=== PATIENT | male | born 1940 | race African-American/Black ===

== ENCOUNTER 2017-05-19 18:38 | Inpatient (IN) | payer MEDICARE ==
[~2017-05-19] VITALS: Ht 172.7 cm; Wt 95.3 kg
[~2017-05-19 18:38] MED LIST: AMARYL1 MG ORAL; ASPIR-LOW81 MG ORAL; DIOVAN80 MG ORAL; LIPITOR80 MG ORAL; METOPROLOL TART25 MG ORAL; PROSCAR5 MG ORAL; TAMSULOSIN HCL0.4 MG ORAL; TOUJEO SOL300 UNIT/1 SQ; VITAMIN D35000 UNIT PO; ZETIA10 MG ORAL
[2017-05-19] MEDS ORDERED: AMLODIPINE BESYL5 MG ORAL (19:11)
[2017-05-19] MEDS ORDERED: CITALOPRAM HBR20 M1 ORAL (19:12)
[2017-05-19] MEDS ORDERED: PLAVIX75 MG ORAL (19:13)
[2017-05-19] MEDS ORDERED: DOCUSATE SODIU100 MG ORAL (19:14)
[2017-05-19] MEDS ORDERED: HYDRALAZINE HCL25 M1 ORAL (19:17)
[2017-05-19] MEDS ORDERED: NOVOLOG100 UNIT/3 (19:19)
[2017-05-19] MEDS ORDERED: LANTUS SOL100 UNIT/1 SUBQ (19:21)
[2017-05-19] MEDS ORDERED: LEVEMIR100 UNIT/1 SUBQ (19:22)
[2017-05-19] MEDS ORDERED: LOSARTAN POTASS25 MG ORAL (19:23)
[2017-05-19] MEDS ORDERED: NAMENDA10 MG ORAL (19:24)
[2017-05-19] MEDS ORDERED: MULTIVITAMINS1 EAC8 ORAL (19:25)
[2017-05-19] MEDS ORDERED: METOPROLOL TART50 M1 ORAL (19:25)
[2017-05-19] MEDS ORDERED: PERIGUARD OINT100 GM TP (19:27)
[2017-05-19 19:28] LABS: ANION GAP 12 mmol/L (5-15); CALCIUM 9.9 MG/DL (8.5-10.1); CARBON DIOXIDE 21 MMOL/L (21-32); CHLORIDE 119 MMOL/L (98-107); CREATININE 5.4 MG/DL (0.55-1.30); POTASSIUM 5.3 MMOL/L (3.5-5.1); SODIUM 152 MMOL/L (136-145)
[2017-05-19] MEDS ORDERED: JANUVIA50 MG ORAL (19:28)
[2017-05-19 19:38] LABS: ALANINE AMINOTRANSFERASE 65 U/L (12-78); ALBUMIN/GLOBULIN RATIO 0.5 (1.0-2.7); ASPARTATE AMINO TRANSFERASE 35 U/L (15-37); CKMB 7.5 NG/ML (0.0-3.6); MAGNESIUM 3.2 MG/DL (1.8-2.4); TOTAL PROTEIN 6.5 G/DL (6.4-8.2)
[2017-05-19 19:48] LABS: REFLEX LACTIC ACID YES OR NO YES
[2017-05-19 20:13] LABS: MEAN CORPUSCULAR HGB CONC 28.9 G/DL (32.0-36.0); MEAN CORPUSCULAR VOLUME 90 FL (80-99); MEAN PLATELET VOLUME 7.3 FL (6.5-10.1); PLATELET COUNT 247 K/UL (150-450); RED BLOOD COUNT 2.84 M/UL (4.70-6.10); RED CELL DISTRIBUTION WIDTH 17.4 % (11.6-14.8); WHITE BLOOD COUNT 13.7 K/UL (4.8-10.8)
[2017-05-19 20:52] LABS: APPEARANCE,URINE SLIGHTLY CLOUDY; KETONES,URINE NEGATIVE (NEGATIVE); LEUKOCYTE ESTERASE ,URINE 1+ (NEGATIVE); NITRITE,URINE NEGATIVE (NEGATIVE); PH,URINE 5 (4.5-8.0); PROTEIN,URINE 3+ (NEGATIVE); UROBILINOGEN,URINE NORMAL MG/DL (0.0-1.0)
[2017-05-19 21:05] LABS: LYMPHOCYTES % (MANUAL) 17 % (20-45); NEUTROPHILS % (MANUAL) 82 % (45-75); TOTAL CELLS COUNTED 100
[2017-05-19 21:06] LABS: ANISOCYTOSIS 1+
[2017-05-19 21:07] LABS: BAND NEUTROPHILS % (MANUAL) 0 % (0-8); BASOPHILS % (MANUAL) 0 % (0-2); EOSINOPHILS % (MANUAL) 0 % (0-3); PLATELET ESTIMATE ADEQUATE; PLATELET MORPHOLOGY NORMAL; POIKILOCYTOSIS 1+; POLYCHROMASIA 1+
[2017-05-19 21:13] LABS: BACTERIA,URINE FEW /HPF
[2017-05-19 21:14] LABS: AMORPHOUS SEDIMENT,UR MODERATE /LPF
[2017-05-19 21:15] VITALS: BP 101/63
[2017-05-19] MEDS ORDERED: cefTRIAXone 1 GM in NS 55 ML IVPB ONE (21:30)
[2017-05-19] MEDS ORDERED: Miralax 17gm pkt ORAL PRN (21:45)
[2017-05-19] MEDS ORDERED: Nitroglycerin Subl 0.4mg tab SL PRN (21:45)
[2017-05-19] MEDS ORDERED: Albuterol/Ipratropium 3ml neb HHN PRN (21:45)
[2017-05-19] MEDS ORDERED: Mylanta II UD 30ml ORAL PRN (21:45)
[2017-05-19] MEDS ORDERED: Sodium Polystyrene Sulfonate Enema RECTAL ONE (22:00)
[2017-05-19 22:21] VITALS: BP 95/50
--- NOTE | 2017-05-19 22:28 | Emergency Room Report ---
History of Present Illness General Chief Complaint: General Complaint Source: Medical Record Present Illness HPI 76-year-old M presents ED for evaluation. Per EMS [facility] Starting today. Accu-Chek also critically high. Patient has history of diabetes and they are having difficulty controlling the blood sugar. Arrival patient is lethargic and not answering questions. Unable to provide any additional history. No fevers or chills. No signs of distress. No other aggravating factors. No other associated symptoms Allergies: Coded Allergies: No Known Allergies (Unverified , 12/28/15) Patient History Past Medical History: DM, HTN, CVA/TIA Pertinent Family History: none Social History: Denies: smoking, alcohol use, drug use Immunizations: UTD Reviewed Nursing Documentation: PMH: Agreed, PSxH: Agreed Nursing Documentation-PMH Past Medical History: No History, Except For Hx Hypertension: Yes Hx Diabetes: Yes Hx Cancer: Yes - Prostate CA Hx Gastrointestinal Problems: No Hx Neurological Problems: Yes Hx Cerebrovascular Accident: Yes Review of Systems All Other Systems: limited Physical Exam Vital Signs Date Time Temp Pulse Resp B/P (MAP) Pulse Ox O2 Delivery O2 Flow Rate FiO2 05/19/17 18:32 97.9 75 16 90/43 96 Room Air Sp02 EP Interpretation: reviewed, normal General Appearance: lethargic Head: normocephalic Eyes: bilateral eye normal inspection, bilateral eye PERRL ENT: normal ENT inspection Neck: normal inspection Respiratory: chest non-tender, lungs clear, normal breath sounds, speaking full sentences Cardiovascular #1: regular rate, rhythm, no edema Gastrointestinal: normal bowel sounds, non tender, soft, non-distended, no guarding, no rebound Rectal: deferred Genitourinary: no CVA tenderness Musculoskeletal: normal inspection Neurologic: other - lethargic Psychiatric: other - lethargic Skin: normal inspection Lymphatic: normal inspection Procedures Critical Care Time Critical Care Time i. I feel this is a highly complex case requiring extensive working including EKG/Rhythm strip, Xray/CT/US, Blood/urine lab work, repeat exams while in ED, and administration of strong opiates/narcotics for pain control, admission to hospital or close patient follow up. Total time: 30 min bedside evaluation and treatment excludes procedures (EKG). Reason for critical care: Hyperglycemia, troponin leak, dehydration, hyperkalemia Possible complications: hypotension, hypertension, SC, shock, arrhythmias, metabolic acidosis, end organ damage, respiratory failure. Interventions: Labs, IV fluids, EKG, chest x-ray. Antibiotics. Insulin. Kayexalate. Aspirin. Course: Patient brought in for altered mental status with Accu-Chek critically high. Glucose an 800 but no evidence of DKA. Troponin elevated. CK elevated. BUN/creatinine elevated. Potassium 5.3. Likely troponin leak. No signs of acute ischemic changes on EKG. Given IV fluids and insulin. Given antibiotics for UTI. Given aspirin and Kayexalate rectally. Consultations: nursing staff, EMS, family Performed by: Dr Lyons Tolerated well condition = critical j. because of unstable vital signs this patient had a condition that could potentially threaten life or limb. I feel this is a critical patient who required my full attention while patient was considered critical. Total Critical Care Time excluding procedures was greater than 35 minutes Medical Decision Making Diagnostic Impression: Primary Impression: Hyperglycemia Additional Impressions: Renal failure Qualified Codes: N17.9 - Acute kidney failure, unspecified Hyperkalemia, diminished renal excretion Elevated troponin Sepsis Qualified Codes: A41.9 - Sepsis, unspecified organism UTI (urinary tract infection) Qualified Codes: N39.0 - Urinary tract infection, site not specified Rhabdomyolysis Qualified Codes: M62.82 - Rhabdomyolysis ER Course Hospital Course 76-year-old male presents to ED with elevated Accu-Chek. Altered. Differential diagnoses include: Pneumonia, UTI, sepsis, dehydration, SC/ unstable angina Clinical course Patient placed on stretcher. On telemetry monitor with stable vitals are ED course. After initial history and physical, I ordered labs, IV fluids, EKG, chest x-ray, blood cultures, UA. Labs - BUN/Cr elevated, noted leukocytosis, CK elevated, troponins 1.2, K 5.3, lactate elevated, UA grossly positive for UTI EKG - NSR, no acute ischemic changes interpreted by me CXR - effusion no definite infiltrate Abx given. Given 30 mL per KG fluid bolus. Given insulin. Given Kayexalate and aspirin rectally. Patient is experiencing rhabdomyolysis likely causing the renal failure and elevated troponin. Case discussed with Dr Sandoval and they agreed to admit patient to their service for further care and support. Dr Reddy will consult I feel this is a highly complex case requiring extensive working including EKG/ Rhythm strip, Xray/CT/US, Blood/urine lab work, repeat exams while in ED, and administration of strong opiates/narcotics for pain control, admission to hospital or close patient follow up. Diagnosis - hyperglycemia, renal failure, hyperkalemia, elevated troponin, sepsis, UTI, rhabdomyolysis Patient admitted to [facility] in critical condition Labs Test 05/19/17 18:40 05/19/17 19:28 05/19/17 20:37 05/19/17 21:00 Sodium Level 152 MMOL/L (136-145) Potassium Level 5.3 MMOL/L (3.5-5.1) Chloride Level 119 MMOL/L (98-107) Carbon Dioxide Level 21 MMOL/L (21-32) Anion Gap 12 mmol/L (5-15) Blood Urea Nitrogen 150 mg/dL (7-18) Creatinine 5.4 MG/DL (0.55-1.30) Estimat Glomerular Filtration Rate mL/min (>60) Glucose Level 844 MG/DL (74-106) Lactic Acid Level 3.30 mmol/L (0.66-2.22) Calcium Level 9.9 MG/DL (8.5-10.1) Magnesium Level 3.2 MG/DL (1.8-2.4) Total Bilirubin 0.2 MG/DL (0.2-1.0) Aspartate Amino Transf (AST/SGOT) 35 U/L (15-37) Alanine Aminotransferase (ALT/SGPT) 65 U/L (12-78) Alkaline Phosphatase 99 U/L (46-116) Total Creatine Kinase 889 U/L (26-308) Creatine Kinase MB 7.5 NG/ML (0.0-3.6) Creatine Kinase MB Relative Index 0.8 Troponin I 1.204 ng/mL (0.000-0.056) Total Protein 6.5 G/DL (6.4-8.2) Albumin 2.2 G/DL (3.4-5.0) Globulin 4.3 g/dL Albumin/Globulin Ratio 0.5 (1.0-2.7) Acetone Level Negative (NEGATIVE) White Blood Count 13.7 K/UL (4.8-10.8) Red Blood Count 2.84 M/UL (4.70-6.10) Hemoglobin 7.4 G/DL (14.2-18.0) Hematocrit 25.5 % (42.0-52.0) Mean Corpuscular Volume 90 FL (80-99) Mean Corpuscular Hemoglobin 26.0 PG (27.0-31.0) Mean Corpuscular Hemoglobin Concent 28.9 G/DL (32.0-36.0) Red Cell Distribution Width 17.4 % (11.6-14.8) Platelet Count 247 K/UL (150-450) Mean Platelet Volume 7.3 FL (6.5-10.1) Neutrophils (%) (Auto) % (45.0-75.0) Lymphocytes (%) (Auto) % (20.0-45.0) Monocytes (%) (Auto) % (1.0-10.0) Eosinophils (%) (Auto) % (0.0-3.0) Basophils (%) (Auto) % (0.0-2.0) Differential Total Cells Counted 100 Neutrophils % (Manual) 82 % (45-75) Lymphocytes % (Manual) 17 % (20-45) Monocytes % (Manual) 1 % (1-10) Eosinophils % (Manual) 0 % (0-3) Basophils % (Manual) 0 % (0-2) Band Neutrophils 0 % (0-8) Platelet Estimate Adequate Platelet Morphology Normal Polychromasia 1+ Poikilocytosis 1+ Anisocytosis 1+ Urine Color Pale yellow Urine Appearance Slightly cloudy Urine pH 5 (4.5-8.0) Urine Specific [place] 1.015 (1.005-1.035) Urine Protein 3+ (NEGATIVE) Urine Glucose (UA) 4+ (NEGATIVE) Urine Ketones Negative (NEGATIVE) Urine Occult Blood 1+ (NEGATIVE) Urine Nitrite Negative (NEGATIVE) Urine Bilirubin Negative (NEGATIVE) Urine Urobilinogen Normal MG/DL (0.0-1.0) Urine Leukocyte Esterase 1+ (NEGATIVE) Urine RBC 2-4 /HPF (0 - 0) Urine WBC 5-10 /HPF (0 - 0) Urine Squamous Epithelial Cells None /LPF (NONE/OCC) Urine Amorphous Sediment Moderate /LPF (NONE) Urine Bacteria Few /HPF (NONE) EKG Diagnostic Results Rate: normal Rhythm: NSR ST Segments: no acute changes ASA given to the pt in ED: Yes Rhythm Strip Diag. Results EP Interpretation: yes Rhythm: NSR, no PVC's, no ectopy Chest X-Ray Diagnostic Results Chest X-Ray Diagnostic Results : Chest X-Ray Ordered: Yes # of Views/Limited/Complete: 1 View Indication: Other - ams EP Interpretation: Yes Interpretation: no consolidation, no pneumothorax, no acute cardiopulmonary disease, other - effusion Impression: Other - effusion Electronically Signed by: Electronically signed by Cali Lyons MD Last Vital Signs Date Time Temp Pulse Resp B/P (MAP) Pulse Ox O2 Delivery O2 Flow Rate FiO2 05/19/17 21:15 97.7 84 18 101/63 100 Room Air Status: improved Disposition: ADMITTED INPATIENT Condition: Critical Referrals: NON PHYSICIAN (PCP) CALI LYONS M.D. May 19, 2017 22:28
[2017-05-19 23:01] VITALS: BP 97/45
[2017-05-19 23:30] VITALS: BP 99/45
[2017-05-19 23:45] VITALS: BP 100/51
[2017-05-19 23:48] LABS: PROTHROMBIN TIME 10.4 SEC (9.30-11.50)
[2017-05-19 23:50] VITALS: BP 100/51
[2017-05-19 23:51] LABS: LACTATE DEHYDROGENASE 245 U/L (81-234); URIC ACID 14.6 MG/DL (2.6-7.2)
[2017-05-20] MEDS ORDERED: Levemir Flexpen SUBQ SCH
[2017-05-20 00:18] LABS: FOLIC ACID 5.5 NG/ML (3.1-17.5); IRON 40 ug/dL (50-175)
[2017-05-20] MEDS ORDERED: Sodium Polystyrene Sulfonate 15gm Powder ONE (01:45)
[2017-05-20] MEDS: Levemir Flexpen SUBQ SCH ×2 (01:49→21:36)
[2017-05-20 02:29] LABS: APPEARANCE,URINE CLOUDY; KETONES,URINE NEGATIVE (NEGATIVE); LEUKOCYTE ESTERASE ,URINE 3+ (NEGATIVE); NITRITE,URINE NEGATIVE (NEGATIVE); PH,URINE 5 (4.5-8.0); PROTEIN,URINE 3+ (NEGATIVE); UROBILINOGEN,URINE NORMAL MG/DL (0.0-1.0)
[2017-05-20 04:00] VITALS: BP 110/51
[2017-05-20 05:43] LABS: MEAN CORPUSCULAR HEMOGLOBIN 26.4 PG (27.0-31.0); MEAN CORPUSCULAR HGB CONC 29.3 G/DL (32.0-36.0); MEAN CORPUSCULAR VOLUME 90 FL (80-99); PLATELET COUNT 189 K/UL (150-450); RED BLOOD COUNT 2.27 M/UL (4.70-6.10); RED CELL DISTRIBUTION WIDTH 18.5 % (11.6-14.8); WHITE BLOOD COUNT 14.7 K/UL (4.8-10.8)
[2017-05-20 06:04] LABS: AMORPHOUS SEDIMENT,UR MANY /LPF; BACTERIA,URINE FEW /HPF; SQUAMOUS EPITHELIAL CELL,UR FEW /LPF (NONE/OCC); WBC,URINE TNTC /HPF (0 - 0)
[2017-05-20 06:10] LABS: ALANINE AMINOTRANSFERASE 68 U/L (12-78); ALBUMIN/GLOBULIN RATIO 0.5 (1.0-2.7); ANION GAP 13 mmol/L (5-15); ASPARTATE AMINO TRANSFERASE 166 U/L (15-37); CALCIUM 8.8 MG/DL (8.5-10.1); CARBON DIOXIDE 16 MMOL/L (21-32); CHLORIDE 130 MMOL/L (98-107); CREATININE 4.3 MG/DL (0.55-1.30); POTASSIUM 4.7 MMOL/L (3.5-5.1); SODIUM 159 MMOL/L (136-145); TOTAL PROTEIN 5.7 G/DL (6.4-8.2)
[2017-05-20 06:19] LABS: CHOLESTEROL 106 MG/DL (< 200); CHOLESTEROL/HDL RATIO 3.1 (3.3-4.4); THYROID STIMULATING HORMONE 0.684 uiU/mL (0.360-3.740)
[2017-05-20 06:26] LABS: HEMOGLOBIN A1C 10.5 % (4.3-6.0)
[2017-05-20 06:38] LABS: TOTAL IRON BINDING CAPACITY 210 ug/dL (250-450)
[2017-05-20] MEDS: NovoLOG Insulin Flexpen SUBQ SCH ×4 (07:05→21:55)
[2017-05-20 08:00] VITALS: BP 117/65
[2017-05-20] MEDS ORDERED: Sodium Polystyrene Sulfonate Enema RECTAL ONE (08:00)
[2017-05-20 08:35] LABS: BAND NEUTROPHILS % (MANUAL) 0 % (0-8); BASOPHILS % (MANUAL) 0 % (0-2); EOSINOPHILS % (MANUAL) 0 % (0-3); LYMPHOCYTES % (MANUAL) 16 % (20-45); NEUTROPHILS % (MANUAL) 82 % (45-75); PLATELET ESTIMATE ADEQUATE; PLATELET MORPHOLOGY NORMAL; TOTAL CELLS COUNTED 100
[2017-05-20 08:45] LABS: ANISOCYTOSIS 4+; POIKILOCYTOSIS 4+
[2017-05-20 08:46] LABS: BLISTER CELL 3+; BURR CELLS 3+; SCHISTOCYTES 2+
[2017-05-20 08:47] LABS: OVALOCYTES 1+
[2017-05-20 08:54] LABS: PATH BLOOD SMEAR/OMC SENT TO PATHOLOGIST
[2017-05-20 08:55] LABS: ERYTHROCYTE SEDIMENTATION RATE 50 MM/HR (0-20)
[2017-05-20] MEDS ORDERED: Heparin 5000 units/ml inj SUBQ SCH (09:00)
[2017-05-20] MEDS ORDERED: Memantine 10mg tab ORAL SCH (09:00)
--- NOTE | 2017-05-20 09:42 | History and Physical ---
History of Present Illness General Date patient seen: May 20, 2017 Reason for Hospitalization: General Complaint Present Illness HPI 76-year-old male with hx of prostate cancer, CVA, diabetes and hypertension presented to ED for evaluation of [facility] His Accu-Chek also critically high. Arrival patient is lethargic and not answering questions. Unable to provide any additional history. No fevers or chills. No signs of distress. No other aggravating factors. No other associated symptoms. Pt was diagnosed to ATN, sepsis probably urinary origin. He is admitted to [facility] for further evaluation. Allergies: Coded Allergies: No Known Allergies (Unverified , 12/28/15) Medication History Scheduled Amlodipine Besylate* (Amlodipine Besylate*), 5 MG ORAL DAILY, (Reported) Aspirin* (Aspir-Low*), 81 MG ORAL DAILY, (Reported) Atorvastatin (Lipitor), 80 MG ORAL BEDTIME, (Reported) Citalopram Hydrobromide* (Citalopram Hbr*), 20 MG ORAL DAILY, (Reported) Clopidogrel Bisulfate* (Plavix*), 75 MG ORAL DAILY, (Reported) Docusate Sodium* (Docusate Sodium*), 100 MG ORAL TWICE A DAY, (Reported) Finasteride* (Proscar*), 5 MG ORAL BEDTIME, (Reported) Hydralazine Hcl* (Hydralazine Hcl*), 25 MG ORAL TID, (Reported) Insulin Detemir (Levemir), 15 UNITS SUBQ BEDTIME, (Reported) Losartan Potassium* (Losartan Potassium*), 25 MG ORAL DAILY, (Reported) Memantine Hcl* (Namenda*), 10 MG ORAL TWICE A DAY, (Reported) Metoprolol Tartrate* (Metoprolol Tartrate*), 50 MG ORAL EVERY 12 HOURS, ( Reported) Multivitamin With Minerals (Multivitamins With Minerals*), 1 TAB ORAL DAILY, ( Reported) Tamsulosin Hcl (Tamsulosin Hcl*), 0.4 MG ORAL BEDTIME, (Reported) Miscellaneous Medications Insulin Aspart* (Novolog*), (Reported) Vit A/Vitamin D3/E/Aloe V/Znox (Periguard Ointment), 100 GM TP, (Reported) Discontinued Medications Cholecalciferol (Vitamin D3) (Vitamin D3), 5,000 UNIT PO BID, (Reported) Discontinued Reason: Medication dose changed Ezetimibe (Zetia*), 10 MG ORAL DAILY, (Reported) Discontinued Reason: MD discontinued med Glimepiride* (Amaryl*), 2 MG ORAL DAILY, (Reported) Discontinued Reason: MD discontinued med Insulin Glargine,Hum.rec.anlog (Naren Cortez), 30 UNIT SQ BEDTIME, (Reported) Discontinued Reason: MD discontinued med Metoprolol Tartrate* (Metoprolol Tartrate*), 25 MG ORAL BID, (Reported) Discontinued Reason: Medication dose changed Sitagliptin (Januvia), 50 MG ORAL DAILY, (Reported) Discontinued Reason: MD discontinued med Valsartan (Diovan), 160 MG ORAL DAILY, (Reported) Discontinued Reason: MD discontinued med Patient History Healthcare decision maker Resuscitation status Full Code Advanced Directive on File Past Medical/Surgical History Past Medical/Surgical History: (1) BPH (benign prostatic hyperplasia) (2) Prostate cancer (3) Diabetes mellitus (4) Elevated CEA Review of Systems All Other Systems: negative except mentioned in HPI Physical Exam General Appearance: cachetic Lines, tubes and drains: peripheral HEENT: normocephalic Neck: non-tender, normal alignment Respiratory/Chest: chest wall non-tender, lungs clear Breasts: no masses Cardiovascular/Chest: normal peripheral pulses, normal rate Abdomen: normal bowel sounds Genitourinary/Rectal: normal genital exam Extremities: normal range of motion Skin Exam: normal pigmentation Last 24 Hour Vital Signs Date Time Temp Pulse Resp B/P (MAP) Pulse Ox O2 Delivery O2 Flow Rate FiO2 05/20/17 08:12 86 05/20/17 08:00 97.5 82 20 117/65 100 Room Air 05/20/17 04:00 97.4 82 20 110/51 100 Room Air 05/20/17 04:00 82 05/19/17 23:55 79 05/19/17 23:50 97.2 79 20 100/51 100 Room Air 05/19/17 23:32 97.7 80 23 99/45 100 Room Air 05/19/17 23:30 97.7 80 23 99/45 100 Room Air 05/19/17 23:01 97.7 79 15 97/45 100 Room Air 05/19/17 22:21 97.7 83 20 95/50 100 Room Air 05/19/17 21:15 97.7 84 18 101/63 100 Room Air 05/19/17 18:32 97.9 75 16 90/43 96 Room Air Laboratory Tests Test 05/19/17 18:40 05/19/17 19:28 05/19/17 20:37 05/19/17 21:00 Prothrombin Time 10.4 SEC (9.30-11.50) Prothromb Time International Ratio 1.0 (0.9-1.1) Activated Partial Thromboplast Time 20 SEC (23-33) L Sodium Level 152 MMOL/L (136-145) H Potassium Level 5.3 MMOL/L (3.5-5.1) H Chloride Level 119 MMOL/L (98-107) H Carbon Dioxide Level 21 MMOL/L (21-32) Anion Gap 12 mmol/L (5-15) Blood Urea Nitrogen 150 mg/dL (7-18) H Creatinine 5.4 MG/DL (0.55-1.30) H Estimat Glomerular Filtration Rate mL/min (>60) Glucose Level 844 MG/DL (74-106) *H Lactic Acid Level 3.30 mmol/L (0.66-2.22) H 4.70 mmol/L (0.66-2.22) H Uric Acid 14.6 MG/DL (2.6-7.2) H Calcium Level 9.9 MG/DL (8.5-10.1) Magnesium Level 3.2 MG/DL (1.8-2.4) H Iron Level 40 ug/dL (50-175) L Total Iron Binding Capacity 210 ug/dL (250-450) L Percent Iron Saturation 19 % (15-50) Unsaturated Iron Binding 170 ug/dL (112-346) Total Bilirubin 0.2 MG/DL (0.2-1.0) Aspartate Amino Transf (AST/SGOT) 35 U/L (15-37) Alanine Aminotransferase (ALT/SGPT) 65 U/L (12-78) Alkaline Phosphatase 99 U/L (46-116) Lactate Dehydrogenase 245 U/L (81-234) H Total Creatine Kinase 912 U/L (26-308) H Creatine Kinase MB 7.5 NG/ML (0.0-3.6) H Creatine Kinase MB Relative Index 0.8 Troponin I 1.204 ng/mL (0.000-0.056) Total Protein 6.5 G/DL (6.4-8.2) Albumin 2.2 G/DL (3.4-5.0) L Globulin 4.3 g/dL Albumin/Globulin Ratio 0.5 (1.0-2.7) L Vitamin B12 Level 1368 PG/ML (193-986) H Folate 5.5 NG/ML (3.1-17.5) Acetone Level Negative (NEGATIVE) White Blood Count 13.7 K/UL (4.8-10.8) H Red Blood Count 2.84 M/UL (4.70-6.10) L Hemoglobin 7.4 G/DL (14.2-18.0) L Hematocrit 25.5 % (42.0-52.0) L Mean Corpuscular Volume 90 FL (80-99) Mean Corpuscular Hemoglobin 26.0 PG (27.0-31.0) L Mean Corpuscular Hemoglobin Concent 28.9 G/DL (32.0-36.0) L Red Cell Distribution Width 17.4 % (11.6-14.8) H Platelet Count 247 K/UL (150-450) Mean Platelet Volume 7.3 FL (6.5-10.1) Neutrophils (%) (Auto) % (45.0-75.0) Lymphocytes (%) (Auto) % (20.0-45.0) Monocytes (%) (Auto) % (1.0-10.0) Eosinophils (%) (Auto) % (0.0-3.0) Basophils (%) (Auto) % (0.0-2.0) Differential Total Cells Counted 100 Neutrophils % (Manual) 82 % (45-75) H Lymphocytes % (Manual) 17 % (20-45) L Monocytes % (Manual) 1 % (1-10) Eosinophils % (Manual) 0 % (0-3) Basophils % (Manual) 0 % (0-2) Band Neutrophils 0 % (0-8) Platelet Estimate Adequate Platelet Morphology Normal Polychromasia 1+ Poikilocytosis 1+ Anisocytosis 1+ Urine Color Pale yellow Urine Appearance Slightly cloudy Urine pH 5 (4.5-8.0) Urine Specific [place] 1.015 (1.005-1.035) Urine Protein 3+ (NEGATIVE) H Urine Glucose (UA) 4+ (NEGATIVE) H Urine Ketones Negative (NEGATIVE) Urine Occult Blood 1+ (NEGATIVE) H Urine Nitrite Negative (NEGATIVE) Urine Bilirubin Negative (NEGATIVE) Urine Urobilinogen Normal MG/DL (0.0-1.0) Urine Leukocyte Esterase 1+ (NEGATIVE) H Urine RBC 2-4 /HPF (0 - 0) H Urine WBC 5-10 /HPF (0 - 0) H Urine Squamous Epithelial Cells None /LPF (NONE/OCC) Urine Amorphous Sediment Moderate /LPF (NONE) H Urine Bacteria Few /HPF (NONE) Test 05/20/17 00:10 05/20/17 03:40 Urine Color Pale yellow Urine Appearance Cloudy Urine pH 5 (4.5-8.0) Urine Specific [place] 1.015 (1.005-1.035) Urine Protein 3+ (NEGATIVE) H Urine Glucose (UA) 4+ (NEGATIVE) H Urine Ketones Negative (NEGATIVE) Urine Occult Blood 5+ (NEGATIVE) H Urine Nitrite Negative (NEGATIVE) Urine Bilirubin Negative (NEGATIVE) Urine Urobilinogen Normal MG/DL (0.0-1.0) Urine Leukocyte Esterase 3+ (NEGATIVE) H Urine RBC 2-4 /HPF (0 - 0) H Urine WBC Tntc /HPF (0 - 0) H Urine Squamous Epithelial Cells Few /LPF (NONE/OCC) Urine Amorphous Sediment Many /LPF (NONE) H Urine Bacteria Few /HPF (NONE) Urine Coarse Granular Casts 5-10 /LPF (NONE) H Urine Eosinophils None seen Urine Random Sodium 24 MEQ/L (20-110) Urine Potassium Timed 38 mmol/L (12-62) White Blood Count 14.7 K/UL (4.8-10.8) H Red Blood Count 2.27 M/UL (4.70-6.10) L Hemoglobin 6.0 G/DL (14.2-18.0) *L Hematocrit 20.4 % (42.0-52.0) L Mean Corpuscular Volume 90 FL (80-99) Mean Corpuscular Hemoglobin 26.4 PG (27.0-31.0) L Mean Corpuscular Hemoglobin Concent 29.3 G/DL (32.0-36.0) L Red Cell Distribution Width 18.5 % (11.6-14.8) H Platelet Count 189 K/UL (150-450) Mean Platelet Volume 8.0 FL (6.5-10.1) Neutrophils (%) (Auto) % (45.0-75.0) Lymphocytes (%) (Auto) % (20.0-45.0) Monocytes (%) (Auto) % (1.0-10.0) Eosinophils (%) (Auto) % (0.0-3.0) Basophils (%) (Auto) % (0.0-2.0) Differential Total Cells Counted 100 Neutrophils % (Manual) 82 % (45-75) H Lymphocytes % (Manual) 16 % (20-45) L Monocytes % (Manual) 2 % (1-10) Eosinophils % (Manual) 0 % (0-3) Basophils % (Manual) 0 % (0-2) Band Neutrophils 0 % (0-8) Platelet Estimate Adequate Platelet Morphology Normal Poikilocytosis 4+ Anisocytosis 4+ Ovalocytes 1+ Blister Cells 3+ [place] Cells 3+ Schistocytes 2+ Erythrocyte Sedimentation Rate 50 MM/HR (0-20) H Reticulocyte Count Pending Sodium Level 159 MMOL/L (136-145) H Potassium Level 4.7 MMOL/L (3.5-5.1) Chloride Level 130 MMOL/L (98-107) H Carbon Dioxide Level 16 MMOL/L (21-32) L Anion Gap 13 mmol/L (5-15) Blood Urea Nitrogen 126 mg/dL (7-18) H Creatinine 4.3 MG/DL (0.55-1.30) H Estimat Glomerular Filtration Rate mL/min (>60) Glucose Level 417 MG/DL (74-106) #H Hemoglobin A1c 10.5 % (4.3-6.0) H Calcium Level 8.8 MG/DL (8.5-10.1) Total Bilirubin 0.2 MG/DL (0.2-1.0) Aspartate Amino Transf (AST/SGOT) 166 U/L (15-37) H Alanine Aminotransferase (ALT/SGPT) 68 U/L (12-78) Alkaline Phosphatase 84 U/L (46-116) Troponin I 0.736 ng/mL (0.000-0.056) Total Protein 5.7 G/DL (6.4-8.2) L Albumin 1.8 G/DL (3.4-5.0) L Globulin 3.9 g/dL Albumin/Globulin Ratio 0.5 (1.0-2.7) L Triglycerides Level 180 MG/DL (0-200) Cholesterol Level 106 MG/DL (< 200) LDL Cholesterol 48 mg/dL (<100) HDL Cholesterol 34 MG/DL (40-60) L Cholesterol/HDL Ratio 3.1 (3.3-4.4) L Free Prostate Specific Antigen Pending Percent Free Prostate Specific Ag Pending Prostate Specific Antigen Total Pending Thyroid Stimulating Hormone (TSH) 0.684 uiU/mL (0.360-3.740) Height (Feet): 5 Height (Inches): 8.00 Weight (Pounds): 192 Medications Current Medications Medications (Trade) Dose Ordered Sig/Altaf Route PRN Reason Start Time Stop Time Status Last Admin Dose Admin Acetaminophen (Tylenol) 650 mg Q4H PRN ORAL fever 05/19/17 21:45 06/18/17 21:44 Al Hydroxide/Mg Hydroxide (Mylanta II) 30 ml Q6H PRN ORAL dyspepsia 05/19/17 21:45 06/18/17 21:44 Albuterol/ Ipratropium (Albuterol/ Ipratropium) 3 ml Q4H PRN HHN Shortness of Breath 05/19/17 21:45 05/24/17 21:44 Amlodipine Besylate (Norvasc) 5 mg DAILY ORAL 05/20/17 09:00 06/19/17 08:59 Atorvastatin Calcium (Lipitor) 80 mg BEDTIME ORAL 05/20/17 21:00 06/19/17 20:59 Clonidine HCl (Catapres) 0.1 mg Q4H PRN ORAL sbp more than 160 05/19/17 21:45 06/18/17 21:44 Clopidogrel Bisulfate (Plavix) 75 mg DAILY ORAL 05/20/17 09:00 06/19/17 08:59 Dextrose (Dextrose 50%) STAT PRN IV Hypoglycemia 05/19/17 21:45 06/18/17 21:44 Finasteride (Proscar) 5 mg BEDTIME ORAL 05/20/17 21:00 06/19/17 20:59 Heparin Sodium (Porcine) (Heparin 5000 units/ml) 5,000 units EVERY 12 HOURS SUBQ 05/20/17 09:00 06/19/17 08:59 Insulin Aspart (NovoLOG) BEFORE MEALS AND HS SUBQ 05/20/17 06:30 06/19/17 06:29 05/20/17 07:05 Insulin Detemir (Levemir) 15 units BEDTIME SUBQ 05/20/17 01:00 06/19/17 00:59 05/20/17 01:49 Memantine (Namenda) 10 mg TWICE A DAY ORAL 05/20/17 09:00 06/19/17 08:59 Nitroglycerin (Ntg) 0.4 mg Q5M X 3 DOSES PRN SL Prn Chest Pain 05/19/17 21:45 06/18/17 21:44 Ondansetron HCl (Zofran) 4 mg Q6H PRN IVP Nausea & Vomiting 05/19/17 21:45 06/18/17 21:44 Polyethylene Glycol (Miralax) 17 gm HSPRN PRN ORAL Constipation 05/19/17 21:45 06/18/17 21:44 Sodium Chloride 1,000 ml @ 100 mls/hr Q10H IVLG 05/20/17 00:00 06/19/17 00:00 05/20/17 01:14 Tamsulosin HCl (Flomax) 0.4 mg BEDTIME ORAL 05/20/17 21:00 06/19/17 20:59 Temazepam (Restoril) 15 mg HSPRN PRN ORAL Insomnia 05/19/17 21:45 05/26/17 21:44 Assessment/Plan Problem List: (1) Encephalopathy acute ICD Codes: G93.40 - Encephalopathy, unspecified SNOMED: 5930401 (2) Sepsis ICD Codes: A41.9 - Sepsis, unspecified organism SNOMED: 72166650, [id number] Qualifiers: Qualified Codes: A41.9 - Sepsis, unspecified organism (3) Prostate cancer ICD Codes: C61 - Malignant neoplasm of prostate SNOMED: 170342706 (4) Diabetes mellitus ICD Codes: E11.9 - Type 2 diabetes mellitus without complications SNOMED: 71295435 (5) ATN (acute tubular necrosis) ICD Codes: N17.0 - Acute kidney failure with tubular necrosis SNOMED: 82866027 Assessment/Plan iv fluids araiza cultures anemia w/u, rule out GI bleeding sliding scale npo swallow study. check electrolytes f/u on PSA and CEA. look for DPOA YOSHI EDOUARD May 20, 2017 09:42
[2017-05-20 10:12] LABS: RETICULOCYTE COUNT 4.6 % (0.0-2.0)
--- NOTE | 2017-05-20 11:08 | Diagnostic Imaging Report ---
Indication: Dyspnea Comparison: None A single view chest radiograph was obtained. Findings: Interstitial opacities are present within the lungs bilaterally. The heart is enlarged. Bones are osteopenic. Impression: Basilar residual opacities possibly scarring or atelectasis. Doubt CHF.
--- NOTE | 2017-05-20 11:12 | Consultation ---
Consult Note Consult Note ID dic # [id number] ALEXANDER FRAZIER M.D. May 20, 2017 11:12
--- NOTE | 2017-05-20 11:17 | Neurology Progress Note ---
Objective Physical Exam Last Vital Signs Date Time Temp Pulse Resp B/P (MAP) Pulse Ox O2 Delivery O2 Flow Rate FiO2 05/20/17 09:00 86 117/65 05/20/17 08:00 97.5 20 100 Room Air Laboratory Tests Test 05/19/17 18:40 05/19/17 19:28 05/19/17 20:37 05/19/17 21:00 Prothrombin Time 10.4 SEC (9.30-11.50) Prothromb Time International Ratio 1.0 (0.9-1.1) Activated Partial Thromboplast Time 20 SEC (23-33) L Sodium Level 152 MMOL/L (136-145) H Potassium Level 5.3 MMOL/L (3.5-5.1) H Chloride Level 119 MMOL/L (98-107) H Carbon Dioxide Level 21 MMOL/L (21-32) Anion Gap 12 mmol/L (5-15) Blood Urea Nitrogen 150 mg/dL (7-18) H Creatinine 5.4 MG/DL (0.55-1.30) H Estimat Glomerular Filtration Rate mL/min (>60) Glucose Level 844 MG/DL (74-106) *H Lactic Acid Level 3.30 mmol/L (0.66-2.22) H 4.70 mmol/L (0.66-2.22) H Uric Acid 14.6 MG/DL (2.6-7.2) H Calcium Level 9.9 MG/DL (8.5-10.1) Magnesium Level 3.2 MG/DL (1.8-2.4) H Iron Level 40 ug/dL (50-175) L Total Iron Binding Capacity 210 ug/dL (250-450) L Percent Iron Saturation 19 % (15-50) Unsaturated Iron Binding 170 ug/dL (112-346) Total Bilirubin 0.2 MG/DL (0.2-1.0) Aspartate Amino Transf (AST/SGOT) 35 U/L (15-37) Alanine Aminotransferase (ALT/SGPT) 65 U/L (12-78) Alkaline Phosphatase 99 U/L (46-116) Lactate Dehydrogenase 245 U/L (81-234) H Total Creatine Kinase 912 U/L (26-308) H Creatine Kinase MB 7.5 NG/ML (0.0-3.6) H Creatine Kinase MB Relative Index 0.8 Troponin I 1.204 ng/mL (0.000-0.056) Total Protein 6.5 G/DL (6.4-8.2) Albumin 2.2 G/DL (3.4-5.0) L Globulin 4.3 g/dL Albumin/Globulin Ratio 0.5 (1.0-2.7) L Vitamin B12 Level 1368 PG/ML (193-986) H Folate 5.5 NG/ML (3.1-17.5) Acetone Level Negative (NEGATIVE) White Blood Count 13.7 K/UL (4.8-10.8) H Red Blood Count 2.84 M/UL (4.70-6.10) L Hemoglobin 7.4 G/DL (14.2-18.0) L Hematocrit 25.5 % (42.0-52.0) L Mean Corpuscular Volume 90 FL (80-99) Mean Corpuscular Hemoglobin 26.0 PG (27.0-31.0) L Mean Corpuscular Hemoglobin Concent 28.9 G/DL (32.0-36.0) L Red Cell Distribution Width 17.4 % (11.6-14.8) H Platelet Count 247 K/UL (150-450) Mean Platelet Volume 7.3 FL (6.5-10.1) Neutrophils (%) (Auto) % (45.0-75.0) Lymphocytes (%) (Auto) % (20.0-45.0) Monocytes (%) (Auto) % (1.0-10.0) Eosinophils (%) (Auto) % (0.0-3.0) Basophils (%) (Auto) % (0.0-2.0) Differential Total Cells Counted 100 Neutrophils % (Manual) 82 % (45-75) H Lymphocytes % (Manual) 17 % (20-45) L Monocytes % (Manual) 1 % (1-10) Eosinophils % (Manual) 0 % (0-3) Basophils % (Manual) 0 % (0-2) Band Neutrophils 0 % (0-8) Platelet Estimate Adequate Platelet Morphology Normal Polychromasia 1+ Poikilocytosis 1+ Anisocytosis 1+ Urine Color Pale yellow Urine Appearance Slightly cloudy Urine pH 5 (4.5-8.0) Urine Specific [place] 1.015 (1.005-1.035) Urine Protein 3+ (NEGATIVE) H Urine Glucose (UA) 4+ (NEGATIVE) H Urine Ketones Negative (NEGATIVE) Urine Occult Blood 1+ (NEGATIVE) H Urine Nitrite Negative (NEGATIVE) Urine Bilirubin Negative (NEGATIVE) Urine Urobilinogen Normal MG/DL (0.0-1.0) Urine Leukocyte Esterase 1+ (NEGATIVE) H Urine RBC 2-4 /HPF (0 - 0) H Urine WBC 5-10 /HPF (0 - 0) H Urine Squamous Epithelial Cells None /LPF (NONE/OCC) Urine Amorphous Sediment Moderate /LPF (NONE) H Urine Bacteria Few /HPF (NONE) Test 05/20/17 00:10 05/20/17 03:40 Urine Color Pale yellow Urine Appearance Cloudy Urine pH 5 (4.5-8.0) Urine Specific [place] 1.015 (1.005-1.035) Urine Protein 3+ (NEGATIVE) H Urine Glucose (UA) 4+ (NEGATIVE) H Urine Ketones Negative (NEGATIVE) Urine Occult Blood 5+ (NEGATIVE) H Urine Nitrite Negative (NEGATIVE) Urine Bilirubin Negative (NEGATIVE) Urine Urobilinogen Normal MG/DL (0.0-1.0) Urine Leukocyte Esterase 3+ (NEGATIVE) H Urine RBC 2-4 /HPF (0 - 0) H Urine WBC Tntc /HPF (0 - 0) H Urine Squamous Epithelial Cells Few /LPF (NONE/OCC) Urine Amorphous Sediment Many /LPF (NONE) H Urine Bacteria Few /HPF (NONE) Urine Coarse Granular Casts 5-10 /LPF (NONE) H Urine Eosinophils None seen Urine Random Sodium 24 MEQ/L (20-110) Urine Potassium Timed 38 mmol/L (12-62) White Blood Count 14.7 K/UL (4.8-10.8) H Red Blood Count 2.27 M/UL (4.70-6.10) L Hemoglobin 6.0 G/DL (14.2-18.0) *L Hematocrit 20.4 % (42.0-52.0) L Mean Corpuscular Volume 90 FL (80-99) Mean Corpuscular Hemoglobin 26.4 PG (27.0-31.0) L Mean Corpuscular Hemoglobin Concent 29.3 G/DL (32.0-36.0) L Red Cell Distribution Width 18.5 % (11.6-14.8) H Platelet Count 189 K/UL (150-450) Mean Platelet Volume 8.0 FL (6.5-10.1) Neutrophils (%) (Auto) % (45.0-75.0) Lymphocytes (%) (Auto) % (20.0-45.0) Monocytes (%) (Auto) % (1.0-10.0) Eosinophils (%) (Auto) % (0.0-3.0) Basophils (%) (Auto) % (0.0-2.0) Differential Total Cells Counted 100 Neutrophils % (Manual) 82 % (45-75) H Lymphocytes % (Manual) 16 % (20-45) L Monocytes % (Manual) 2 % (1-10) Eosinophils % (Manual) 0 % (0-3) Basophils % (Manual) 0 % (0-2) Band Neutrophils 0 % (0-8) Platelet Estimate Adequate Platelet Morphology Normal Poikilocytosis 4+ Anisocytosis 4+ Ovalocytes 1+ Blister Cells 3+ [place] Cells 3+ Schistocytes 2+ Erythrocyte Sedimentation Rate 50 MM/HR (0-20) H Reticulocyte Count 4.6 % (0.0-2.0) H Sodium Level 159 MMOL/L (136-145) H Potassium Level 4.7 MMOL/L (3.5-5.1) Chloride Level 130 MMOL/L (98-107) H Carbon Dioxide Level 16 MMOL/L (21-32) L Anion Gap 13 mmol/L (5-15) Blood Urea Nitrogen 126 mg/dL (7-18) H Creatinine 4.3 MG/DL (0.55-1.30) H Estimat Glomerular Filtration Rate mL/min (>60) Glucose Level 417 MG/DL (74-106) #H Hemoglobin A1c 10.5 % (4.3-6.0) H Calcium Level 8.8 MG/DL (8.5-10.1) Total Bilirubin 0.2 MG/DL (0.2-1.0) Aspartate Amino Transf (AST/SGOT) 166 U/L (15-37) H Alanine Aminotransferase (ALT/SGPT) 68 U/L (12-78) Alkaline Phosphatase 84 U/L (46-116) Troponin I 0.736 ng/mL (0.000-0.056) Total Protein 5.7 G/DL (6.4-8.2) L Albumin 1.8 G/DL (3.4-5.0) L Globulin 3.9 g/dL Albumin/Globulin Ratio 0.5 (1.0-2.7) L Triglycerides Level 180 MG/DL (0-200) Cholesterol Level 106 MG/DL (< 200) LDL Cholesterol 48 mg/dL (<100) HDL Cholesterol 34 MG/DL (40-60) L Cholesterol/HDL Ratio 3.1 (3.3-4.4) L Free Prostate Specific Antigen Pending Percent Free Prostate Specific Ag Pending Prostate Specific Antigen Total Pending Thyroid Stimulating Hormone (TSH) 0.684 uiU/mL (0.360-3.740) Impression/Recommendations Problems: (1) toxic metabolic encephalopathy, multifactorial (2) uti r/o urosepsis (3) recent R MCA stroke with L hemiplegia, dysartria , vascular dementia (4) Renal failure (5) Hyperglycemia (6) Prostate cancer (7) Elevated CEA Status: unchanged Recommendations #[id number] BLAINE KIDD May 20, 2017 11:17
[2017-05-20 12:00] VITALS: BP 112/65
[2017-05-20] MEDS ORDERED: cefTRIAXone 1 GM in D5W 55 ML IVPB SCH (12:00)
[2017-05-20] MEDS ORDERED: Haloperidol 5mg/ml Inj IM ONE (13:30)
--- NOTE | 2017-05-20 14:47 | Consultation ---
Consult Note Consult Note Asked to eval for renal failure- 76-year-old male with hx of prostate cancer, CVA, diabetes and hypertension presented to ED for evaluation of altered level of consciousness at the long term. His Accu-Chek also critically high. Arrival patient is lethargic and not answering questions. Unable to provide any additional history. No fevers or chills. No signs of distress. No other aggravating factors. No other associated symptoms. Pt was diagnosed to ATN, sepsis probably urinary origin. He is admitted to [facility] for further evaluation. Poor historian- Examined data reviewed Assessment/Plan acute renal failure chronic underlying renal failure, ? Diabetic Nephropathy Severe Anemia HypoAlbuminemia, r/o Nephrotic syndrom UTI / Sepsis Basal Atelectasis Prostate cancer h/o CVA toxic metabolic encephalopathy Plan: Hydrate- Transfuse gastric support MONSTER Renal 2 D Echo 24 H urine protein monitor renal parameters YOLANDA NAVA May 20, 2017 14:47
[2017-05-20 15:20] VITALS: BP 123/67
--- NOTE | 2017-05-20 16:49 | Cardiology Progress Note ---
Assessment/Plan Assessment/Plan encephalopatrhy \hs fo recent cva awith aphasia dm brittle renal insuf / azotemia htn hs abn cardiac enzyme dehydration [id number] Objective Last 24 Hour Vital Signs Date Time Temp Pulse Resp B/P (MAP) Pulse Ox O2 Delivery O2 Flow Rate FiO2 05/20/17 15:20 99 05/20/17 15:20 97.5 99 20 123/67 100 Room Air 05/20/17 12:00 97.5 82 20 112/65 100 Room Air 05/20/17 12:00 87 05/20/17 11:56 85 20 Room Air 21 05/20/17 09:00 86 117/65 05/20/17 08:12 86 05/20/17 08:00 97.5 82 20 117/65 100 Room Air 05/20/17 04:00 97.4 82 20 110/51 100 Room Air 05/20/17 04:00 82 05/19/17 23:55 79 05/19/17 23:50 97.2 79 20 100/51 100 Room Air 05/19/17 23:32 97.7 80 23 99/45 100 Room Air 05/19/17 23:30 97.7 80 23 99/45 100 Room Air 05/19/17 23:01 97.7 79 15 97/45 100 Room Air 05/19/17 22:21 97.7 83 20 95/50 100 Room Air 05/19/17 21:15 97.7 84 18 101/63 100 Room Air 05/19/17 18:32 97.9 75 16 90/43 96 Room Air Laboratory Tests Test 05/19/17 18:40 05/19/17 19:28 05/19/17 20:37 05/19/17 21:00 Prothrombin Time 10.4 SEC (9.30-11.50) Prothromb Time International Ratio 1.0 (0.9-1.1) Activated Partial Thromboplast Time 20 SEC (23-33) L Sodium Level 152 MMOL/L (136-145) H Potassium Level 5.3 MMOL/L (3.5-5.1) H Chloride Level 119 MMOL/L (98-107) H Carbon Dioxide Level 21 MMOL/L (21-32) Anion Gap 12 mmol/L (5-15) Blood Urea Nitrogen 150 mg/dL (7-18) H Creatinine 5.4 MG/DL (0.55-1.30) H Estimat Glomerular Filtration Rate mL/min (>60) Glucose Level 844 MG/DL (74-106) *H Lactic Acid Level 3.30 mmol/L (0.66-2.22) H 4.70 mmol/L (0.66-2.22) H Uric Acid 14.6 MG/DL (2.6-7.2) H Calcium Level 9.9 MG/DL (8.5-10.1) Magnesium Level 3.2 MG/DL (1.8-2.4) H Iron Level 40 ug/dL (50-175) L Total Iron Binding Capacity 210 ug/dL (250-450) L Percent Iron Saturation 19 % (15-50) Unsaturated Iron Binding 170 ug/dL (112-346) Total Bilirubin 0.2 MG/DL (0.2-1.0) Aspartate Amino Transf (AST/SGOT) 35 U/L (15-37) Alanine Aminotransferase (ALT/SGPT) 65 U/L (12-78) Alkaline Phosphatase 99 U/L (46-116) Lactate Dehydrogenase 245 U/L (81-234) H Total Creatine Kinase 912 U/L (26-308) H Creatine Kinase MB 7.5 NG/ML (0.0-3.6) H Creatine Kinase MB Relative Index 0.8 Troponin I 1.204 ng/mL (0.000-0.056) Total Protein 6.5 G/DL (6.4-8.2) Albumin 2.2 G/DL (3.4-5.0) L Globulin 4.3 g/dL Albumin/Globulin Ratio 0.5 (1.0-2.7) L Vitamin B12 Level 1368 PG/ML (193-986) H Folate 5.5 NG/ML (3.1-17.5) Acetone Level Negative (NEGATIVE) White Blood Count 13.7 K/UL (4.8-10.8) H Red Blood Count 2.84 M/UL (4.70-6.10) L Hemoglobin 7.4 G/DL (14.2-18.0) L Hematocrit 25.5 % (42.0-52.0) L Mean Corpuscular Volume 90 FL (80-99) Mean Corpuscular Hemoglobin 26.0 PG (27.0-31.0) L Mean Corpuscular Hemoglobin Concent 28.9 G/DL (32.0-36.0) L Red Cell Distribution Width 17.4 % (11.6-14.8) H Platelet Count 247 K/UL (150-450) Mean Platelet Volume 7.3 FL (6.5-10.1) Neutrophils (%) (Auto) % (45.0-75.0) Lymphocytes (%) (Auto) % (20.0-45.0) Monocytes (%) (Auto) % (1.0-10.0) Eosinophils (%) (Auto) % (0.0-3.0) Basophils (%) (Auto) % (0.0-2.0) Differential Total Cells Counted 100 Neutrophils % (Manual) 82 % (45-75) H Lymphocytes % (Manual) 17 % (20-45) L Monocytes % (Manual) 1 % (1-10) Eosinophils % (Manual) 0 % (0-3) Basophils % (Manual) 0 % (0-2) Band Neutrophils 0 % (0-8) Platelet Estimate Adequate Platelet Morphology Normal Polychromasia 1+ Poikilocytosis 1+ Anisocytosis 1+ Urine Color Pale yellow Urine Appearance Slightly cloudy Urine pH 5 (4.5-8.0) Urine Specific [place] 1.015 (1.005-1.035) Urine Protein 3+ (NEGATIVE) H Urine Glucose (UA) 4+ (NEGATIVE) H Urine Ketones Negative (NEGATIVE) Urine Occult Blood 1+ (NEGATIVE) H Urine Nitrite Negative (NEGATIVE) Urine Bilirubin Negative (NEGATIVE) Urine Urobilinogen Normal MG/DL (0.0-1.0) Urine Leukocyte Esterase 1+ (NEGATIVE) H Urine RBC 2-4 /HPF (0 - 0) H Urine WBC 5-10 /HPF (0 - 0) H Urine Squamous Epithelial Cells None /LPF (NONE/OCC) Urine Amorphous Sediment Moderate /LPF (NONE) H Urine Bacteria Few /HPF (NONE) Test 05/20/17 00:10 05/20/17 03:40 Urine Color Pale yellow Urine Appearance Cloudy Urine pH 5 (4.5-8.0) Urine Specific [place] 1.015 (1.005-1.035) Urine Protein 3+ (NEGATIVE) H Urine Glucose (UA) 4+ (NEGATIVE) H Urine Ketones Negative (NEGATIVE) Urine Occult Blood 5+ (NEGATIVE) H Urine Nitrite Negative (NEGATIVE) Urine Bilirubin Negative (NEGATIVE) Urine Urobilinogen Normal MG/DL (0.0-1.0) Urine Leukocyte Esterase 3+ (NEGATIVE) H Urine RBC 2-4 /HPF (0 - 0) H Urine WBC Tntc /HPF (0 - 0) H Urine Squamous Epithelial Cells Few /LPF (NONE/OCC) Urine Amorphous Sediment Many /LPF (NONE) H Urine Bacteria Few /HPF (NONE) Urine Coarse Granular Casts 5-10 /LPF (NONE) H Urine Eosinophils None seen Urine Random Sodium 24 MEQ/L (20-110) Urine Potassium Timed 38 mmol/L (12-62) White Blood Count 14.7 K/UL (4.8-10.8) H Red Blood Count 2.27 M/UL (4.70-6.10) L Hemoglobin 6.0 G/DL (14.2-18.0) *L Hematocrit 20.4 % (42.0-52.0) L Mean Corpuscular Volume 90 FL (80-99) Mean Corpuscular Hemoglobin 26.4 PG (27.0-31.0) L Mean Corpuscular Hemoglobin Concent 29.3 G/DL (32.0-36.0) L Red Cell Distribution Width 18.5 % (11.6-14.8) H Platelet Count 189 K/UL (150-450) Mean Platelet Volume 8.0 FL (6.5-10.1) Neutrophils (%) (Auto) % (45.0-75.0) Lymphocytes (%) (Auto) % (20.0-45.0) Monocytes (%) (Auto) % (1.0-10.0) Eosinophils (%) (Auto) % (0.0-3.0) Basophils (%) (Auto) % (0.0-2.0) Differential Total Cells Counted 100 Neutrophils % (Manual) 82 % (45-75) H Lymphocytes % (Manual) 16 % (20-45) L Monocytes % (Manual) 2 % (1-10) Eosinophils % (Manual) 0 % (0-3) Basophils % (Manual) 0 % (0-2) Band Neutrophils 0 % (0-8) Platelet Estimate Adequate Platelet Morphology Normal Poikilocytosis 4+ Anisocytosis 4+ Ovalocytes 1+ Blister Cells 3+ [place] Cells 3+ Schistocytes 2+ Erythrocyte Sedimentation Rate 50 MM/HR (0-20) H Reticulocyte Count 4.6 % (0.0-2.0) H Sodium Level 159 MMOL/L (136-145) H Potassium Level 4.7 MMOL/L (3.5-5.1) Chloride Level 130 MMOL/L (98-107) H Carbon Dioxide Level 16 MMOL/L (21-32) L Anion Gap 13 mmol/L (5-15) Blood Urea Nitrogen 126 mg/dL (7-18) H Creatinine 4.3 MG/DL (0.55-1.30) H Estimat Glomerular Filtration Rate mL/min (>60) Glucose Level 417 MG/DL (74-106) #H Hemoglobin A1c 10.5 % (4.3-6.0) H Calcium Level 8.8 MG/DL (8.5-10.1) Ferritin 177 NG/ML (8-388) Total Bilirubin 0.2 MG/DL (0.2-1.0) Aspartate Amino Transf (AST/SGOT) 166 U/L (15-37) H Alanine Aminotransferase (ALT/SGPT) 68 U/L (12-78) Alkaline Phosphatase 84 U/L (46-116) Troponin I 0.736 ng/mL (0.000-0.056) Total Protein 5.7 G/DL (6.4-8.2) L Albumin 1.8 G/DL (3.4-5.0) L Globulin 3.9 g/dL Albumin/Globulin Ratio 0.5 (1.0-2.7) L Triglycerides Level 180 MG/DL (0-200) Cholesterol Level 106 MG/DL (< 200) LDL Cholesterol 48 mg/dL (<100) HDL Cholesterol 34 MG/DL (40-60) L Cholesterol/HDL Ratio 3.1 (3.3-4.4) L Free Prostate Specific Antigen Pending Percent Free Prostate Specific Ag Pending Prostate Specific Antigen Total Pending Thyroid Stimulating Hormone (TSH) 0.684 uiU/mL (0.360-3.740) CRUZ FLEMING May 20, 2017 16:49
[2017-05-20] MEDS: Pantoprazole Inj IVP SCH (17:32)
[2017-05-20 20:00] VITALS: BP 127/78
[2017-05-20] MEDS: Atorvastatin 80mg tab ORAL SCH (21:00)
[2017-05-20] MEDS: Tamsulosin 0.4mg cap ORAL SCH (21:00)
--- NOTE | 2017-05-20 21:45 | Consultation ---
DATE OF CONSULTATION: 05/20/2017 INFECTIOUS DISEASES CONSULTATION CONSULTING PHYSICIAN: Carmine Campoverde M.D. REFERRING PHYSICIAN: Kel Sandoval M.D. REASON FOR CONSULTATION: Evaluation of the patient for sepsis, UTI, and antibiotic management. HISTORY OF PRESENT ILLNESS: The patient is a 76-year-old male with multiple medical problems, who was admitted to this medical center because of worsening of mental status and letharginess. The patient's lab is suggestive of pyuria and urinary tract infection. Also, the patient was found to have leukocytosis. Infectious Disease consultation has been requested for further evaluation of the patient and antibiotic management. PAST MEDICAL HISTORY: 1. Significant for CVA on 04/10/2017. 2. History of left-sided weakness. 3. Dementia. 4. Hyperlipidemia. 5. Hypertension. 6. Diabetes. 7. History of prostate cancer. 8. History of renal insufficiency. 9. Anemia. MEDICATIONS: The patient received one dose of Rocephin in the emergency room. FAMILY HISTORY: Noncontributory. SOCIAL HISTORY: The patient lived in a retirement prior to admission. REVIEW OF SYSTEMS: Difficult as the patient has been unable to provide detailed information. However, the patient does not have cough or abdominal pain.EXTREMITIES: No cyanosis. NEUROLOGIC: Awake and lethargic. PHYSICAL EXAMINATION: VITAL SIGNS: Temperature 97.5, blood pressure 117/65, pulse 82, and respiratory rate 18. HEENT: No pale conjunctivae. No icterus. NECK: No lymphadenopathy. CHEST: Clear. HEART: S1 and S2. ABDOMEN: Soft. EXTREMITIES: No cyanosis. GENITOURINARY: Pond catheter in place (placed in the emergency room). NEUROLOGIC: Awake and lethargic. LABORATORY AND DIAGNOSTIC DATA: Labs, white blood cells 14, hemoglobin 6, and platelets 189,000. UA, white blood cells too numerous to count. BUN 126 and creatinine 4.3. Lactic acid is 4.7. AST 166. CK 0.736. Abdominal x-ray is unremarkable, renal cyst. Chest x-ray is pending. ASSESSMENT: 1. Sepsis. 2. Leukocytosis. 3. Probable urinary tract infection/pyuria. 4. Lactic acidosis. 5. Mild elevation of AST, rule out chronic hepatitis B/C. 6. Positive cardiac enzymes. 7. Acute renal insufficiency, superimposed on chronic kidney disease. 8. Anemia. PLAN: 1. We will continue the patient on IV Rocephin day #2. 2. Monitor CBC. 3. Monitor BMP. 4. Monitor cultures, blood and urine. 5. We will obtain a chest x-ray. 6. We will order hepatitis panel. 7. Monitor lactic acid. Based on the patient's clinical course and labs, we will do further recommendations. Thank you, Dr. Sandoval, for allowing me to participate in the care of this patient. I will follow the patient with you during this hospitalization. Carmine Campoverde M.D. DR: LINCOLN JOB#: [id number] CC:
--- NOTE | 2017-05-20 22:30 | Consultation ---
DATE OF CONSULTATION: 05/19/2017 NEUROLOGICAL CONSULTATION CONSULTING PHYSICIAN: Feng Arzate M.D. REQUESTING PHYSICIAN: Kel Sandoval M.D. HISTORY OF PRESENT ILLNESS: This 76-year-old gentleman is seen in neurological consultation to evaluate the new changes in mental status. The patient is unable to provide with the history and this was obtained from his , who was present during this exam as well as from medical records. Note that the patient who is a resident of a longterm home has stopped eating, reduced amount of verbal output, became increasingly unresponsive within three days prior to admission. Paramedics were called to the scene. He was found to be not alert, reacting to painful stimulation only. Anthony Coma Scale of 8. Per staff of nursing facility, the patient's blood sugar was in 500s. They were unable to control properly with the blood sugar fluctuating, very low and then very high. His insulin was being adjusted. The patient was transported to the emergency room. His blood pressure was 90/43 and temperature 97.9. EKG, normal sinus rhythm. Chest x-ray, no evidence of infiltrates, signs of effusion noted. His initial lab work included blood sugar 844, sodium 152, potassium 5.3, chloride 119, BUN of 150, and creatinine 5.4. Elevated magnesium 3.2. CPK 889 with CK-MB of 7.5. Troponin 1.204 and albumin of 2.2. Normal B12, folate, and TSH. Unremarkable lipid panel. Repeat troponin 0.736. CPK up at 912 with alkaline phosphatase 245 and AST 166. Lactic acid 4.70. Hemoglobin A1c 10.5. His urinalysis, WBC too numerous to count, leukocyte esterase 3.5, and protein 3+. Following admission, the patient was started on IV fluids and antibiotics. He became more responsive, still being unable to formulate sentences. The patient's informed me that last year, the patient had evidence of dementia. He was ambulatory using cane, but on 04/10/2017, he had an acute stroke, caused left hemiplegia, slight dysphagia, but significant dysarthria, word-finding difficulties, speech became limited to single words. He was able to follow simple commands. The patient has a history of osteoarthritis, prostate CA, history of insulin-dependent diabetes mellitus, hypertension, and elevated CEA. MEDICATIONS: Treatment prior to admission included amlodipine, aspirin, atorvastatin, citalopram, Plavix, Proscar, hydralazine, insulin, losartan, Namenda, metoprolol, and tamsulosin. Since admission, the patient was NPO with treatment given all through IV. ALLERGIES: None reported. SOCIAL HISTORY: Now resident of a nursing facility. He has a , who visits him daily. FAMILY HISTORY: Noncontributory. REVIEW OF SYMPTOMS: Unable to obtain due to the patient's status. PHYSICAL EXAMINATION: GENERAL: This is a well-developed, ill-appearing man, not in acute distress, lying in bed, intermittently moaning and groaning. VITAL SIGNS: Now stable. Blood pressure 117/65, temperature 97.5, and heart rate of 86. HEENT: Head normocephalic. No evidence of trauma. Eyes, ears, and throat are clear. NECK: Supple. No meningeal signs. MUSCULOSKELETAL EXAMINATION: No deformities. Peripheral pulses 1+ and symmetric. MENTAL STATUS: The patient is drowsy, but arousable, opens eyes. He has a brief eye contact. He was able to follow few simple commands, although his comprehension appears limited. He was mumbling and incoherent. No clear evidence of word production. CRANIAL NERVE II: Pupils both responding to light and accommodation. Extraocular movement full range. CRANIAL NERVE V: Normal corneal responses. CRANIAL NERVE VII: Drooped left nasolabial fold. CRANIAL NERVE VIII: Slight decrease in hearing. CRANIAL NERVES IX THROUGH XII: Tongue is in midline. Reduced gag response. MOTOR EXAMINATION: Rigid left upper and left lower extremity with no spontaneous movement. Able to lift against the gravity right arm and right leg. Deep tendon reflexes depressed bilaterally. Positive Babinski in the left. SENSORY EXAMINATION: Inconsistent response to pin stimulation. GAIT: Not tested. IMPRESSION: 1. Severe toxic metabolic encephalopathy due to significant hyperglycemia, renal failure, and underlying sepsis. 2. Urinary tract infection, rule out urosepsis. 3. Recent massive right middle cerebral artery distribution stroke with left hemiplegia, dysarthria, and dysphagia. 4. Vascular dementia. 5. History of prostate cancer. 6. Insulin-dependent diabetes mellitus, out of control. 7. Hypertension. RECOMMENDATIONS: 1. Hold all unessential treatment including Namenda. 2. Bedside swallow study, to start on p.o. medications. 3. Baseline CT of the brain without contrast. 4. Continue IV fluids and antibiotics to cover underlying infection and control diabetes. 5. Monitor kidney function. 6. When able to use medication p.o., continue with Ecotrin/Plavix and statins. Thank you for allowing me to see this interesting patient in neurological consultation. Feng Arzate M.D. DR: KELVIN JOB#: [id number] CC:
--- NOTE | 2017-05-20 23:01 | Consultation ---
History of Present Illness General Chief Complaint: General Complaint Present Illness HPI 76-year-old male with multiple medical problems, who was admitted to this medical center because of worsening of mental status. the pt has episodes of agitation and is unable to do CT he was was given haldol and it was ineffective the pt is confused and unable to provide hx Allergies: Coded Allergies: No Known Allergies (Unverified , 12/28/15) Medication History Scheduled Amlodipine Besylate* (Amlodipine Besylate*), 5 MG ORAL DAILY, (Reported) Aspirin* (Aspir-Low*), 81 MG ORAL DAILY, (Reported) Atorvastatin (Lipitor), 80 MG ORAL BEDTIME, (Reported) Citalopram Hydrobromide* (Citalopram Hbr*), 20 MG ORAL DAILY, (Reported) Clopidogrel Bisulfate* (Plavix*), 75 MG ORAL DAILY, (Reported) Docusate Sodium* (Docusate Sodium*), 100 MG ORAL TWICE A DAY, (Reported) Finasteride* (Proscar*), 5 MG ORAL BEDTIME, (Reported) Hydralazine Hcl* (Hydralazine Hcl*), 25 MG ORAL TID, (Reported) Insulin Detemir (Levemir), 15 UNITS SUBQ BEDTIME, (Reported) Losartan Potassium* (Losartan Potassium*), 25 MG ORAL DAILY, (Reported) Memantine Hcl* (Namenda*), 10 MG ORAL TWICE A DAY, (Reported) Metoprolol Tartrate* (Metoprolol Tartrate*), 50 MG ORAL EVERY 12 HOURS, ( Reported) Multivitamin With Minerals (Multivitamins With Minerals*), 1 TAB ORAL DAILY, ( Reported) Tamsulosin Hcl (Tamsulosin Hcl*), 0.4 MG ORAL BEDTIME, (Reported) Miscellaneous Medications Insulin Aspart* (Novolog*), (Reported) Vit A/Vitamin D3/E/Aloe V/Znox (Periguard Ointment), 100 GM TP, (Reported) Discontinued Medications Cholecalciferol (Vitamin D3) (Vitamin D3), 5,000 UNIT PO BID, (Reported) Discontinued Reason: Medication dose changed Ezetimibe (Zetia*), 10 MG ORAL DAILY, (Reported) Discontinued Reason: MD discontinued med Glimepiride* (Amaryl*), 2 MG ORAL DAILY, (Reported) Discontinued Reason: MD discontinued med Insulin Glargine,Hum.rec.anlog (Naren Cortez), 30 UNIT SQ BEDTIME, (Reported) Discontinued Reason: MD discontinued med Metoprolol Tartrate* (Metoprolol Tartrate*), 25 MG ORAL BID, (Reported) Discontinued Reason: Medication dose changed Sitagliptin (Januvia), 50 MG ORAL DAILY, (Reported) Discontinued Reason: MD discontinued med Valsartan (Diovan), 160 MG ORAL DAILY, (Reported) Discontinued Reason: MD discontinued med Patient History History Provided By: Patient, Medical Record Healthcare decision maker Resuscitation status Full Code Advanced Directive on File Family History Family History: (1) Generalized weakness (2) Diarrhea (3) Anemia (4) Hypoalbuminemia (5) LFTs abnormal (6) Hypertension, accelerated (7) Hypercholesterolemia (8) Abdominal pain (9) Hyperkalemia, diminished renal excretion (10) Rhabdomyolysis (11) Sepsis (12) UTI (urinary tract infection) (13) Renal failure (14) Altered mental status (15) Diabetes mellitus (16) Prostate cancer (17) Elevated CEA (18) BPH (benign prostatic hyperplasia) (19) Encephalopathy acute (20) ATN (acute tubular necrosis) (21) Hyperglycemia (22) Elevated troponin (23) uti r/o urosepsis (24) toxic metabolic encephalopathy, multifactorial (25) recent R MCA stroke with L hemiplegia, dysartria , vascular dementia Review of Systems Psychiatric: Reports: prior hx, anxiety, emotional problems Physical Exam General Appearance: no apparent distress, lethargic, confused Neurologic: disoriented, unresponsiveness, depressed affect Last 24 Hour Vital Signs Date Time Temp Pulse Resp B/P (MAP) Pulse Ox O2 Delivery O2 Flow Rate FiO2 05/20/17 20:00 97.9 107 20 127/78 100 Room Air 05/20/17 19:24 101 20 Room Air 05/20/17 15:20 99 05/20/17 15:20 97.5 99 20 123/67 100 Room Air 05/20/17 12:00 97.5 82 20 112/65 100 Room Air 05/20/17 12:00 87 05/20/17 11:56 85 20 Room Air 21 05/20/17 09:00 86 117/65 05/20/17 08:12 86 05/20/17 08:00 97.5 82 20 117/65 100 Room Air 05/20/17 04:00 97.4 82 20 110/51 100 Room Air 05/20/17 04:00 82 05/19/17 23:55 79 05/19/17 23:50 97.2 79 20 100/51 100 Room Air 05/19/17 23:32 97.7 80 23 99/45 100 Room Air 05/19/17 23:30 97.7 80 23 99/45 100 Room Air Intake and Output 05/20/17 05/21/17 19:00 07:00 Intake Total 1160 ml Output Total 800 ml Balance 360 ml IV Total 1160 ml Output Urine Total 800 ml Laboratory Tests Test 05/20/17 00:10 05/20/17 03:40 Urine Color Pale yellow Urine Appearance Cloudy Urine pH 5 (4.5-8.0) Urine Specific [place] 1.015 (1.005-1.035) Urine Protein 3+ (NEGATIVE) H Urine Glucose (UA) 4+ (NEGATIVE) H Urine Ketones Negative (NEGATIVE) Urine Occult Blood 5+ (NEGATIVE) H Urine Nitrite Negative (NEGATIVE) Urine Bilirubin Negative (NEGATIVE) Urine Urobilinogen Normal MG/DL (0.0-1.0) Urine Leukocyte Esterase 3+ (NEGATIVE) H Urine RBC 2-4 /HPF (0 - 0) H Urine WBC Tntc /HPF (0 - 0) H Urine Squamous Epithelial Cells Few /LPF (NONE/OCC) Urine Amorphous Sediment Many /LPF (NONE) H Urine Bacteria Few /HPF (NONE) Urine Coarse Granular Casts 5-10 /LPF (NONE) H Urine Eosinophils None seen Urine Random Sodium 24 MEQ/L (20-110) Urine Potassium Timed 38 mmol/L (12-62) White Blood Count 14.7 K/UL (4.8-10.8) H Red Blood Count 2.27 M/UL (4.70-6.10) L Hemoglobin 6.0 G/DL (14.2-18.0) *L Hematocrit 20.4 % (42.0-52.0) L Mean Corpuscular Volume 90 FL (80-99) Mean Corpuscular Hemoglobin 26.4 PG (27.0-31.0) L Mean Corpuscular Hemoglobin Concent 29.3 G/DL (32.0-36.0) L Red Cell Distribution Width 18.5 % (11.6-14.8) H Platelet Count 189 K/UL (150-450) Mean Platelet Volume 8.0 FL (6.5-10.1) Neutrophils (%) (Auto) % (45.0-75.0) Lymphocytes (%) (Auto) % (20.0-45.0) Monocytes (%) (Auto) % (1.0-10.0) Eosinophils (%) (Auto) % (0.0-3.0) Basophils (%) (Auto) % (0.0-2.0) Differential Total Cells Counted 100 Neutrophils % (Manual) 82 % (45-75) H Lymphocytes % (Manual) 16 % (20-45) L Monocytes % (Manual) 2 % (1-10) Eosinophils % (Manual) 0 % (0-3) Basophils % (Manual) 0 % (0-2) Band Neutrophils 0 % (0-8) Platelet Estimate Adequate Platelet Morphology Normal Poikilocytosis 4+ Anisocytosis 4+ Ovalocytes 1+ Blister Cells 3+ [place] Cells 3+ Schistocytes 2+ Erythrocyte Sedimentation Rate 50 MM/HR (0-20) H Reticulocyte Count 4.6 % (0.0-2.0) H Sodium Level 159 MMOL/L (136-145) H Potassium Level 4.7 MMOL/L (3.5-5.1) Chloride Level 130 MMOL/L (98-107) H Carbon Dioxide Level 16 MMOL/L (21-32) L Anion Gap 13 mmol/L (5-15) Blood Urea Nitrogen 126 mg/dL (7-18) H Creatinine 4.3 MG/DL (0.55-1.30) H Estimat Glomerular Filtration Rate mL/min (>60) Glucose Level 417 MG/DL (74-106) #H Hemoglobin A1c 10.5 % (4.3-6.0) H Calcium Level 8.8 MG/DL (8.5-10.1) Ferritin 177 NG/ML (8-388) Total Bilirubin 0.2 MG/DL (0.2-1.0) Aspartate Amino Transf (AST/SGOT) 166 U/L (15-37) H Alanine Aminotransferase (ALT/SGPT) 68 U/L (12-78) Alkaline Phosphatase 84 U/L (46-116) Troponin I 0.736 ng/mL (0.000-0.056) Total Protein 5.7 G/DL (6.4-8.2) L Albumin 1.8 G/DL (3.4-5.0) L Globulin 3.9 g/dL Albumin/Globulin Ratio 0.5 (1.0-2.7) L Triglycerides Level 180 MG/DL (0-200) Cholesterol Level 106 MG/DL (< 200) LDL Cholesterol 48 mg/dL (<100) HDL Cholesterol 34 MG/DL (40-60) L Cholesterol/HDL Ratio 3.1 (3.3-4.4) L Free Prostate Specific Antigen Pending Percent Free Prostate Specific Ag Pending Prostate Specific Antigen Total Pending Thyroid Stimulating Hormone (TSH) 0.684 uiU/mL (0.360-3.740) Height (Feet): 5 Height (Inches): 8.00 Weight (Pounds): 192 Medications Current Medications Medications (Trade) Dose Ordered Sig/Altaf Route PRN Reason Start Time Stop Time Status Last Admin Dose Admin Acetaminophen (Tylenol) 650 mg Q4H PRN ORAL fever 05/19/17 21:45 06/18/17 21:44 Albuterol/ Ipratropium (Albuterol/ Ipratropium) 3 ml Q4H PRN HHN Shortness of Breath 05/19/17 21:45 05/24/17 21:44 Amlodipine Besylate (Norvasc) 2.5 mg DAILY ORAL 05/21/17 09:00 06/20/17 08:59 Atorvastatin Calcium (Lipitor) 80 mg BEDTIME ORAL 05/20/17 21:00 06/19/17 20:59 Ceftriaxone Sodium 1 gm/ Dextrose 55 ml @ 110 mls/hr Q24H IVPB 05/20/17 12:00 05/27/17 11:59 05/20/17 12:37 Clonidine HCl (Catapres) 0.1 mg Q4H PRN ORAL sbp more than 160 05/19/17 21:45 06/18/17 21:44 Clopidogrel Bisulfate (Plavix) 75 mg DAILY ORAL 05/20/17 09:00 06/19/17 08:59 Dextrose (Dextrose 50%) STAT PRN IV Hypoglycemia 05/19/17 21:45 06/18/17 21:44 Finasteride (Proscar) 5 mg BEDTIME ORAL 05/20/17 21:00 06/19/17 20:59 Insulin Aspart (NovoLOG) BEFORE MEALS AND HS SUBQ 05/20/17 06:30 06/19/17 06:29 05/20/17 21:55 Insulin Detemir (Levemir) 15 units BEDTIME SUBQ 05/20/17 01:00 06/19/17 00:59 05/20/17 21:36 Nitroglycerin (Ntg) 0.4 mg Q5M X 3 DOSES PRN SL Prn Chest Pain 05/19/17 21:45 06/18/17 21:44 Ondansetron HCl (Zofran) 4 mg Q6H PRN IVP Nausea & Vomiting 05/19/17 21:45 06/18/17 21:44 Pantoprazole (Protonix) 40 mg EVERY 12 HOURS IVP 05/20/17 16:00 06/19/17 15:59 05/20/17 17:32 Polyethylene Glycol (Miralax) 17 gm HSPRN PRN ORAL Constipation 05/19/17 21:45 06/18/17 21:44 Sodium Chloride 1,000 ml @ 150 mls/hr Q6H40M IV 05/20/17 10:00 06/19/17 09:59 05/20/17 17:32 Tamsulosin HCl (Flomax) 0.4 mg BEDTIME ORAL 05/20/17 21:00 06/19/17 20:59 Temazepam (Restoril) 15 mg HSPRN PRN ORAL Insomnia 05/19/17 21:45 05/26/17 21:44 Assessment/Plan Assessment/Plan encephalopathy ativan IV proior to ct start riserdal prn Madi Hansen M.D. May 20, 2017 23:01
[2017-05-21] VITALS: BP 108/56
[2017-05-21] MEDS ORDERED: LORazepam Inj 2mg/ml 1ml IV ONE
[2017-05-21] MEDS: Pantoprazole Inj IVP SCH ×3 (01:22→20:57)
[2017-05-21 03:37] VITALS: BP 111/37
--- NOTE | 2017-05-21 04:30 | Consultation ---
DATE OF CONSULTATION: 05/20/2017 CARDIOLOGY CONSULTATION CONSULTING PHYSICIAN: Colton Cunningham M.D. REFERRING PHYSICIAN: Kel Sandoval M.D. REASON FOR REFERRAL AND HISTORY OF PRESENT ILLNESS: This is an elderly gentleman, who is really unable to provide any meaningful history whatsoever. The patient is confused and has been brought to the hospital because of altered mental status and fluctuation in blood sugar levels. According to director drug run sheet, they found the patient not being alert except reacting to painful stimuli and related to diabetes. Blood sugars have been fluctuating up and down for the past few days and his insulin has been adjusted. The patient was felt to be more altered than usual, moving extremities to painful stimulation. No recent vomiting or diarrhea noted. A 12-lead EKG performed by the paramedics was negative. He was placed on a gurney and was transferred to the emergency room at [facility] and I am seeing him right now. He is quite agitated, but awake and responsive and pushes me away during my evaluation. PAST MEDICAL HISTORY: The patient's past medical history is positive for some records from [facility] in [place] from back on 04/15/2017 when he was noted to have a striking difference, was noted to have a diagnosis of cerebrovascular accident with left hemiparesis. He also has a history of hypertension, diabetes, prior strokes, osteoarthritis, and prostate cancer as well. MEDICATIONS: [facility] include Norvasc 5 mg daily, aspirin 81 mg, Lipitor 80 mg, citalopram 40 mg one time daily, Plavix 75 mg, Colace, Proscar 5 mg daily, Amaryl 2 mg daily, hydralazine 25 mg three times a day, insulin sliding scale, losartan 25 mg daily, Namenda 10 mg daily, metoprolol 50 mg every 12 hours, multivitamins, Januvia 50 mg daily, and Flomax 0.4 mg. SOCIAL HISTORY: He does not smoke or drink alcoholic beverages at this time. His prior history is really not known except for the fact that he is a [facility]. REVIEW OF SYSTEMS: Unable to obtain. PHYSICAL EXAMINATION: GENERAL: Shows to be an agitated elderly gentleman, in no respiratory distress. NECK: Supple. No jugular venous distention. LUNGS: Clear to auscultation and percussion. CARDIAC: S1 is normal. S2 is normal. Regular rate and rhythm. No heaves. No thrills. No gallops noted. The patient does have a systolic ejection murmur. ABDOMEN: Soft and nontender. Positive bowel sounds. EXTREMITIES: There is no clubbing, cyanosis, nor is there any edema. NEUROLOGICAL: He is awake and responsive, not seemed to move the left side and he is agitated and is not verbally communicative, just moans and groans. LABORATORY VALUES: The white count is 14.7, hemoglobin of 6, and a platelet count of 189,000. His hemoglobin was earlier at 7.4 last evening when he came in. Sodium was 159, potassium 4.7, chloride 130, bicarbonate of 16, BUN of 123, creatinine 4.3, and a glucose of 417. A1c of 10.5. Lactic acid of 4.7. AST of 166, ALT 68, and alkaline phosphatase is 84. His troponin of 0.736. Albumin is 1.8. HDL is 34, LDL of 48, and a cholesterol of 106. TSH is 0.84. Coagulations, INR of 1.0 and a PTT of 20. The acetone level was negative. Urinalysis shows too numerous to count WBCs. His echocardiogram has been performed, preliminary shows ejection fraction of 55% with mild aortic stenosis. His EKG shows normal sinus rhythm, normal QRS axis, some nonspecific T-wave changes. ASSESSMENT AND PLAN: 1. Diabetes, controlled. 2. Altered mental status, probably with component of toxic metabolic encephalopathy. 3. Urinary tract infection. 4. History of hypertension. 5. Cerebrovascular accident history. 6. Abnormal cardiac enzymes. 7. Renal insufficiency. Dr. Sandoval, this patient was seen in cardiac consultation. Unfortunately, because of his aphasia, he is unable to provide any meaningful history whatsoever. His electrocardiogram is not significantly abnormal. It is possible that his cardiac enzymes are abnormal because of his renal insufficiency. He should have repeat cardiac enzymes and EKGs performed. The echocardiogram has been performed. At least the preliminary report does not show any significant wall motion abnormalities. Currently, he is not a candidate for any intervention at this time. I will continue treating him for his underlying encephalopathy and urinary tract infection and observe how he has done over the next few days. His beta-severo should be continued and he should be back on aspirin and Plavix, which could be helpful not only for central nervous system issues, also for his cardiac issues anyway. It is of note that he had a chest x-ray in the emergency room and it showed bibasilar residual opacities, possibly scarring or atelectasis, doubt congestive heart failure. Also, continue his hydration to improve his hypernatremia and azotemia. Colton Cunningham M.D. DR: Chasity JOB#: [id number] CC:
[2017-05-21] MEDS: NovoLOG Insulin Flexpen SUBQ SCH ×4 (06:30→21:00)
[2017-05-21 06:40] LABS: ALANINE AMINOTRANSFERASE 71 U/L (12-78); ALBUMIN/GLOBULIN RATIO 0.4 (1.0-2.7); ANION GAP 13 mmol/L (5-15); ASPARTATE AMINO TRANSFERASE 227 U/L (15-37); CALCIUM 8.8 MG/DL (8.5-10.1); CARBON DIOXIDE 17 MMOL/L (21-32); CHLORIDE 134 MMOL/L (98-107); CHOLESTEROL 109 MG/DL (< 200); CHOLESTEROL/HDL RATIO 2.6 (3.3-4.4); CREATININE 3.3 MG/DL (0.55-1.30); MAGNESIUM 2.3 MG/DL (1.8-2.4); PHOSPHORUS 3.4 MG/DL (2.5-4.9); POTASSIUM 4.2 MMOL/L (3.5-5.1); URIC ACID 11.4 MG/DL (2.6-7.2)
[2017-05-21 06:58] LABS: SODIUM 164 MMOL/L (136-145)
--- NOTE | 2017-05-21 07:02 | Pulmonology Progress Note ---
Assessment/Plan Problems: (1) Encephalopathy acute (2) Sepsis (3) ATN (acute tubular necrosis) (4) Non-ST elevation (NSTEMI) myocardial infarction (5) Diabetes mellitus (6) Prostate cancer Assessment/Plan CT head still pending troponin ludin to 11 received one unit of PRBC continue abx check cultures check stool for OB Subjective ROS Limited/Unobtainable: No Interval Events: sedated Allergies: Coded Allergies: No Known Allergies (Unverified , 12/28/15) Objective Last 24 Hour Vital Signs Date Time Temp Pulse Resp B/P (MAP) Pulse Ox O2 Delivery O2 Flow Rate FiO2 05/21/17 03:40 108 05/21/17 03:37 99.0 111 20 111/37 100 Room Air 05/21/17 00:00 98.2 111 20 108/56 100 Room Air 05/21/17 00:00 108 05/20/17 20:00 97.9 107 20 127/78 100 Room Air 05/20/17 20:00 102 05/20/17 19:24 101 20 Room Air 05/20/17 15:20 99 05/20/17 15:20 97.5 99 20 123/67 100 Room Air 05/20/17 12:00 97.5 82 20 112/65 100 Room Air 05/20/17 12:00 87 05/20/17 11:56 85 20 Room Air 21 05/20/17 09:00 86 117/65 05/20/17 08:12 86 05/20/17 08:00 97.5 82 20 117/65 100 Room Air General Appearance: WD/WN HEENT: normocephalic, anicteric Respiratory/Chest: chest wall non-tender, lungs clear Cardiovascular: normal peripheral pulses, normal rate, no JVD Abdomen: normal bowel sounds, soft, non tender Extremities: no cyanosis, no clubbing Skin: no lesions Microbiology Date/Time Source Procedure Growth Status 05/19/17 18:45 Blood Blood Culture - Preliminary NO GROWTH AFTER 24 HOURS Resulted 05/19/17 18:45 Blood Blood Culture - Preliminary NO GROWTH AFTER 24 HOURS Resulted Laboratory Tests 05/21/17 04:00: Troponin I 11.379H 05/21/17 04:30: Sodium Level 164*H, Potassium Level 4.2, Chloride Level 134H, Carbon Dioxide Level 17L, Anion Gap 13, Blood Urea Nitrogen 89H, Creatinine 3.3H, Estimat Glomerular Filtration Rate , Glucose Level 106#, Lactic Acid Level 1.10, Uric Acid 11.4H, Calcium Level 8.8, Phosphorus Level 3.4, Magnesium Level 2.3, Total Bilirubin 0.4, Aspartate Amino Transf (AST/SGOT) 227H, Alanine Aminotransferase (ALT/SGPT) 71, Alkaline Phosphatase 89, C-Reactive Protein, Quantitative 11.0H, Pro-B-Type Natriuretic Peptide 7472H, Total Protein 6.0L, Albumin 1.8L, Globulin 4.2, Albumin/Globulin Ratio 0.4L, Triglycerides Level 121, Cholesterol Level 109, LDL Cholesterol 49, HDL Cholesterol 42, Cholesterol/HDL Ratio 2.6L, Hepatitis A IgM Antibody [Pending], Hepatitis B Surface Antigen [Pending], Hepatitis B Core IgM Antibody [Pending], Hepatitis C Antibody [Pending] Current Medications Medications (Trade) Dose Ordered Sig/Altaf Route PRN Reason Start Time Stop Time Status Last Admin Dose Admin Acetaminophen (Tylenol) 650 mg Q4H PRN ORAL fever 05/19/17 21:45 06/18/17 21:44 Albuterol/ Ipratropium (Albuterol/ Ipratropium) 3 ml Q4H PRN HHN Shortness of Breath 05/19/17 21:45 05/24/17 21:44 Amlodipine Besylate (Norvasc) 2.5 mg DAILY ORAL 05/21/17 09:00 06/20/17 08:59 Aspirin (ASA) 81 mg DAILY ORAL 05/21/17 09:00 06/20/17 08:59 Atorvastatin Calcium (Lipitor) 80 mg BEDTIME ORAL 05/20/17 21:00 06/19/17 20:59 Ceftriaxone Sodium 1 gm/ Dextrose 55 ml @ 110 mls/hr Q24H IVPB 05/20/17 12:00 05/27/17 11:59 05/20/17 12:37 Clonidine HCl (Catapres) 0.1 mg Q4H PRN ORAL sbp more than 160 05/19/17 21:45 06/18/17 21:44 Clopidogrel Bisulfate (Plavix) 75 mg DAILY ORAL 05/20/17 09:00 06/19/17 08:59 Dextrose (Dextrose 50%) STAT PRN IV Hypoglycemia 05/19/17 21:45 06/18/17 21:44 Finasteride (Proscar) 5 mg BEDTIME ORAL 05/20/17 21:00 06/19/17 20:59 Insulin Aspart (NovoLOG) BEFORE MEALS AND HS SUBQ 05/20/17 06:30 06/19/17 06:29 05/20/17 21:55 Insulin Detemir (Levemir) 15 units BEDTIME SUBQ 05/20/17 01:00 06/19/17 00:59 05/20/17 21:36 Metoprolol Tartrate (Lopressor) 2.5 mg Q6HR IVP 05/21/17 06:30 06/20/17 06:29 Nitroglycerin (Ntg) 0.4 mg Q5M X 3 DOSES PRN SL Prn Chest Pain 05/19/17 21:45 06/18/17 21:44 Ondansetron HCl (Zofran) 4 mg Q6H PRN IVP Nausea & Vomiting 05/19/17 21:45 06/18/17 21:44 Pantoprazole (Protonix) 40 mg EVERY 12 HOURS IVP 05/20/17 16:00 06/19/17 15:59 05/21/17 01:22 Polyethylene Glycol (Miralax) 17 gm HSPRN PRN ORAL Constipation 05/19/17 21:45 06/18/17 21:44 Risperidone (RisperDAL) 1 mg DAILY PRN ORAL For Anxiety 05/20/17 23:15 06/19/17 23:14 Sodium Chloride 1,000 ml @ 150 mls/hr Q6H40M IV 05/20/17 10:00 06/19/17 09:59 05/21/17 06:23 Tamsulosin HCl (Flomax) 0.4 mg BEDTIME ORAL 05/20/17 21:00 06/19/17 20:59 Temazepam (Restoril) 15 mg HSPRN PRN ORAL Insomnia 05/19/17 21:45 05/26/17 21:44 YOSHI EDOUARD May 21, 2017 07:01
[2017-05-21] MEDS: Metoprolol 5mg/5ml Inj IVP SCH ×3 (07:22→17:27)
[2017-05-21 08:00] VITALS: BP 146/75
--- NOTE | 2017-05-21 08:04 | Nephrology Progress Note ---
Assessment/Plan Problem List: (1) ATN (acute tubular necrosis) (2) Prostate cancer (3) Anemia Assessment acute renal failure cr down 3.3 chronic underlying renal failure, ? Diabetic Nephropathy Severe Anemia HypoAlbuminemia, r/o Nephrotic syndrom UTI / Sepsis Basal Atelectasis Prostate cancer h/o CVA toxic metabolic encephalopathy Plan Plan: Hydrate- Transfuse gastric support MONSTER Renal- pending 2 D Echo- pending 24 H urine protein- pending monitor renal parameters Subjective ROS Limited/Unobtainable: No Constitutional: Reports: malaise, weakness Objective Objective Last 24 Hour Vital Signs Date Time Temp Pulse Resp B/P (MAP) Pulse Ox O2 Delivery O2 Flow Rate FiO2 05/21/17 07:22 106 127/65 05/21/17 03:40 108 05/21/17 03:37 99.0 111 20 111/37 100 Room Air 05/21/17 00:00 98.2 111 20 108/56 100 Room Air 05/21/17 00:00 108 05/20/17 20:00 97.9 107 20 127/78 100 Room Air 05/20/17 20:00 102 05/20/17 19:24 101 20 Room Air 05/20/17 15:20 99 05/20/17 15:20 97.5 99 20 123/67 100 Room Air 05/20/17 12:00 97.5 82 20 112/65 100 Room Air 05/20/17 12:00 87 05/20/17 11:56 85 20 Room Air 21 05/20/17 09:00 86 117/65 05/20/17 08:12 86 Laboratory Tests 05/21/17 04:00: Troponin I 11.379H 05/21/17 04:30: Sodium Level 164*H, Potassium Level 4.2, Chloride Level 134H, Carbon Dioxide Level 17L, Anion Gap 13, Blood Urea Nitrogen 89H, Creatinine 3.3H, Estimat Glomerular Filtration Rate , Glucose Level 106#, Lactic Acid Level 1.10, Uric Acid 11.4H, Calcium Level 8.8, Phosphorus Level 3.4, Magnesium Level 2.3, Total Bilirubin 0.4, Aspartate Amino Transf (AST/SGOT) 227H, Alanine Aminotransferase (ALT/SGPT) 71, Alkaline Phosphatase 89, C-Reactive Protein, Quantitative 11.0H, Pro-B-Type Natriuretic Peptide 7472H, Total Protein 6.0L, Albumin 1.8L, Globulin 4.2, Albumin/Globulin Ratio 0.4L, Triglycerides Level 121, Cholesterol Level 109, LDL Cholesterol 49, HDL Cholesterol 42, Cholesterol/HDL Ratio 2.6L, Hepatitis A IgM Antibody [Pending], Hepatitis B Surface Antigen [Pending], Hepatitis B Core IgM Antibody [Pending], Hepatitis C Antibody [Pending] Height (Feet): 5 Height (Inches): 8.00 Weight (Pounds): 192 General Appearance: no apparent distress, lethargic Respiratory/Chest: decreased breath sounds Abdomen: soft Objective no other changes YOLANDA NAVA May 21, 2017 08:04
--- NOTE | 2017-05-21 09:12 | Diagnostic Imaging Report ---
Indication: Status post NG tube placement Comparison: None Findings: Portable supine AP view of the abdomen is obtained. A nasogastric tube is seen with the distal end in the expected region of the stomach. There is a nonspecific bowel gas pattern. Gas and stool seen in the ascending and descending colon. A few mildly dilated, air-filled loops of small bowel are seen, nonspecific. No obvious free air on this limited supine view. Impression: Distal end of the nasogastric tube appears to be in good position in the stomach. Nonspecific bowel gas pattern.
[2017-05-21 09:21] LABS: MEAN CORPUSCULAR HEMOGLOBIN 28.6 PG (27.0-31.0); MEAN CORPUSCULAR HGB CONC 32.4 G/DL (32.0-36.0); MEAN CORPUSCULAR VOLUME 88 FL (80-99); MEAN PLATELET VOLUME 7.9 FL (6.5-10.1); PLATELET COUNT 188 K/UL (150-450); RED BLOOD COUNT 2.72 M/UL (4.70-6.10); RED CELL DISTRIBUTION WIDTH 17.6 % (11.6-14.8); WHITE BLOOD COUNT 14.4 K/UL (4.8-10.8)
[2017-05-21] MEDS: Aspirin Baby 81mg ORAL SCH (09:43)
[2017-05-21 09:47] LABS: ANISOCYTOSIS 1+; BAND NEUTROPHILS % (MANUAL) 0 % (0-8); BASOPHILS % (MANUAL) 0 % (0-2); EOSINOPHILS % (MANUAL) 0 % (0-3); HYPOCHROMASIA 3+; LYMPHOCYTES % (MANUAL) 16 % (20-45); METAMYELOCYTES % 1 % (0-0); NEUTROPHILS % (MANUAL) 80 % (45-75); NUCLEATED RED BLOOD CELLS 2 /100 WBC; PLATELET ESTIMATE ADEQUATE; PLATELET MORPHOLOGY NORMAL; TOTAL CELLS COUNTED 100
--- NOTE | 2017-05-21 10:12 | Infectious Diseases Prog Note ---
Assessment/Plan Assessment/Plan ASSESSMENT: 1. Sepsis. 2. Leukocytosis, slightly worse -CXR : Basilar residual opacities possibly scarring or atelectasis. Doubt CHF. 3. Probable urinary tract infection/pyuria. -worsening pyuria on repeat u/a 4. Lactic acidosis. 5. Mild elevation of AST, rule out chronic hepatitis B/C. 6. Positive cardiac enzymes. 7. Acute renal insufficiency, superimposed on chronic kidney disease. 8. Anemia. PLAN: 1. Switch IV Rocephin day #3 to Cefepime pending ucx due to persistent/worsened leukocytosis 2. Monitor CBC. 3. Monitor BMP. 4. Monitor cultures, blood and urine. obtain sputum cx 5. f/u hepatitis panel. 6.Monitor lactic acid. Based on the patient's clinical course and labs, we will do further recommendations. Thank you, Dr. Sandoval, for allowing me to participate in the care of this patient. I will follow the patient with you during this hospitalization. Subjective Allergies: Coded Allergies: No Known Allergies (Unverified , 12/28/15) Subjective afebrile mild worsening leukocytosis Bcx NTD worsenign pyuria Objective Vital Signs Last 24 Hour Vital Signs Date Time Temp Pulse Resp B/P (MAP) Pulse Ox O2 Delivery O2 Flow Rate FiO2 05/21/17 09:43 98 146/75 05/21/17 08:06 98 20 Room Air 05/21/17 08:00 90 05/21/17 08:00 97.7 96 20 146/75 97 Room Air 05/21/17 07:22 106 127/65 05/21/17 03:40 108 05/21/17 03:37 99.0 111 20 111/37 100 Room Air 05/21/17 00:00 98.2 111 20 108/56 100 Room Air 05/21/17 00:00 108 05/20/17 20:00 97.9 107 20 127/78 100 Room Air 05/20/17 20:00 102 05/20/17 19:24 101 20 Room Air 05/20/17 15:20 99 05/20/17 15:20 97.5 99 20 123/67 100 Room Air 05/20/17 12:00 97.5 82 20 112/65 100 Room Air 05/20/17 12:00 87 05/20/17 11:56 85 20 Room Air 21 Height (Feet): 5 Height (Inches): 8.00 Weight (Pounds): 192 Objective HEENT: No pale conjunctivae. No icterus. NECK: No lymphadenopathy. CHEST: Clear. HEART: S1 and S2. ABDOMEN: Soft. EXTREMITIES: No cyanosis. GENITOURINARY: Pond catheter in place (placed in the emergency room). NEUROLOGIC: Awake and lethargic. Microbiology Date/Time Source Procedure Growth Status 05/19/17 18:45 Blood Blood Culture - Preliminary NO GROWTH AFTER 24 HOURS Resulted 05/19/17 18:45 Blood Blood Culture - Preliminary NO GROWTH AFTER 24 HOURS Resulted Laboratory Tests Test 05/21/17 04:00 05/21/17 04:30 05/21/17 08:55 Troponin I 11.379 ng/mL (0.000-0.056) Sodium Level 164 MMOL/L (136-145) *H Potassium Level 4.2 MMOL/L (3.5-5.1) Chloride Level 134 MMOL/L (98-107) H Carbon Dioxide Level 17 MMOL/L (21-32) L Anion Gap 13 mmol/L (5-15) Blood Urea Nitrogen 89 mg/dL (7-18) H Creatinine 3.3 MG/DL (0.55-1.30) H Estimat Glomerular Filtration Rate mL/min (>60) Glucose Level 106 MG/DL (74-106) # Lactic Acid Level 1.10 mmol/L (0.66-2.22) Uric Acid 11.4 MG/DL (2.6-7.2) H Calcium Level 8.8 MG/DL (8.5-10.1) Phosphorus Level 3.4 MG/DL (2.5-4.9) Magnesium Level 2.3 MG/DL (1.8-2.4) Total Bilirubin 0.4 MG/DL (0.2-1.0) Aspartate Amino Transf (AST/SGOT) 227 U/L (15-37) H Alanine Aminotransferase (ALT/SGPT) 71 U/L (12-78) Alkaline Phosphatase 89 U/L (46-116) C-Reactive Protein, Quantitative 11.0 mg/dL (0.00-0.90) H Pro-B-Type Natriuretic Peptide 7472 pg/mL (0-125) H Total Protein 6.0 G/DL (6.4-8.2) L Albumin 1.8 G/DL (3.4-5.0) L Globulin 4.2 g/dL Albumin/Globulin Ratio 0.4 (1.0-2.7) L Triglycerides Level 121 MG/DL (0-200) Cholesterol Level 109 MG/DL (< 200) LDL Cholesterol 49 mg/dL (<100) HDL Cholesterol 42 MG/DL (40-60) Cholesterol/HDL Ratio 2.6 (3.3-4.4) L Hepatitis A IgM Antibody Pending Hepatitis B Surface Antigen Pending Hepatitis B Core IgM Antibody Pending Hepatitis C Antibody Pending White Blood Count 14.4 K/UL (4.8-10.8) H Red Blood Count 2.72 M/UL (4.70-6.10) L Hemoglobin 7.8 G/DL (14.2-18.0) L Hematocrit 24.0 % (42.0-52.0) L Mean Corpuscular Volume 88 FL (80-99) Mean Corpuscular Hemoglobin 28.6 PG (27.0-31.0) Mean Corpuscular Hemoglobin Concent 32.4 G/DL (32.0-36.0) Red Cell Distribution Width 17.6 % (11.6-14.8) H Platelet Count 188 K/UL (150-450) Mean Platelet Volume 7.9 FL (6.5-10.1) Neutrophils (%) (Auto) % (45.0-75.0) Lymphocytes (%) (Auto) % (20.0-45.0) Monocytes (%) (Auto) % (1.0-10.0) Eosinophils (%) (Auto) % (0.0-3.0) Basophils (%) (Auto) % (0.0-2.0) Differential Total Cells Counted 100 Neutrophils % (Manual) 80 % (45-75) H Lymphocytes % (Manual) 16 % (20-45) L Monocytes % (Manual) 3 % (1-10) Eosinophils % (Manual) 0 % (0-3) Basophils % (Manual) 0 % (0-2) Metamyelocytes % 1 % (0-0) H Band Neutrophils 0 % (0-8) Nucleated Red Blood Cells 2 /100 WBC Platelet Estimate Adequate Platelet Morphology Normal Hypochromasia 3+ Anisocytosis 1+ Current Medications Medications (Trade) Dose Ordered Sig/Altaf Route PRN Reason Start Time Stop Time Status Last Admin Dose Admin Acetaminophen (Tylenol) 650 mg Q4H PRN ORAL fever 05/19/17 21:45 06/18/17 21:44 Albuterol/ Ipratropium (Albuterol/ Ipratropium) 3 ml Q4H PRN HHN Shortness of Breath 05/19/17 21:45 05/24/17 21:44 Amlodipine Besylate (Norvasc) 2.5 mg DAILY ORAL 05/21/17 09:00 06/20/17 08:59 05/21/17 09:43 Aspirin (ASA) 81 mg DAILY ORAL 05/21/17 09:00 06/20/17 08:59 05/21/17 09:43 Atorvastatin Calcium (Lipitor) 80 mg BEDTIME ORAL 05/20/17 21:00 06/19/17 20:59 Ceftriaxone Sodium 1 gm/ Dextrose 55 ml @ 110 mls/hr Q24H IVPB 05/20/17 12:00 05/27/17 11:59 05/20/17 12:37 Clonidine HCl (Catapres) 0.1 mg Q4H PRN ORAL sbp more than 160 05/19/17 21:45 06/18/17 21:44 Clopidogrel Bisulfate (Plavix) 75 mg DAILY ORAL 05/20/17 09:00 06/19/17 08:59 05/21/17 09:43 Dextrose 1,000 ml @ 100 mls/hr Q10H IV 05/21/17 07:15 06/20/17 07:14 05/21/17 07:22 Dextrose 1,000 ml @ 100 mls/hr Q10H IV 05/21/17 07:30 06/20/17 07:29 05/21/17 07:52 Dextrose (Dextrose 50%) STAT PRN IV Hypoglycemia 05/19/17 21:45 06/18/17 21:44 Finasteride (Proscar) 5 mg BEDTIME ORAL 05/20/17 21:00 06/19/17 20:59 Insulin Aspart (NovoLOG) BEFORE MEALS AND HS SUBQ 05/20/17 06:30 06/19/17 06:29 05/20/17 21:55 Insulin Detemir (Levemir) 12 units BID SUBQ 05/21/17 09:00 06/19/17 00:59 Lorazepam (Ativan 2mg/ml 1ml) 1 mg Q4H PRN IV For Anxiety 05/21/17 08:00 05/28/17 07:59 Metoprolol Tartrate (Lopressor) 2.5 mg Q6HR IVP 05/21/17 06:30 06/20/17 06:29 05/21/17 07:22 Nitroglycerin (Ntg) 0.4 mg Q5M X 3 DOSES PRN SL Prn Chest Pain 05/19/17 21:45 06/18/17 21:44 Ondansetron HCl (Zofran) 4 mg Q6H PRN IVP Nausea & Vomiting 05/19/17 21:45 06/18/17 21:44 Pantoprazole (Protonix) 40 mg EVERY 12 HOURS IVP 05/20/17 16:00 06/19/17 15:59 05/21/17 09:44 Polyethylene Glycol (Miralax) 17 gm HSPRN PRN ORAL Constipation 05/19/17 21:45 06/18/17 21:44 Risperidone (RisperDAL) 1 mg DAILY PRN ORAL For Anxiety 05/20/17 23:15 06/19/17 23:14 Tamsulosin HCl (Flomax) 0.4 mg BEDTIME ORAL 05/20/17 21:00 06/19/17 20:59 Temazepam (Restoril) 15 mg HSPRN PRN ORAL Insomnia 05/19/17 21:45 05/26/17 21:44 Cyndy Tamez M.D. May 21, 2017 10:12
[2017-05-21] MEDS: Levemir Flexpen SUBQ SCH ×2 (10:37→17:26)
[2017-05-21 12:00] VITALS: BP 128/65
[2017-05-21] MEDS: Cefepime HCl 1 GM in D5W 55 ML IVPB SCH (12:13)
--- NOTE | 2017-05-21 14:56 | Cardiology Progress Note ---
Assessment/Plan Problem List: (1) recent R MCA stroke with L hemiplegia, dysartria , vascular dementia (2) Elevated troponin (3) Non-ST elevation (NSTEMI) myocardial infarction Status: not improved, deteriorating Status Narrative Mr. Bhatt is a 76 yo man w/ recent CVA, w/ L hemiplegia and aphasia who is admitted with fever/ possible sepsis, renal failure and dehydration. He now has significant troponin elevation to 11. EKG does not show acute ischemic changes - compared to adm. Inverted T in V6 is new. ECHO (prelim report) shows no wall motion abnl and EF 55%. Assessment/Plan Will trend troponins and check additional EKG in am. Start asa, b blockers and statin. followup final echo results. He is not a candidate for invasive cardiac intervention due to comorbidities and poor overall functional status. Management of renal failure, hypernatremia, and possible sepsis per primary team and nephrology, ID consultants Subjective ROS Limited/Unobtainable: Yes Subjective Cardiology for Dr. Cunningham Pt sedated, nonverbal Events noted Objective Last 24 Hour Vital Signs Date Time Temp Pulse Resp B/P (MAP) Pulse Ox O2 Delivery O2 Flow Rate FiO2 05/21/17 12:17 106 128/65 05/21/17 12:00 98.2 106 18 128/65 6 Room Air 05/21/17 09:43 98 146/75 05/21/17 08:06 98 20 Room Air 05/21/17 08:00 90 05/21/17 08:00 97.7 96 20 146/75 97 Room Air 05/21/17 07:22 106 127/65 05/21/17 03:40 108 05/21/17 03:37 99.0 111 20 111/37 100 Room Air 05/21/17 00:00 98.2 111 20 108/56 100 Room Air 05/21/17 00:00 108 05/20/17 20:00 97.9 107 20 127/78 100 Room Air 05/20/17 20:00 102 05/20/17 19:24 101 20 Room Air 05/20/17 15:20 99 05/20/17 15:20 97.5 99 20 123/67 100 Room Air General Appearance: lethargic EENT: PERRL/EOMI, other - L facial droop Neck: no JVD Rhythm: NSR Cardiovascular: normal rate, regular rhythm, no gallop/murmur Respiratory/Chest: rhonchi - bilaterally Abdomen: non tender, soft Extremities: non-tender Neurologic: unresponsiveness, aphasia, other - L hemiplegia Intake and Output 05/21/17 05/22/17 19:00 07:00 Intake Total 400 ml Balance 400 ml IV Total 400 ml Laboratory Tests Test 05/21/17 04:00 05/21/17 04:30 05/21/17 08:55 Troponin I 11.379 ng/mL (0.000-0.056) Sodium Level 164 MMOL/L (136-145) *H Potassium Level 4.2 MMOL/L (3.5-5.1) Chloride Level 134 MMOL/L (98-107) H Carbon Dioxide Level 17 MMOL/L (21-32) L Anion Gap 13 mmol/L (5-15) Blood Urea Nitrogen 89 mg/dL (7-18) H Creatinine 3.3 MG/DL (0.55-1.30) H Estimat Glomerular Filtration Rate mL/min (>60) Glucose Level 106 MG/DL (74-106) # Lactic Acid Level 1.10 mmol/L (0.66-2.22) Uric Acid 11.4 MG/DL (2.6-7.2) H Calcium Level 8.8 MG/DL (8.5-10.1) Phosphorus Level 3.4 MG/DL (2.5-4.9) Magnesium Level 2.3 MG/DL (1.8-2.4) Total Bilirubin 0.4 MG/DL (0.2-1.0) Aspartate Amino Transf (AST/SGOT) 227 U/L (15-37) H Alanine Aminotransferase (ALT/SGPT) 71 U/L (12-78) Alkaline Phosphatase 89 U/L (46-116) C-Reactive Protein, Quantitative 11.0 mg/dL (0.00-0.90) H Pro-B-Type Natriuretic Peptide 7472 pg/mL (0-125) H Total Protein 6.0 G/DL (6.4-8.2) L Albumin 1.8 G/DL (3.4-5.0) L Globulin 4.2 g/dL Albumin/Globulin Ratio 0.4 (1.0-2.7) L Triglycerides Level 121 MG/DL (0-200) Cholesterol Level 109 MG/DL (< 200) LDL Cholesterol 49 mg/dL (<100) HDL Cholesterol 42 MG/DL (40-60) Cholesterol/HDL Ratio 2.6 (3.3-4.4) L Hepatitis A IgM Antibody Pending Hepatitis B Surface Antigen Pending Hepatitis B Core IgM Antibody Pending Hepatitis C Antibody Pending White Blood Count 14.4 K/UL (4.8-10.8) H Red Blood Count 2.72 M/UL (4.70-6.10) L Hemoglobin 7.8 G/DL (14.2-18.0) L Hematocrit 24.0 % (42.0-52.0) L Mean Corpuscular Volume 88 FL (80-99) Mean Corpuscular Hemoglobin 28.6 PG (27.0-31.0) Mean Corpuscular Hemoglobin Concent 32.4 G/DL (32.0-36.0) Red Cell Distribution Width 17.6 % (11.6-14.8) H Platelet Count 188 K/UL (150-450) Mean Platelet Volume 7.9 FL (6.5-10.1) Neutrophils (%) (Auto) % (45.0-75.0) Lymphocytes (%) (Auto) % (20.0-45.0) Monocytes (%) (Auto) % (1.0-10.0) Eosinophils (%) (Auto) % (0.0-3.0) Basophils (%) (Auto) % (0.0-2.0) Differential Total Cells Counted 100 Neutrophils % (Manual) 80 % (45-75) H Lymphocytes % (Manual) 16 % (20-45) L Monocytes % (Manual) 3 % (1-10) Eosinophils % (Manual) 0 % (0-3) Basophils % (Manual) 0 % (0-2) Metamyelocytes % 1 % (0-0) H Band Neutrophils 0 % (0-8) Nucleated Red Blood Cells 2 /100 WBC Platelet Estimate Adequate Platelet Morphology Normal Hypochromasia 3+ Anisocytosis 1+ Microbiology Date/Time Source Procedure Growth Status 05/19/17 18:45 Blood Blood Culture - Preliminary NO GROWTH AFTER 24 HOURS Resulted 05/19/17 18:45 Blood Blood Culture - Preliminary NO GROWTH AFTER 24 HOURS Resulted 05/20/17 00:10 Urine,Clean Catch Urine Culture - Preliminary Gram Positive Cocci Resulted HUMBERTO STROUD May 21, 2017 14:56
[2017-05-21 16:00] VITALS: BP 120/70
[2017-05-21] MEDS ORDERED: 1/2 NS 1000ml IV ONE (16:16)
[2017-05-21 17:46] LABS: TOTAL PROTEIN 24HR URINE 128.3 mg/24hr (< 150)
[2017-05-21 20:00] VITALS: BP 150/76
--- NOTE | 2017-05-21 20:30 | Consultation ---
DATE OF CONSULTATION: 05/21/2017 ENDOCRINOLOGY CONSULTATION CONSULTING PHYSICIAN: Ghanshyam Esparza M.D. REFERRING PHYSICIAN: Kel Sandoval M.D. REASON FOR CONSULTATION: Diabetes management. HISTORY OF PRESENT ILLNESS: It is important to note that history is obtained from the review of the chart and medical records since the patient is not able to provide any meaningful history. The patient is a 76-year-old male, [facility] a [facility] facility, who was brought to the hospital with alteration of mental status and critically elevated glucose. The nursing staff had a difficulty to control his blood sugar. Upon presentation, he was noted to be hypernatremic. Endocrinology was consulted in order to assist in management of diabetes. PAST MEDICAL HISTORY: 1. CVA. 2. Hypertension. 3. Diabetes. MEDICATIONS: Reviewed and reconciled. FAMILY HISTORY: History of diabetes. SOCIAL HISTORY: No smoking, alcohol, or drug use. REVIEW OF SYSTEMS: Unobtainable. PHYSICAL EXAMINATION: VITAL SIGNS: Blood pressure is 127/65, pulse rate of 106, temperature of 99, respiratory rate of 20. HEENT: Pupils are equal and reactive to light. Sclerae are anicteric. NECK: No JVD. HEART: Regular. LUNGS: Decreased breath sounds. ABDOMEN: Positive bowel sounds. EXTREMITIES: Positive for edema. LABORATORY DATA: WBC 14.7, hemoglobin 6, hematocrit 20, and platelet count of 189. Sodium 164, potassium 4.2, chloride 137, bicarb 17, anion gap 13, BUN 89, and creatinine 3.3. Lactic acid is 3.3 on presentation. Hemoglobin A1c of 10.5. Troponin elevated at 11.3. TSH is normal at 0.8. DIAGNOSES: 1. Acute kidney injury. 2. Diabetes, out of control. 3. Encephalopathy. PLAN: 1. IV fluids, IV hydration. 2. The patient will have an NG tube for feeding. 3. Sliding scale insulin is in order. We will add the scheduled insulin for better glycemic control. 4. I will follow him during the hospital stay for the management of diabetes. Thank you Dr. Sandoval for the courtesy of this consultation. Ghanshyam Esparza M.D. DR: RN/PM JOB#: [id number] CC:
[2017-05-21] MEDS: Tamsulosin 0.4mg cap ORAL SCH (20:57)
[2017-05-21] MEDS: Atorvastatin 80mg tab ORAL SCH (20:57)
--- NOTE | 2017-05-21 21:45 | Consultation ---
DATE OF CONSULTATION: 05/21/2017 CONSULTING PHYSICIAN: Akhil Blackman M.D. CHIEF COMPLAINT: Anemia and altered mental status. HISTORY OF PRESENT ILLNESS: Most of history is per chart. This is an elderly male patient who was admitted in the emergency room with complaint of altered mental status. The patient since admission was found to have an acute MD, also profoundly anemic, so GI consult has been requested for evaluation. PAST MEDICAL HISTORY: 1. History of CVA. 2. Diabetes. 3. Prostate cancer. 4. Hypertension. 5. Osteoarthritis. PAST SURGICAL HISTORY: Unknown. ALLERGIES: No known drug allergies. MEDICATIONS: Please see medication reconciliation list. SOCIAL HISTORY: Currently, lives in a residential. No history of tobacco, alcohol, or drug abuse. FAMILY HISTORY: Noncontributory. REVIEW OF SYSTEMS: Unable to obtain. PHYSICAL EXAMINATION: GENERAL: The patient is altered and has mildly labored breathing. VITAL SIGNS: Temperature is 97.7, pulse is 90, respirations 20, and blood pressure is 142/75. HEENT: Normocephalic and atraumatic. Pale conjunctivae. NECK: Supple. No evidence of obvious lymphadenopathy. CARDIOVASCULAR: Tachy. Regular rate. Plus S1 and S2. LUNGS: Decreased breath sounds bilaterally diffusely. ABDOMEN: Soft and mildly distended. Hypoactive bowel sounds. No rebound. No guarding. EXTREMITIES: No cyanosis, clubbing, or edema. LABORATORY DATA: White count is 14.4; hemoglobin was 6, now after transfusion is 7.8; and platelet count is 188. Chem-7, sodium 164, potassium 4.2, and creatinine 3.3. Troponin is 11. ASSESSMENT: This is a 76-year-old male with acute myocardial infarction and profound anemia, currently on aspirin and Plavix, also on Protonix twice a day. PLAN: To hold off on any GI procedures given acute MD. The patient to be on Protonix twice a day. Stool for OB. Monitor H and H. Transfuse as needed to keep hemoglobin above 7, actually may be above 8 given he had acute MD infarction. The patient's overall prognosis will be very poor. Akhil Blackman M.D. DR: KACEY JOB#: [id number] CC:
[2017-05-22] VITALS: BP 112/65
[2017-05-22] MEDS: Metoprolol 5mg/5ml Inj IVP SCH ×4 (00:30→21:52)
[2017-05-22 04:00] VITALS: BP 108/60
[2017-05-22 06:08] LABS: MEAN CORPUSCULAR HGB CONC 31.3 G/DL (32.0-36.0); MEAN CORPUSCULAR VOLUME 89 FL (80-99); MEAN PLATELET VOLUME 8.7 FL (6.5-10.1); PLATELET COUNT 168 K/UL (150-450); RED CELL DISTRIBUTION WIDTH 17.1 % (11.6-14.8); WHITE BLOOD COUNT 10.7 K/UL (4.8-10.8)
[2017-05-22] MEDS: NovoLOG Insulin Flexpen SUBQ SCH ×4 (06:39→21:07)
--- NOTE | 2017-05-22 06:52 | General Progress Note ---
Assessment/Plan Problem List: (1) Hypernatremia ICD Codes: E87.0 - Hyperosmolality and hypernatremia SNOMED: 40734712 (2) Diabetes mellitus ICD Codes: E11.9 - Type 2 diabetes mellitus without complications SNOMED: 43782955 (3) Renal failure ICD Codes: N19 - Unspecified kidney failure SNOMED: 76298121 Qualifiers: Qualified Codes: N17.9 - Acute kidney failure, unspecified (4) toxic metabolic encephalopathy, multifactorial Assessment/Plan patient is on dextrose for elevated Na glucose is elevated increase Levemir to 23 units bid continue Novolog coverage discussed with RN Subjective ROS Limited/Unobtainable: Yes Allergies: Coded Allergies: No Known Allergies (Unverified , 12/28/15) Subjective NPO glucose is elevated Objective Last 24 Hour Vital Signs Date Time Temp Pulse Resp B/P (MAP) Pulse Ox O2 Delivery O2 Flow Rate FiO2 05/22/17 06:00 98 105/60 05/22/17 04:00 98.1 98 20 108/60 97 Nasal Cannula 2.0 05/22/17 04:00 102 05/22/17 00:30 106 112/65 05/22/17 00:00 98.6 111 22 112/65 99 Nasal Cannula 2.0 05/22/17 00:00 103 05/21/17 20:57 112 150/76 05/21/17 20:00 97 Nasal Cannula 2.0 28 05/21/17 20:00 Nasal Cannula 2.0 28 05/21/17 20:00 108 20 Nasal Cannula 2.0 28 05/21/17 20:00 111 05/21/17 20:00 99.1 112 20 150/76 100 Nasal Cannula 05/21/17 17:27 107 119/67 05/21/17 16:00 98.2 101 18 120/70 98 Room Air 05/21/17 16:00 97 05/21/17 12:17 106 128/65 05/21/17 12:00 105 05/21/17 12:00 98.2 106 18 128/65 96 Room Air 05/21/17 09:43 98 146/75 05/21/17 08:06 98 20 Room Air 05/21/17 08:00 90 05/21/17 08:00 97.7 96 20 146/75 97 Room Air 05/21/17 07:22 106 127/65 Laboratory Tests 05/21/17 08:55: White Blood Count 14.4H, Red Blood Count 2.72L, Hemoglobin 7.8L, Hematocrit 24.0L, Mean Corpuscular Volume 88, Mean Corpuscular Hemoglobin 28.6, Mean Corpuscular Hemoglobin Concent 32.4, Red Cell Distribution Width 17.6H, Platelet Count 188, Mean Platelet Volume 7.9, Neutrophils (%) (Auto) , Lymphocytes (%) (Auto) , Monocytes (%) (Auto) , Eosinophils (%) (Auto) , Basophils (%) (Auto) , Differential Total Cells Counted 100, Neutrophils % ( Manual) 80H, Lymphocytes % (Manual) 16L, Monocytes % (Manual) 3, Eosinophils % ( Manual) 0, Basophils % (Manual) 0, Metamyelocytes % 1H, Band Neutrophils 0, Nucleated Red Blood Cells 2, Platelet Estimate Adequate, Platelet Morphology Normal, Hypochromasia 3+, Anisocytosis 1+ 05/21/17 15:07: Troponin I 9.460H 05/22/17 04:55: White Blood Count 10.7, Red Blood Count 2.40L, Hemoglobin 6.7*L, Hematocrit 21.5L, Mean Corpuscular Volume 89, Mean Corpuscular Hemoglobin 28.0, Mean Corpuscular Hemoglobin Concent 31.3L, Red Cell Distribution Width 17.1H, Platelet Count 168, Mean Platelet Volume 8.7, Neutrophils (%) (Auto) , Lymphocytes (%) (Auto) , Monocytes (%) (Auto) , Eosinophils (%) (Auto) , Basophils (%) (Auto) , Neutrophils % (Manual) [Pending], Lymphocytes % (Manual) [Pending], Platelet Estimate [Pending], Platelet Morphology [Pending], Troponin I [Pending], Erythrocyte Sedimentation Rate [Pending], Sodium Level [Pending], Potassium Level [Pending], Chloride Level [Pending], Carbon Dioxide Level [ Pending], Blood Urea Nitrogen [Pending], Creatinine [Pending], Estimat Glomerular Filtration Rate [Pending], Glucose Level [Pending], Calcium Level [ Pending], Phosphorus Level [Pending], Magnesium Level [Pending], Total Bilirubin [Pending], Aspartate Amino Transf (AST/SGOT) [Pending], Alanine Aminotransferase (ALT/SGPT) [Pending], Alkaline Phosphatase [Pending], C- Reactive Protein, Quantitative [Pending], Total Protein [Pending], Albumin [ Pending], Globulin [Pending] Height (Feet): 5 Height (Inches): 8.00 Weight (Pounds): 192 General Appearance: no apparent distress Neck: normal alignment Cardiovascular: normal rate Respiratory/Chest: decreased breath sounds Abdomen: normal bowel sounds Edema: 1+ Arm (L), 1+ Arm (R), 1+ Leg (L), 1+ Leg (R), 1+ Pedal (L), 1+ Pedal ( R), 1+ Generalized Objective Current Medications Medications (Trade) Dose Ordered Sig/Altaf Route PRN Reason Start Time Stop Time Status Last Admin Dose Admin Acetaminophen (Tylenol) 650 mg Q4H PRN ORAL fever 05/19/17 21:45 06/18/17 21:44 Albuterol/ Ipratropium (Albuterol/ Ipratropium) 3 ml Q4H PRN HHN Shortness of Breath 05/19/17 21:45 05/24/17 21:44 Aspirin (ASA) 81 mg DAILY ORAL 05/21/17 09:00 06/20/17 08:59 05/21/17 09:43 Atorvastatin Calcium (Lipitor) 80 mg BEDTIME ORAL 05/20/17 21:00 06/19/17 20:59 05/21/17 20:57 Carvedilol (Coreg) 3.125 mg EVERY 12 HOURS ORAL 05/21/17 21:00 06/20/17 20:59 05/21/17 20:57 Cefepime HCl 1 gm/ Dextrose 55 ml @ 110 mls/hr Q24H IVPB 05/21/17 11:00 05/28/17 10:59 05/21/17 12:13 Clonidine HCl (Catapres) 0.1 mg Q4H PRN ORAL sbp more than 160 05/19/17 21:45 06/18/17 21:44 Clopidogrel Bisulfate (Plavix) 75 mg DAILY ORAL 05/20/17 09:00 06/19/17 08:59 05/21/17 09:43 Dextrose 1,000 ml @ 100 mls/hr Q10H IV 05/21/17 07:30 06/20/17 07:29 05/22/17 03:34 Dextrose (Dextrose 50%) STAT PRN IV Hypoglycemia 05/19/17 21:45 06/18/17 21:44 Finasteride (Proscar) 5 mg BEDTIME ORAL 05/20/17 21:00 06/19/17 20:59 Insulin Aspart (NovoLOG) BEFORE MEALS AND HS SUBQ 05/20/17 06:30 06/19/17 06:29 05/22/17 06:39 Insulin Detemir (Levemir) 12 units BID SUBQ 05/21/17 09:00 06/19/17 00:59 05/21/17 17:26 Lorazepam (Ativan 2mg/ml 1ml) 1 mg Q4H PRN IV For Anxiety 05/21/17 08:00 05/28/17 07:59 Metoprolol Tartrate (Lopressor) 2.5 mg Q6HR IVP 05/21/17 06:30 06/20/17 06:29 05/22/17 00:30 Nitroglycerin (Ntg) 0.4 mg Q5M X 3 DOSES PRN SL Prn Chest Pain 05/19/17 21:45 06/18/17 21:44 Ondansetron HCl (Zofran) 4 mg Q6H PRN IVP Nausea & Vomiting 05/19/17 21:45 06/18/17 21:44 Pantoprazole (Protonix) 40 mg EVERY 12 HOURS IVP 05/20/17 16:00 06/19/17 15:59 05/21/17 20:57 Polyethylene Glycol (Miralax) 17 gm HSPRN PRN ORAL Constipation 05/19/17 21:45 06/18/17 21:44 Risperidone (RisperDAL) 1 mg DAILY PRN ORAL For Anxiety 05/20/17 23:15 06/19/17 23:14 Tamsulosin HCl (Flomax) 0.4 mg BEDTIME ORAL 05/20/17 21:00 06/19/17 20:59 05/21/17 20:57 Temazepam (Restoril) 15 mg HSPRN PRN ORAL Insomnia 05/19/17 21:45 05/26/17 21:44 Item Value Date Time Bedside Blood Glucose 358 mg/dl H 05/22/17 0639 Bedside Blood Glucose 281 mg/dl H 05/21/17 2100 Bedside Blood Glucose 232 mg/dl H 05/21/17 1726 Bedside Blood Glucose 223 mg/dl H 05/21/17 1218 Bedside Blood Glucose 110 mg/dl 05/21/17 1037 KVNG EDWARD May 22, 2017 06:52
[2017-05-22 06:53] LABS: ALANINE AMINOTRANSFERASE 78 U/L (12-78); ALBUMIN/GLOBULIN RATIO 0.4 (1.0-2.7); ANION GAP 10 mmol/L (5-15); ASPARTATE AMINO TRANSFERASE 199 U/L (15-37); CALCIUM 8.3 MG/DL (8.5-10.1); CARBON DIOXIDE 18 MMOL/L (21-32); CHLORIDE 127 MMOL/L (98-107); CREATININE 3.1 MG/DL (0.55-1.30); MAGNESIUM 2.2 MG/DL (1.8-2.4); PHOSPHORUS 3.3 MG/DL (2.5-4.9); POTASSIUM 4.4 MMOL/L (3.5-5.1); SODIUM 155 MMOL/L (136-145); TOTAL PROTEIN 5.5 G/DL (6.4-8.2)
--- NOTE | 2017-05-22 06:59 | General Progress Note ---
Assessment/Plan Problem List: (1) Non-ST elevation (NSTEMI) myocardial infarction ICD Codes: I21.4 - Non-ST elevation (NSTEMI) myocardial infarction SNOMED: 926681015 (2) LFTs abnormal ICD Codes: R79.89 - Other specified abnormal findings of blood chemistry SNOMED: 712364957 (3) Altered mental status ICD Codes: R41.82 - Altered mental status, unspecified SNOMED: 934627020 (4) Anemia ICD Codes: D64.9 - Anemia, unspecified SNOMED: 021077976 (5) Elevated troponin ICD Codes: R74.8 - Abnormal levels of other serum enzymes SNOMED: 162691204, 241269982 (6) BPH (benign prostatic hyperplasia) ICD Codes: N40.0 - Enlarged prostate without lower urinary tract symptoms SNOMED: 814652346, 265905901 (7) Diabetes mellitus ICD Codes: E11.9 - Type 2 diabetes mellitus without complications SNOMED: 81274983 Assessment/Plan transfuse 2 units today GI procedures on hold given acute NH NPO and plan to feed tomorrow if stable monitor H&H ppi Subjective ROS Limited/Unobtainable: No Allergies: Coded Allergies: No Known Allergies (Unverified , 12/28/15) Objective Last 24 Hour Vital Signs Date Time Temp Pulse Resp B/P (MAP) Pulse Ox O2 Delivery O2 Flow Rate FiO2 05/22/17 06:00 98 105/60 05/22/17 04:00 98.1 98 20 108/60 97 Nasal Cannula 2.0 05/22/17 04:00 102 05/22/17 00:30 106 112/65 05/22/17 00:00 98.6 111 22 112/65 99 Nasal Cannula 2.0 05/22/17 00:00 103 05/21/17 20:57 112 150/76 05/21/17 20:00 97 Nasal Cannula 2.0 28 05/21/17 20:00 Nasal Cannula 2.0 28 05/21/17 20:00 108 20 Nasal Cannula 2.0 28 05/21/17 20:00 111 05/21/17 20:00 99.1 112 20 150/76 100 Nasal Cannula 05/21/17 17:27 107 119/67 05/21/17 16:00 98.2 101 18 120/70 98 Room Air 05/21/17 16:00 97 05/21/17 12:17 106 128/65 05/21/17 12:00 105 05/21/17 12:00 98.2 106 18 128/65 96 Room Air 05/21/17 09:43 98 146/75 05/21/17 08:06 98 20 Room Air 05/21/17 08:00 90 05/21/17 08:00 97.7 96 20 146/75 97 Room Air 05/21/17 07:22 106 127/65 Laboratory Tests 05/21/17 08:55: White Blood Count 14.4H, Red Blood Count 2.72L, Hemoglobin 7.8L, Hematocrit 24.0L, Mean Corpuscular Volume 88, Mean Corpuscular Hemoglobin 28.6, Mean Corpuscular Hemoglobin Concent 32.4, Red Cell Distribution Width 17.6H, Platelet Count 188, Mean Platelet Volume 7.9, Neutrophils (%) (Auto) , Lymphocytes (%) (Auto) , Monocytes (%) (Auto) , Eosinophils (%) (Auto) , Basophils (%) (Auto) , Differential Total Cells Counted 100, Neutrophils % ( Manual) 80H, Lymphocytes % (Manual) 16L, Monocytes % (Manual) 3, Eosinophils % ( Manual) 0, Basophils % (Manual) 0, Metamyelocytes % 1H, Band Neutrophils 0, Nucleated Red Blood Cells 2, Platelet Estimate Adequate, Platelet Morphology Normal, Hypochromasia 3+, Anisocytosis 1+ 05/21/17 15:07: Troponin I 9.460H 05/22/17 04:55: White Blood Count 10.7, Red Blood Count 2.40L, Hemoglobin 6.7*L, Hematocrit 21.5L, Mean Corpuscular Volume 89, Mean Corpuscular Hemoglobin 28.0, Mean Corpuscular Hemoglobin Concent 31.3L, Red Cell Distribution Width 17.1H, Platelet Count 168, Mean Platelet Volume 8.7, Neutrophils (%) (Auto) , Lymphocytes (%) (Auto) , Monocytes (%) (Auto) , Eosinophils (%) (Auto) , Basophils (%) (Auto) , Neutrophils % (Manual) [Pending], Lymphocytes % (Manual) [Pending], Platelet Estimate [Pending], Platelet Morphology [Pending], Troponin I [Pending], Erythrocyte Sedimentation Rate [Pending], Sodium Level [Pending], Potassium Level [Pending], Chloride Level [Pending], Carbon Dioxide Level [ Pending], Blood Urea Nitrogen [Pending], Creatinine [Pending], Estimat Glomerular Filtration Rate [Pending], Glucose Level [Pending], Calcium Level [ Pending], Phosphorus Level [Pending], Magnesium Level [Pending], Total Bilirubin [Pending], Aspartate Amino Transf (AST/SGOT) [Pending], Alanine Aminotransferase (ALT/SGPT) [Pending], Alkaline Phosphatase [Pending], C- Reactive Protein, Quantitative [Pending], Total Protein [Pending], Albumin [ Pending], Globulin [Pending] Height (Feet): 5 Height (Inches): 8.00 Weight (Pounds): 192 General Appearance: lethargic EENT: normal ENT inspection Neck: supple Cardiovascular: tachycardia Respiratory/Chest: decreased breath sounds Abdomen: normal bowel sounds, non tender, soft Extremities: non-tender RYLEE MILLER May 22, 2017 06:59
[2017-05-22 08:00] VITALS: BP 114/60
[2017-05-22 08:06] LABS: ERYTHROCYTE SEDIMENTATION RATE 73 MM/HR (0-20)
--- NOTE | 2017-05-22 08:10 | Infectious Diseases Prog Note ---
Assessment/Plan Assessment/Plan A: Sepsis UTI Non STEMI Acute renal failure DM Anemia P: Continue Cefepime Repeat CXR will f/u cultures Subjective ROS Limited/Unobtainable: Yes Allergies: Coded Allergies: No Known Allergies (Unverified , 12/28/15) Objective Vital Signs Last 24 Hour Vital Signs Date Time Temp Pulse Resp B/P (MAP) Pulse Ox O2 Delivery O2 Flow Rate FiO2 05/22/17 06:00 98 105/60 05/22/17 04:00 98.1 98 20 108/60 97 Nasal Cannula 2.0 05/22/17 04:00 102 05/22/17 00:30 106 112/65 05/22/17 00:00 98.6 111 22 112/65 99 Nasal Cannula 2.0 05/22/17 00:00 103 05/21/17 20:57 112 150/76 05/21/17 20:00 97 Nasal Cannula 2.0 28 05/21/17 20:00 Nasal Cannula 2.0 28 05/21/17 20:00 108 20 Nasal Cannula 2.0 28 05/21/17 20:00 111 05/21/17 20:00 99.1 112 20 150/76 100 Nasal Cannula 05/21/17 17:27 107 119/67 05/21/17 16:00 98.2 101 18 120/70 98 Room Air 05/21/17 16:00 97 05/21/17 12:17 106 128/65 05/21/17 12:00 105 05/21/17 12:00 98.2 106 18 128/65 96 Room Air 05/21/17 09:43 98 146/75 Height (Feet): 5 Height (Inches): 8.00 Weight (Pounds): 192 HEENT: other - NG tube Respiratory/Chest: other - O2 by cannula, decreased sounds in left side Cardiovascular: tachycardia Abdomen: soft, non tender Extremities: no edema Neurologic/Psychiatric: aphasia, other - awake Microbiology Date/Time Source Procedure Growth Status 05/19/17 18:45 Blood Blood Culture - Preliminary NO GROWTH AFTER 48 HOURS Resulted 05/19/17 18:45 Blood Blood Culture - Preliminary NO GROWTH AFTER 48 HOURS Resulted 05/21/17 15:20 Sputum Induced Gram Stain - Final Resulted 05/21/17 15:20 Sputum Induced Sputum Culture Pending Resulted 05/19/17 21:39 Nasal Nares MRSA Culture - Final NO METHICILLIN RESISTANT STAPH AUREUS... Complete 05/20/17 00:10 Urine,Clean Catch Urine Culture - Preliminary Gram Positive Cocci Resulted 05/19/17 21:39 Rectum VRE Culture - Final NO VANCOMYCIN RESISTANT ENTEROCOCCUS ... Complete Laboratory Tests Test 05/21/17 08:55 05/21/17 15:07 05/22/17 04:55 White Blood Count 14.4 K/UL (4.8-10.8) H 10.7 K/UL (4.8-10.8) Red Blood Count 2.72 M/UL (4.70-6.10) L 2.40 M/UL (4.70-6.10) L Hemoglobin 7.8 G/DL (14.2-18.0) L 6.7 G/DL (14.2-18.0) *L Hematocrit 24.0 % (42.0-52.0) L 21.5 % (42.0-52.0) L Mean Corpuscular Volume 88 FL (80-99) 89 FL (80-99) Mean Corpuscular Hemoglobin 28.6 PG (27.0-31.0) 28.0 PG (27.0-31.0) Mean Corpuscular Hemoglobin Concent 32.4 G/DL (32.0-36.0) 31.3 G/DL (32.0-36.0) L Red Cell Distribution Width 17.6 % (11.6-14.8) H 17.1 % (11.6-14.8) H Platelet Count 188 K/UL (150-450) 168 K/UL (150-450) Mean Platelet Volume 7.9 FL (6.5-10.1) 8.7 FL (6.5-10.1) Neutrophils (%) (Auto) % (45.0-75.0) % (45.0-75.0) Lymphocytes (%) (Auto) % (20.0-45.0) % (20.0-45.0) Monocytes (%) (Auto) % (1.0-10.0) % (1.0-10.0) Eosinophils (%) (Auto) % (0.0-3.0) % (0.0-3.0) Basophils (%) (Auto) % (0.0-2.0) % (0.0-2.0) Differential Total Cells Counted 100 Neutrophils % (Manual) 80 % (45-75) H Pending Lymphocytes % (Manual) 16 % (20-45) L Pending Monocytes % (Manual) 3 % (1-10) Eosinophils % (Manual) 0 % (0-3) Basophils % (Manual) 0 % (0-2) Metamyelocytes % 1 % (0-0) H Band Neutrophils 0 % (0-8) Nucleated Red Blood Cells 2 /100 WBC Platelet Estimate Adequate Pending Platelet Morphology Normal Pending Hypochromasia 3+ Anisocytosis 1+ Troponin I 9.460 ng/mL (0.000-0.056) 6.629 ng/mL (0.000-0.056) Erythrocyte Sedimentation Rate 73 MM/HR (0-20) H Sodium Level 155 MMOL/L (136-145) H Potassium Level 4.4 MMOL/L (3.5-5.1) Chloride Level 127 MMOL/L (98-107) H Carbon Dioxide Level 18 MMOL/L (21-32) L Anion Gap 10 mmol/L (5-15) Blood Urea Nitrogen 70 mg/dL (7-18) H Creatinine 3.1 MG/DL (0.55-1.30) H Estimat Glomerular Filtration Rate mL/min (>60) Glucose Level 359 MG/DL (74-106) #H Calcium Level 8.3 MG/DL (8.5-10.1) L Phosphorus Level 3.3 MG/DL (2.5-4.9) Magnesium Level 2.2 MG/DL (1.8-2.4) Total Bilirubin 0.5 MG/DL (0.2-1.0) Aspartate Amino Transf (AST/SGOT) 199 U/L (15-37) H Alanine Aminotransferase (ALT/SGPT) 78 U/L (12-78) Alkaline Phosphatase 100 U/L (46-116) C-Reactive Protein, Quantitative 20.0 mg/dL (0.00-0.90) H Total Protein 5.5 G/DL (6.4-8.2) L Albumin 1.5 G/DL (3.4-5.0) L Globulin 4.0 g/dL Albumin/Globulin Ratio 0.4 (1.0-2.7) L Current Medications Medications (Trade) Dose Ordered Sig/Altaf Route PRN Reason Start Time Stop Time Status Last Admin Dose Admin Acetaminophen (Tylenol) 650 mg Q4H PRN ORAL fever 05/19/17 21:45 06/18/17 21:44 Albuterol/ Ipratropium (Albuterol/ Ipratropium) 3 ml Q4H PRN HHN Shortness of Breath 05/19/17 21:45 05/24/17 21:44 Aspirin (ASA) 81 mg DAILY ORAL 05/21/17 09:00 06/20/17 08:59 05/21/17 09:43 Atorvastatin Calcium (Lipitor) 80 mg BEDTIME ORAL 05/20/17 21:00 06/19/17 20:59 05/21/17 20:57 Carvedilol (Coreg) 3.125 mg EVERY 12 HOURS ORAL 05/21/17 21:00 06/20/17 20:59 05/21/17 20:57 Cefepime HCl 1 gm/ Dextrose 55 ml @ 110 mls/hr Q24H IVPB 05/21/17 11:00 05/28/17 10:59 05/21/17 12:13 Clonidine HCl (Catapres) 0.1 mg Q4H PRN ORAL sbp more than 160 05/19/17 21:45 06/18/17 21:44 Clopidogrel Bisulfate (Plavix) 75 mg DAILY ORAL 05/20/17 09:00 06/19/17 08:59 05/21/17 09:43 Dextrose 1,000 ml @ 100 mls/hr Q10H IV 05/21/17 07:30 06/20/17 07:29 05/22/17 03:34 Dextrose (Dextrose 50%) STAT PRN IV Hypoglycemia 05/19/17 21:45 06/18/17 21:44 Finasteride (Proscar) 5 mg BEDTIME ORAL 05/20/17 21:00 06/19/17 20:59 Insulin Aspart (NovoLOG) BEFORE MEALS AND HS SUBQ 05/20/17 06:30 06/19/17 06:29 05/22/17 06:39 Insulin Detemir (Levemir) 23 units BID SUBQ 05/22/17 09:00 06/21/17 08:59 Iron Sucrose 100 mg/Sodium Chloride 60 ml @ 240 mls/hr BEDTIME IVPB 05/23/17 21:00 05/27/17 21:14 UNV Iron Sucrose 200 mg/Sodium Chloride 120 ml @ 240 mls/hr ONCE ONCE IVPB 05/22/17 08:00 05/22/17 08:29 UNV Lorazepam (Ativan 2mg/ml 1ml) 1 mg Q4H PRN IV For Anxiety 05/21/17 08:00 05/28/17 07:59 Metoprolol Tartrate (Lopressor) 2.5 mg Q6HR IVP 05/21/17 06:30 06/20/17 06:29 05/22/17 00:30 Nitroglycerin (Ntg) 0.4 mg Q5M X 3 DOSES PRN SL Prn Chest Pain 05/19/17 21:45 06/18/17 21:44 Ondansetron HCl (Zofran) 4 mg Q6H PRN IVP Nausea & Vomiting 05/19/17 21:45 06/18/17 21:44 Pantoprazole (Protonix) 40 mg EVERY 12 HOURS IVP 05/20/17 16:00 06/19/17 15:59 05/21/17 20:57 Polyethylene Glycol (Miralax) 17 gm HSPRN PRN ORAL Constipation 05/19/17 21:45 06/18/17 21:44 Risperidone (RisperDAL) 1 mg DAILY PRN ORAL For Anxiety 05/20/17 23:15 06/19/17 23:14 Tamsulosin HCl (Flomax) 0.4 mg BEDTIME ORAL 05/20/17 21:00 06/19/17 20:59 05/21/17 20:57 Temazepam (Restoril) 15 mg HSPRN PRN ORAL Insomnia 05/19/17 21:45 05/26/17 21:44 ARMANDO EVANGELISTA May 22, 2017 08:10
[2017-05-22] MEDS: Aspirin Baby 81mg ORAL SCH (08:30)
[2017-05-22] MEDS: Pantoprazole Inj IVP SCH ×2 (08:30→21:03)
[2017-05-22] MEDS: Levemir Flexpen SUBQ SCH ×2 (08:48→17:40)
--- NOTE | 2017-05-22 08:52 | Nephrology Progress Note ---
Assessment/Plan Problem List: (1) ATN (acute tubular necrosis) (2) Prostate cancer (3) Anemia Assessment acute renal failure cr down 3.1 chronic underlying renal failure, ? Diabetic Nephropathy Severe Anemia HypoAlbuminemia, r/o Nephrotic syndrom UTI / Sepsis Basal Atelectasis Prostate cancer h/o CVA toxic metabolic encephalopathy Plan Plan: ? Transfuse? defer to PMD Hydrate- Transfuse gastric support MONSTER Renal- pending 2 D Echo- pending 24 H urine protein- minimal monitor renal parameters Subjective ROS Limited/Unobtainable: Yes Objective Objective Last 24 Hour Vital Signs Date Time Temp Pulse Resp B/P (MAP) Pulse Ox O2 Delivery O2 Flow Rate FiO2 05/22/17 08:30 95 114/60 05/22/17 08:05 101 20 Nasal Cannula 2.0 28 05/22/17 08:00 98 Nasal Cannula 2.0 28 05/22/17 08:00 Nasal Cannula 2.0 28 05/22/17 06:00 98 105/60 05/22/17 04:00 98.1 98 20 108/60 97 Nasal Cannula 2.0 05/22/17 04:00 102 05/22/17 00:30 106 112/65 05/22/17 00:00 98.6 111 22 112/65 99 Nasal Cannula 2.0 05/22/17 00:00 103 05/21/17 20:57 112 150/76 05/21/17 20:00 97 Nasal Cannula 2.0 28 05/21/17 20:00 Nasal Cannula 2.0 28 05/21/17 20:00 108 20 Nasal Cannula 2.0 28 05/21/17 20:00 111 05/21/17 20:00 99.1 112 20 150/76 100 Nasal Cannula 05/21/17 17:27 107 119/67 05/21/17 16:00 98.2 101 18 120/70 98 Room Air 05/21/17 16:00 97 05/21/17 12:17 106 128/65 05/21/17 12:00 105 05/21/17 12:00 98.2 106 18 128/65 96 Room Air 05/21/17 09:43 98 146/75 Laboratory Tests 05/21/17 08:55: White Blood Count 14.4H, Red Blood Count 2.72L, Hemoglobin 7.8L, Hematocrit 24.0L, Mean Corpuscular Volume 88, Mean Corpuscular Hemoglobin 28.6, Mean Corpuscular Hemoglobin Concent 32.4, Red Cell Distribution Width 17.6H, Platelet Count 188, Mean Platelet Volume 7.9, Neutrophils (%) (Auto) , Lymphocytes (%) (Auto) , Monocytes (%) (Auto) , Eosinophils (%) (Auto) , Basophils (%) (Auto) , Differential Total Cells Counted 100, Neutrophils % ( Manual) 80H, Lymphocytes % (Manual) 16L, Monocytes % (Manual) 3, Eosinophils % ( Manual) 0, Basophils % (Manual) 0, Metamyelocytes % 1H, Band Neutrophils 0, Nucleated Red Blood Cells 2, Platelet Estimate Adequate, Platelet Morphology Normal, Hypochromasia 3+, Anisocytosis 1+ 05/21/17 15:07: Troponin I 9.460H 05/22/17 04:55: White Blood Count 10.7, Red Blood Count 2.40L, Hemoglobin 6.7*L, Hematocrit 21.5L, Mean Corpuscular Volume 89, Mean Corpuscular Hemoglobin 28.0, Mean Corpuscular Hemoglobin Concent 31.3L, Red Cell Distribution Width 17.1H, Platelet Count 168, Mean Platelet Volume 8.7, Neutrophils (%) (Auto) , Lymphocytes (%) (Auto) , Monocytes (%) (Auto) , Eosinophils (%) (Auto) , Basophils (%) (Auto) , Neutrophils % (Manual) [Pending], Lymphocytes % (Manual) [Pending], Platelet Estimate [Pending], Platelet Morphology [Pending], Troponin I 6.629H, Erythrocyte Sedimentation Rate 73H, Sodium Level 155H, Potassium Level 4.4, Chloride Level 127H, Carbon Dioxide Level 18L, Anion Gap 10, Blood Urea Nitrogen 70H, Creatinine 3.1H, Estimat Glomerular Filtration Rate , Glucose Level 359#H, Calcium Level 8.3L, Phosphorus Level 3.3, Magnesium Level 2.2, Total Bilirubin 0.5, Aspartate Amino Transf (AST/SGOT) 199H, Alanine Aminotransferase (ALT/SGPT) 78, Alkaline Phosphatase 100, C-Reactive Protein, Quantitative 20.0H, Total Protein 5.5L, Albumin 1.5L, Globulin 4.0, Albumin/ Globulin Ratio 0.4L Height (Feet): 5 Height (Inches): 8.00 Weight (Pounds): 192 General Appearance: no apparent distress Respiratory/Chest: decreased breath sounds Abdomen: soft Objective no other changes YOLANDA NAVA May 22, 2017 08:52
--- NOTE | 2017-05-22 09:45 | Pulmonology Progress Note ---
Assessment/Plan Problems: (1) Encephalopathy acute (2) Sepsis (3) ATN (acute tubular necrosis) (4) Non-ST elevation (NSTEMI) myocardial infarction (5) Diabetes mellitus (6) Prostate cancer (7) Anemia Assessment/Plan CT head still pending troponin ludin to 11 received one unit of PRBC continue abx check cultures check stool for OB Subjective ROS Limited/Unobtainable: No Interval Events: still obtunded Constitutional: Reports: no symptoms Allergies: Coded Allergies: No Known Allergies (Unverified , 12/28/15) Objective Last 24 Hour Vital Signs Date Time Temp Pulse Resp B/P (MAP) Pulse Ox O2 Delivery O2 Flow Rate FiO2 05/22/17 08:30 95 114/60 05/22/17 08:05 101 20 Nasal Cannula 2.0 28 05/22/17 08:00 98 Nasal Cannula 2.0 28 05/22/17 08:00 Nasal Cannula 2.0 28 05/22/17 06:00 98 105/60 05/22/17 04:00 98.1 98 20 108/60 97 Nasal Cannula 2.0 05/22/17 04:00 102 05/22/17 00:30 106 112/65 05/22/17 00:00 98.6 111 22 112/65 99 Nasal Cannula 2.0 05/22/17 00:00 103 05/21/17 20:57 112 150/76 05/21/17 20:00 97 Nasal Cannula 2.0 28 05/21/17 20:00 Nasal Cannula 2.0 28 05/21/17 20:00 108 20 Nasal Cannula 2.0 28 05/21/17 20:00 111 05/21/17 20:00 99.1 112 20 150/76 100 Nasal Cannula 05/21/17 17:27 107 119/67 05/21/17 16:00 98.2 101 18 120/70 98 Room Air 05/21/17 16:00 97 05/21/17 12:17 106 128/65 05/21/17 12:00 105 05/21/17 12:00 98.2 106 18 128/65 96 Room Air General Appearance: WD/WN HEENT: normocephalic, atraumatic Respiratory/Chest: chest wall non-tender, lungs clear Cardiovascular: normal peripheral pulses, normal rate Abdomen: normal bowel sounds, soft, non tender Extremities: no cyanosis Neurologic/Psychiatric: tacking stitch remover II-XII grossly normal Lymphatic: no neck adenopathy Microbiology Date/Time Source Procedure Growth Status 05/19/17 18:45 Blood Blood Culture - Preliminary NO GROWTH AFTER 48 HOURS Resulted 05/19/17 18:45 Blood Blood Culture - Preliminary NO GROWTH AFTER 48 HOURS Resulted 05/21/17 15:20 Sputum Induced Gram Stain - Final Resulted 05/21/17 15:20 Sputum Induced Sputum Culture Pending Resulted 05/19/17 21:39 Nasal Nares MRSA Culture - Final NO METHICILLIN RESISTANT STAPH AUREUS... Complete 05/20/17 00:10 Urine,Clean Catch Urine Culture - Final Enterococcus Faecalis Complete 05/19/17 21:39 Rectum VRE Culture - Final NO VANCOMYCIN RESISTANT ENTEROCOCCUS ... Complete Laboratory Tests 05/21/17 15:07: Troponin I 9.460H 05/22/17 04:55: Troponin I 6.629H, White Blood Count 10.7, Red Blood Count 2.40L, Hemoglobin 6.7 *L, Hematocrit 21.5L, Mean Corpuscular Volume 89, Mean Corpuscular Hemoglobin 28.0, Mean Corpuscular Hemoglobin Concent 31.3L, Red Cell Distribution Width 17.1H, Platelet Count 168, Mean Platelet Volume 8.7, Neutrophils (%) (Auto) , Lymphocytes (%) (Auto) , Monocytes (%) (Auto) , Eosinophils (%) (Auto) , Basophils (%) (Auto) , Neutrophils % (Manual) [Pending], Lymphocytes % (Manual) [Pending], Platelet Estimate [Pending], Platelet Morphology [Pending], Erythrocyte Sedimentation Rate 73H, Sodium Level 155H, Potassium Level 4.4, Chloride Level 127H, Carbon Dioxide Level 18L, Anion Gap 10, Blood Urea Nitrogen 70H, Creatinine 3.1H, Estimat Glomerular Filtration Rate , Glucose Level 359#H, Calcium Level 8.3L, Phosphorus Level 3.3, Magnesium Level 2.2, Total Bilirubin 0.5, Aspartate Amino Transf (AST/SGOT) 199H, Alanine Aminotransferase (ALT/SGPT) 78, Alkaline Phosphatase 100, C-Reactive Protein, Quantitative 20.0H, Total Protein 5.5L, Albumin 1.5L, Globulin 4.0, Albumin/ Globulin Ratio 0.4L Current Medications Medications (Trade) Dose Ordered Sig/Altaf Route PRN Reason Start Time Stop Time Status Last Admin Dose Admin Acetaminophen (Tylenol) 650 mg Q4H PRN ORAL fever 05/19/17 21:45 06/18/17 21:44 Albuterol/ Ipratropium (Albuterol/ Ipratropium) 3 ml Q4H PRN HHN Shortness of Breath 05/19/17 21:45 05/24/17 21:44 Aspirin (ASA) 81 mg DAILY ORAL 05/21/17 09:00 06/20/17 08:59 05/22/17 08:30 Atorvastatin Calcium (Lipitor) 80 mg BEDTIME ORAL 05/20/17 21:00 06/19/17 20:59 05/21/17 20:57 Carvedilol (Coreg) 3.125 mg EVERY 12 HOURS ORAL 05/21/17 21:00 06/20/17 20:59 05/22/17 08:30 Cefepime HCl 1 gm/ Dextrose 55 ml @ 110 mls/hr Q24H IVPB 05/21/17 11:00 05/28/17 10:59 05/21/17 12:13 Clonidine HCl (Catapres) 0.1 mg Q4H PRN ORAL sbp more than 160 05/19/17 21:45 06/18/17 21:44 Clopidogrel Bisulfate (Plavix) 75 mg DAILY ORAL 05/20/17 09:00 06/19/17 08:59 05/22/17 08:30 Dextrose 1,000 ml @ 100 mls/hr Q10H IV 05/21/17 07:30 06/20/17 07:29 05/22/17 03:34 Dextrose (Dextrose 50%) STAT PRN IV Hypoglycemia 05/19/17 21:45 06/18/17 21:44 Finasteride (Proscar) 5 mg BEDTIME ORAL 05/20/17 21:00 06/19/17 20:59 Insulin Aspart (NovoLOG) BEFORE MEALS AND HS SUBQ 05/20/17 06:30 06/19/17 06:29 05/22/17 06:39 Insulin Detemir (Levemir) 23 units BID SUBQ 05/22/17 09:00 06/21/17 08:59 05/22/17 08:48 Iron Sucrose 100 mg/Sodium Chloride 60 ml @ 240 mls/hr BEDTIME IV 05/23/17 21:00 05/27/17 21:14 Iron Sucrose 200 mg/Sodium Chloride 120 ml @ 240 mls/hr ONCE ONCE IV 05/22/17 10:00 05/22/17 10:29 Lorazepam (Ativan 2mg/ml 1ml) 1 mg Q4H PRN IV For Anxiety 05/21/17 08:00 05/28/17 07:59 Metoprolol Tartrate (Lopressor) 2.5 mg Q6HR IVP 05/21/17 06:30 06/20/17 06:29 05/22/17 00:30 Nitroglycerin (Ntg) 0.4 mg Q5M X 3 DOSES PRN SL Prn Chest Pain 05/19/17 21:45 06/18/17 21:44 Ondansetron HCl (Zofran) 4 mg Q6H PRN IVP Nausea & Vomiting 05/19/17 21:45 06/18/17 21:44 Pantoprazole (Protonix) 40 mg EVERY 12 HOURS IVP 05/20/17 16:00 06/19/17 15:59 05/22/17 08:30 Polyethylene Glycol (Miralax) 17 gm HSPRN PRN ORAL Constipation 05/19/17 21:45 06/18/17 21:44 Risperidone (RisperDAL) 1 mg DAILY PRN ORAL For Anxiety 05/20/17 23:15 06/19/17 23:14 Tamsulosin HCl (Flomax) 0.4 mg BEDTIME ORAL 05/20/17 21:00 06/19/17 20:59 05/21/17 20:57 Temazepam (Restoril) 15 mg HSPRN PRN ORAL Insomnia 05/19/17 21:45 05/26/17 21:44 YOSHI EDOUARD May 22, 2017 09:45
[2017-05-22 09:50] LABS: ANISOCYTOSIS 1+; BAND NEUTROPHILS % (MANUAL) 0 % (0-8); BASOPHILS % (MANUAL) 0 % (0-2); EOSINOPHILS % (MANUAL) 2 % (0-3); HYPOCHROMASIA 4+; LYMPHOCYTES % (MANUAL) 17 % (20-45); NEUTROPHILS % (MANUAL) 76 % (45-75); PLATELET ESTIMATE ADEQUATE; SPHEROCYTES 1+; TOTAL CELLS COUNTED 100
[2017-05-22 09:51] LABS: PLATELET MORPHOLOGY NORMAL; POIKILOCYTOSIS 1+; POLYCHROMASIA 1+
[2017-05-22] MEDS ORDERED: Iron Sucrose 200 MG in NS 110 ML IV ONE (10:00)
[2017-05-22] MEDS: Albuterol/Ipratropium 3ml neb HHN SCH ×4 (11:17→23:32)
[2017-05-22 12:00] VITALS: BP 136/63
[2017-05-22] MEDS: Cefepime HCl 1 GM in D5W 55 ML IVPB SCH (12:13)
--- NOTE | 2017-05-22 15:08 | Cardiology Progress Note ---
Assessment/Plan Problem List: (1) recent R MCA stroke with L hemiplegia, dysartria , vascular dementia (2) Elevated troponin (3) Non-ST elevation (NSTEMI) myocardial infarction (4) Anemia Assessment & Plan: hx of leukemia Status: stable, progressing Status Narrative Mr. Bhatt is a 76 yo man w/ recent CVA, w/ L hemiplegia and aphasia who is admitted with fever/ possible sepsis, renal failure and dehydration. His troponin levels are decreasing, and there are no acute ischemic ST changes on EKG. He has no anginal symptoms, and overall appears more alert, in NAD He is severely anemic but has no evidence for acute bleed. Has hx of leukemia, ? ALL per pt's , treated in the past by Dr. Riya Ramirez Assessment/Plan Titrate b blockers ( currently on iv). Continue asa, statin followup final echo results. He is not a candidate for invasive cardiac intervention due to comorbidities and poor overall functional status. Agree w PRBC transfusion, attempt to get Hg to 10. Lasix prn for pulm congestion. GI eval noted. Would also consider hematology evaluation. Subjective ROS Limited/Unobtainable: No Subjective Cardiology for Dr. Cunningham Mr. Bhatt is much more alert. Denies dyspnea, chest pain. He is severely dysarthric (baseline, post CVA) Objective Last 24 Hour Vital Signs Date Time Temp Pulse Resp B/P (MAP) Pulse Ox O2 Delivery O2 Flow Rate FiO2 05/22/17 12:22 84 136/63 05/22/17 12:00 87 05/22/17 12:00 97.7 84 18 136/63 98 Room Air 05/22/17 11:20 64 20 99 Nasal Cannula 3.0 32 05/22/17 11:16 32 05/22/17 11:16 61 20 99 Nasal Cannula 3.0 32 05/22/17 08:30 95 114/60 05/22/17 08:05 101 20 Nasal Cannula 2.0 28 05/22/17 08:00 98 Nasal Cannula 2.0 28 05/22/17 08:00 99 05/22/17 08:00 Nasal Cannula 2.0 28 05/22/17 08:00 98.2 95 20 114/60 100 Nasal Cannula 2.0 05/22/17 06:00 98 105/60 05/22/17 04:00 98.1 98 20 108/60 97 Nasal Cannula 2.0 05/22/17 04:00 102 05/22/17 00:30 106 112/65 05/22/17 00:00 98.6 111 22 112/65 99 Nasal Cannula 2.0 05/22/17 00:00 103 05/21/17 20:57 112 150/76 05/21/17 20:00 97 Nasal Cannula 2.0 28 05/21/17 20:00 Nasal Cannula 2.0 28 05/21/17 20:00 108 20 Nasal Cannula 2.0 28 05/21/17 20:00 111 05/21/17 20:00 99.1 112 20 150/76 100 Nasal Cannula 05/21/17 17:27 107 119/67 05/21/17 16:00 98.2 101 18 120/70 98 Room Air 05/21/17 16:00 97 General Appearance: no apparent distress, alert EENT: PERRL/EOMI Neck: supple, no JVD Rhythm: NSR Cardiovascular: normal rate, regular rhythm, no gallop/murmur Respiratory/Chest: rhonchi - bilaterally - scattered rhonchi anteriorly Abdomen: non tender, soft Extremities: no swelling Neurologic: motor weakness - L hemiplegia. L facial droop. Intake and Output 05/22/17 05/23/17 18:59 06:59 Intake Total 300 ml Balance 300 ml IV Total 300 ml 2D Echo: ECG SR 100 bpm nonspecific T changes. no ST changes ECHO w/ EF 55% no wma Laboratory Tests Test 05/21/17 15:07 05/22/17 04:55 Troponin I 9.460 ng/mL (0.000-0.056) 6.629 ng/mL (0.000-0.056) White Blood Count 10.7 K/UL (4.8-10.8) Red Blood Count 2.40 M/UL (4.70-6.10) L Hemoglobin 6.7 G/DL (14.2-18.0) *L Hematocrit 21.5 % (42.0-52.0) L Mean Corpuscular Volume 89 FL (80-99) Mean Corpuscular Hemoglobin 28.0 PG (27.0-31.0) Mean Corpuscular Hemoglobin Concent 31.3 G/DL (32.0-36.0) L Red Cell Distribution Width 17.1 % (11.6-14.8) H Platelet Count 168 K/UL (150-450) Mean Platelet Volume 8.7 FL (6.5-10.1) Neutrophils (%) (Auto) % (45.0-75.0) Lymphocytes (%) (Auto) % (20.0-45.0) Monocytes (%) (Auto) % (1.0-10.0) Eosinophils (%) (Auto) % (0.0-3.0) Basophils (%) (Auto) % (0.0-2.0) Differential Total Cells Counted 100 Neutrophils % (Manual) 76 % (45-75) H Lymphocytes % (Manual) 17 % (20-45) L Monocytes % (Manual) 5 % (1-10) Eosinophils % (Manual) 2 % (0-3) Basophils % (Manual) 0 % (0-2) Band Neutrophils 0 % (0-8) Platelet Estimate Adequate Platelet Morphology Normal Polychromasia 1+ Hypochromasia 4+ Poikilocytosis 1+ Anisocytosis 1+ Spherocytes 1+ Erythrocyte Sedimentation Rate 73 MM/HR (0-20) H Sodium Level 155 MMOL/L (136-145) H Potassium Level 4.4 MMOL/L (3.5-5.1) Chloride Level 127 MMOL/L (98-107) H Carbon Dioxide Level 18 MMOL/L (21-32) L Anion Gap 10 mmol/L (5-15) Blood Urea Nitrogen 70 mg/dL (7-18) H Creatinine 3.1 MG/DL (0.55-1.30) H Estimat Glomerular Filtration Rate mL/min (>60) Glucose Level 359 MG/DL (74-106) #H Calcium Level 8.3 MG/DL (8.5-10.1) L Phosphorus Level 3.3 MG/DL (2.5-4.9) Magnesium Level 2.2 MG/DL (1.8-2.4) Total Bilirubin 0.5 MG/DL (0.2-1.0) Aspartate Amino Transf (AST/SGOT) 199 U/L (15-37) H Alanine Aminotransferase (ALT/SGPT) 78 U/L (12-78) Alkaline Phosphatase 100 U/L (46-116) C-Reactive Protein, Quantitative 20.0 mg/dL (0.00-0.90) H Total Protein 5.5 G/DL (6.4-8.2) L Albumin 1.5 G/DL (3.4-5.0) L Globulin 4.0 g/dL Albumin/Globulin Ratio 0.4 (1.0-2.7) L Microbiology Date/Time Source Procedure Growth Status 05/19/17 18:45 Blood Blood Culture - Preliminary NO GROWTH AFTER 48 HOURS Resulted 05/19/17 18:45 Blood Blood Culture - Preliminary NO GROWTH AFTER 48 HOURS Resulted 05/21/17 15:20 Sputum Induced Gram Stain - Final Resulted 05/21/17 15:20 Sputum Induced Sputum Culture Pending Resulted 05/19/17 21:39 Nasal Nares MRSA Culture - Final NO METHICILLIN RESISTANT STAPH AUREUS... Complete 05/20/17 00:10 Urine,Clean Catch Urine Culture - Final Enterococcus Faecalis Complete 05/19/17 21:39 Rectum VRE Culture - Final NO VANCOMYCIN RESISTANT ENTEROCOCCUS ... Complete HUMBERTO STROUD May 22, 2017 15:08
[2017-05-22] MEDS ORDERED: NS 275ml ONE (15:53)
[2017-05-22] MEDS ORDERED: Tubing Blood Filter IV ONE (15:53)
[2017-05-22 16:00] VITALS: BP 146/69
[2017-05-22 20:00] VITALS: BP 147/70
[2017-05-22] MEDS: Piperacillin/Tazobactam 2.25 GM in D5W 55 ML IVPB SCH (21:56)
[2017-05-22] MEDS: Atorvastatin 80mg tab ORAL SCH (22:26)
[2017-05-22] MEDS: Tamsulosin 0.4mg cap ORAL SCH (22:29)
--- NOTE | 2017-05-22 23:18 | General Progress Note ---
Assessment/Plan Status: stable, progressing Subjective Neurologic/Psychiatric: Reports: anxiety, depressed, emotional problems Allergies: Coded Allergies: No Known Allergies (Unverified , 12/28/15) Objective Last 24 Hour Vital Signs Date Time Temp Pulse Resp B/P (MAP) Pulse Ox O2 Delivery O2 Flow Rate FiO2 05/22/17 22:29 88 136/68 05/22/17 21:52 103 147/70 05/22/17 20:00 101 05/22/17 20:00 98.4 102 16 147/70 100 Nasal Cannula 3.0 05/22/17 19:24 92 20 99 Nasal Cannula 2.0 28 05/22/17 19:12 32 05/22/17 19:12 99 Nasal Cannula 2.0 28 05/22/17 19:12 Nasal Cannula 2.0 28 05/22/17 19:11 96 20 99 Nasal Cannula 3.0 32 05/22/17 16:11 32 05/22/17 16:11 65 20 99 Nasal Cannula 3.0 32 05/22/17 16:10 62 20 97 Nasal Cannula 3.0 32 05/22/17 16:00 97.9 85 18 146/69 97 Room Air 05/22/17 16:00 86 05/22/17 12:22 84 136/63 05/22/17 12:00 87 05/22/17 12:00 97.7 84 18 136/63 98 Room Air 05/22/17 11:20 64 20 99 Nasal Cannula 3.0 32 05/22/17 11:16 32 05/22/17 11:16 61 20 99 Nasal Cannula 3.0 32 05/22/17 08:30 95 114/60 05/22/17 08:05 101 20 Nasal Cannula 2.0 28 05/22/17 08:00 98 Nasal Cannula 2.0 28 05/22/17 08:00 99 05/22/17 08:00 Nasal Cannula 2.0 28 05/22/17 08:00 98.2 95 20 114/60 100 Nasal Cannula 2.0 05/22/17 06:00 98 105/60 05/22/17 04:00 98.1 98 20 108/60 97 Nasal Cannula 2.0 05/22/17 04:00 102 05/22/17 00:30 106 112/65 05/22/17 00:00 98.6 111 22 112/65 99 Nasal Cannula 2.0 05/22/17 00:00 103 Intake and Output 05/22/17 05/23/17 19:00 07:00 Intake Total 1055 ml 402 ml Output Total 600 ml Balance 455 ml 402 ml IV Total 455 ml 402 ml Blood Product 600 ml Output Urine Total 600 ml Laboratory Tests 05/22/17 04:55: White Blood Count 10.7, Red Blood Count 2.40L, Hemoglobin 6.7*L, Hematocrit 21.5L, Mean Corpuscular Volume 89, Mean Corpuscular Hemoglobin 28.0, Mean Corpuscular Hemoglobin Concent 31.3L, Red Cell Distribution Width 17.1H, Platelet Count 168, Mean Platelet Volume 8.7, Neutrophils (%) (Auto) , Lymphocytes (%) (Auto) , Monocytes (%) (Auto) , Eosinophils (%) (Auto) , Basophils (%) (Auto) , Differential Total Cells Counted 100, Neutrophils % ( Manual) 76H, Lymphocytes % (Manual) 17L, Monocytes % (Manual) 5, Eosinophils % ( Manual) 2, Basophils % (Manual) 0, Band Neutrophils 0, Platelet Estimate Adequate, Platelet Morphology Normal, Polychromasia 1+, Hypochromasia 4+, Poikilocytosis 1+, Anisocytosis 1+, Spherocytes 1+, Erythrocyte Sedimentation Rate 73H, Sodium Level 155H, Potassium Level 4.4, Chloride Level 127H, Carbon Dioxide Level 18L, Anion Gap 10, Blood Urea Nitrogen 70H, Creatinine 3.1H, Estimat Glomerular Filtration Rate , Glucose Level 359#H, Calcium Level 8.3L, Phosphorus Level 3.3, Magnesium Level 2.2, Total Bilirubin 0.5, Aspartate Amino Transf (AST/SGOT) 199H, Alanine Aminotransferase (ALT/SGPT) 78, Alkaline Phosphatase 100, Troponin I 6.629H, C-Reactive Protein, Quantitative 20.0H, Total Protein 5.5L, Albumin 1.5L, Globulin 4.0, Albumin/Globulin Ratio 0.4L Height (Feet): 5 Height (Inches): 8.00 Weight (Pounds): 192 General Appearance: no apparent distress, lethargic, confused, overweight Neurologic: disoriented, unresponsive, depressed affect Madi Hansen M.D. May 22, 2017 23:18
[2017-05-23] VITALS: BP 130/54
[2017-05-23] MEDS: Albuterol/Ipratropium 3ml neb HHN SCH ×6 (03:37→23:57)
[2017-05-23 04:00] VITALS: BP 113/65
[2017-05-23] MEDS: Piperacillin/Tazobactam 2.25 GM in D5W 55 ML IVPB SCH (05:44)
[2017-05-23] MEDS: Metoprolol 5mg/5ml Inj IVP SCH ×2 (06:02→13:27)
[2017-05-23 06:06] LABS: PROTHROMBIN TIME 10.7 SEC (9.30-11.50)
[2017-05-23 06:20] LABS: ALANINE AMINOTRANSFERASE 107 U/L (12-78); ALBUMIN/GLOBULIN RATIO 0.4 (1.0-2.7); ANION GAP 10 mmol/L (5-15); ASPARTATE AMINO TRANSFERASE 274 U/L (15-37); CALCIUM 8.6 MG/DL (8.5-10.1); CARBON DIOXIDE 18 MMOL/L (21-32); CHLORIDE 125 MMOL/L (98-107); CREATININE 2.7 MG/DL (0.55-1.30); CRP QUANT 41.5 mg/dL (0.00-0.90); MAGNESIUM 2.1 MG/DL (1.8-2.4); POTASSIUM 4.1 MMOL/L (3.5-5.1); SODIUM 153 MMOL/L (136-145); TOTAL PROTEIN 5.6 G/DL (6.4-8.2)
[2017-05-23] MEDS: NovoLOG Insulin Flexpen SUBQ SCH ×4 (06:34→21:46)
[2017-05-23 06:57] LABS: APPEARANCE,URINE CLEAR; KETONES,URINE NEGATIVE (NEGATIVE); LEUKOCYTE ESTERASE ,URINE NEGATIVE (NEGATIVE); NITRITE,URINE NEGATIVE (NEGATIVE); PH,URINE 5 (4.5-8.0); PROTEIN,URINE 3+ (NEGATIVE); UROBILINOGEN,URINE NORMAL MG/DL (0.0-1.0)
[2017-05-23 07:11] LABS: BACTERIA,URINE FEW /HPF; MUCUS,URINE FEW /LPF (NONE/OCC); SQUAMOUS EPITHELIAL CELL,UR OCCASIONAL /LPF (NONE/OCC); WBC,URINE 0-2 /HPF (0 - 0)
--- NOTE | 2017-05-23 07:47 | General Progress Note ---
Assessment/Plan Problem List: (1) Hypernatremia ICD Codes: E87.0 - Hyperosmolality and hypernatremia SNOMED: 22771461 (2) Diabetes mellitus ICD Codes: E11.9 - Type 2 diabetes mellitus without complications SNOMED: 23764885 (3) Renal failure ICD Codes: N19 - Unspecified kidney failure SNOMED: 78339602 Qualifiers: Qualified Codes: N17.9 - Acute kidney failure, unspecified (4) toxic metabolic encephalopathy, multifactorial Assessment/Plan increase Levemir to 30 units bid continue Novolog coverage Subjective Allergies: Coded Allergies: No Known Allergies (Unverified , 12/28/15) All Systems: reviewed and negative except above Subjective events noted Objective Last 24 Hour Vital Signs Date Time Temp Pulse Resp B/P (MAP) Pulse Ox O2 Delivery O2 Flow Rate FiO2 05/23/17 07:24 82 20 99 Nasal Cannula 2.0 28 05/23/17 07:18 100 Nasal Cannula 2.0 28 05/23/17 07:18 Nasal Cannula 2.0 28 05/23/17 07:18 32 05/23/17 07:18 88 20 100 Nasal Cannula 2.0 28 05/23/17 06:02 89 115/65 05/23/17 04:00 88 05/23/17 04:00 98.2 88 16 113/65 Nasal Cannula 3.0 05/23/17 03:47 91 20 99 Nasal Cannula 2.0 28 05/23/17 03:38 32 05/23/17 03:37 81 20 99 Nasal Cannula 2.0 28 05/23/17 00:00 85 05/23/17 00:00 98.4 85 20 130/54 100 Nasal Cannula 3.0 05/22/17 23:52 87 20 99 Nasal Cannula 2.0 28 05/22/17 23:32 78 20 99 Nasal Cannula 2.0 28 05/22/17 23:32 32 05/22/17 22:29 88 136/68 05/22/17 21:52 103 147/70 05/22/17 20:00 101 05/22/17 20:00 98.4 102 16 147/70 100 Nasal Cannula 3.0 05/22/17 19:24 92 20 99 Nasal Cannula 2.0 28 05/22/17 19:12 32 05/22/17 19:12 99 Nasal Cannula 2.0 28 05/22/17 19:12 Nasal Cannula 2.0 28 05/22/17 19:11 96 20 99 Nasal Cannula 3.0 32 05/22/17 16:11 32 05/22/17 16:11 65 20 99 Nasal Cannula 3.0 32 05/22/17 16:10 62 20 97 Nasal Cannula 3.0 32 05/22/17 16:00 97.9 85 18 146/69 97 Room Air 05/22/17 16:00 86 05/22/17 12:22 84 136/63 05/22/17 12:00 87 05/22/17 12:00 97.7 84 18 136/63 98 Room Air 05/22/17 11:20 64 20 99 Nasal Cannula 3.0 32 05/22/17 11:16 32 05/22/17 11:16 61 20 99 Nasal Cannula 3.0 32 05/22/17 08:30 95 114/60 05/22/17 08:05 101 20 Nasal Cannula 2.0 28 05/22/17 08:00 98 Nasal Cannula 2.0 28 05/22/17 08:00 99 05/22/17 08:00 Nasal Cannula 2.0 28 05/22/17 08:00 98.2 95 20 114/60 100 Nasal Cannula 2.0 Laboratory Tests 05/23/17 03:15: White Blood Count 1.4#*L, Red Blood Count 3.40L, Hemoglobin 9.6#L, Hematocrit 30.7#L, Mean Corpuscular Volume 90, Mean Corpuscular Hemoglobin 28.4, Mean Corpuscular Hemoglobin Concent 31.4L, Red Cell Distribution Width 16.4H, Platelet Count 153, Mean Platelet Volume 8.5, Neutrophils (%) (Auto) , Lymphocytes (%) (Auto) , Monocytes (%) (Auto) , Eosinophils (%) (Auto) , Basophils (%) (Auto) , Neutrophils % (Manual) [Pending], Lymphocytes % (Manual) [Pending], Platelet Estimate [Pending], Platelet Morphology [Pending], Prothrombin Time 10.7, Prothromb Time International Ratio 1.0, Activated Partial Thromboplast Time 31, Sodium Level 153H, Potassium Level 4.1, Chloride Level 125H, Carbon Dioxide Level 18L, Anion Gap 10, Blood Urea Nitrogen 51H, Creatinine 2.7H, Estimat Glomerular Filtration Rate , Glucose Level 201#H, Uric Acid 10.0H, Calcium Level 8.6, Phosphorus Level 3.0, Magnesium Level 2.1, Total Bilirubin 1.0, Aspartate Amino Transf (AST/SGOT) 274H, Alanine Aminotransferase (ALT/SGPT) 107H, Alkaline Phosphatase 121H, C-Reactive Protein, Quantitative 41.5H, Pro-B-Type Natriuretic Peptide 5797H, Total Protein 5.6L, Albumin 1.5L, Globulin 4.1, Albumin/Globulin Ratio 0.4L 05/23/17 06:45: Urine Color Pale yellow, Urine Appearance Clear, Urine pH 5, Urine Specific [place] 1.015, Urine Protein 3+H, Urine Glucose (UA) 3+H, Urine Ketones Negative , Urine Occult Blood 5+H, Urine Nitrite Negative, Urine Bilirubin Negative, Urine Urobilinogen Normal, Urine Leukocyte Esterase Negative, Urine RBC 2-4H, Urine WBC 0-2, Urine Squamous Epithelial Cells Occasional, Urine Bacteria Few, Urine Mucus FewH Height (Feet): 5 Height (Inches): 8.00 Weight (Pounds): 192 General Appearance: lethargic Neck: normal alignment Cardiovascular: normal rate Respiratory/Chest: decreased breath sounds Abdomen: normal bowel sounds Edema: 1+ Arm (L), 1+ Arm (R), 1+ Leg (L), 1+ Leg (R), 1+ Pedal (L), 1+ Pedal ( R), 1+ Generalized Objective Current Medications Medications (Trade) Dose Ordered Sig/Altaf Route PRN Reason Start Time Stop Time Status Last Admin Dose Admin Acetaminophen (Tylenol) 650 mg Q4H PRN ORAL fever 05/19/17 21:45 06/18/17 21:44 Albuterol/ Ipratropium (Albuterol/ Ipratropium) 3 ml Q4H PRN HHN Shortness of Breath 05/19/17 21:45 05/24/17 21:44 Albuterol/ Ipratropium (Albuterol/ Ipratropium) 3 ml Q4HRT HHN 05/22/17 11:00 05/27/17 10:59 05/23/17 07:22 Aspirin (ASA) 81 mg DAILY ORAL 05/21/17 09:00 06/20/17 08:59 05/22/17 08:30 Atorvastatin Calcium (Lipitor) 80 mg BEDTIME ORAL 05/20/17 21:00 06/19/17 20:59 05/22/17 22:26 Carvedilol (Coreg) 3.125 mg EVERY 12 HOURS ORAL 05/21/17 21:00 06/20/17 20:59 05/22/17 22:29 Clonidine HCl (Catapres) 0.1 mg Q4H PRN ORAL sbp more than 160 05/19/17 21:45 06/18/17 21:44 Clopidogrel Bisulfate (Plavix) 75 mg DAILY ORAL 05/20/17 09:00 06/19/17 08:59 05/22/17 08:30 Dextrose 1,000 ml @ 100 mls/hr Q10H IV 05/21/17 07:30 06/20/17 07:29 05/22/17 22:06 Dextrose (Dextrose 50%) STAT PRN IV Hypoglycemia 05/19/17 21:45 06/18/17 21:44 Finasteride (Proscar) 5 mg BEDTIME ORAL 05/20/17 21:00 06/19/17 20:59 Insulin Aspart (NovoLOG) BEFORE MEALS AND HS SUBQ 05/20/17 06:30 06/19/17 06:29 05/23/17 06:34 Insulin Detemir (Levemir) 23 units BID SUBQ 05/22/17 09:00 06/21/17 08:59 05/22/17 17:40 Iron Sucrose 100 mg/Sodium Chloride 60 ml @ 240 mls/hr BEDTIME IV 05/23/17 21:00 05/27/17 21:14 Lorazepam (Ativan 2mg/ml 1ml) 1 mg Q4H PRN IV For Anxiety 05/21/17 08:00 05/28/17 07:59 Metoprolol Tartrate (Lopressor) 5 mg EVERY 8 HOURS IVP 05/22/17 22:00 06/20/17 06:29 05/23/17 06:02 Nitroglycerin (Ntg) 0.4 mg Q5M X 3 DOSES PRN SL Prn Chest Pain 05/19/17 21:45 06/18/17 21:44 Ondansetron HCl (Zofran) 4 mg Q6H PRN IVP Nausea & Vomiting 05/19/17 21:45 06/18/17 21:44 Pantoprazole (Protonix) 40 mg EVERY 12 HOURS IVP 05/20/17 16:00 06/19/17 15:59 05/22/17 21:03 Piperacillin Sod/ Tazobactam Sod 2.25 gm/Dextrose 55 ml @ 110 mls/hr Q8HR IVPB 05/22/17 22:00 05/27/17 21:59 05/23/17 05:44 Polyethylene Glycol (Miralax) 17 gm HSPRN PRN ORAL Constipation 05/19/17 21:45 06/18/17 21:44 Risperidone (RisperDAL) 1 mg DAILY PRN ORAL For Anxiety 05/20/17 23:15 06/19/17 23:14 Tamsulosin HCl (Flomax) 0.4 mg BEDTIME ORAL 05/20/17 21:00 06/19/17 20:59 05/22/17 22:29 Temazepam (Restoril) 15 mg HSPRN PRN ORAL Insomnia 05/19/17 21:45 05/26/17 21:44 05/22/17 22:26 Item Value Date Time Bedside Blood Glucose 238 mg/dl H 05/23/17 0634 Bedside Blood Glucose 196 mg/dl H 05/22/17 2107 Bedside Blood Glucose 131 mg/dl H 05/22/17 1742 Bedside Blood Glucose 226 mg/dl H 05/22/17 1215 Bedside Blood Glucose 326 mg/dl H 05/22/17 0848 Bedside Blood Glucose 358 mg/dl H 05/22/17 0639 KVNG EDWARD May 23, 2017 07:47
[2017-05-23 08:00] VITALS: BP 142/63
--- NOTE | 2017-05-23 08:30 | Diagnostic Imaging Report ---
Indication: Abnormal renal function tests. History of acute kidney injury. As you prostate carcinoma Technique: Grayscale and duplex images of the kidneys, retroperitoneum, and bladder were obtained. Comparison:Abdomen ultrasound 12/31/2015 Findings: Right kidney measures 9.9 cm in length. Left kidney measures 12.4 cm in length. Both kidneys demonstrate increased echogenicity. No hydronephrosis. Right renal parapelvic cyst is unchanged from the previous exam. Bilateral cortical cysts are also evident. Normal inferior vena cava. Bladder is distended despite the presence of a [place] catheter. Calculated bladder volume 417 mm Impression: Increased renal echogenicity, consistent with medical renal disease. Note that this was not definitely demonstrated on prior abdomen ultrasound of December 2015 Negative for hydronephrosis Distended bladder despite the presence of a P[place] catheter. Possibility of Pond catheter dysfunction should be considered Incidental finding bilateral renal cortical cysts, right renal parapelvic cyst.
[2017-05-23 08:53] LABS: BASOPHILS % (AUTO) 0.2 % (0.0-2.0); EOSINOPHILS % (AUTO) 1.9 % (0.0-3.0); LYMPHOCYTES % (AUTO) 14.5 % (20.0-45.0); MEAN CORPUSCULAR HEMOGLOBIN 28.8 PG (27.0-31.0); MEAN CORPUSCULAR HGB CONC 31.9 G/DL (32.0-36.0); MEAN CORPUSCULAR VOLUME 90 FL (80-99); MONOCYTES % (AUTO) 4.6 % (1.0-10.0); NEUTROPHILS % (AUTO) 78.8 % (45.0-75.0); PLATELET COUNT 133 K/UL (150-450); RED BLOOD COUNT 3.24 M/UL (4.70-6.10); RED CELL DISTRIBUTION WIDTH 16.2 % (11.6-14.8)
--- NOTE | 2017-05-23 08:57 | Nephrology Progress Note ---
Assessment/Plan Problem List: (1) ATN (acute tubular necrosis) (2) Prostate cancer (3) Anemia Assessment Acute renal failure cr down high 2s chronic underlying renal failure, ? Diabetic Nephropathy Severe Anemia HypoAlbuminemia, r/o Nephrotic syndrom UTI / Sepsis Basal Atelectasis Prostate cancer h/o CVA toxic metabolic encephalopathy Plan Plan: recheck CBC as wbc shows low ? Transfuse? defer to PMD Hydrate- Transfuse gastric support MONSTER Renal- Negative for hydronephrosis 2 D Echo- pending 24 H urine protein- minimal monitor renal parameters per consultants Subjective ROS Limited/Unobtainable: No Constitutional: Reports: malaise Objective Objective Last 24 Hour Vital Signs Date Time Temp Pulse Resp B/P (MAP) Pulse Ox O2 Delivery O2 Flow Rate FiO2 05/23/17 08:00 87 05/23/17 07:24 82 20 99 Nasal Cannula 2.0 28 05/23/17 07:18 100 Nasal Cannula 2.0 28 05/23/17 07:18 Nasal Cannula 2.0 28 05/23/17 07:18 32 05/23/17 07:18 88 20 100 Nasal Cannula 2.0 28 05/23/17 06:02 89 115/65 05/23/17 04:00 88 05/23/17 04:00 98.2 88 16 113/65 Nasal Cannula 3.0 05/23/17 03:47 91 20 99 Nasal Cannula 2.0 28 05/23/17 03:38 32 05/23/17 03:37 81 20 99 Nasal Cannula 2.0 28 05/23/17 00:00 85 05/23/17 00:00 98.4 85 20 130/54 100 Nasal Cannula 3.0 05/22/17 23:52 87 20 99 Nasal Cannula 2.0 28 05/22/17 23:32 78 20 99 Nasal Cannula 2.0 28 05/22/17 23:32 32 05/22/17 22:29 88 136/68 05/22/17 21:52 103 147/70 05/22/17 20:00 101 05/22/17 20:00 98.4 102 16 147/70 100 Nasal Cannula 3.0 05/22/17 19:24 92 20 99 Nasal Cannula 2.0 28 05/22/17 19:12 32 05/22/17 19:12 99 Nasal Cannula 2.0 28 05/22/17 19:12 Nasal Cannula 2.0 28 05/22/17 19:11 96 20 99 Nasal Cannula 3.0 32 05/22/17 16:11 32 05/22/17 16:11 65 20 99 Nasal Cannula 3.0 32 05/22/17 16:10 62 20 97 Nasal Cannula 3.0 32 05/22/17 16:00 97.9 85 18 146/69 97 Room Air 05/22/17 16:00 86 05/22/17 12:22 84 136/63 05/22/17 12:00 87 05/22/17 12:00 97.7 84 18 136/63 98 Room Air 05/22/17 11:20 64 20 99 Nasal Cannula 3.0 32 05/22/17 11:16 32 05/22/17 11:16 61 20 99 Nasal Cannula 3.0 32 Laboratory Tests 05/23/17 03:15: White Blood Count 1.4#*L, Red Blood Count 3.40L, Hemoglobin 9.6#L, Hematocrit 30.7#L, Mean Corpuscular Volume 90, Mean Corpuscular Hemoglobin 28.4, Mean Corpuscular Hemoglobin Concent 31.4L, Red Cell Distribution Width 16.4H, Platelet Count 153, Mean Platelet Volume 8.5, Neutrophils (%) (Auto) , Lymphocytes (%) (Auto) , Monocytes (%) (Auto) , Eosinophils (%) (Auto) , Basophils (%) (Auto) , Neutrophils % (Manual) [Pending], Lymphocytes % (Manual) [Pending], Platelet Estimate [Pending], Platelet Morphology [Pending], Prothrombin Time 10.7, Prothromb Time International Ratio 1.0, Activated Partial Thromboplast Time 31, Sodium Level 153H, Potassium Level 4.1, Chloride Level 125H, Carbon Dioxide Level 18L, Anion Gap 10, Blood Urea Nitrogen 51H, Creatinine 2.7H, Estimat Glomerular Filtration Rate , Glucose Level 201#H, Uric Acid 10.0H, Calcium Level 8.6, Phosphorus Level 3.0, Magnesium Level 2.1, Total Bilirubin 1.0, Aspartate Amino Transf (AST/SGOT) 274H, Alanine Aminotransferase (ALT/SGPT) 107H, Alkaline Phosphatase 121H, C-Reactive Protein, Quantitative 41.5H, Pro-B-Type Natriuretic Peptide 5797H, Total Protein 5.6L, Albumin 1.5L, Globulin 4.1, Albumin/Globulin Ratio 0.4L 05/23/17 06:45: Urine Color Pale yellow, Urine Appearance Clear, Urine pH 5, Urine Specific [place] 1.015, Urine Protein 3+H, Urine Glucose (UA) 3+H, Urine Ketones Negative , Urine Occult Blood 5+H, Urine Nitrite Negative, Urine Bilirubin Negative, Urine Urobilinogen Normal, Urine Leukocyte Esterase Negative, Urine RBC 2-4H, Urine WBC 0-2, Urine Squamous Epithelial Cells Occasional, Urine Bacteria Few, Urine Mucus FewH 05/23/17 08:00: White Blood Count [Pending], Red Blood Count [Pending], Hemoglobin [Pending], Hematocrit [Pending], Mean Corpuscular Volume [Pending], Mean Corpuscular Hemoglobin [Pending], Mean Corpuscular Hemoglobin Concent [Pending], Red Cell Distribution Width [Pending], Platelet Count [Pending], Mean Platelet Volume [ Pending], Neutrophils (%) (Auto) [Pending], Lymphocytes (%) (Auto) [Pending], Monocytes (%) (Auto) [Pending], Eosinophils (%) (Auto) [Pending], Basophils (%) (Auto) [Pending] Height (Feet): 5 Height (Inches): 8.00 Weight (Pounds): 192 General Appearance: no apparent distress Neck: limited range of motion Cardiovascular: normal rate Respiratory/Chest: decreased breath sounds Abdomen: soft, distended Objective no other changes YOLANDA NAVA May 23, 2017 08:57
[2017-05-23] MEDS: Aspirin Baby 81mg ORAL SCH (09:27)
[2017-05-23] MEDS: Pantoprazole Inj IVP SCH ×2 (09:27→21:29)
[2017-05-23] MEDS: Levemir Flexpen SUBQ SCH ×2 (09:31→21:47)
[2017-05-23] MEDS: LORazepam Inj 2mg/ml 1ml IV PRN (10:14)
--- NOTE | 2017-05-23 10:38 | Pulmonology Progress Note ---
Assessment/Plan Problems: (1) Encephalopathy acute (2) Sepsis (3) ATN (acute tubular necrosis) (4) Non-ST elevation (NSTEMI) myocardial infarction (5) Diabetes mellitus (6) Prostate cancer (7) Anemia Assessment/Plan CT head results pending bun/creatinine decreasing continue abx check cultures check stool for OB check CEA, previous admission it was 7 Subjective ROS Limited/Unobtainable: Yes Interval Events: CT done, results pending Allergies: Coded Allergies: No Known Allergies (Unverified , 12/28/15) Objective Last 24 Hour Vital Signs Date Time Temp Pulse Resp B/P (MAP) Pulse Ox O2 Delivery O2 Flow Rate FiO2 05/23/17 09:27 87 142/63 05/23/17 08:00 98.2 87 18 142/63 Nasal Cannula 3.0 05/23/17 08:00 87 05/23/17 07:24 82 20 99 Nasal Cannula 2.0 28 05/23/17 07:18 100 Nasal Cannula 2.0 28 05/23/17 07:18 Nasal Cannula 2.0 28 05/23/17 07:18 32 05/23/17 07:18 88 20 100 Nasal Cannula 2.0 28 05/23/17 06:02 89 115/65 05/23/17 04:00 88 05/23/17 04:00 98.2 88 16 113/65 Nasal Cannula 3.0 05/23/17 03:47 91 20 99 Nasal Cannula 2.0 28 05/23/17 03:38 32 05/23/17 03:37 81 20 99 Nasal Cannula 2.0 28 05/23/17 00:00 85 05/23/17 00:00 98.4 85 20 130/54 100 Nasal Cannula 3.0 05/22/17 23:52 87 20 99 Nasal Cannula 2.0 28 05/22/17 23:32 78 20 99 Nasal Cannula 2.0 28 05/22/17 23:32 32 05/22/17 22:29 88 136/68 05/22/17 21:52 103 147/70 05/22/17 20:00 101 05/22/17 20:00 98.4 102 16 147/70 100 Nasal Cannula 3.0 05/22/17 19:24 92 20 99 Nasal Cannula 2.0 28 05/22/17 19:12 32 05/22/17 19:12 99 Nasal Cannula 2.0 28 05/22/17 19:12 Nasal Cannula 2.0 28 05/22/17 19:11 96 20 99 Nasal Cannula 3.0 32 05/22/17 16:11 32 05/22/17 16:11 65 20 99 Nasal Cannula 3.0 32 05/22/17 16:10 62 20 97 Nasal Cannula 3.0 32 05/22/17 16:00 97.9 85 18 146/69 97 Room Air 05/22/17 16:00 86 05/22/17 12:22 84 136/63 05/22/17 12:00 87 05/22/17 12:00 97.7 84 18 136/63 98 Room Air 05/22/17 11:20 64 20 99 Nasal Cannula 3.0 32 05/22/17 11:16 32 05/22/17 11:16 61 20 99 Nasal Cannula 3.0 32 General Appearance: WD/WN HEENT: normocephalic, atraumatic Respiratory/Chest: chest wall non-tender, lungs clear Cardiovascular: normal rate, no gallop/murmur Abdomen: soft, non tender, no organomegaly Extremities: no clubbing Skin: no lesions Microbiology Date/Time Source Procedure Growth Status 05/21/17 15:20 Sputum Induced Gram Stain - Final Complete 05/21/17 15:20 Sputum Culture - Final Capri Albicans Usual Upper Respiratory Ade Complete Laboratory Tests 05/23/17 03:15: White Blood Count 1.4#*L, Red Blood Count 3.40L, Hemoglobin 9.6#L, Hematocrit 30.7#L, Mean Corpuscular Volume 90, Mean Corpuscular Hemoglobin 28.4, Mean Corpuscular Hemoglobin Concent 31.4L, Red Cell Distribution Width 16.4H, Platelet Count 153, Mean Platelet Volume 8.5, Neutrophils (%) (Auto) , Lymphocytes (%) (Auto) , Monocytes (%) (Auto) , Eosinophils (%) (Auto) , Basophils (%) (Auto) , Neutrophils % (Manual) [Pending], Lymphocytes % (Manual) [Pending], Platelet Estimate [Pending], Platelet Morphology [Pending], Prothrombin Time 10.7, Prothromb Time International Ratio 1.0, Activated Partial Thromboplast Time 31, Sodium Level 153H, Potassium Level 4.1, Chloride Level 125H, Carbon Dioxide Level 18L, Anion Gap 10, Blood Urea Nitrogen 51H, Creatinine 2.7H, Estimat Glomerular Filtration Rate , Glucose Level 201#H, Uric Acid 10.0H, Calcium Level 8.6, Phosphorus Level 3.0, Magnesium Level 2.1, Total Bilirubin 1.0, Aspartate Amino Transf (AST/SGOT) 274H, Alanine Aminotransferase (ALT/SGPT) 107H, Alkaline Phosphatase 121H, C-Reactive Protein, Quantitative 41.5H, Pro-B-Type Natriuretic Peptide 5797H, Total Protein 5.6L, Albumin 1.5L, Globulin 4.1, Albumin/Globulin Ratio 0.4L 05/23/17 06:45: Urine Color Pale yellow, Urine Appearance Clear, Urine pH 5, Urine Specific [place] 1.015, Urine Protein 3+H, Urine Glucose (UA) 3+H, Urine Ketones Negative , Urine Occult Blood 5+H, Urine Nitrite Negative, Urine Bilirubin Negative, Urine Urobilinogen Normal, Urine Leukocyte Esterase Negative, Urine RBC 2-4H, Urine WBC 0-2, Urine Squamous Epithelial Cells Occasional, Urine Bacteria Few, Urine Mucus FewH 05/23/17 08:00: White Blood Count 12.0#H, Red Blood Count 3.24L, Hemoglobin 9.3L, Hematocrit 29.3L, Mean Corpuscular Volume 90, Mean Corpuscular Hemoglobin 28.8, Mean Corpuscular Hemoglobin Concent 31.9L, Red Cell Distribution Width 16.2H, Platelet Count 133L, Mean Platelet Volume 9.0, Neutrophils (%) (Auto) 78.8H, Lymphocytes (%) (Auto) 14.5L, Monocytes (%) (Auto) 4.6, Eosinophils (%) (Auto) 1.9, Basophils (%) (Auto) 0.2 Current Medications Medications (Trade) Dose Ordered Sig/Altaf Route PRN Reason Start Time Stop Time Status Last Admin Dose Admin Acetaminophen (Tylenol) 650 mg Q4H PRN ORAL fever 05/19/17 21:45 06/18/17 21:44 Albuterol/ Ipratropium (Albuterol/ Ipratropium) 3 ml Q4H PRN HHN Shortness of Breath 05/19/17 21:45 05/24/17 21:44 Albuterol/ Ipratropium (Albuterol/ Ipratropium) 3 ml Q4HRT HHN 05/22/17 11:00 05/27/17 10:59 05/23/17 07:22 Aspirin (ASA) 81 mg DAILY ORAL 05/21/17 09:00 06/20/17 08:59 05/23/17 09:27 Atorvastatin Calcium (Lipitor) 80 mg BEDTIME ORAL 05/20/17 21:00 06/19/17 20:59 05/22/17 22:26 Carvedilol (Coreg) 3.125 mg EVERY 12 HOURS ORAL 05/21/17 21:00 06/20/17 20:59 05/23/17 09:27 Clonidine HCl (Catapres) 0.1 mg Q4H PRN ORAL sbp more than 160 05/19/17 21:45 06/18/17 21:44 Clopidogrel Bisulfate (Plavix) 75 mg DAILY ORAL 05/20/17 09:00 06/19/17 08:59 05/23/17 09:27 Dextrose 1,000 ml @ 100 mls/hr Q10H IV 05/21/17 07:30 06/20/17 07:29 05/23/17 09:27 Dextrose (Dextrose 50%) STAT PRN IV Hypoglycemia 05/19/17 21:45 06/18/17 21:44 Finasteride (Proscar) 5 mg BEDTIME ORAL 05/20/17 21:00 06/19/17 20:59 Insulin Aspart (NovoLOG) BEFORE MEALS AND HS SUBQ 05/20/17 06:30 06/19/17 06:29 05/23/17 06:34 Insulin Detemir (Levemir) 30 units Q12HR SUBQ 05/23/17 09:30 06/22/17 09:29 05/23/17 09:31 Iron Sucrose 100 mg/Sodium Chloride 60 ml @ 240 mls/hr BEDTIME IV 05/23/17 21:00 05/27/17 21:14 Lorazepam (Ativan 2mg/ml 1ml) 1 mg Q4H PRN IV For Anxiety 05/21/17 08:00 05/28/17 07:59 05/23/17 10:14 Metoprolol Tartrate (Lopressor) 5 mg EVERY 8 HOURS IVP 05/22/17 22:00 06/20/17 06:29 05/23/17 06:02 Nitroglycerin (Ntg) 0.4 mg Q5M X 3 DOSES PRN SL Prn Chest Pain 05/19/17 21:45 06/18/17 21:44 Ondansetron HCl (Zofran) 4 mg Q6H PRN IVP Nausea & Vomiting 05/19/17 21:45 06/18/17 21:44 Pantoprazole (Protonix) 40 mg EVERY 12 HOURS IVP 05/20/17 16:00 06/19/17 15:59 05/23/17 09:27 Piperacillin Sod/ Tazobactam Sod 2.25 gm/Dextrose 55 ml @ 110 mls/hr Q8HR IVPB 05/22/17 22:00 05/27/17 21:59 05/23/17 05:44 Polyethylene Glycol (Miralax) 17 gm HSPRN PRN ORAL Constipation 05/19/17 21:45 06/18/17 21:44 Risperidone (RisperDAL) 1 mg DAILY PRN ORAL For Anxiety 05/20/17 23:15 06/19/17 23:14 Tamsulosin HCl (Flomax) 0.4 mg BEDTIME ORAL 05/20/17 21:00 06/19/17 20:59 05/22/17 22:29 Temazepam (Restoril) 15 mg HSPRN PRN ORAL Insomnia 05/19/17 21:45 05/26/17 21:44 05/22/17 22:26 YOSHI EDOUARD May 23, 2017 10:38
[2017-05-23 11:36] LABS: OTHERS PATHOLOGIST COMMENT
--- NOTE | 2017-05-23 11:39 | Diagnostic Imaging Report ---
Indication: NGT post nasogastric tube placement Technique: Supine view of the upper abdomen Comparison: 05/21/2017 Findings: Again demonstrated is a nasogastric tube, tip of which projects at the level of the gastric fundus, proximal port beyond the gastroesophageal junction. Bowel gas pattern is unremarkable and there is overall less bowel gas than on the prior study. Impression: Satisfactory nasogastric tube position This agrees with the preliminary interpretation provided overnight by [facility].
--- NOTE | 2017-05-23 11:43 | Diagnostic Imaging Report ---
Indication: Cough Technique: One view of the chest Comparison: 05/19/2017 Findings: There is equivocally some retrocardiac atelectasis. Lungs and pleural spaces are otherwise clear. The heart is borderline enlarged. Power pack overlies the mediastinum. There is a nasogastric tube now present, tip projected at the level of the gastric fundus. Impression: Retrocardiac atelectasis. No definite acute process otherwise. Borderline cardiomegaly
[2017-05-23 12:00] VITALS: BP 111/63
--- NOTE | 2017-05-23 12:45 | Infectious Diseases Prog Note ---
Assessment/Plan Assessment/Plan ASSESSMENT: Sepsis Leukocytosis, slightly worse -CXR : Basilar residual opacities possibly scarring or atelectasis. Doubt CHF Probable urinary tract infection/pyuria UCx: enterococcus -worsening pyuria on repeat u/a Lactic acidosis, SP Mild elevation of AST, rule out chronic hepatitis B/C. Positive cardiac enzymes Acute renal insufficiency, superimposed on chronic kidney disease Anemia PLAN: Cefepime d # 3 / 5 , Amoxicillins d# 1 / 05/21 SP IV Rocephin day #3 Monitor CBC Monitor BMP. Monitor cultures, blood and urine. obtain sputum cx Hepatitis panel US of abd Subjective Allergies: Coded Allergies: No Known Allergies (Unverified , 12/28/15) Subjective comfortable Objective Vital Signs Last 24 Hour Vital Signs Date Time Temp Pulse Resp B/P (MAP) Pulse Ox O2 Delivery O2 Flow Rate FiO2 05/23/17 11:53 87 05/23/17 11:16 79 20 100 Nasal Cannula 2.0 28 05/23/17 11:05 32 05/23/17 11:05 80 18 100 Nasal Cannula 2.0 28 05/23/17 09:27 87 142/63 05/23/17 08:00 98.2 87 18 142/63 Nasal Cannula 3.0 05/23/17 08:00 87 05/23/17 07:24 82 20 99 Nasal Cannula 2.0 28 05/23/17 07:18 100 Nasal Cannula 2.0 28 05/23/17 07:18 Nasal Cannula 2.0 28 05/23/17 07:18 32 05/23/17 07:18 88 20 100 Nasal Cannula 2.0 05/23/17 06:02 89 115/65 05/23/17 04:00 88 05/23/17 04:00 98.2 88 16 113/65 Nasal Cannula 3.0 05/23/17 03:47 91 20 99 Nasal Cannula 2.0 28 05/23/17 03:38 32 05/23/17 03:37 81 20 99 Nasal Cannula 2.0 05/23/17 00:00 85 05/23/17 00:00 98.4 85 20 130/54 100 Nasal Cannula 3.0 05/22/17 23:52 87 20 99 Nasal Cannula 2.0 28 05/22/17 23:32 78 20 99 Nasal Cannula 2.0 28 05/22/17 23:32 32 05/22/17 22:29 88 136/68 05/22/17 21:52 103 147/70 05/22/17 20:00 101 05/22/17 20:00 98.4 102 16 147/70 100 Nasal Cannula 3.0 05/22/17 19:24 92 20 99 Nasal Cannula 2.0 28 05/22/17 19:12 32 05/22/17 19:12 99 Nasal Cannula 2.0 28 05/22/17 19:12 Nasal Cannula 2.0 28 05/22/17 19:11 96 20 99 Nasal Cannula 3.0 32 05/22/17 16:11 32 05/22/17 16:11 65 20 99 Nasal Cannula 3.0 32 05/22/17 16:10 62 20 97 Nasal Cannula 3.0 32 05/22/17 16:00 97.9 85 18 146/69 97 Room Air 05/22/17 16:00 86 Height (Feet): 5 Height (Inches): 8.00 Weight (Pounds): 192 HEENT: atraumatic Respiratory/Chest: normal breath sounds Cardiovascular: regular rhythm Abdomen: no organomegaly Microbiology Date/Time Source Procedure Growth Status 05/21/17 15:20 Sputum Induced Gram Stain - Final Complete 05/21/17 15:20 Sputum Culture - Final Capri Albicans Usual Upper Respiratory Ade Complete Laboratory Tests Test 05/23/17 03:15 05/23/17 06:45 05/23/17 08:00 Prothrombin Time 10.7 SEC (9.30-11.50) Prothromb Time International Ratio 1.0 (0.9-1.1) Activated Partial Thromboplast Time 31 SEC (23-33) Sodium Level 153 MMOL/L (136-145) H Potassium Level 4.1 MMOL/L (3.5-5.1) Chloride Level 125 MMOL/L (98-107) H Carbon Dioxide Level 18 MMOL/L (21-32) L Anion Gap 10 mmol/L (5-15) Blood Urea Nitrogen 51 mg/dL (7-18) H Creatinine 2.7 MG/DL (0.55-1.30) H Estimat Glomerular Filtration Rate mL/min (>60) Glucose Level 201 MG/DL (74-106) #H Uric Acid 10.0 MG/DL (2.6-7.2) H Calcium Level 8.6 MG/DL (8.5-10.1) Phosphorus Level 3.0 MG/DL (2.5-4.9) Magnesium Level 2.1 MG/DL (1.8-2.4) Total Bilirubin 1.0 MG/DL (0.2-1.0) Aspartate Amino Transf (AST/SGOT) 274 U/L (15-37) H Alanine Aminotransferase (ALT/SGPT) 107 U/L (12-78) H Alkaline Phosphatase 121 U/L (46-116) H C-Reactive Protein, Quantitative 41.5 mg/dL (0.00-0.90) H Pro-B-Type Natriuretic Peptide 5797 pg/mL (0-125) H Total Protein 5.6 G/DL (6.4-8.2) L Albumin 1.5 G/DL (3.4-5.0) L Globulin 4.1 g/dL Albumin/Globulin Ratio 0.4 (1.0-2.7) L Urine Color Pale yellow Urine Appearance Clear Urine pH 5 (4.5-8.0) Urine Specific [place] 1.015 (1.005-1.035) Urine Protein 3+ (NEGATIVE) H Urine Glucose (UA) 3+ (NEGATIVE) H Urine Ketones Negative (NEGATIVE) Urine Occult Blood 5+ (NEGATIVE) H Urine Nitrite Negative (NEGATIVE) Urine Bilirubin Negative (NEGATIVE) Urine Urobilinogen Normal MG/DL (0.0-1.0) Urine Leukocyte Esterase Negative (NEGATIVE) Urine RBC 2-4 /HPF (0 - 0) H Urine WBC 0-2 /HPF (0 - 0) Urine Squamous Epithelial Cells Occasional /LPF Urine Bacteria Few /HPF (NONE) Urine Mucus Few /LPF (NONE/OCC) H White Blood Count 12.0 K/UL (4.8-10.8) #H Red Blood Count 3.24 M/UL (4.70-6.10) L Hemoglobin 9.3 G/DL (14.2-18.0) L Hematocrit 29.3 % (42.0-52.0) L Mean Corpuscular Volume 90 FL (80-99) Mean Corpuscular Hemoglobin 28.8 PG (27.0-31.0) Mean Corpuscular Hemoglobin Concent 31.9 G/DL (32.0-36.0) L Red Cell Distribution Width 16.2 % (11.6-14.8) H Platelet Count 133 K/UL (150-450) L Mean Platelet Volume 9.0 FL (6.5-10.1) Neutrophils (%) (Auto) 78.8 % (45.0-75.0) H Lymphocytes (%) (Auto) 14.5 % (20.0-45.0) L Monocytes (%) (Auto) 4.6 % (1.0-10.0) Eosinophils (%) (Auto) 1.9 % (0.0-3.0) Basophils (%) (Auto) 0.2 % (0.0-2.0) Current Medications Medications (Trade) Dose Ordered Sig/Altaf Route PRN Reason Start Time Stop Time Status Last Admin Dose Admin Acetaminophen (Tylenol) 650 mg Q4H PRN ORAL fever 05/19/17 21:45 06/18/17 21:44 Albuterol/ Ipratropium (Albuterol/ Ipratropium) 3 ml Q4H PRN HHN Shortness of Breath 05/19/17 21:45 05/24/17 21:44 Albuterol/ Ipratropium (Albuterol/ Ipratropium) 3 ml Q4HRT HHN 05/22/17 11:00 05/27/17 10:59 05/23/17 11:20 Aspirin (ASA) 81 mg DAILY ORAL 05/21/17 09:00 06/20/17 08:59 05/23/17 09:27 Atorvastatin Calcium (Lipitor) 80 mg BEDTIME ORAL 05/20/17 21:00 06/19/17 20:59 05/22/17 22:26 Carvedilol (Coreg) 3.125 mg EVERY 12 HOURS ORAL 05/21/17 21:00 06/20/17 20:59 05/23/17 09:27 Clonidine HCl (Catapres) 0.1 mg Q4H PRN ORAL sbp more than 160 05/19/17 21:45 06/18/17 21:44 Clopidogrel Bisulfate (Plavix) 75 mg DAILY ORAL 05/20/17 09:00 06/19/17 08:59 05/23/17 09:27 Dextrose 1,000 ml @ 100 mls/hr Q10H IV 05/21/17 07:30 06/20/17 07:29 05/23/17 09:27 Dextrose (Dextrose 50%) STAT PRN IV Hypoglycemia 05/19/17 21:45 06/18/17 21:44 Finasteride (Proscar) 5 mg BEDTIME ORAL 05/20/17 21:00 06/19/17 20:59 Insulin Aspart (NovoLOG) BEFORE MEALS AND HS SUBQ 05/20/17 06:30 06/19/17 06:29 05/23/17 06:34 Insulin Detemir (Levemir) 30 units Q12HR SUBQ 05/23/17 09:30 06/22/17 09:29 05/23/17 09:31 Iron Sucrose 100 mg/Sodium Chloride 60 ml @ 240 mls/hr BEDTIME IV 05/23/17 21:00 05/27/17 21:14 Lorazepam (Ativan 2mg/ml 1ml) 1 mg Q4H PRN IV For Anxiety 05/21/17 08:00 05/28/17 07:59 05/23/17 10:14 Metoprolol Tartrate (Lopressor) 5 mg EVERY 8 HOURS IVP 05/22/17 22:00 06/20/17 06:29 05/23/17 06:02 Nitroglycerin (Ntg) 0.4 mg Q5M X 3 DOSES PRN SL Prn Chest Pain 05/19/17 21:45 06/18/17 21:44 Ondansetron HCl (Zofran) 4 mg Q6H PRN IVP Nausea & Vomiting 05/19/17 21:45 06/18/17 21:44 Pantoprazole (Protonix) 40 mg EVERY 12 HOURS IVP 05/20/17 16:00 06/19/17 15:59 05/23/17 09:27 Piperacillin Sod/ Tazobactam Sod 2.25 gm/Dextrose 55 ml @ 110 mls/hr Q8HR IVPB 05/22/17 22:00 05/27/17 21:59 05/23/17 05:44 Polyethylene Glycol (Miralax) 17 gm HSPRN PRN ORAL Constipation 05/19/17 21:45 06/18/17 21:44 Risperidone (RisperDAL) 1 mg DAILY PRN ORAL For Anxiety 05/20/17 23:15 06/19/17 23:14 Tamsulosin HCl (Flomax) 0.4 mg BEDTIME ORAL 05/20/17 21:00 06/19/17 20:59 05/22/17 22:29 Temazepam (Restoril) 15 mg HSPRN PRN ORAL Insomnia 05/19/17 21:45 05/26/17 21:44 05/22/17 22:26 ALEXANDER FRAZIER M.D. May 23, 2017 12:45
--- NOTE | 2017-05-23 12:49 | GI Progress Note ---
Assessment/Plan Problems: (1) Abdominal pain ICD Codes: R10.9 - Unspecified abdominal pain SNOMED: 97956393 (2) Hypoalbuminemia ICD Codes: E88.09 - Other disorders of plasma-protein metabolism, not elsewhere classified SNOMED: 838421757 (3) Generalized weakness ICD Codes: R53.1 - Weakness SNOMED: 32992116 (4) Diarrhea ICD Codes: R19.7 - Diarrhea, unspecified SNOMED: 73663964 (5) Anemia ICD Codes: D64.9 - Anemia, unspecified SNOMED: 463973202 (6) Diabetes mellitus ICD Codes: E11.9 - Type 2 diabetes mellitus without complications SNOMED: 08810744 Status: unchanged Status Narrative Discussed with Dr. Blackman. Assessment/Plan GI procedures on hold given acute OR NPO + IVFs, plan to feed tomorrow if stable - cont NGT to LIS monitor H&H ppi fu labs The patient was seen and examined at bedside and all new and available data was reviewed in the patients chart. I agree with the above findings, impression and plan. (Patient seen earlier today. Signature stamp does not reflect patient encounter time.). - Uriah Blackman MD Subjective Subjective limited Objective Last 24 Hour Vital Signs Date Time Temp Pulse Resp B/P (MAP) Pulse Ox O2 Delivery O2 Flow Rate FiO2 05/23/17 11:53 87 05/23/17 11:16 79 20 100 Nasal Cannula 2.0 28 05/23/17 11:05 32 05/23/17 11:05 80 18 100 Nasal Cannula 2.0 28 05/23/17 09:27 87 142/63 05/23/17 08:00 98.2 87 18 142/63 Nasal Cannula 3.0 05/23/17 08:00 87 05/23/17 07:24 82 20 99 Nasal Cannula 2.0 28 05/23/17 07:18 100 Nasal Cannula 2.0 28 05/23/17 07:18 Nasal Cannula 2.0 28 05/23/17 07:18 32 05/23/17 07:18 88 20 100 Nasal Cannula 2.0 28 05/23/17 06:02 89 115/65 05/23/17 04:00 88 05/23/17 04:00 98.2 88 16 113/65 Nasal Cannula 3.0 05/23/17 03:47 91 20 99 Nasal Cannula 2.0 28 05/23/17 03:38 32 05/23/17 03:37 81 20 99 Nasal Cannula 2.0 28 05/23/17 00:00 85 05/23/17 00:00 98.4 85 20 130/54 100 Nasal Cannula 3.0 05/22/17 23:52 87 20 99 Nasal Cannula 2.0 28 05/22/17 23:32 78 20 99 Nasal Cannula 2.0 28 05/22/17 23:32 32 05/22/17 22:29 88 136/68 05/22/17 21:52 103 147/70 05/22/17 20:00 101 05/22/17 20:00 98.4 102 16 147/70 100 Nasal Cannula 3.0 05/22/17 19:24 92 20 99 Nasal Cannula 2.0 28 05/22/17 19:12 32 05/22/17 19:12 99 Nasal Cannula 2.0 28 05/22/17 19:12 Nasal Cannula 2.0 28 05/22/17 19:11 96 20 99 Nasal Cannula 3.0 32 05/22/17 16:11 32 05/22/17 16:11 65 20 99 Nasal Cannula 3.0 32 05/22/17 16:10 62 20 97 Nasal Cannula 3.0 32 05/22/17 16:00 97.9 85 18 146/69 97 Room Air 05/22/17 16:00 86 Intake and Output 05/23/17 05/24/17 18:59 06:59 Intake Total 100 ml Output Total 200 ml Balance -100 ml IV Total 100 ml Output Urine Total 200 ml Laboratory Tests Test 05/23/17 03:15 05/23/17 06:45 05/23/17 08:00 Prothrombin Time 10.7 SEC (9.30-11.50) Prothromb Time International Ratio 1.0 (0.9-1.1) Activated Partial Thromboplast Time 31 SEC (23-33) Sodium Level 153 MMOL/L (136-145) H Potassium Level 4.1 MMOL/L (3.5-5.1) Chloride Level 125 MMOL/L (98-107) H Carbon Dioxide Level 18 MMOL/L (21-32) L Anion Gap 10 mmol/L (5-15) Blood Urea Nitrogen 51 mg/dL (7-18) H Creatinine 2.7 MG/DL (0.55-1.30) H Estimat Glomerular Filtration Rate mL/min (>60) Glucose Level 201 MG/DL (74-106) #H Uric Acid 10.0 MG/DL (2.6-7.2) H Calcium Level 8.6 MG/DL (8.5-10.1) Phosphorus Level 3.0 MG/DL (2.5-4.9) Magnesium Level 2.1 MG/DL (1.8-2.4) Total Bilirubin 1.0 MG/DL (0.2-1.0) Aspartate Amino Transf (AST/SGOT) 274 U/L (15-37) H Alanine Aminotransferase (ALT/SGPT) 107 U/L (12-78) H Alkaline Phosphatase 121 U/L (46-116) H C-Reactive Protein, Quantitative 41.5 mg/dL (0.00-0.90) H Pro-B-Type Natriuretic Peptide 5797 pg/mL (0-125) H Total Protein 5.6 G/DL (6.4-8.2) L Albumin 1.5 G/DL (3.4-5.0) L Globulin 4.1 g/dL Albumin/Globulin Ratio 0.4 (1.0-2.7) L Urine Color Pale yellow Urine Appearance Clear Urine pH 5 (4.5-8.0) Urine Specific [place] 1.015 (1.005-1.035) Urine Protein 3+ (NEGATIVE) H Urine Glucose (UA) 3+ (NEGATIVE) H Urine Ketones Negative (NEGATIVE) Urine Occult Blood 5+ (NEGATIVE) H Urine Nitrite Negative (NEGATIVE) Urine Bilirubin Negative (NEGATIVE) Urine Urobilinogen Normal MG/DL (0.0-1.0) Urine Leukocyte Esterase Negative (NEGATIVE) Urine RBC 2-4 /HPF (0 - 0) H Urine WBC 0-2 /HPF (0 - 0) Urine Squamous Epithelial Cells Occasional /LPF Urine Bacteria Few /HPF (NONE) Urine Mucus Few /LPF (NONE/OCC) H White Blood Count 12.0 K/UL (4.8-10.8) #H Red Blood Count 3.24 M/UL (4.70-6.10) L Hemoglobin 9.3 G/DL (14.2-18.0) L Hematocrit 29.3 % (42.0-52.0) L Mean Corpuscular Volume 90 FL (80-99) Mean Corpuscular Hemoglobin 28.8 PG (27.0-31.0) Mean Corpuscular Hemoglobin Concent 31.9 G/DL (32.0-36.0) L Red Cell Distribution Width 16.2 % (11.6-14.8) H Platelet Count 133 K/UL (150-450) L Mean Platelet Volume 9.0 FL (6.5-10.1) Neutrophils (%) (Auto) 78.8 % (45.0-75.0) H Lymphocytes (%) (Auto) 14.5 % (20.0-45.0) L Monocytes (%) (Auto) 4.6 % (1.0-10.0) Eosinophils (%) (Auto) 1.9 % (0.0-3.0) Basophils (%) (Auto) 0.2 % (0.0-2.0) Height (Feet): 5 Height (Inches): 8.00 Weight (Pounds): 192 General Appearance: no apparent distress, thin Cardiovascular: normal rate Respiratory/Chest: other - NC Abdominal Exam: soft, other - NGT Milady Schafer N.P. May 23, 2017 12:49 RYLEE BLACKMAN May 24, 2017 14:19
--- NOTE | 2017-05-23 13:23 | Wound Care Consultation ---
Wound Assessment Wound Assessment #1: Wound Number: 1 Wound Present on Admission: No New Wound: Yes Status Change of Wound: No Wound Location Body Site Modif: mid Wound Location Body Site: other - sacrococcygeal Wound Type: pressure ulcer Nadira Test: Does not Nadira Pressure Ulcer Stage: II - scattered Wound Thickness: Partial Thickness Wound Length: 6.5 Wound Width: 6.5 Wound Depth: less than 0.1 Percent of Wound Zarate/Red: 100 Wound Drainage Description: Serosanguineous Wound Drainage Amount: Moderate Wound Drainage Odor: None/Absent Tissue Surrounding Wound: Macerated Wound General Appearance: Reddened, Draining Wound Assessment #2: Wound Number: 2 Wound Present on Admission: No New Wound: Yes Status Change of Wound: No Wound Location Body Site Modif: left, plantar Wound Location Body Site: metatarsal head - 1st Wound Type: pressure ulcer Nadira Test: Does not Nadira Pressure Ulcer Stage: Deep Tissue Injury Wound Thickness: Full Thickness Wound Length: 3.5 Wound Width: 3.5 Wound Depth: utd Percent of Wound Purple/Maroon: 100 Wound Drainage Amount: None Wound Drainage Odor: None/Absent Tissue Surrounding Wound: Intact Wound General Appearance: Reddened - purple Wound Assessment #3: Wound Number: 3 Wound Present on Admission: No New Wound: Yes Status Change of Wound: No Wound Location Body Site Modif: left, lateral Wound Location Body Site: malleolus/ankle Wound Type: pressure ulcer Nadira Test: Does not Nadira Pressure Ulcer Stage: Deep Tissue Injury Wound Thickness: Full Thickness Wound Length: 2.5 Wound Width: 2.5 Wound Depth: utd Percent of Wound Purple/Maroon: 100 Wound Drainage Amount: None Wound Drainage Odor: None/Absent Tissue Surrounding Wound: Erythemic Wound General Appearance: Reddened - maroon Wound Assessment #4: Wound Number: 4 Wound Present on Admission: No New Wound: Yes Status Change of Wound: No Wound Location Body Site Modif: left, lower, posterior Wound Location Body Site: leg Wound Type: blister - open Nadira Test: Does not Nadira Wound Thickness: Partial Thickness Wound Length: 13.5 Wound Width: 5.5 Wound Depth: less than 0.1 Percent of Wound Zarate/Red: 100 Wound Drainage Description: Serosanguineous Wound Drainage Amount: Scant Wound Drainage Odor: None/Absent Tissue Surrounding Wound: Erythemic Wound General Appearance: Reddened, Draining Wound Assessment #5: Wound Number: 5 Wound Present on Admission: No New Wound: Yes Status Change of Wound: No Wound Location Body Site Modif: left, dorsal Wound Location Body Site: foot Wound Type: blister - intact Nadira Test: Does not Nadira Wound Thickness: Partial Thickness Wound Length: 4.5 Wound Width: 2.5 Other Colors Identified: fluid filled Wound Drainage Amount: None Wound Drainage Odor: None/Absent Tissue Surrounding Wound: Intact Wound Assessment #6: Wound Number: 6 Wound Present on Admission: No New Wound: Yes Status Change of Wound: No Wound Location Body Site Modif: left, lower, lateral Wound Location Body Site: leg Wound Type: blister - intact Nadira Test: Does not Nadira Wound Thickness: Partial Thickness Wound Length: 3.5 Wound Width: 2.0 Other Colors Identified: fluid filled Wound Drainage Amount: None Wound Drainage Odor: None/Absent Tissue Surrounding Wound: Intact Wound Assessment #7: Wound Number: 7 Wound Present on Admission: No New Wound: Yes Status Change of Wound: No Wound Location Body Site Modif: right, lower, lateral Wound Location Body Site: leg Wound Type: blister - intact Nadira Test: Does not Nadira Wound Thickness: Partial Thickness Wound Length: 6.8 Wound Width: 3.0 Other Colors Identified: fluid filled Wound Drainage Amount: None Wound Drainage Odor: None/Absent Tissue Surrounding Wound: Intact Wound Assessment #8: Wound Number: 8 Wound Present on Admission: No New Wound: Yes Status Change of Wound: No Wound Location Body Site Modif: right, lateral Wound Location Body Site: malleolus/ankle Wound Type: pressure ulcer Nadira Test: Does not Nadira Pressure Ulcer Stage: Deep Tissue Injury Wound Thickness: Full Thickness Wound Length: 2.0 Wound Width: 1.5 Wound Depth: utd Percent of Wound Purple/Maroon: 100 Wound Drainage Amount: None Wound Drainage Odor: None/Absent Tissue Surrounding Wound: Intact Wound General Appearance: Reddened - maroon Wound Assessment #9: Wound Number: 9 Wound Present on Admission: No New Wound: Yes Status Change of Wound: No Wound Location Body Site Modif: right, medial Wound Location Body Site: heel Wound Type: pressure ulcer Nadira Test: Does not Nadira Pressure Ulcer Stage: Deep Tissue Injury Wound Thickness: Full Thickness Wound Length: 1.5 Wound Width: 2.5 Wound Depth: utd Percent of Wound Purple/Maroon: 100 Wound Drainage Amount: None Wound Drainage Odor: None/Absent Tissue Surrounding Wound: Erythemic Wound General Appearance: Reddened - purple Wound Assessment #10: Wound Number: 10 Wound Present on Admission: No New Wound: Yes Status Change of Wound: No Wound Location Body Site Modif: right, medial Wound Location Body Site: malleolus/ankle Wound Type: pressure ulcer Nadira Test: Does not Nadira Pressure Ulcer Stage: Deep Tissue Injury Wound Thickness: Full Thickness Wound Length: 0.8 Wound Width: 0.8 Wound Depth: utd Percent of Wound Purple/Maroon: 100 Wound Drainage Amount: None Wound Drainage Odor: None/Absent Tissue Surrounding Wound: Intact Wound General Appearance: Reddened - maroon Wound Assessment #11: Wound Number: 11 Wound Present on Admission: No New Wound: Yes Status Change of Wound: No Wound Location Body Site Modif: right, posterior Wound Location Body Site: leg Wound Type: blister - intact Nadira Test: Does not Nadira Wound Thickness: Partial Thickness Wound Length: 10.5 Wound Width: 5.5 Other Colors Identified: fluid filled Wound Drainage Amount: None Wound Drainage Odor: None/Absent Tissue Surrounding Wound: Intact Wound Comment #1 Sacrococcygeal scattered stage II pressure ulcer #2 Left plantar 1st metatarsal head DTI pressure ulcer #3 Left dorsal foot intact fluid filled blister #4 Right lateral lower leg fluid filled intact blister #5 Left lateral lower leg fluid filled intact blister #6 Left posterior lower leg open blister #7 Left lateral malleolus DTI pressure ulcer #8 Right Lateral malleolus DTI pressure ulcer #9 Right medial malleolus DTI pressure ulcer #10 Right heel DTI pressure ulcer #11 Right posterior lower leg fluid filled blister Recommendation -Sacrococcygeal scattered stage II pressure ulcer Cleanse with saline, pat dry, apply Triad cream, cover with Biatain silicone drg daily and PRN soiled/dislodged -Local wound per protocol for DTI, open and intact blister -Keep clean and dry -Turn and reposition -Low air loss P200 mattress -Optimize nutrition and nutritional consult -Venous/arterial duplex study -Offload both heels -Heel protector on both heels -Assess and f/u accordingly for any changes ELIAS FLORENCE RN May 23, 2017 13:23
[2017-05-23] MEDS ORDERED: Amoxicillin 500mg cap ORAL SCH (14:00)
[2017-05-23] MEDS: Cefepime HCl 1 GM in D5W 55 ML IVPB SCH (14:07)
--- NOTE | 2017-05-23 15:27 | Diagnostic Imaging Report ---
Indications: Altered mental status Technique: Spiral acquisitions obtained through the brain. Angled axial and coronal 5 x 5 mm slices were reconstructed. Total dose length product 1446 mGycm. CTDI vol(s) 70 mGy. Dose reduction achieved using automated exposure control Comparison: None Findings: There is pronounced enlargement of the ventricles and extra axial CSF spaces. There is extensive periventricular deep white matter low-attenuation. Old lacunar infarcts are seen in the right basal ganglia and within the left stefan, questionably within the left cerebellar hemisphere. No acute intracranial hemorrhage or edema. No mass effect nor midline shift. There is bilateral maxillary and ethmoid sinus mucosal disease. The calvarium is intact. There is questionably an old healed fracture deformity of the right zygomatic arch Impression: Chronic and age-related changes Old lacunar infarcts as described Negative for acute intracranial bleed or mass effect The CT scanner at [facility] is accredited by the [employer] and the scans are performed using protocols designed to limit radiation exposure to as low as reasonably achievable to attain images of sufficient resolution adequate for diagnostic evaluation.
[2017-05-23 16:00] VITALS: BP 132/65
--- NOTE | 2017-05-23 19:39 | Cardiology Progress Note ---
Assessment/Plan Assessment/Plan 1. NSTEMI type 2 2. Altered mental status, probably with component of toxic metabolic encephalopathy. 3. Urinary tract infection. 4. History of hypertension. 5. Cerebrovascular accident history. 6. Abnormal cardiac enzymes. 7. Renal insufficiency 8. sever anemia trop down trending stool ob + on asa / plavix may need to dc if progressive anemia again on bb will swtih to ngt aspiration risk ng feeds repat ekg ekg reviewed tele reviewed cxr noted not a candidate for invasive cardiac therapy Subjective ROS Limited/Unobtainable: Yes Cardiovascular: Denies: chest pain Respiratory: Denies: shortness of breath Gastrointestinal/Abdominal: Denies: abdominal pain Objective Last 24 Hour Vital Signs Date Time Temp Pulse Resp B/P (MAP) Pulse Ox O2 Delivery O2 Flow Rate FiO2 05/23/17 16:00 97.8 89 19 132/65 99 Nasal Cannula 2.0 05/23/17 16:00 85 05/23/17 15:14 79 18 99 Nasal Cannula 2.0 28 05/23/17 15:08 88 20 98 Nasal Cannula 2.0 28 05/23/17 15:08 32 05/23/17 13:27 75 112/61 05/23/17 12:00 98.1 80 21 111/63 100 Nasal Cannula 2.0 05/23/17 11:53 87 05/23/17 11:16 79 20 100 Nasal Cannula 2.0 28 05/23/17 11:05 32 05/23/17 11:05 80 18 100 Nasal Cannula 2.0 28 05/23/17 09:27 87 142/63 05/23/17 08:00 98.2 87 18 142/63 Nasal Cannula 3.0 05/23/17 08:00 87 05/23/17 07:24 82 20 99 Nasal Cannula 2.0 28 05/23/17 07:18 100 Nasal Cannula 2.0 28 05/23/17 07:18 Nasal Cannula 2.0 28 05/23/17 07:18 32 05/23/17 07:18 88 20 100 Nasal Cannula 2.0 28 05/23/17 06:02 89 115/65 05/23/17 04:00 88 05/23/17 04:00 98.2 88 16 113/65 Nasal Cannula 3.0 05/23/17 03:47 91 20 99 Nasal Cannula 2.0 28 05/23/17 03:38 32 05/23/17 03:37 81 20 99 Nasal Cannula 2.0 28 05/23/17 00:00 85 05/23/17 00:00 98.4 85 20 130/54 100 Nasal Cannula 3.0 05/22/17 23:52 87 20 99 Nasal Cannula 2.0 28 05/22/17 23:32 78 20 99 Nasal Cannula 2.0 28 05/22/17 23:32 32 05/22/17 22:29 88 136/68 05/22/17 21:52 103 147/70 05/22/17 20:00 101 05/22/17 20:00 98.4 102 16 147/70 100 Nasal Cannula 3.0 General Appearance: no apparent distress, alert, other - aphasic ngt in palce Neck: supple Cardiovascular: regular rhythm Respiratory/Chest: lungs clear, normal breath sounds Abdomen: normal bowel sounds, non tender, soft Extremities: no swelling Intake and Output 05/23/17 05/24/17 19:00 07:00 Intake Total 1200 ml Output Total 700 ml Balance 500 ml IV Total 1200 ml Output Urine Total 700 ml Laboratory Tests Test 05/23/17 03:15 05/23/17 06:45 05/23/17 08:00 Prothrombin Time 10.7 SEC (9.30-11.50) Prothromb Time International Ratio 1.0 (0.9-1.1) Activated Partial Thromboplast Time 31 SEC (23-33) Sodium Level 153 MMOL/L (136-145) H Potassium Level 4.1 MMOL/L (3.5-5.1) Chloride Level 125 MMOL/L (98-107) H Carbon Dioxide Level 18 MMOL/L (21-32) L Anion Gap 10 mmol/L (5-15) Blood Urea Nitrogen 51 mg/dL (7-18) H Creatinine 2.7 MG/DL (0.55-1.30) H Estimat Glomerular Filtration Rate mL/min (>60) Glucose Level 201 MG/DL (74-106) #H Uric Acid 10.0 MG/DL (2.6-7.2) H Calcium Level 8.6 MG/DL (8.5-10.1) Phosphorus Level 3.0 MG/DL (2.5-4.9) Magnesium Level 2.1 MG/DL (1.8-2.4) Total Bilirubin 1.0 MG/DL (0.2-1.0) Aspartate Amino Transf (AST/SGOT) 274 U/L (15-37) H Alanine Aminotransferase (ALT/SGPT) 107 U/L (12-78) H Alkaline Phosphatase 121 U/L (46-116) H C-Reactive Protein, Quantitative 41.5 mg/dL (0.00-0.90) H Pro-B-Type Natriuretic Peptide 5797 pg/mL (0-125) H Total Protein 5.6 G/DL (6.4-8.2) L Albumin 1.5 G/DL (3.4-5.0) L Globulin 4.1 g/dL Albumin/Globulin Ratio 0.4 (1.0-2.7) L Urine Color Pale yellow Urine Appearance Clear Urine pH 5 (4.5-8.0) Urine Specific [place] 1.015 (1.005-1.035) Urine Protein 3+ (NEGATIVE) H Urine Glucose (UA) 3+ (NEGATIVE) H Urine Ketones Negative (NEGATIVE) Urine Occult Blood 5+ (NEGATIVE) H Urine Nitrite Negative (NEGATIVE) Urine Bilirubin Negative (NEGATIVE) Urine Urobilinogen Normal MG/DL (0.0-1.0) Urine Leukocyte Esterase Negative (NEGATIVE) Urine RBC 2-4 /HPF (0 - 0) H Urine WBC 0-2 /HPF (0 - 0) Urine Squamous Epithelial Cells Occasional /LPF Urine Bacteria Few /HPF (NONE) Urine Mucus Few /LPF (NONE/OCC) H White Blood Count 12.0 K/UL (4.8-10.8) #H Red Blood Count 3.24 M/UL (4.70-6.10) L Hemoglobin 9.3 G/DL (14.2-18.0) L Hematocrit 29.3 % (42.0-52.0) L Mean Corpuscular Volume 90 FL (80-99) Mean Corpuscular Hemoglobin 28.8 PG (27.0-31.0) Mean Corpuscular Hemoglobin Concent 31.9 G/DL (32.0-36.0) L Red Cell Distribution Width 16.2 % (11.6-14.8) H Platelet Count 133 K/UL (150-450) L Mean Platelet Volume 9.0 FL (6.5-10.1) Neutrophils (%) (Auto) 78.8 % (45.0-75.0) H Lymphocytes (%) (Auto) 14.5 % (20.0-45.0) L Monocytes (%) (Auto) 4.6 % (1.0-10.0) Eosinophils (%) (Auto) 1.9 % (0.0-3.0) Basophils (%) (Auto) 0.2 % (0.0-2.0) Microbiology Date/Time Source Procedure Growth Status 05/21/17 15:20 Sputum Induced Gram Stain - Final Complete 05/21/17 15:20 Sputum Culture - Final Capri Albicans Usual Upper Respiratory Ade Complete CRUZ FLEMING May 23, 2017 19:39
[2017-05-23 20:00] VITALS: BP 108/43
[2017-05-23] MEDS ORDERED: Metoprolol 25mg tab ORAL SCH (21:00)
[2017-05-23] MEDS: Atorvastatin 80mg tab ORAL SCH (21:29)
[2017-05-23] MEDS: Iron Sucrose 100 MG in NS 55 ML IV SCH (21:29)
[2017-05-23] MEDS: Tamsulosin 0.4mg cap ORAL SCH (21:29)
--- NOTE | 2017-05-23 22:16 | General Progress Note ---
Assessment/Plan Status: doing well, stable Subjective Neurologic/Psychiatric: Reports: anxiety, emotional problems Allergies: Coded Allergies: No Known Allergies (Unverified , 12/28/15) Subjective confused periods of agitation Objective Last 24 Hour Vital Signs Date Time Temp Pulse Resp B/P (MAP) Pulse Ox O2 Delivery O2 Flow Rate FiO2 05/23/17 21:34 88 129/60 05/23/17 21:33 88 129/60 05/23/17 20:53 85 05/23/17 20:23 Nasal Cannula 05/23/17 20:23 Nasal Cannula 05/23/17 20:23 Nasal Cannula 2.0 28 05/23/17 20:23 99 Nasal Cannula 2.0 28 05/23/17 20:00 92 05/23/17 16:00 97.8 89 19 132/65 99 Nasal Cannula 2.0 05/23/17 16:00 85 05/23/17 15:14 79 18 99 Nasal Cannula 2.0 28 05/23/17 15:08 88 20 98 Nasal Cannula 2.0 28 05/23/17 15:08 32 05/23/17 13:27 75 112/61 05/23/17 12:00 98.1 80 21 111/63 100 Nasal Cannula 2.0 05/23/17 11:53 87 05/23/17 11:16 79 20 100 Nasal Cannula 2.0 28 05/23/17 11:05 32 05/23/17 11:05 80 18 100 Nasal Cannula 2.0 28 05/23/17 09:27 87 142/63 05/23/17 08:00 98.2 87 18 142/63 Nasal Cannula 3.0 05/23/17 08:00 87 05/23/17 07:24 82 20 99 Nasal Cannula 2.0 28 05/23/17 07:18 100 Nasal Cannula 2.0 28 05/23/17 07:18 Nasal Cannula 2.0 28 05/23/17 07:18 32 05/23/17 07:18 88 20 100 Nasal Cannula 2.0 28 05/23/17 06:02 89 115/65 05/23/17 04:00 88 05/23/17 04:00 98.2 88 16 113/65 Nasal Cannula 3.0 05/23/17 03:47 91 20 99 Nasal Cannula 2.0 28 05/23/17 03:38 32 05/23/17 03:37 81 20 99 Nasal Cannula 2.0 28 05/23/17 00:00 85 05/23/17 00:00 98.4 85 20 130/54 100 Nasal Cannula 3.0 05/22/17 23:52 87 20 99 Nasal Cannula 2.0 28 05/22/17 23:32 78 20 99 Nasal Cannula 2.0 28 05/22/17 23:32 32 05/22/17 22:29 88 136/68 Intake and Output 05/23/17 05/24/17 18:59 06:59 Intake Total 1300 ml Output Total 900 ml Balance 400 ml IV Total 1300 ml Output Urine Total 900 ml Laboratory Tests 05/23/17 03:15: Prothrombin Time 10.7, Prothromb Time International Ratio 1.0, Activated Partial Thromboplast Time 31, Sodium Level 153H, Potassium Level 4.1, Chloride Level 125H, Carbon Dioxide Level 18L, Anion Gap 10, Blood Urea Nitrogen 51H, Creatinine 2.7H, Estimat Glomerular Filtration Rate , Glucose Level 201#H, Uric Acid 10.0H, Calcium Level 8.6, Phosphorus Level 3.0, Magnesium Level 2.1, Total Bilirubin 1.0, Aspartate Amino Transf (AST/SGOT) 274H, Alanine Aminotransferase (ALT/SGPT) 107H, Alkaline Phosphatase 121H, C-Reactive Protein, Quantitative 41.5H, Pro-B-Type Natriuretic Peptide 5797H, Total Protein 5.6L, Albumin 1.5L, Globulin 4.1, Albumin/Globulin Ratio 0.4L 05/23/17 06:45: Urine Color Pale yellow, Urine Appearance Clear, Urine pH 5, Urine Specific [place] 1.015, Urine Protein 3+H, Urine Glucose (UA) 3+H, Urine Ketones Negative , Urine Occult Blood 5+H, Urine Nitrite Negative, Urine Bilirubin Negative, Urine Urobilinogen Normal, Urine Leukocyte Esterase Negative, Urine RBC 2-4H, Urine WBC 0-2, Urine Squamous Epithelial Cells Occasional, Urine Bacteria Few, Urine Mucus FewH 05/23/17 08:00: White Blood Count 12.0#H, Red Blood Count 3.24L, Hemoglobin 9.3L, Hematocrit 29.3L, Mean Corpuscular Volume 90, Mean Corpuscular Hemoglobin 28.8, Mean Corpuscular Hemoglobin Concent 31.9L, Red Cell Distribution Width 16.2H, Platelet Count 133L, Mean Platelet Volume 9.0, Neutrophils (%) (Auto) 78.8H, Lymphocytes (%) (Auto) 14.5L, Monocytes (%) (Auto) 4.6, Eosinophils (%) (Auto) 1.9, Basophils (%) (Auto) 0.2 Height (Feet): 5 Height (Inches): 8.00 Weight (Pounds): 192 General Appearance: no apparent distress, lethargic, confused Neurologic: disoriented, depressed affect Madi Hansen M.D. May 23, 2017 22:16
[2017-05-23] MEDS ORDERED: Miralax 17gm pkt NG PRN (22:45)
[2017-05-23] MEDS ORDERED: Acetaminophen 650mg/20.3ml NG PRN (22:45)
[2017-05-24] VITALS: BP 125/64
[2017-05-24] MEDS: Albuterol/Ipratropium 3ml neb HHN SCH ×6 (03:32→23:11)
[2017-05-24 04:00] VITALS: BP 122/52
[2017-05-24 06:09] LABS: BASOPHILS % (AUTO) 0.3 % (0.0-2.0); EOSINOPHILS % (AUTO) 1.8 % (0.0-3.0); LYMPHOCYTES % (AUTO) 9.6 % (20.0-45.0); MEAN CORPUSCULAR HEMOGLOBIN 28.6 PG (27.0-31.0); MEAN CORPUSCULAR HGB CONC 32.1 G/DL (32.0-36.0); MEAN CORPUSCULAR VOLUME 89 FL (80-99); MEAN PLATELET VOLUME 9.1 FL (6.5-10.1); MONOCYTES % (AUTO) 5.2 % (1.0-10.0); NEUTROPHILS % (AUTO) 83.1 % (45.0-75.0); PLATELET COUNT 144 K/UL (150-450); RED BLOOD COUNT 3.12 M/UL (4.70-6.10); RED CELL DISTRIBUTION WIDTH 15.8 % (11.6-14.8); WHITE BLOOD COUNT 10.8 K/UL (4.8-10.8)
[2017-05-24 06:26] LABS: ALANINE AMINOTRANSFERASE 96 U/L (12-78); ALBUMIN/GLOBULIN RATIO 0.4 (1.0-2.7); ANION GAP 12 mmol/L (5-15); ASPARTATE AMINO TRANSFERASE 210 U/L (15-37); CALCIUM 8.2 MG/DL (8.5-10.1); CARBON DIOXIDE 18 MMOL/L (21-32); CHLORIDE 120 MMOL/L (98-107); CREATININE 2.4 MG/DL (0.55-1.30); POTASSIUM 3.5 MMOL/L (3.5-5.1); SODIUM 150 MMOL/L (136-145); TOTAL PROTEIN 5.2 G/DL (6.4-8.2)
[2017-05-24] MEDS: NovoLOG Insulin Flexpen SUBQ SCH ×4 (06:36→21:00)
[2017-05-24] MEDS: Amoxicillin 250mg/5ml susp 150ml NG SCH ×3 (07:49→22:16)
[2017-05-24 08:00] VITALS: BP 101/64
[2017-05-24] MEDS: Pantoprazole Inj IVP SCH ×2 (09:11→22:17)
[2017-05-24] MEDS: Aspirin Baby 81mg NG SCH (09:11)
[2017-05-24] MEDS: Metoprolol 25mg tab NG SCH ×2 (09:11→22:18)
[2017-05-24] MEDS: Levemir Flexpen SUBQ SCH ×2 (09:13→21:00)
[2017-05-24 09:36] LABS: OTHERS PATHOLOGIST COMMENT
--- NOTE | 2017-05-24 09:55 | Infectious Diseases Prog Note ---
Assessment/Plan Assessment/Plan ASSESSMENT: Blood Cx : GPC in clusters Sepsis, SP Leukocytosis, SP -CXR : Basilar residual opacities possibly scarring or atelectasis. Doubt CHF Probable urinary tract infection/pyuria UCx: enterococcus -worsening pyuria on repeat u/a Lactic acidosis, SP Mild elevation of AST, and Alk Ph rule out chronic hepatitis B/C. Positive cardiac enzymes Acute renal insufficiency, superimposed on chronic kidney disease Anemia PLAN: Cefepime d # 4 / 5 , Amoxicillins d# 2 , IV Vanco d# 1 05/21 SP IV Rocephin day #3 Monitor CBC Monitor BMP. Monitor cultures, blood and urine. obtain sputum cx Hepatitis panel US of abd repeat Blood Cx Subjective Allergies: Coded Allergies: No Known Allergies (Unverified , 12/28/15) Subjective comfortable Objective Vital Signs Last 24 Hour Vital Signs Date Time Temp Pulse Resp B/P (MAP) Pulse Ox O2 Delivery O2 Flow Rate FiO2 05/24/17 09:11 84 122/52 05/24/17 09:11 84 122/52 05/24/17 08:00 97.5 91 20 101/64 98 Nasal Cannula 2.0 05/24/17 08:00 91 05/24/17 07:11 84 20 97 Nasal Cannula 2.0 28 05/24/17 07:09 98 Nasal Cannula 2.0 28 05/24/17 07:09 Nasal Cannula 2.0 28 05/24/17 04:00 97.9 88 20 122/52 99 Nasal Cannula 2.0 05/24/17 04:00 87 05/24/17 03:39 82 18 100 Nasal Cannula 2.0 28 05/24/17 03:32 82 20 97 Nasal Cannula 2.0 28 05/24/17 03:32 32 05/24/17 00:00 70 05/24/17 00:00 97.2 71 20 125/64 100 Nasal Cannula 2.0 05/23/17 23:58 32 05/23/17 23:57 87 20 98 Nasal Cannula 2.0 28 05/23/17 21:34 88 129/60 05/23/17 21:33 88 129/60 05/23/17 20:23 Nasal Cannula 05/23/17 20:23 Nasal Cannula 05/23/17 20:23 Nasal Cannula 2.0 28 05/23/17 20:23 99 Nasal Cannula 2.0 28 05/23/17 20:00 92 05/23/17 20:00 97.5 88 20 108/43 100 Nasal Cannula 2.0 05/23/17 16:00 97.8 89 19 132/65 99 Nasal Cannula 2.0 05/23/17 16:00 85 05/23/17 15:14 79 18 99 Nasal Cannula 2.0 28 05/23/17 15:08 88 20 98 Nasal Cannula 2.0 28 05/23/17 15:08 32 05/23/17 13:27 75 112/61 05/23/17 12:00 98.1 80 21 111/63 100 Nasal Cannula 2.0 05/23/17 11:53 87 05/23/17 11:16 79 20 100 Nasal Cannula 2.0 28 05/23/17 11:05 32 05/23/17 11:05 80 18 100 Nasal Cannula 2.0 28 Height (Feet): 5 Height (Inches): 8.00 Weight (Pounds): 192 HEENT: anicteric Respiratory/Chest: no respiratory distress Cardiovascular: normal rate Abdomen: non distended Microbiology Date/Time Source Procedure Growth Status 05/21/17 15:20 Sputum Induced Gram Stain - Final Complete 05/21/17 15:20 Sputum Culture - Final Capri Albicans Usual Upper Respiratory Ade Complete Laboratory Tests Test 05/24/17 05:10 White Blood Count 10.8 K/UL (4.8-10.8) Red Blood Count 3.12 M/UL (4.70-6.10) L Hemoglobin 8.9 G/DL (14.2-18.0) L Hematocrit 27.8 % (42.0-52.0) L Mean Corpuscular Volume 89 FL (80-99) Mean Corpuscular Hemoglobin 28.6 PG (27.0-31.0) Mean Corpuscular Hemoglobin Concent 32.1 G/DL (32.0-36.0) Red Cell Distribution Width 15.8 % (11.6-14.8) H Platelet Count 144 K/UL (150-450) L Mean Platelet Volume 9.1 FL (6.5-10.1) Neutrophils (%) (Auto) 83.1 % (45.0-75.0) H Lymphocytes (%) (Auto) 9.6 % (20.0-45.0) L Monocytes (%) (Auto) 5.2 % (1.0-10.0) Eosinophils (%) (Auto) 1.8 % (0.0-3.0) Basophils (%) (Auto) 0.3 % (0.0-2.0) Sodium Level 150 MMOL/L (136-145) H Potassium Level 3.5 MMOL/L (3.5-5.1) Chloride Level 120 MMOL/L (98-107) H Carbon Dioxide Level 18 MMOL/L (21-32) L Anion Gap 12 mmol/L (5-15) Blood Urea Nitrogen 36 mg/dL (7-18) H Creatinine 2.4 MG/DL (0.55-1.30) H Estimat Glomerular Filtration Rate mL/min (>60) Glucose Level 127 MG/DL (74-106) H Calcium Level 8.2 MG/DL (8.5-10.1) L Total Bilirubin 0.8 MG/DL (0.2-1.0) Aspartate Amino Transf (AST/SGOT) 210 U/L (15-37) H Alanine Aminotransferase (ALT/SGPT) 96 U/L (12-78) H Alkaline Phosphatase 135 U/L (46-116) H Troponin I 2.256 ng/mL (0.000-0.056) Total Protein 5.2 G/DL (6.4-8.2) L Albumin 1.4 G/DL (3.4-5.0) L Globulin 3.8 g/dL Albumin/Globulin Ratio 0.4 (1.0-2.7) L Current Medications Medications (Trade) Dose Ordered Sig/Altaf Route PRN Reason Start Time Stop Time Status Last Admin Dose Admin Acetaminophen (Tylenol) 650 mg Q4HR PRN NG Mild Pain/Temp > 100.5 05/23/17 22:45 06/22/17 22:44 Albuterol/ Ipratropium (Albuterol/ Ipratropium) 3 ml Q4H PRN HHN Shortness of Breath 05/19/17 21:45 05/24/17 21:44 Albuterol/ Ipratropium (Albuterol/ Ipratropium) 3 ml Q4HRT HHN 05/22/17 11:00 05/27/17 10:59 05/24/17 07:08 Amoxicillin (Amoxil) 500 mg EVERY 8 HOURS NG 05/24/17 06:00 05/31/17 05:59 05/24/17 07:49 Aspirin (ASA) 81 mg DAILY NG 05/24/17 09:00 06/23/17 08:59 05/24/17 09:11 Atorvastatin Calcium (Lipitor) 80 mg BEDTIME NG 05/24/17 21:00 06/23/17 20:59 Carvedilol (Coreg) 3.125 mg EVERY 12 HOURS NG 05/24/17 09:00 06/23/17 08:59 05/24/17 09:11 Cefepime HCl 1 gm/ Dextrose 55 ml @ 110 mls/hr Q24H IVPB 05/23/17 15:00 05/30/17 14:59 05/23/17 14:07 Clonidine HCl (Catapres) 0.1 mg Q4H PRN NG sbp more than 160 05/24/17 01:45 06/23/17 01:44 Clopidogrel Bisulfate (Plavix) 75 mg DAILY NG 05/24/17 09:00 06/23/17 08:59 05/24/17 09:11 Dextrose 1,000 ml @ 100 mls/hr Q10H IV 05/21/17 07:30 06/20/17 07:29 05/24/17 06:03 Dextrose (Dextrose 50%) STAT PRN IV Hypoglycemia 05/19/17 21:45 06/18/17 21:44 Finasteride (Proscar) 5 mg BEDTIME ORAL 05/20/17 21:00 06/19/17 20:59 Insulin Aspart (NovoLOG) BEFORE MEALS AND HS SUBQ 05/20/17 06:30 06/19/17 06:29 05/24/17 06:36 Insulin Detemir (Levemir) 30 units Q12HR SUBQ 05/23/17 09:30 06/22/17 09:29 05/24/17 09:13 Iron Sucrose 100 mg/Sodium Chloride 60 ml @ 240 mls/hr BEDTIME IV 05/23/17 21:00 05/27/17 21:14 05/23/17 21:29 Lorazepam (Ativan 2mg/ml 1ml) 1 mg Q4H PRN IV For Anxiety 05/21/17 08:00 05/28/17 07:59 05/23/17 10:14 Metoprolol Tartrate (Lopressor) 25 mg Q12HR NG 05/24/17 09:00 06/23/17 08:59 05/24/17 09:11 Nitroglycerin (Ntg) 0.4 mg Q5M X 3 DOSES PRN SL Prn Chest Pain 05/19/17 21:45 06/18/17 21:44 Ondansetron HCl (Zofran) 4 mg Q6H PRN IVP Nausea & Vomiting 05/19/17 21:45 06/18/17 21:44 Pantoprazole (Protonix) 40 mg EVERY 12 HOURS IVP 05/20/17 16:00 06/19/17 15:59 05/24/17 09:11 Polyethylene Glycol (Miralax) 17 gm HSPRN PRN NG Constipation 05/23/17 22:45 06/22/17 22:44 Risperidone (RisperDAL) 1 mg DAILY PRN NG For Anxiety 05/23/17 22:45 06/22/17 22:44 Tamsulosin HCl (Flomax) 0.4 mg BEDTIME ORAL 05/20/17 21:00 06/19/17 20:59 05/23/17 21:29 Temazepam (Restoril) 15 mg HSPRN PRN NG Insomnia 05/23/17 22:45 05/30/17 22:44 ALEXANDER FRAZIER M.D. May 24, 2017 09:55
--- NOTE | 2017-05-24 10:01 | Cardiology Progress Note ---
Assessment/Plan Assessment/Plan 1. NSTEMI type 2 2. Altered mental status, probably with component of toxic metabolic encephalopathy. 3. Urinary tract infection. 4. History of hypertension. 5. Cerebrovascular accident history. 6. Abnormal cardiac enzymes. 7. Renal insufficiency 8. sever anemia trop down trending now 2 stool ob + hgb slightly lower on asa / plavix may need to dc if progressive anemia again on bb, on statin , on dapt due to cva aspiration risk ng feeds repeat ekg reviewed sinus no st t changes tele reviewed cxr noted not a candidate for invasive cardiac therapy Subjective ROS Limited/Unobtainable: Yes Objective Last 24 Hour Vital Signs Date Time Temp Pulse Resp B/P (MAP) Pulse Ox O2 Delivery O2 Flow Rate FiO2 05/24/17 09:11 84 122/52 05/24/17 09:11 84 122/52 05/24/17 08:00 97.5 91 20 101/64 98 Nasal Cannula 2.0 05/24/17 08:00 91 05/24/17 07:11 84 20 97 Nasal Cannula 2.0 28 05/24/17 07:09 98 Nasal Cannula 2.0 28 05/24/17 07:09 Nasal Cannula 2.0 28 05/24/17 04:00 97.9 88 20 122/52 99 Nasal Cannula 2.0 05/24/17 04:00 87 05/24/17 03:39 82 18 100 Nasal Cannula 2.0 28 05/24/17 03:32 82 20 97 Nasal Cannula 2.0 28 05/24/17 03:32 32 05/24/17 00:00 70 05/24/17 00:00 97.2 71 20 125/64 100 Nasal Cannula 2.0 05/23/17 23:58 32 05/23/17 23:57 87 20 98 Nasal Cannula 2.0 28 05/23/17 21:34 88 129/60 05/23/17 21:33 88 129/60 05/23/17 20:23 Nasal Cannula 05/23/17 20:23 Nasal Cannula 05/23/17 20:23 Nasal Cannula 2.0 28 05/23/17 20:23 99 Nasal Cannula 2.0 28 05/23/17 20:00 92 05/23/17 20:00 97.5 88 20 108/43 100 Nasal Cannula 2.0 05/23/17 16:00 97.8 89 19 132/65 99 Nasal Cannula 2.0 05/23/17 16:00 85 05/23/17 15:14 79 18 99 Nasal Cannula 2.0 28 05/23/17 15:08 88 20 98 Nasal Cannula 2.0 28 05/23/17 15:08 32 05/23/17 13:27 75 112/61 05/23/17 12:00 98.1 80 21 111/63 100 Nasal Cannula 2.0 05/23/17 11:53 87 05/23/17 11:16 79 20 100 Nasal Cannula 2.0 28 05/23/17 11:05 32 05/23/17 11:05 80 18 100 Nasal Cannula 2.0 28 General Appearance: lethargic Cardiovascular: normal rate, regular rhythm Respiratory/Chest: rhonchi - bilaterally Abdomen: normal bowel sounds, non tender, soft Extremities: no swelling Intake and Output 05/24/17 05/25/17 19:00 07:00 Intake Total 100 ml Balance 100 ml IV Total 100 ml Laboratory Tests Test 05/24/17 05:10 White Blood Count 10.8 K/UL (4.8-10.8) Red Blood Count 3.12 M/UL (4.70-6.10) L Hemoglobin 8.9 G/DL (14.2-18.0) L Hematocrit 27.8 % (42.0-52.0) L Mean Corpuscular Volume 89 FL (80-99) Mean Corpuscular Hemoglobin 28.6 PG (27.0-31.0) Mean Corpuscular Hemoglobin Concent 32.1 G/DL (32.0-36.0) Red Cell Distribution Width 15.8 % (11.6-14.8) H Platelet Count 144 K/UL (150-450) L Mean Platelet Volume 9.1 FL (6.5-10.1) Neutrophils (%) (Auto) 83.1 % (45.0-75.0) H Lymphocytes (%) (Auto) 9.6 % (20.0-45.0) L Monocytes (%) (Auto) 5.2 % (1.0-10.0) Eosinophils (%) (Auto) 1.8 % (0.0-3.0) Basophils (%) (Auto) 0.3 % (0.0-2.0) Sodium Level 150 MMOL/L (136-145) H Potassium Level 3.5 MMOL/L (3.5-5.1) Chloride Level 120 MMOL/L (98-107) H Carbon Dioxide Level 18 MMOL/L (21-32) L Anion Gap 12 mmol/L (5-15) Blood Urea Nitrogen 36 mg/dL (7-18) H Creatinine 2.4 MG/DL (0.55-1.30) H Estimat Glomerular Filtration Rate mL/min (>60) Glucose Level 127 MG/DL (74-106) H Calcium Level 8.2 MG/DL (8.5-10.1) L Total Bilirubin 0.8 MG/DL (0.2-1.0) Aspartate Amino Transf (AST/SGOT) 210 U/L (15-37) H Alanine Aminotransferase (ALT/SGPT) 96 U/L (12-78) H Alkaline Phosphatase 135 U/L (46-116) H Troponin I 2.256 ng/mL (0.000-0.056) Total Protein 5.2 G/DL (6.4-8.2) L Albumin 1.4 G/DL (3.4-5.0) L Globulin 3.8 g/dL Albumin/Globulin Ratio 0.4 (1.0-2.7) L Microbiology Date/Time Source Procedure Growth Status 05/21/17 15:20 Sputum Induced Gram Stain - Final Complete 05/21/17 15:20 Sputum Culture - Final Capri Albicans Usual Upper Respiratory Ade Complete CRUZ FLEMING May 24, 2017 10:01
--- NOTE | 2017-05-24 10:20 | Diagnostic Imaging Report ---
Indication: ABD PAIN elevated liver function tests. Elevated renal function test Technique: Lizama-scale and duplex images of the upper abdomen were obtained Comparison: 12/31/2015 Findings: Gallbladder demonstrates sludge and possible tiny calculi. No gallbladder wall thickening or pericholecystic fluid. Sonographic Desai's sign is negative. Common bile duct measures 5 mm in diameter. No intrahepatic biliary ductal dilatation. Liver demonstrates normal echogenicity, no focal abnormality. Portal vein and hepatic veins are patent. Pancreas is incompletely visualized due to overlying bowel gas, visualized portions are unremarkable. Spleen is unremarkable. Left kidney measures 10.9 cm in length. Right kidney measures 10.3 cm length. Both kidneys demonstrate increased echogenicity There is no hydronephrosis. There are bilateral renal cysts, including a right renal parapelvic cyst . Questionable small shadowing calculus is seen in the right renal sinus. Abdominal aorta is partially obscured by bowel gas, visualized portions are non-aneurysmal . When compared to prior exam, the gallbladder sludge and possible stones are new findings. The increased renal echogenicity and right renal calculus are new findings Impression: Gallbladder sludge and possible small stones. Negative for dilated ducts Increased renal echogenicity, suspect medical renal disease Possible nonobstructive right renal calyceal calculus Note incomplete visualization of the pancreas and abdominal aorta
--- NOTE | 2017-05-24 10:37 | Pulmonology Progress Note ---
Assessment/Plan Problems: (1) Encephalopathy acute (2) Sepsis (3) ATN (acute tubular necrosis) (4) Non-ST elevation (NSTEMI) myocardial infarction (5) Diabetes mellitus (6) Prostate cancer (7) Anemia Assessment/Plan CT head results reviewed, no acute event bun/creatinine decreasing BS better controlled Na is lower decrease IV fluid continue abx check cultures check stool for OB check CEA, previous admission it was 7 Subjective ROS Limited/Unobtainable: No Interval Events: opens eyes, doens't follow commands Allergies: Coded Allergies: No Known Allergies (Unverified , 12/28/15) Objective Last 24 Hour Vital Signs Date Time Temp Pulse Resp B/P (MAP) Pulse Ox O2 Delivery O2 Flow Rate FiO2 05/24/17 09:11 84 122/52 05/24/17 09:11 84 122/52 05/24/17 08:00 97.5 91 20 101/64 98 Nasal Cannula 2.0 05/24/17 08:00 91 05/24/17 07:21 87 20 98 Nasal Cannula 2.0 28 05/24/17 07:11 84 20 97 Nasal Cannula 2.0 28 05/24/17 07:09 98 Nasal Cannula 2.0 28 05/24/17 07:09 Nasal Cannula 2.0 28 05/24/17 04:00 97.9 88 20 122/52 99 Nasal Cannula 2.0 05/24/17 04:00 87 05/24/17 03:39 82 18 100 Nasal Cannula 2.0 28 05/24/17 03:32 82 20 97 Nasal Cannula 2.0 28 05/24/17 03:32 32 05/24/17 00:00 70 05/24/17 00:00 97.2 71 20 125/64 100 Nasal Cannula 2.0 05/23/17 23:58 32 05/23/17 23:57 87 20 98 Nasal Cannula 2.0 28 05/23/17 21:34 88 129/60 05/23/17 21:33 88 129/60 05/23/17 20:23 Nasal Cannula 05/23/17 20:23 Nasal Cannula 05/23/17 20:23 Nasal Cannula 2.0 28 05/23/17 20:23 99 Nasal Cannula 2.0 28 05/23/17 20:00 92 05/23/17 20:00 97.5 88 20 108/43 100 Nasal Cannula 2.0 05/23/17 16:00 97.8 89 19 132/65 99 Nasal Cannula 2.0 05/23/17 16:00 85 05/23/17 15:14 79 18 99 Nasal Cannula 2.0 28 05/23/17 15:08 88 20 98 Nasal Cannula 2.0 28 05/23/17 15:08 32 05/23/17 13:27 75 112/61 05/23/17 12:00 98.1 80 21 111/63 100 Nasal Cannula 2.0 05/23/17 11:53 87 05/23/17 11:16 79 20 100 Nasal Cannula 2.0 28 05/23/17 11:05 32 05/23/17 11:05 80 18 100 Nasal Cannula 2.0 28 Intake and Output 05/24/17 05/25/17 19:00 07:00 Intake Total 300 ml Balance 300 ml IV Total 300 ml General Appearance: WD/WN HEENT: atraumatic, anicteric Respiratory/Chest: chest wall non-tender, normal breath sounds Cardiovascular: normal peripheral pulses, normal rate Abdomen: normal bowel sounds, soft, non tender Genitourinary: normal external genitalia Extremities: no clubbing Skin: no rash Neurologic/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 grossly normal, no motor/sensory deficits Lymphatic: no neck adenopathy Musculoskeletal: no effusion Microbiology Date/Time Source Procedure Growth Status 05/21/17 15:20 Sputum Induced Gram Stain - Final Complete 05/21/17 15:20 Sputum Culture - Final Capri Albicans Usual Upper Respiratory Ade Complete Laboratory Tests 05/24/17 05:10: White Blood Count 10.8, Red Blood Count 3.12L, Hemoglobin 8.9L, Hematocrit 27.8L , Mean Corpuscular Volume 89, Mean Corpuscular Hemoglobin 28.6, Mean Corpuscular Hemoglobin Concent 32.1, Red Cell Distribution Width 15.8H, Platelet Count 144L, Mean Platelet Volume 9.1, Neutrophils (%) (Auto) 83.1H, Lymphocytes (%) (Auto) 9.6L, Monocytes (%) (Auto) 5.2, Eosinophils (%) (Auto) 1.8, Basophils (%) (Auto) 0.3, Sodium Level 150H, Potassium Level 3.5, Chloride Level 120H, Carbon Dioxide Level 18L, Anion Gap 12, Blood Urea Nitrogen 36H, Creatinine 2.4H, Estimat Glomerular Filtration Rate , Glucose Level 127H, Calcium Level 8.2L, Total Bilirubin 0.8, Aspartate Amino Transf (AST/SGOT) 210H , Alanine Aminotransferase (ALT/SGPT) 96H, Alkaline Phosphatase 135H, Troponin I 2.256H, Total Protein 5.2L, Albumin 1.4L, Globulin 3.8, Albumin/Globulin Ratio 0.4L Current Medications Medications (Trade) Dose Ordered Sig/Altaf Route PRN Reason Start Time Stop Time Status Last Admin Dose Admin Acetaminophen (Tylenol) 650 mg Q4HR PRN NG Mild Pain/Temp > 100.5 05/23/17 22:45 06/22/17 22:44 Albuterol/ Ipratropium (Albuterol/ Ipratropium) 3 ml Q4H PRN HHN Shortness of Breath 05/19/17 21:45 05/24/17 21:44 Albuterol/ Ipratropium (Albuterol/ Ipratropium) 3 ml Q4HRT HHN 05/22/17 11:00 05/27/17 10:59 05/24/17 07:08 Amoxicillin (Amoxil) 500 mg EVERY 8 HOURS NG 05/24/17 06:00 05/31/17 05:59 05/24/17 07:49 Aspirin (ASA) 81 mg DAILY NG 05/24/17 09:00 06/23/17 08:59 05/24/17 09:11 Atorvastatin Calcium (Lipitor) 80 mg BEDTIME NG 05/24/17 21:00 06/23/17 20:59 Carvedilol (Coreg) 3.125 mg EVERY 12 HOURS NG 05/24/17 09:00 06/23/17 08:59 05/24/17 09:11 Cefepime HCl 1 gm/ Dextrose 55 ml @ 110 mls/hr Q24H IVPB 05/23/17 15:00 05/30/17 14:59 05/23/17 14:07 Clonidine HCl (Catapres) 0.1 mg Q4H PRN NG sbp more than 160 05/24/17 01:45 06/23/17 01:44 Clopidogrel Bisulfate (Plavix) 75 mg DAILY NG 05/24/17 09:00 06/23/17 08:59 05/24/17 09:11 Dextrose 1,000 ml @ 100 mls/hr Q10H IV 05/21/17 07:30 06/20/17 07:29 05/24/17 06:03 Dextrose (Dextrose 50%) STAT PRN IV Hypoglycemia 05/19/17 21:45 06/18/17 21:44 Finasteride (Proscar) 5 mg BEDTIME ORAL 05/20/17 21:00 06/19/17 20:59 Insulin Aspart (NovoLOG) BEFORE MEALS AND HS SUBQ 05/20/17 06:30 06/19/17 06:29 05/24/17 06:36 Insulin Detemir (Levemir) 30 units Q12HR SUBQ 05/23/17 09:30 06/22/17 09:29 05/24/17 09:13 Iron Sucrose 100 mg/Sodium Chloride 60 ml @ 240 mls/hr BEDTIME IV 05/23/17 21:00 05/27/17 21:14 05/23/17 21:29 Lorazepam (Ativan 2mg/ml 1ml) 1 mg Q4H PRN IV For Anxiety 05/21/17 08:00 05/28/17 07:59 05/23/17 10:14 Metoprolol Tartrate (Lopressor) 25 mg Q12HR NG 05/24/17 09:00 06/23/17 08:59 05/24/17 09:11 Nitroglycerin (Ntg) 0.4 mg Q5M X 3 DOSES PRN SL Prn Chest Pain 05/19/17 21:45 06/18/17 21:44 Ondansetron HCl (Zofran) 4 mg Q6H PRN IVP Nausea & Vomiting 05/19/17 21:45 06/18/17 21:44 Pantoprazole (Protonix) 40 mg EVERY 12 HOURS IVP 05/20/17 16:00 06/19/17 15:59 05/24/17 09:11 Polyethylene Glycol (Miralax) 17 gm HSPRN PRN NG Constipation 05/23/17 22:45 06/22/17 22:44 Risperidone (RisperDAL) 1 mg DAILY PRN NG For Anxiety 05/23/17 22:45 06/22/17 22:44 Tamsulosin HCl (Flomax) 0.4 mg BEDTIME ORAL 05/20/17 21:00 06/19/17 20:59 05/23/17 21:29 Temazepam (Restoril) 15 mg HSPRN PRN NG Insomnia 05/23/17 22:45 05/30/17 22:44 YOSHI EDOUARD May 24, 2017 10:37
--- NOTE | 2017-05-24 11:52 | Diagnostic Imaging Report ---
Indication: DYSPNEA Technique: One view of the chest Comparison: 05/22/2017 Findings: Nasogastric tube again demonstrated. The heart is enlarged. Atelectatic changes are seen in the right lung base, increased. There is some retrocardiac consolidation, stable. Impression: Increased right basilar atelectasis Other stable findings as described, over 2 days
[2017-05-24 12:05] VITALS: BP 116/65
--- NOTE | 2017-05-24 13:46 | Nephrology Progress Note ---
Assessment/Plan Problem List: (1) ATN (acute tubular necrosis) (2) Prostate cancer (3) Anemia Assessment Acute renal failure cr down high 2s chronic underlying renal failure, ? Diabetic Nephropathy Severe Anemia HypoAlbuminemia, r/o Nephrotic syndrom UTI / Sepsis Basal Atelectasis Prostate cancer h/o CVA toxic metabolic encephalopathy Plan Plan: recheck CBC as wbc shows low ? Transfuse? defer to PMD Hydrate- Transfuse gastric support MONSTER Renal- Negative for hydronephrosis 2 D Echo- pending 24 H urine protein- minimal monitor renal parameters per consultants Subjective ROS Limited/Unobtainable: No Constitutional: Reports: malaise, weakness Objective Objective Last 24 Hour Vital Signs Date Time Temp Pulse Resp B/P (MAP) Pulse Ox O2 Delivery O2 Flow Rate FiO2 05/24/17 12:05 97.7 84 22 116/65 99 Nasal Cannula 2.0 05/24/17 11:38 83 20 98 Nasal Cannula 2.0 28 05/24/17 11:28 87 18 97 Nasal Cannula 2.0 28 05/24/17 09:11 84 122/52 05/24/17 09:11 84 122/52 05/24/17 08:00 97.5 91 20 101/64 98 Nasal Cannula 2.0 05/24/17 08:00 91 05/24/17 07:21 87 20 98 Nasal Cannula 2.0 28 05/24/17 07:11 84 20 97 Nasal Cannula 2.0 28 05/24/17 07:09 98 Nasal Cannula 2.0 28 05/24/17 07:09 Nasal Cannula 2.0 28 05/24/17 04:00 97.9 88 20 122/52 99 Nasal Cannula 2.0 05/24/17 04:00 87 05/24/17 03:39 82 18 100 Nasal Cannula 2.0 28 05/24/17 03:32 82 20 97 Nasal Cannula 2.0 28 05/24/17 03:32 32 05/24/17 00:00 70 05/24/17 00:00 97.2 71 20 125/64 100 Nasal Cannula 2.0 05/23/17 23:58 32 05/23/17 23:57 87 20 98 Nasal Cannula 2.0 28 05/23/17 21:34 88 129/60 05/23/17 21:33 88 129/60 05/23/17 20:23 Nasal Cannula 05/23/17 20:23 Nasal Cannula 05/23/17 20:23 Nasal Cannula 2.0 28 05/23/17 20:23 99 Nasal Cannula 2.0 28 05/23/17 20:00 92 05/23/17 20:00 97.5 88 20 108/43 100 Nasal Cannula 2.0 05/23/17 16:00 97.8 89 19 132/65 99 Nasal Cannula 2.0 05/23/17 16:00 85 05/23/17 15:14 79 18 99 Nasal Cannula 2.0 28 05/23/17 15:08 88 20 98 Nasal Cannula 2.0 28 05/23/17 15:08 32 Intake and Output 05/24/17 05/25/17 19:00 07:00 Intake Total 400 ml Balance 400 ml IV Total 400 ml Laboratory Tests 05/24/17 05:10: White Blood Count 10.8, Red Blood Count 3.12L, Hemoglobin 8.9L, Hematocrit 27.8L , Mean Corpuscular Volume 89, Mean Corpuscular Hemoglobin 28.6, Mean Corpuscular Hemoglobin Concent 32.1, Red Cell Distribution Width 15.8H, Platelet Count 144L, Mean Platelet Volume 9.1, Neutrophils (%) (Auto) 83.1H, Lymphocytes (%) (Auto) 9.6L, Monocytes (%) (Auto) 5.2, Eosinophils (%) (Auto) 1.8, Basophils (%) (Auto) 0.3, Sodium Level 150H, Potassium Level 3.5, Chloride Level 120H, Carbon Dioxide Level 18L, Anion Gap 12, Blood Urea Nitrogen 36H, Creatinine 2.4H, Estimat Glomerular Filtration Rate , Glucose Level 127H, Calcium Level 8.2L, Total Bilirubin 0.8, Aspartate Amino Transf (AST/SGOT) 210H , Alanine Aminotransferase (ALT/SGPT) 96H, Alkaline Phosphatase 135H, Troponin I 2.256H, Total Protein 5.2L, Albumin 1.4L, Globulin 3.8, Albumin/Globulin Ratio 0.4L Height (Feet): 5 Height (Inches): 8.00 Weight (Pounds): 192 General Appearance: no apparent distress Cardiovascular: normal rate Respiratory/Chest: decreased breath sounds Abdomen: distended Objective no other changes YOLANDA NAVA May 24, 2017 13:46
[2017-05-24] MEDS: Cefepime HCl 1 GM in D5W 55 ML IVPB SCH (15:15)
[2017-05-24 15:21] LABS: PSA FREE <0.01 ng/mL; PSA TOTAL <0.1 ng/mL (0.0-4.0)
[2017-05-24] MEDS ORDERED: Vancomycin 1.5 GM/D5W 250ML IVPB ONE (15:30)
[2017-05-24 16:00] VITALS: BP 112/56
--- NOTE | 2017-05-24 16:50 | Diagnostic Imaging Report ---
INDICATION: Chest pain. Abdominal pain. TECHNIQUE: The given enteric contrast. No IV contrast, per referring physician request. Spiral acquisitions obtained through the chest, abdomen, and pelvis. Multiplanar reconstructions were generated. Total dose length product 1284 mGycm. CTDIvol(s) 19 mGy. Radiation dose was minimized using automated exposure control COMPARISON: None. Reference made to renal ultrasound 05/20/2017, abdomen ultrasound 01/01/2016 FINDINGS Chest: Subpleural blebs or small bullae are seen in the upper lobes bilaterally. A mixture of groundglass opacity and dense consolidation is seen bilaterally in the lower lobes. There is suggestion of mild bilateral lower lobe bronchiectasis. Some dense consolidation and groundglass opacity is also seen the posterior right middle lobe. No pleural effusion demonstrated. The heart is upper limits of normal in size. There are very dense coronary artery calcifications. There may be stents in the right coronary artery. No pericardial effusion. There is a nasogastric tube in good position. The esophagus is dilated with air proximally. No mediastinal or hilar mass or adenopathy. The included thyroid is grossly unremarkable. No axillary or chest wall mass or adenopathy. There is mild bilateral gynecomastia. There is an implanted electronic device anterior to the sternum within the subcutaneous fat. The bones are unremarkable. Abdomen pelvis: What is probably very small caliber appendix is demonstrated. No evidence of appendicitis. No evidence of diverticulosis or diverticulitis. Contrast is seen throughout the entirety of the small bowel and entirety of the colon, reaching the anus. No small bowel distention or small bowel wall thickening is evident. The stomach and duodenum are unremarkable. No free or loculated intraperitoneal air or fluid is evident. Lack of IV contrast limits assessment of the solid organs. The liver, gallbladder, bile ducts, pancreas, spleen, adrenals are unremarkable. There is nonspecific bilateral perinephric fat stranding which is fairly extensive. There is a 2.4 cm right renal parapelvic cyst versus focal upper pole hydronephrosis, more likely the former. No renal or ureteral calculi or hydroureter. Subcentimeter low-attenuation lesion is seen in the upper pole of the left kidney, too small to characterize. No retroperitoneal or mesenteric mass or adenopathy. No pelvic mass or adenopathy. A Pond catheter is seen within the bladder, which is empty. There is degenerative lumbar spondylosis. IMPRESSION: Bilateral lower lobe and posterior right middle lobe pulmonary groundglass opacity and dense consolidation. Appearance is nonspecific, most likely pneumonia or pulmonary edema. Given the presence of mild bronchiectasis, the possibility of a chronic component should also be considered. Bilateral pulmonary subpleural blebs and/or bullae in the upper lobes Extensive coronary artery calcifications, possible right coronary artery stent or stents No acute abdominal process Right renal parapelvic cyst versus upper pole hydronephrosis, favor the former Subcentimeter low-attenuation upper pole left renal lesion, too small to characterize, most likely benign simple cortical cysts. No further followup necessary Incidental findings as described, including degenerative lumbar and thoracic spondylosis, Pond catheter, bilateral gynecomastia, anterior chest wall electronic implant The CT scanner at [facility] is accredited by the [employer] and the scans are performed using protocols designed to limit radiation exposure to as low as reasonably achievable to attain images of sufficient resolution adequate for diagnostic evaluation.
--- NOTE | 2017-05-24 17:18 | GI Progress Note ---
Assessment/Plan Problems: (1) Abdominal pain ICD Codes: R10.9 - Unspecified abdominal pain SNOMED: 41443109 (2) Hypoalbuminemia ICD Codes: E88.09 - Other disorders of plasma-protein metabolism, not elsewhere classified SNOMED: 869360861 (3) Generalized weakness ICD Codes: R53.1 - Weakness SNOMED: 38405097 (4) Diarrhea ICD Codes: R19.7 - Diarrhea, unspecified SNOMED: 52677549 (5) Anemia ICD Codes: D64.9 - Anemia, unspecified SNOMED: 492467024 (6) Diabetes mellitus ICD Codes: E11.9 - Type 2 diabetes mellitus without complications SNOMED: 89765756 Status: unchanged Status Narrative Discussed with Dr. Blackman. Assessment/Plan hep panel negative family agrees to PEG, will schedule once cleared by cardiology. NPO + IVFs, plan to feed tomorrow if stable - cont NGT to LIS monitor H&H ppi fu labs Subjective Subjective limited Objective Last 24 Hour Vital Signs Date Time Temp Pulse Resp B/P (MAP) Pulse Ox O2 Delivery O2 Flow Rate FiO2 05/24/17 16:00 97.2 73 21 112/56 99 Nasal Cannula 2.0 05/24/17 12:05 97.7 84 22 116/65 99 Nasal Cannula 2.0 05/24/17 12:00 88 05/24/17 11:38 83 20 98 Nasal Cannula 2.0 28 05/24/17 11:28 87 18 97 Nasal Cannula 2.0 28 05/24/17 09:11 84 122/52 05/24/17 09:11 84 122/52 05/24/17 08:00 97.5 91 20 101/64 98 Nasal Cannula 2.0 05/24/17 08:00 91 05/24/17 07:21 87 20 98 Nasal Cannula 2.0 28 05/24/17 07:11 84 20 97 Nasal Cannula 2.0 28 05/24/17 07:09 98 Nasal Cannula 2.0 28 05/24/17 07:09 Nasal Cannula 2.0 28 05/24/17 04:00 97.9 88 20 122/52 99 Nasal Cannula 2.0 05/24/17 04:00 87 05/24/17 03:39 82 18 100 Nasal Cannula 2.0 28 05/24/17 03:32 82 20 97 Nasal Cannula 2.0 28 05/24/17 03:32 32 05/24/17 00:00 70 05/24/17 00:00 97.2 71 20 125/64 100 Nasal Cannula 2.0 05/23/17 23:58 32 05/23/17 23:57 87 20 98 Nasal Cannula 2.0 28 05/23/17 21:34 88 129/60 05/23/17 21:33 88 129/60 05/23/17 20:23 Nasal Cannula 05/23/17 20:23 Nasal Cannula 05/23/17 20:23 Nasal Cannula 2.0 28 05/23/17 20:23 99 Nasal Cannula 2.0 28 05/23/17 20:00 92 05/23/17 20:00 97.5 88 20 108/43 100 Nasal Cannula 2.0 Intake and Output 05/24/17 05/25/17 19:00 07:00 Intake Total 655 ml Balance 655 ml IV Total 655 ml Laboratory Tests Test 05/24/17 05:10 White Blood Count 10.8 K/UL (4.8-10.8) Red Blood Count 3.12 M/UL (4.70-6.10) L Hemoglobin 8.9 G/DL (14.2-18.0) L Hematocrit 27.8 % (42.0-52.0) L Mean Corpuscular Volume 89 FL (80-99) Mean Corpuscular Hemoglobin 28.6 PG (27.0-31.0) Mean Corpuscular Hemoglobin Concent 32.1 G/DL (32.0-36.0) Red Cell Distribution Width 15.8 % (11.6-14.8) H Platelet Count 144 K/UL (150-450) L Mean Platelet Volume 9.1 FL (6.5-10.1) Neutrophils (%) (Auto) 83.1 % (45.0-75.0) H Lymphocytes (%) (Auto) 9.6 % (20.0-45.0) L Monocytes (%) (Auto) 5.2 % (1.0-10.0) Eosinophils (%) (Auto) 1.8 % (0.0-3.0) Basophils (%) (Auto) 0.3 % (0.0-2.0) Sodium Level 150 MMOL/L (136-145) H Potassium Level 3.5 MMOL/L (3.5-5.1) Chloride Level 120 MMOL/L (98-107) H Carbon Dioxide Level 18 MMOL/L (21-32) L Anion Gap 12 mmol/L (5-15) Blood Urea Nitrogen 36 mg/dL (7-18) H Creatinine 2.4 MG/DL (0.55-1.30) H Estimat Glomerular Filtration Rate mL/min (>60) Glucose Level 127 MG/DL (74-106) H Calcium Level 8.2 MG/DL (8.5-10.1) L Total Bilirubin 0.8 MG/DL (0.2-1.0) Aspartate Amino Transf (AST/SGOT) 210 U/L (15-37) H Alanine Aminotransferase (ALT/SGPT) 96 U/L (12-78) H Alkaline Phosphatase 135 U/L (46-116) H Troponin I 2.256 ng/mL (0.000-0.056) Total Protein 5.2 G/DL (6.4-8.2) L Albumin 1.4 G/DL (3.4-5.0) L Globulin 3.8 g/dL Albumin/Globulin Ratio 0.4 (1.0-2.7) L Height (Feet): 5 Height (Inches): 8.00 Weight (Pounds): 192 General Appearance: no apparent distress, alert, overweight Cardiovascular: normal rate Respiratory/Chest: other - [facility] vent Abdominal Exam: site - c/d/i Milady Schafer N.P. May 24, 2017 17:18
[2017-05-24] MEDS ORDERED: Heparin 25,000u/D5W 500ml 500 ML IV SCH ×2 (18:00→22:00)
[2017-05-24] MEDS ORDERED: Heparin 5000 units/ml inj IV ONE (18:00)
--- NOTE | 2017-05-24 18:45 | General Progress Note ---
Assessment/Plan Status: stable Subjective Neurologic/Psychiatric: Reports: anxiety, emotional problems Allergies: Coded Allergies: No Known Allergies (Unverified , 12/28/15) Subjective confused periods of agitation Objective Last 24 Hour Vital Signs Date Time Temp Pulse Resp B/P (MAP) Pulse Ox O2 Delivery O2 Flow Rate FiO2 05/24/17 16:00 72 05/24/17 16:00 72 05/24/17 16:00 97.2 73 21 112/56 99 Nasal Cannula 2.0 05/24/17 15:00 Nasal Cannula 2.0 28 05/24/17 15:00 Nasal Cannula 2.0 28 05/24/17 12:05 97.7 84 22 116/65 99 Nasal Cannula 2.0 05/24/17 12:00 88 05/24/17 11:38 83 20 98 Nasal Cannula 2.0 28 05/24/17 11:28 87 18 97 Nasal Cannula 2.0 28 05/24/17 09:11 84 122/52 05/24/17 09:11 84 122/52 05/24/17 08:00 97.5 91 20 101/64 98 Nasal Cannula 2.0 05/24/17 08:00 91 05/24/17 07:21 87 20 98 Nasal Cannula 2.0 28 05/24/17 07:11 84 20 97 Nasal Cannula 2.0 28 05/24/17 07:09 98 Nasal Cannula 2.0 28 05/24/17 07:09 Nasal Cannula 2.0 28 05/24/17 04:00 97.9 88 20 122/52 99 Nasal Cannula 2.0 05/24/17 04:00 87 05/24/17 03:39 82 18 100 Nasal Cannula 2.0 28 05/24/17 03:32 82 20 97 Nasal Cannula 2.0 28 05/24/17 03:32 32 05/24/17 00:00 70 05/24/17 00:00 97.2 71 20 125/64 100 Nasal Cannula 2.0 05/23/17 23:58 32 05/23/17 23:57 87 20 98 Nasal Cannula 2.0 28 05/23/17 21:34 88 129/60 05/23/17 21:33 88 129/60 05/23/17 20:23 Nasal Cannula 05/23/17 20:23 Nasal Cannula 05/23/17 20:23 Nasal Cannula 2.0 28 05/23/17 20:23 99 Nasal Cannula 2.0 28 05/23/17 20:00 92 05/23/17 20:00 97.5 88 20 108/43 100 Nasal Cannula 2.0 Intake and Output 05/24/17 05/25/17 19:00 07:00 Intake Total 780 ml Output Total 500 ml Balance 280 ml IV Total 780 ml Output Urine Total 500 ml # Bowel Movements 1 Laboratory Tests 05/24/17 05:10: White Blood Count 10.8, Red Blood Count 3.12L, Hemoglobin 8.9L, Hematocrit 27.8L , Mean Corpuscular Volume 89, Mean Corpuscular Hemoglobin 28.6, Mean Corpuscular Hemoglobin Concent 32.1, Red Cell Distribution Width 15.8H, Platelet Count 144L, Mean Platelet Volume 9.1, Neutrophils (%) (Auto) 83.1H, Lymphocytes (%) (Auto) 9.6L, Monocytes (%) (Auto) 5.2, Eosinophils (%) (Auto) 1.8, Basophils (%) (Auto) 0.3, Sodium Level 150H, Potassium Level 3.5, Chloride Level 120H, Carbon Dioxide Level 18L, Anion Gap 12, Blood Urea Nitrogen 36H, Creatinine 2.4H, Estimat Glomerular Filtration Rate , Glucose Level 127H, Calcium Level 8.2L, Total Bilirubin 0.8, Aspartate Amino Transf (AST/SGOT) 210H , Alanine Aminotransferase (ALT/SGPT) 96H, Alkaline Phosphatase 135H, Troponin I 2.256H, Total Protein 5.2L, Albumin 1.4L, Globulin 3.8, Albumin/Globulin Ratio 0.4L Height (Feet): 5 Height (Inches): 8.00 Weight (Pounds): 192 General Appearance: lethargic, confused Neurologic: disoriented, unresponsive, depressed affect Madi Hansen M.D. May 24, 2017 18:45
[2017-05-24 19:36] LABS: BASOPHILS % (AUTO) 0.2 % (0.0-2.0); EOSINOPHILS % (AUTO) 2.3 % (0.0-3.0); LYMPHOCYTES % (AUTO) 10.3 % (20.0-45.0); MEAN CORPUSCULAR HEMOGLOBIN 27.5 PG (27.0-31.0); MEAN CORPUSCULAR HGB CONC 30.4 G/DL (32.0-36.0); MEAN CORPUSCULAR VOLUME 90 FL (80-99); MONOCYTES % (AUTO) 4.7 % (1.0-10.0); NEUTROPHILS % (AUTO) 82.5 % (45.0-75.0); PLATELET COUNT 143 K/UL (150-450); RED BLOOD COUNT 2.98 M/UL (4.70-6.10); RED CELL DISTRIBUTION WIDTH 16.4 % (11.6-14.8); WHITE BLOOD COUNT 12.5 K/UL (4.8-10.8)
[2017-05-24 20:00] VITALS: BP 117/56
[2017-05-24] MEDS: Tamsulosin 0.4mg cap ORAL SCH (22:17)
[2017-05-24] MEDS: Iron Sucrose 100 MG in NS 55 ML IV SCH (22:17)
[2017-05-24] MEDS: Atorvastatin 80mg tab NG SCH (22:18)
[2017-05-25] VITALS: BP 127/55
[2017-05-25 01:45] LABS: MEAN CORPUSCULAR HEMOGLOBIN 28.4 PG (27.0-31.0); MEAN CORPUSCULAR HGB CONC 32.3 G/DL (32.0-36.0); MEAN CORPUSCULAR VOLUME 88 FL (80-99); MEAN PLATELET VOLUME 8.8 FL (6.5-10.1); PLATELET COUNT 144 K/UL (150-450); RED BLOOD COUNT 2.97 M/UL (4.70-6.10); RED CELL DISTRIBUTION WIDTH 15.9 % (11.6-14.8); WHITE BLOOD COUNT 13.3 K/UL (4.8-10.8)
[2017-05-25 02:18] LABS: ALANINE AMINOTRANSFERASE 102 U/L (12-78); ALBUMIN/GLOBULIN RATIO 0.3 (1.0-2.7); ANION GAP 10 mmol/L (5-15); ASPARTATE AMINO TRANSFERASE 204 U/L (15-37); CALCIUM 8.2 MG/DL (8.5-10.1); CARBON DIOXIDE 18 MMOL/L (21-32); CHLORIDE 114 MMOL/L (98-107); CREATININE 2.2 MG/DL (0.55-1.30); POTASSIUM 3.5 MMOL/L (3.5-5.1); SODIUM 142 MMOL/L (136-145); TOTAL PROTEIN 5.6 G/DL (6.4-8.2)
[2017-05-25] MEDS: Albuterol/Ipratropium 3ml neb HHN SCH ×6 (03:27→23:17)
[2017-05-25] MEDS ORDERED: Heparin 25,000u/D5W 500ml 500 ML IV SCH ×3 (03:30→08:40)
[2017-05-25 04:00] VITALS: BP 114/56
[2017-05-25] MEDS: Amoxicillin 250mg/5ml susp 150ml NG SCH ×3 (05:28→21:39)
[2017-05-25] MEDS: NovoLOG Insulin Flexpen SUBQ SCH ×4 (06:30→21:44)
[2017-05-25 08:00] VITALS: BP 119/75
[2017-05-25] MEDS: Pantoprazole Inj IVP SCH ×2 (08:54→21:40)
[2017-05-25] MEDS: Aspirin Baby 81mg NG SCH (08:54)
[2017-05-25] MEDS: Metoprolol 25mg tab NG SCH ×2 (08:54→21:39)
[2017-05-25] MEDS: Levemir Flexpen SUBQ SCH ×2 (08:55→21:44)
[2017-05-25 09:04] LABS: BAND NEUTROPHILS % (MANUAL) 3 % (0-8); BASOPHILS % (MANUAL) 0 % (0-2); EOSINOPHILS % (MANUAL) 0 % (0-3); LYMPHOCYTES % (MANUAL) 6 % (20-45); NEUTROPHILS % (MANUAL) 85 % (45-75); PLATELET ESTIMATE DECREASED; PLATELET MORPHOLOGY NORMAL; TOTAL CELLS COUNTED 100
[2017-05-25 09:05] LABS: ANISOCYTOSIS 1+
[2017-05-25 09:06] LABS: BURR CELLS 1+
[2017-05-25 09:07] LABS: OVALOCYTES OCCASIONAL
--- NOTE | 2017-05-25 09:47 | Infectious Diseases Prog Note ---
Assessment/Plan Assessment/Plan ASSESSMENT: Blood Cx : CoNS 1/2 Contaminant Sepsis, SP Leukocytosis, mild Proabable Pna SCx: Nl Ade and Capri : colonizer CT: Bilateral lower lobe and posterior right middle lobe pulmonary groundglass opacity and dense consolidation -CXR : Basilar residual opacities possibly scarring or atelectasis. Doubt CHF Probable urinary tract infection/pyuria UCx: enterococcus -worsening pyuria on repeat u/a Lactic acidosis, SP Mild elevation of AST, and Alk Ph Hepatitis panel :neg for hepatitis B/C US of abd : Gallbladder sludge and possible small stones. Negative for dilated ducts Positive cardiac enzymes Acute renal insufficiency, superimposed on chronic kidney disease Anemia PLAN: Cont Cefepime d # 5 / , cont Amoxicillins d# 3 / , DC IV Vanco d# 12 05/21 SP IV Rocephin day #3 Monitor CBC Monitor BMP monitor repeat Blood Cx Subjective Constitutional: Denies: no symptoms, fever, chills, fatigue, anorexia, drenching sweats, other Allergies: Coded Allergies: No Known Allergies (Unverified , 12/28/15) Subjective comfortable Objective Vital Signs Last 24 Hour Vital Signs Date Time Temp Pulse Resp B/P (MAP) Pulse Ox O2 Delivery O2 Flow Rate FiO2 05/25/17 08:54 76 119/75 05/25/17 08:54 76 119/75 05/25/17 08:00 97.0 76 20 119/75 100 Nasal Cannula 2.0 05/25/17 07:35 76 18 99 Nasal Cannula 2.0 05/25/17 07:35 Nasal Cannula 2.0 05/25/17 07:35 99 Nasal Cannula 2.0 05/25/17 07:30 74 16 97 Nasal Cannula 2.0 05/25/17 04:00 72 05/25/17 04:00 97.5 70 20 114/56 100 Nasal Cannula 2.0 05/25/17 03:28 72 16 97 Nasal Cannula 2.0 05/25/17 03:28 75 20 98 Nasal Cannula 2.0 05/25/17 00:00 97.5 78 20 127/55 100 Nasal Cannula 2.0 05/24/17 23:11 70 16 99 Nasal Cannula 2.0 05/24/17 23:11 74 20 100 Nasal Cannula 2.0 05/24/17 22:25 74 117/56 05/24/17 22:18 74 117/56 05/24/17 20:00 81 05/24/17 20:00 97.0 74 20 117/56 100 Nasal Cannula 2.0 05/24/17 19:16 99 Nasal Cannula 2.0 28 05/24/17 19:14 Nasal Cannula 2.0 28 05/24/17 19:14 78 20 99 Nasal Cannula 2.0 28 05/24/17 19:13 73 16 98 Nasal Cannula 2.0 28 05/24/17 16:00 72 05/24/17 16:00 72 05/24/17 16:00 97.2 73 21 112/56 99 Nasal Cannula 2.0 05/24/17 15:00 Nasal Cannula 2.0 28 05/24/17 15:00 Nasal Cannula 2.0 28 05/24/17 12:05 97.7 84 22 116/65 99 Nasal Cannula 2.0 05/24/17 12:00 88 05/24/17 11:38 83 20 98 Nasal Cannula 2.0 28 05/24/17 11:28 87 18 97 Nasal Cannula 2.0 28 Height (Feet): 5 Height (Inches): 8.00 Weight (Pounds): 180 HEENT: anicteric Respiratory/Chest: no respiratory distress Cardiovascular: regular rhythm Abdomen: soft, non tender Microbiology Date/Time Source Procedure Growth Status 05/23/17 08:15 Blood Blood Culture - Preliminary NO GROWTH AFTER 24 HOURS Resulted 05/23/17 08:00 Blood Blood Culture - Preliminary Staphylococcus Sp Coag Neg Resulted Laboratory Tests Test 05/24/17 18:50 05/25/17 00:45 05/25/17 04:30 White Blood Count 12.5 K/UL (4.8-10.8) H 13.3 K/UL (4.8-10.8) H Red Blood Count 2.98 M/UL (4.70-6.10) L 2.97 M/UL (4.70-6.10) L Hemoglobin 8.2 G/DL (14.2-18.0) L 8.4 G/DL (14.2-18.0) L Hematocrit 27.0 % (42.0-52.0) L 26.0 % (42.0-52.0) L Mean Corpuscular Volume 90 FL (80-99) 88 FL (80-99) Mean Corpuscular Hemoglobin 27.5 PG (27.0-31.0) 28.4 PG (27.0-31.0) Mean Corpuscular Hemoglobin Concent 30.4 G/DL (32.0-36.0) L 32.3 G/DL (32.0-36.0) Red Cell Distribution Width 16.4 % (11.6-14.8) H 15.9 % (11.6-14.8) H Platelet Count 143 K/UL (150-450) L 144 K/UL (150-450) L Mean Platelet Volume 8.0 FL (6.5-10.1) 8.8 FL (6.5-10.1) Neutrophils (%) (Auto) 82.5 % (45.0-75.0) H % (45.0-75.0) Lymphocytes (%) (Auto) 10.3 % (20.0-45.0) L % (20.0-45.0) Monocytes (%) (Auto) 4.7 % (1.0-10.0) % (1.0-10.0) Eosinophils (%) (Auto) 2.3 % (0.0-3.0) % (0.0-3.0) Basophils (%) (Auto) 0.2 % (0.0-2.0) % (0.0-2.0) Activated Partial Thromboplast Time > 150 SEC (23-33) *H > 150 SEC (23-33) *H > 150 SEC (23-33) *H Differential Total Cells Counted 100 Neutrophils % (Manual) 85 % (45-75) H Lymphocytes % (Manual) 6 % (20-45) L Monocytes % (Manual) 6 % (1-10) Eosinophils % (Manual) 0 % (0-3) Basophils % (Manual) 0 % (0-2) Band Neutrophils 3 % (0-8) Platelet Estimate Decreased L Platelet Morphology Normal Anisocytosis 1+ Ovalocytes Occasional [place] Cells 1+ Sodium Level 142 MMOL/L (136-145) Potassium Level 3.5 MMOL/L (3.5-5.1) Chloride Level 114 MMOL/L (98-107) H Carbon Dioxide Level 18 MMOL/L (21-32) L Anion Gap 10 mmol/L (5-15) Blood Urea Nitrogen 29 mg/dL (7-18) H Creatinine 2.2 MG/DL (0.55-1.30) H Estimat Glomerular Filtration Rate mL/min (>60) Glucose Level 89 MG/DL (74-106) Calcium Level 8.2 MG/DL (8.5-10.1) L Total Bilirubin 0.9 MG/DL (0.2-1.0) Aspartate Amino Transf (AST/SGOT) 204 U/L (15-37) H Alanine Aminotransferase (ALT/SGPT) 102 U/L (12-78) H Alkaline Phosphatase 174 U/L (46-116) H Pro-B-Type Natriuretic Peptide 3257 pg/mL (0-125) H Total Protein 5.6 G/DL (6.4-8.2) L Albumin 1.2 G/DL (3.4-5.0) L Globulin 4.4 g/dL Albumin/Globulin Ratio 0.3 (1.0-2.7) L Current Medications Medications (Trade) Dose Ordered Sig/Altaf Route PRN Reason Start Time Stop Time Status Last Admin Dose Admin Acetaminophen (Tylenol) 650 mg Q4HR PRN NG Mild Pain/Temp > 100.5 05/23/17 22:45 06/22/17 22:44 Albuterol/ Ipratropium (Albuterol/ Ipratropium) 3 ml Q4HRT HHN 05/22/17 11:00 05/27/17 10:59 05/25/17 07:42 Amoxicillin (Amoxil) 500 mg EVERY 8 HOURS NG 05/24/17 06:00 05/31/17 05:59 05/25/17 05:28 Atorvastatin Calcium (Lipitor) 80 mg BEDTIME NG 05/24/17 21:00 06/23/17 20:59 05/24/17 22:18 Carvedilol (Coreg) 3.125 mg EVERY 12 HOURS NG 05/24/17 09:00 06/23/17 08:59 05/25/17 08:54 Cefepime HCl 1 gm/ Dextrose 55 ml @ 110 mls/hr Q24H IVPB 05/23/17 15:00 05/30/17 14:59 05/24/17 15:15 Clonidine HCl (Catapres) 0.1 mg Q4H PRN NG sbp more than 160 05/24/17 01:45 06/23/17 01:44 Dextrose 1,000 ml @ 50 mls/hr Q20H IV 05/25/17 07:30 06/24/17 07:29 05/24/17 11:12 Dextrose (Dextrose 50%) STAT PRN IV Hypoglycemia 05/19/17 21:45 06/18/17 21:44 Finasteride (Proscar) 5 mg BEDTIME ORAL 05/20/17 21:00 06/19/17 20:59 05/24/17 22:17 Insulin Aspart (NovoLOG) BEFORE MEALS AND HS SUBQ 05/20/17 06:30 06/19/17 06:29 05/24/17 11:37 Insulin Detemir (Levemir) 30 units Q12HR SUBQ 05/23/17 09:30 06/22/17 09:29 05/25/17 08:55 Iron Sucrose 100 mg/Sodium Chloride 60 ml @ 240 mls/hr BEDTIME IV 05/23/17 21:00 05/27/17 21:14 05/24/17 22:17 Lorazepam (Ativan 2mg/ml 1ml) 1 mg Q4H PRN IV For Anxiety 05/21/17 08:00 05/28/17 07:59 05/23/17 10:14 Metoprolol Tartrate (Lopressor) 25 mg Q12HR NG 05/24/17 09:00 06/23/17 08:59 05/25/17 08:54 Nitroglycerin (Ntg) 0.4 mg Q5M X 3 DOSES PRN SL Prn Chest Pain 05/19/17 21:45 06/18/17 21:44 Ondansetron HCl (Zofran) 4 mg Q6H PRN IVP Nausea & Vomiting 05/19/17 21:45 06/18/17 21:44 Pantoprazole (Protonix) 40 mg EVERY 12 HOURS IVP 05/20/17 16:00 06/19/17 15:59 05/25/17 08:54 Polyethylene Glycol (Miralax) 17 gm HSPRN PRN NG Constipation 05/23/17 22:45 06/22/17 22:44 Risperidone (RisperDAL) 1 mg DAILY PRN NG For Anxiety 05/23/17 22:45 06/22/17 22:44 Tamsulosin HCl (Flomax) 0.4 mg BEDTIME ORAL 05/20/17 21:00 06/19/17 20:59 05/24/17 22:17 Temazepam (Restoril) 15 mg HSPRN PRN NG Insomnia 05/23/17 22:45 05/30/17 22:44 Vancomycin HCl (Vanco rx to dose) 1 ea DAILY PRN MISC Per rx protocol 05/24/17 14:30 06/23/17 14:29 ALEXANDER FRAZIER M.D. May 25, 2017 09:47
--- NOTE | 2017-05-25 11:34 | Diagnostic Imaging Report ---
Indication: Post nasogastric tube placement Technique: One view of the abdomen Comparison: 05/22/2017 Findings: Nasogastric tube appears slightly farther into the stomach than on the prior exam, tip currently at the fundus/body junction, proximal port well beyond the gastroesophageal junction. Contrast presumably from recent CT scan is seen within the colon. Gas pattern is grossly unremarkable. Reticular opacities are seen in the lungs bilaterally. Impression: Satisfactory nasogastric intubation Other findings as noted This agrees with the preliminary interpretation provided overnight by [facility] teleradiology service.
[2017-05-25 12:00] VITALS: BP 118/63
--- NOTE | 2017-05-25 12:03 | Nephrology Progress Note ---
Assessment/Plan Problem List: (1) ATN (acute tubular necrosis) (2) Prostate cancer (3) Anemia Assessment Acute renal failure cr down to 2.2 chronic underlying renal failure, ? Diabetic Nephropathy Severe Anemia HypoAlbuminemia, r/o Nephrotic syndrom UTI / Sepsis Basal Atelectasis Prostate cancer h/o CVA toxic metabolic encephalopathy SC , Troponin maxed 11.3 now declining Plan Plan: recheck CBC as wbc shows low ? Transfuse? defer to PMD Hydrate- Transfuse gastric support MONSTER Renal- Negative for hydronephrosis 2 D Echo- pending 24 H urine protein- minimal monitor renal parameters per consultants Subjective ROS Limited/Unobtainable: No Constitutional: Reports: malaise Objective Objective Last 24 Hour Vital Signs Date Time Temp Pulse Resp B/P (MAP) Pulse Ox O2 Delivery O2 Flow Rate FiO2 05/25/17 08:54 76 119/75 05/25/17 08:54 76 119/75 05/25/17 08:00 97.0 76 20 119/75 100 Nasal Cannula 2.0 05/25/17 07:35 76 18 99 Nasal Cannula 2.0 28 05/25/17 07:35 Nasal Cannula 2.0 28 05/25/17 07:35 99 Nasal Cannula 2.0 28 05/25/17 07:30 74 16 97 Nasal Cannula 2.0 05/25/17 07:27 70 05/25/17 04:00 72 05/25/17 04:00 97.5 70 20 114/56 100 Nasal Cannula 2.0 05/25/17 03:28 72 16 97 Nasal Cannula 2.0 28 05/25/17 03:28 75 20 98 Nasal Cannula 2.0 28 05/25/17 00:00 97.5 78 20 127/55 100 Nasal Cannula 2.0 05/24/17 23:11 70 16 99 Nasal Cannula 2.0 28 05/24/17 23:11 74 20 100 Nasal Cannula 2.0 28 05/24/17 22:25 74 117/56 05/24/17 22:18 74 117/56 05/24/17 20:00 81 05/24/17 20:00 97.0 74 20 117/56 100 Nasal Cannula 2.0 05/24/17 19:16 99 Nasal Cannula 2.0 28 05/24/17 19:14 Nasal Cannula 2.0 28 05/24/17 19:14 78 20 99 Nasal Cannula 2.0 28 05/24/17 19:13 73 16 98 Nasal Cannula 2.0 28 05/24/17 16:00 72 05/24/17 16:00 72 05/24/17 16:00 97.2 73 21 112/56 99 Nasal Cannula 2.0 05/24/17 15:00 Nasal Cannula 2.0 28 05/24/17 15:00 Nasal Cannula 2.0 28 05/24/17 12:05 97.7 84 22 116/65 99 Nasal Cannula 2.0 05/24/17 12:00 88 Intake and Output 05/25/17 05/26/17 19:00 07:00 Intake Total 200 ml Balance 200 ml IV Total 200 ml Laboratory Tests 05/24/17 18:50: White Blood Count 12.5H, Red Blood Count 2.98L, Hemoglobin 8.2L, Hematocrit 27.0L, Mean Corpuscular Volume 90, Mean Corpuscular Hemoglobin 27.5, Mean Corpuscular Hemoglobin Concent 30.4L, Red Cell Distribution Width 16.4H, Platelet Count 143L, Mean Platelet Volume 8.0, Neutrophils (%) (Auto) 82.5H, Lymphocytes (%) (Auto) 10.3L, Monocytes (%) (Auto) 4.7, Eosinophils (%) (Auto) 2.3, Basophils (%) (Auto) 0.2, Activated Partial Thromboplast Time > 150*H 05/25/17 00:45: White Blood Count 13.3H, Red Blood Count 2.97L, Hemoglobin 8.4L, Hematocrit 26.0L, Mean Corpuscular Volume 88, Mean Corpuscular Hemoglobin 28.4, Mean Corpuscular Hemoglobin Concent 32.3, Red Cell Distribution Width 15.9H, Platelet Count 144L, Mean Platelet Volume 8.8, Neutrophils (%) (Auto) , Lymphocytes (%) (Auto) , Monocytes (%) (Auto) , Eosinophils (%) (Auto) , Basophils (%) (Auto) , Activated Partial Thromboplast Time > 150*H, Differential Total Cells Counted 100, Neutrophils % (Manual) 85H, Lymphocytes % (Manual) 6L, Monocytes % (Manual) 6, Eosinophils % (Manual) 0, Basophils % ( Manual) 0, Band Neutrophils 3, Platelet Estimate DecreasedL, Platelet Morphology Normal, Anisocytosis 1+, Ovalocytes Occasional, [place] Cells 1+, Sodium Level 142, Potassium Level 3.5, Chloride Level 114H, Carbon Dioxide Level 18L, Anion Gap 10, Blood Urea Nitrogen 29H, Creatinine 2.2H, Estimat Glomerular Filtration Rate , Glucose Level 89, Calcium Level 8.2L, Total Bilirubin 0.9, Aspartate Amino Transf (AST/SGOT) 204H, Alanine Aminotransferase (ALT/SGPT) 102H, Alkaline Phosphatase 174H, Pro-B-Type Natriuretic Peptide 3257H , Total Protein 5.6L, Albumin 1.2L, Globulin 4.4, Albumin/Globulin Ratio 0.3L 05/25/17 04:30: Activated Partial Thromboplast Time > 150*H Height (Feet): 5 Height (Inches): 8.00 Weight (Pounds): 180 General Appearance: no apparent distress Respiratory/Chest: decreased breath sounds Abdomen: soft Objective no other changes YOLANDA NAVA May 25, 2017 12:03
--- NOTE | 2017-05-25 12:07 | GI Progress Note ---
Assessment/Plan Problems: (1) Abdominal pain ICD Codes: R10.9 - Unspecified abdominal pain SNOMED: 92949050 (2) Hypoalbuminemia ICD Codes: E88.09 - Other disorders of plasma-protein metabolism, not elsewhere classified SNOMED: 993752629 (3) Generalized weakness ICD Codes: R53.1 - Weakness SNOMED: 10331713 (4) Diarrhea ICD Codes: R19.7 - Diarrhea, unspecified SNOMED: 41486613 (5) Anemia ICD Codes: D64.9 - Anemia, unspecified SNOMED: 673650790 (6) Diabetes mellitus ICD Codes: E11.9 - Type 2 diabetes mellitus without complications SNOMED: 05891381 Status: unchanged Status Narrative Discussed with Dr. Blackman. Assessment/Plan hep panel negative family agrees to PEG, will schedule once cleared by cardiology. NPO + IVFs ST evaluation monitor H&H, prn transfusions ppi fu labs Subjective Subjective limited Objective Last 24 Hour Vital Signs Date Time Temp Pulse Resp B/P (MAP) Pulse Ox O2 Delivery O2 Flow Rate FiO2 05/25/17 08:54 76 119/75 05/25/17 08:54 76 119/75 05/25/17 08:00 97.0 76 20 119/75 100 Nasal Cannula 2.0 05/25/17 07:35 76 18 99 Nasal Cannula 2.0 28 05/25/17 07:35 Nasal Cannula 2.0 28 05/25/17 07:35 99 Nasal Cannula 2.0 28 05/25/17 07:30 74 16 97 Nasal Cannula 2.0 28 05/25/17 07:27 70 05/25/17 04:00 72 05/25/17 04:00 97.5 70 20 114/56 100 Nasal Cannula 2.0 05/25/17 03:28 72 16 97 Nasal Cannula 2.0 28 05/25/17 03:28 75 20 98 Nasal Cannula 2.0 28 05/25/17 00:00 97.5 78 20 127/55 100 Nasal Cannula 2.0 05/24/17 23:11 70 16 99 Nasal Cannula 2.0 28 05/24/17 23:11 74 20 100 Nasal Cannula 2.0 28 05/24/17 22:25 74 117/56 05/24/17 22:18 74 117/56 05/24/17 20:00 81 05/24/17 20:00 97.0 74 20 117/56 100 Nasal Cannula 2.0 05/24/17 19:16 99 Nasal Cannula 2.0 28 05/24/17 19:14 Nasal Cannula 2.0 28 05/24/17 19:14 78 20 99 Nasal Cannula 2.0 28 05/24/17 19:13 73 16 98 Nasal Cannula 2.0 28 05/24/17 16:00 72 05/24/17 16:00 72 05/24/17 16:00 97.2 73 21 112/56 99 Nasal Cannula 2.0 05/24/17 15:00 Nasal Cannula 2.0 28 05/24/17 15:00 Nasal Cannula 2.0 28 05/24/17 12:05 97.7 84 22 116/65 99 Nasal Cannula 2.0 Intake and Output 05/25/17 05/26/17 19:00 07:00 Intake Total 200 ml Balance 200 ml IV Total 200 ml Laboratory Tests Test 05/24/17 18:50 05/25/17 00:45 05/25/17 04:30 White Blood Count 12.5 K/UL (4.8-10.8) H 13.3 K/UL (4.8-10.8) H Red Blood Count 2.98 M/UL (4.70-6.10) L 2.97 M/UL (4.70-6.10) L Hemoglobin 8.2 G/DL (14.2-18.0) L 8.4 G/DL (14.2-18.0) L Hematocrit 27.0 % (42.0-52.0) L 26.0 % (42.0-52.0) L Mean Corpuscular Volume 90 FL (80-99) 88 FL (80-99) Mean Corpuscular Hemoglobin 27.5 PG (27.0-31.0) 28.4 PG (27.0-31.0) Mean Corpuscular Hemoglobin Concent 30.4 G/DL (32.0-36.0) L 32.3 G/DL (32.0-36.0) Red Cell Distribution Width 16.4 % (11.6-14.8) H 15.9 % (11.6-14.8) H Platelet Count 143 K/UL (150-450) L 144 K/UL (150-450) L Mean Platelet Volume 8.0 FL (6.5-10.1) 8.8 FL (6.5-10.1) Neutrophils (%) (Auto) 82.5 % (45.0-75.0) H % (45.0-75.0) Lymphocytes (%) (Auto) 10.3 % (20.0-45.0) L % (20.0-45.0) Monocytes (%) (Auto) 4.7 % (1.0-10.0) % (1.0-10.0) Eosinophils (%) (Auto) 2.3 % (0.0-3.0) % (0.0-3.0) Basophils (%) (Auto) 0.2 % (0.0-2.0) % (0.0-2.0) Activated Partial Thromboplast Time > 150 SEC (23-33) *H > 150 SEC (23-33) *H > 150 SEC (23-33) *H Differential Total Cells Counted 100 Neutrophils % (Manual) 85 % (45-75) H Lymphocytes % (Manual) 6 % (20-45) L Monocytes % (Manual) 6 % (1-10) Eosinophils % (Manual) 0 % (0-3) Basophils % (Manual) 0 % (0-2) Band Neutrophils 3 % (0-8) Platelet Estimate Decreased L Platelet Morphology Normal Anisocytosis 1+ Ovalocytes Occasional [place] Cells 1+ Sodium Level 142 MMOL/L (136-145) Potassium Level 3.5 MMOL/L (3.5-5.1) Chloride Level 114 MMOL/L (98-107) H Carbon Dioxide Level 18 MMOL/L (21-32) L Anion Gap 10 mmol/L (5-15) Blood Urea Nitrogen 29 mg/dL (7-18) H Creatinine 2.2 MG/DL (0.55-1.30) H Estimat Glomerular Filtration Rate mL/min (>60) Glucose Level 89 MG/DL (74-106) Calcium Level 8.2 MG/DL (8.5-10.1) L Total Bilirubin 0.9 MG/DL (0.2-1.0) Aspartate Amino Transf (AST/SGOT) 204 U/L (15-37) H Alanine Aminotransferase (ALT/SGPT) 102 U/L (12-78) H Alkaline Phosphatase 174 U/L (46-116) H Pro-B-Type Natriuretic Peptide 3257 pg/mL (0-125) H Total Protein 5.6 G/DL (6.4-8.2) L Albumin 1.2 G/DL (3.4-5.0) L Globulin 4.4 g/dL Albumin/Globulin Ratio 0.3 (1.0-2.7) L Height (Feet): 5 Height (Inches): 8.00 Weight (Pounds): 180 General Appearance: no apparent distress Cardiovascular: normal rate Respiratory/Chest: normal breath sounds, no respiratory distress, other - NC Abdominal Exam: normal bowel sounds, non tender, soft Extremities: non-tender Milady Schafer N.Radha May 25, 2017 12:07
--- NOTE | 2017-05-25 12:12 | Pulmonology Progress Note ---
Assessment/Plan Problems: (1) DVT (deep venous thrombosis) (2) Encephalopathy acute (3) Sepsis (4) ATN (acute tubular necrosis) (5) Non-ST elevation (NSTEMI) myocardial infarction (6) Diabetes mellitus (7) Prostate cancer (8) Anemia (9) PVD (peripheral vascular disease) Assessment/Plan pt had dark/black stool last night, heparin drip was stopped. bun/creatinine decreasing BS better controlled Na is lower decrease IV fluid continue abx check cultures check stool for OB check CEA, previous admission it was 7 CT abdomen pelvis reviewed, no apparent malignancy was seen. Subjective Interval Events: opens eyes, doesn't follow commands Allergies: Coded Allergies: No Known Allergies (Unverified , 12/28/15) Objective Last 24 Hour Vital Signs Date Time Temp Pulse Resp B/P (MAP) Pulse Ox O2 Delivery O2 Flow Rate FiO2 05/25/17 11:50 68 16 97 Nasal Cannula 2.0 28 05/25/17 08:54 76 119/75 05/25/17 08:54 76 119/75 05/25/17 08:00 97.0 76 20 119/75 100 Nasal Cannula 2.0 05/25/17 07:35 76 18 99 Nasal Cannula 2.0 05/25/17 07:35 Nasal Cannula 2.0 28 05/25/17 07:35 99 Nasal Cannula 2.0 05/25/17 07:30 74 16 97 Nasal Cannula 2.0 05/25/17 07:27 70 05/25/17 04:00 72 05/25/17 04:00 97.5 70 20 114/56 100 Nasal Cannula 2.0 05/25/17 03:28 72 16 97 Nasal Cannula 2.0 05/25/17 03:28 75 20 98 Nasal Cannula 2.0 28 05/25/17 00:00 97.5 78 20 127/55 100 Nasal Cannula 2.0 05/24/17 23:11 70 16 99 Nasal Cannula 2.0 05/24/17 23:11 74 20 100 Nasal Cannula 2.0 05/24/17 22:25 74 117/56 05/24/17 22:18 74 117/56 05/24/17 20:00 81 05/24/17 20:00 97.0 74 20 117/56 100 Nasal Cannula 2.0 05/24/17 19:16 99 Nasal Cannula 2.0 28 05/24/17 19:14 Nasal Cannula 2.0 28 05/24/17 19:14 78 20 99 Nasal Cannula 2.0 28 05/24/17 19:13 73 16 98 Nasal Cannula 2.0 28 05/24/17 16:00 72 05/24/17 16:00 72 05/24/17 16:00 97.2 73 21 112/56 99 Nasal Cannula 2.0 05/24/17 15:00 Nasal Cannula 2.0 28 05/24/17 15:00 Nasal Cannula 2.0 28 Intake and Output 05/25/17 05/26/17 19:00 07:00 Intake Total 200 ml Balance 200 ml IV Total 200 ml General Appearance: WD/WN HEENT: normocephalic, atraumatic Respiratory/Chest: chest wall non-tender, normal breath sounds Cardiovascular: normal peripheral pulses, normal rate, regularly irregular Abdomen: normal bowel sounds, no organomegaly Extremities: no cyanosis, no clubbing Skin: no rash, no ulcers Microbiology Date/Time Source Procedure Growth Status 05/23/17 08:15 Blood Blood Culture - Preliminary NO GROWTH AFTER 24 HOURS Resulted 05/23/17 08:00 Blood Blood Culture - Preliminary Staphylococcus Sp Coag Neg Resulted Laboratory Tests 05/24/17 18:50: White Blood Count 12.5H, Red Blood Count 2.98L, Hemoglobin 8.2L, Hematocrit 27.0L, Mean Corpuscular Volume 90, Mean Corpuscular Hemoglobin 27.5, Mean Corpuscular Hemoglobin Concent 30.4L, Red Cell Distribution Width 16.4H, Platelet Count 143L, Mean Platelet Volume 8.0, Neutrophils (%) (Auto) 82.5H, Lymphocytes (%) (Auto) 10.3L, Monocytes (%) (Auto) 4.7, Eosinophils (%) (Auto) 2.3, Basophils (%) (Auto) 0.2, Activated Partial Thromboplast Time > 150*H 05/25/17 00:45: White Blood Count 13.3H, Red Blood Count 2.97L, Hemoglobin 8.4L, Hematocrit 26.0L, Mean Corpuscular Volume 88, Mean Corpuscular Hemoglobin 28.4, Mean Corpuscular Hemoglobin Concent 32.3, Red Cell Distribution Width 15.9H, Platelet Count 144L, Mean Platelet Volume 8.8, Neutrophils (%) (Auto) , Lymphocytes (%) (Auto) , Monocytes (%) (Auto) , Eosinophils (%) (Auto) , Basophils (%) (Auto) , Activated Partial Thromboplast Time > 150*H, Differential Total Cells Counted 100, Neutrophils % (Manual) 85H, Lymphocytes % (Manual) 6L, Monocytes % (Manual) 6, Eosinophils % (Manual) 0, Basophils % ( Manual) 0, Band Neutrophils 3, Platelet Estimate DecreasedL, Platelet Morphology Normal, Anisocytosis 1+, Ovalocytes Occasional, Dale Cells 1+, Sodium Level 142, Potassium Level 3.5, Chloride Level 114H, Carbon Dioxide Level 18L, Anion Gap 10, Blood Urea Nitrogen 29H, Creatinine 2.2H, Estimat Glomerular Filtration Rate , Glucose Level 89, Calcium Level 8.2L, Total Bilirubin 0.9, Aspartate Amino Transf (AST/SGOT) 204H, Alanine Aminotransferase (ALT/SGPT) 102H, Alkaline Phosphatase 174H, Pro-B-Type Natriuretic Peptide 3257H , Total Protein 5.6L, Albumin 1.2L, Globulin 4.4, Albumin/Globulin Ratio 0.3L 05/25/17 04:30: Activated Partial Thromboplast Time > 150*H Current Medications Medications (Trade) Dose Ordered Sig/Altaf Route PRN Reason Start Time Stop Time Status Last Admin Dose Admin Acetaminophen (Tylenol) 650 mg Q4HR PRN NG Mild Pain/Temp > 100.5 05/23/17 22:45 06/22/17 22:44 Albuterol/ Ipratropium (Albuterol/ Ipratropium) 3 ml Q4HRT HHN 05/22/17 11:00 05/27/17 10:59 05/25/17 11:00 Amoxicillin (Amoxil) 500 mg EVERY 8 HOURS NG 05/24/17 06:00 05/31/17 05:59 05/25/17 05:28 Atorvastatin Calcium (Lipitor) 80 mg BEDTIME NG 05/24/17 21:00 06/23/17 20:59 05/24/17 22:18 Carvedilol (Coreg) 3.125 mg EVERY 12 HOURS NG 05/24/17 09:00 06/23/17 08:59 05/25/17 08:54 Cefepime HCl 1 gm/ Dextrose 55 ml @ 110 mls/hr Q24H IVPB 05/23/17 15:00 05/30/17 14:59 05/24/17 15:15 Clonidine HCl (Catapres) 0.1 mg Q4H PRN NG sbp more than 160 05/24/17 01:45 06/23/17 01:44 Dextrose 1,000 ml @ 50 mls/hr Q20H IV 05/25/17 07:30 06/24/17 07:29 05/25/17 07:00 Dextrose (Dextrose 50%) STAT PRN IV Hypoglycemia 05/19/17 21:45 06/18/17 21:44 Finasteride (Proscar) 5 mg BEDTIME ORAL 05/20/17 21:00 06/19/17 20:59 05/24/17 22:17 Insulin Aspart (NovoLOG) BEFORE MEALS AND HS SUBQ 05/20/17 06:30 06/19/17 06:29 05/24/17 11:37 Insulin Detemir (Levemir) 30 units Q12HR SUBQ 05/23/17 09:30 06/22/17 09:29 05/25/17 08:55 Iron Sucrose 100 mg/Sodium Chloride 60 ml @ 240 mls/hr BEDTIME IV 05/23/17 21:00 05/27/17 21:14 05/24/17 22:17 Lorazepam (Ativan 2mg/ml 1ml) 1 mg Q4H PRN IV For Anxiety 05/21/17 08:00 05/28/17 07:59 05/23/17 10:14 Metoprolol Tartrate (Lopressor) 25 mg Q12HR NG 05/24/17 09:00 06/23/17 08:59 05/25/17 08:54 Nitroglycerin (Ntg) 0.4 mg Q5M X 3 DOSES PRN SL Prn Chest Pain 05/19/17 21:45 06/18/17 21:44 Ondansetron HCl (Zofran) 4 mg Q6H PRN IVP Nausea & Vomiting 05/19/17 21:45 06/18/17 21:44 Pantoprazole (Protonix) 40 mg EVERY 12 HOURS IVP 05/20/17 16:00 06/19/17 15:59 05/25/17 08:54 Polyethylene Glycol (Miralax) 17 gm HSPRN PRN NG Constipation 05/23/17 22:45 06/22/17 22:44 Risperidone (RisperDAL) 1 mg DAILY PRN NG For Anxiety 05/23/17 22:45 06/22/17 22:44 Tamsulosin HCl (Flomax) 0.4 mg BEDTIME ORAL 05/20/17 21:00 06/19/17 20:59 05/24/17 22:17 Temazepam (Restoril) 15 mg HSPRN PRN NG Insomnia 05/23/17 22:45 05/30/17 22:44 YOSHI EDOUARD May 25, 2017 12:12
--- NOTE | 2017-05-25 13:15 | Consultation ---
DATE OF CONSULTATION: 05/24/2017 HEMATOLOGY/ONCOLOGY CONSULTATION CONSULTING PHYSICIAN: Chano Bellamy M.D. REQUESTING PHYSICIAN: Kel Sandoval M.D. REASON FOR CONSULTATION: Evaluation of bilateral DVT, the patient was started on heparin drip. IDENTIFICATION DATA: Dear Dr. Sandoval, The patient is a pleasant 76-year-old male with a past medical history which is significant for an admission to [facility] in [place] with history of hypertension, diabetes mellitus, prior strokes, osteoarthritis, and prostate cancer history, at this time presents to the hospital for change in mental status and fluctuating blood sugar levels. According to paramedics, the patient reported to be aroused, have fluctuating mental status again. A 12-lead EKG completed and was negative, over the past several days has been admitted and seen by GI service, Psychiatry, Nephrology, and Cardiology. Prostate specific antigen levels ordered on admission less than 0.01. The patient was noted to have DVT of the bilateral lower extremities and Hematology service was consulted for further evaluation and treatment. The patient was started on heparin drip. PAST MEDICAL HISTORY: CVA, prostate cancer, history of diabetes mellitus, hypertension, and osteoarthritis. MEDICATIONS: Norvasc, aspirin, Lipitor, citalopram, Plavix, Proscar, Amaryl, hydralazine, insulin sliding scale, losartan, Namenda, multivitamin, Januvia, and Flomax. SOCIAL HISTORY: No alcohol, tobacco, or illicit drug use. Difficult to ascertain. He is a resident of a convalescent facility. REVIEW OF SYSTEMS: Difficult to obtain, given mental status. PHYSICAL EXAMINATION: GENERAL: No acute distress. VITAL SIGNS: Reviewed. PULMONARY: Decreased breath sounds. CARDIOVASCULAR: Regular rate. No S3 or S4. No systolic murmur noted. ABDOMEN: Soft, nontender, and nondistended. EXTREMITIES: No cyanosis, swelling, or edema. NEUROLOGIC: Awake, responsive, but difficulty with verbal communication. LABORATORY DATA: WBC 12.5, hemoglobin 8.3, hematocrit 27, and platelets 143,000. . INR 1, prothrombin time of greater than 150. BUN of 146 and creatinine of currently is above 6. ASSESSMENT AND RECOMMENDATIONS: 1. Bilateral deep venous thrombosis. Final results are pending to be read by radiologist. We will follow up on final report. We will continue heparin drip at this time in addition to potential as an outpatient. 2. Anemia, secondary to chronic disease. We will obtain TIBC as well as iron level. Ferritin is 177. 3. Decreased hemoglobin and hematocrit, rule out gastrointestinal bleed. 4. Coagulopathy, potentially secondary to underlying heparin drip. 5. Anemia, secondary to end-stage renal disease. 6. Psychiatric disorder. He has been seen by Psychiatry service. Continue to follow. 7. Malnutrition, family wishes PEG tube. Continue to monitor. Refer him for potential placement. I appreciate the consultation. Chano Bellamy M.D. DR: NAZ JOB#: [id number] CC:
[2017-05-25] MEDS: Cefepime HCl 1 GM in D5W 55 ML IVPB SCH (15:03)
--- NOTE | 2017-05-25 15:50 | Cardiology Report ---
APPROVED REPORT EXAM: Two-dimensional and M-mode echocardiogram with Doppler and color Doppler. INDICATION Left ventricular function M-Mode DIMENSIONS IVSd1.5 (0.7-1.1cm)Left Atrium (MM)3.9 (1.6-4.0cm) LVDd4.6 (3.5-5.6cm)Aortic Root2.5 (2.0-3.7cm) PWd1.3 (0.7-1.1cm)Aortic Cusp Exc.1.1 (1.5-2.0cm) LVDs2.9 (2.5-4.0cm) PWs1.7 cm Normal left ventricular chamber size, systolic function and wall motion. Left ventricular ejection fraction estimated to be 55 %. Mild left ventricular hypertrophy. Anterior Echo-free space, may be due to pericardial fat or effusion. All other cardiac chamber sizes are within normal limits. Aortic valve calcification with decreased cusp excursion c/w aortic stenosis. Mildy thickened mitral valve leaflets with normal excursion. Mild mitral annulus and aortic root calcification. Normal pulmonic valve structure. Normal tricuspid valve structure. IVC at normal size with physiologic collapse. A color flow and spectral Doppler study was performed and revealed: Trace aortic regurgitation. Peak aortic valve gradient of 26 mmHg and a mean of 13 mmHg. Aortic valve area 1.4 cm2 calculated by continuity equation. Moderate mitral regurgitation. Mitral diastolic velocities suggest reduced left ventricular relaxation c/w mild LV diastolic dysfunction (Grade I ). Mild tricuspid regurgitation. Tricuspid systolic velocities suggests peak right ventricular systolic pressure of 32 mmHg. No pulmonic regurgitation present.
[2017-05-25 16:00] VITALS: BP 114/52
--- NOTE | 2017-05-25 16:50 | Cardiology Report ---
APPROVED REPORT EKG Measurement Heart [id number] Normal sinus rhythm Nonspecific T wave abnormality Abnormal ECG
[2017-05-25 21:00] VITALS: BP 135/77
[2017-05-25] MEDS: Iron Sucrose 100 MG in NS 55 ML IV SCH (21:38)
[2017-05-25] MEDS: Tamsulosin 0.4mg cap ORAL SCH (21:39)
[2017-05-25] MEDS: Atorvastatin 80mg tab NG SCH (21:39)
[2017-05-26] VITALS (19 sets, daily range): BP systolic 106–139; BP diastolic 57–93
--- NOTE | 2017-05-26 00:13 | General Progress Note ---
Assessment/Plan Status: stable Subjective Neurologic/Psychiatric: Reports: anxiety, depressed Allergies: Coded Allergies: No Known Allergies (Unverified , 12/28/15) Subjective confused periods of agitation Objective Last 24 Hour Vital Signs Date Time Temp Pulse Resp B/P (MAP) Pulse Ox O2 Delivery O2 Flow Rate FiO2 05/25/17 23:27 76 18 100 Nasal Cannula 2.0 28 05/25/17 23:16 75 20 98 Nasal Cannula 2.0 28 05/25/17 21:40 76 135/77 05/25/17 21:39 76 135/77 05/25/17 21:00 96.3 76 22 135/77 99 Nasal Cannula 2.0 05/25/17 20:00 74 05/25/17 19:46 74 18 98 Nasal Cannula 2.0 28 05/25/17 19:34 Nasal Cannula 2.0 28 05/25/17 19:34 70 20 94 Nasal Cannula 2.0 28 05/25/17 19:34 94 Nasal Cannula 2.0 28 05/25/17 16:22 72 05/25/17 16:00 98.1 69 22 114/52 99 Nasal Cannula 2.0 05/25/17 15:23 67 18 100 Nasal Cannula 2.0 28 05/25/17 15:15 67 18 100 Nasal Cannula 2.0 28 05/25/17 12:32 66 05/25/17 12:00 70 18 99 Nasal Cannula 2.0 28 05/25/17 12:00 97.0 67 20 118/63 99 Nasal Cannula 2.0 05/25/17 11:50 68 16 97 Nasal Cannula 2.0 28 05/25/17 08:54 76 119/75 05/25/17 08:54 76 119/75 05/25/17 08:00 97.0 76 20 119/75 100 Nasal Cannula 2.0 05/25/17 07:35 76 18 99 Nasal Cannula 2.0 28 05/25/17 07:35 Nasal Cannula 2.0 28 05/25/17 07:35 99 Nasal Cannula 2.0 28 05/25/17 07:30 74 16 97 Nasal Cannula 2.0 28 05/25/17 07:27 70 05/25/17 04:00 72 05/25/17 04:00 97.5 70 20 114/56 100 Nasal Cannula 2.0 05/25/17 03:28 72 16 97 Nasal Cannula 2.0 28 05/25/17 03:28 75 20 98 Nasal Cannula 2.0 28 Laboratory Tests 05/25/17 00:45: White Blood Count 13.3H, Red Blood Count 2.97L, Hemoglobin 8.4L, Hematocrit 26.0L, Mean Corpuscular Volume 88, Mean Corpuscular Hemoglobin 28.4, Mean Corpuscular Hemoglobin Concent 32.3, Red Cell Distribution Width 15.9H, Platelet Count 144L, Mean Platelet Volume 8.8, Neutrophils (%) (Auto) , Lymphocytes (%) (Auto) , Monocytes (%) (Auto) , Eosinophils (%) (Auto) , Basophils (%) (Auto) , Differential Total Cells Counted 100, Neutrophils % ( Manual) 85H, Lymphocytes % (Manual) 6L, Monocytes % (Manual) 6, Eosinophils % ( Manual) 0, Basophils % (Manual) 0, Band Neutrophils 3, Platelet Estimate DecreasedL, Platelet Morphology Normal, Anisocytosis 1+, Ovalocytes Occasional, Fortine Cells 1+, Activated Partial Thromboplast Time > 150*H, Sodium Level 142, Potassium Level 3.5, Chloride Level 114H, Carbon Dioxide Level 18L, Anion Gap 10 , Blood Urea Nitrogen 29H, Creatinine 2.2H, Estimat Glomerular Filtration Rate , Glucose Level 89, Calcium Level 8.2L, Total Bilirubin 0.9, Aspartate Amino Transf (AST/SGOT) 204H, Alanine Aminotransferase (ALT/SGPT) 102H, Alkaline Phosphatase 174H, Pro-B-Type Natriuretic Peptide 3257H, Total Protein 5.6L, Albumin 1.2L, Globulin 4.4, Albumin/Globulin Ratio 0.3L 05/25/17 04:30: Activated Partial Thromboplast Time > 150*H 05/25/17 14:40: Stool Occult Blood [Pending] Height (Feet): 5 Height (Inches): 8.00 Weight (Pounds): 180 General Appearance: no apparent distress, alert, confused, overweight Neurologic: alert, disoriented, depressed affect Madi Hansen M.D. May 26, 2017 00:13
[2017-05-26] MEDS: Albuterol/Ipratropium 3ml neb HHN SCH ×6 (03:20→23:33)
[2017-05-26 05:02] LABS: PROTHROMBIN TIME 10.7 SEC (9.30-11.50)
[2017-05-26 05:06] LABS: MEAN CORPUSCULAR VOLUME 88 FL (80-99); MEAN PLATELET VOLUME 8.9 FL (6.5-10.1); PLATELET COUNT 168 K/UL (150-450); RED CELL DISTRIBUTION WIDTH 15.8 % (11.6-14.8); WHITE BLOOD COUNT 14.7 K/UL (4.8-10.8)
[2017-05-26 05:16] LABS: MAGNESIUM 1.9 MG/DL (1.8-2.4)
[2017-05-26 05:30] LABS: ALANINE AMINOTRANSFERASE 94 U/L (12-78); ALBUMIN/GLOBULIN RATIO 0.3 (1.0-2.7); ANION GAP 10 mmol/L (5-15); ASPARTATE AMINO TRANSFERASE 154 U/L (15-37); CALCIUM 8.1 MG/DL (8.5-10.1); CARBON DIOXIDE 18 MMOL/L (21-32); CHLORIDE 116 MMOL/L (98-107); CREATININE 2.2 MG/DL (0.55-1.30); POTASSIUM 3.1 MMOL/L (3.5-5.1); SODIUM 144 MMOL/L (136-145); TOTAL PROTEIN 5.1 G/DL (6.4-8.2)
[2017-05-26] MEDS: Amoxicillin 250mg/5ml susp 150ml NG SCH ×3 (05:55→21:12)
[2017-05-26] MEDS: NovoLOG Insulin Flexpen SUBQ SCH ×4 (06:30→20:45)
[2017-05-26] MEDS ORDERED: Potassium Chloride 40 MEQ in Sodium Chloride 500ML 550 ML IVPB ONE (09:00)
[2017-05-26] MEDS: Metoprolol 25mg tab NG SCH ×2 (09:00→20:27)
[2017-05-26] MEDS: Pantoprazole Inj IVP SCH ×2 (09:07→20:24)
[2017-05-26] MEDS: Levemir Flexpen SUBQ SCH ×2 (09:09→20:45)
--- NOTE | 2017-05-26 09:13 | Infectious Diseases Prog Note ---
Assessment/Plan Assessment/Plan ASSESSMENT: Blood Cx : CoNS 07/14 Contaminant - repeat BCx NGTD Sepsis, SP Leukocytosis - worse, afebrile ( NSTEMI, DVT contributing ) Probable Pna - SCx: Nl Ade and Capri : colonizer CT: Bilateral lower lobe and posterior right middle lobe pulmonary groundglass opacity and dense consolidation -CXR : Basilar residual opacities possibly scarring or atelectasis. Doubt CHF Probable urinary tract infection/pyuria - UCx: enterococcus -worsening pyuria on repeat u/a Lactic acidosis, SP Mild elevation of AST, and Alk Ph Hepatitis panel :neg for hepatitis B/C US of abd : Gallbladder sludge and possible small stones. Negative for dilated ducts NSTEMI Acute LLE DVT pending IVC filter 05/26 Acute renal insufficiency, superimposed on chronic kidney disease Anemia, severe DM2 - HbA1c 10.5% NKDA Full Code PLAN: Cont Cefepime d # 6 / 7 , cont Amoxicillins d# 4 / 14 ( 05/25 SP IV Vanco d# 12 ) ( 05/21 SP IV Rocephin day #3 ) f/u final cultures Monitor CBC, temperatures Monitor BMP IVC filter per primary Subjective Allergies: Coded Allergies: No Known Allergies (Unverified , 12/28/15) Subjective remains afebrile WBC worse denies chest pain plan IVC filter Objective Vital Signs Last 24 Hour Vital Signs Date Time Temp Pulse Resp B/P (MAP) Pulse Ox O2 Delivery O2 Flow Rate FiO2 05/26/17 07:56 73 18 100 Nasal Cannula 2.0 28 05/26/17 07:30 100 Nasal Cannula 2.0 28 05/26/17 07:30 Nasal Cannula 2.0 28 05/26/17 07:30 72 20 100 Nasal Cannula 2.0 28 05/26/17 04:00 72 05/26/17 04:00 97.2 83 22 117/60 100 Nasal Cannula 2.0 05/26/17 03:29 72 16 100 Nasal Cannula 2.0 28 05/26/17 03:19 72 18 97 Nasal Cannula 2.0 28 05/26/17 00:00 76 05/26/17 00:00 97.3 83 22 118/65 100 Nasal Cannula 2.0 05/25/17 23:27 76 18 100 Nasal Cannula 2.0 05/25/17 23:16 75 20 98 Nasal Cannula 2.0 28 05/25/17 21:40 76 135/77 05/25/17 21:39 76 135/77 05/25/17 21:00 96.3 76 22 135/77 99 Nasal Cannula 2.0 05/25/17 20:00 74 05/25/17 19:46 74 18 98 Nasal Cannula 2.0 28 05/25/17 19:34 Nasal Cannula 2.0 28 05/25/17 19:34 70 20 94 Nasal Cannula 2.0 28 05/25/17 19:34 94 Nasal Cannula 2.0 28 05/25/17 16:22 72 05/25/17 16:00 98.1 69 22 114/52 99 Nasal Cannula 2.0 05/25/17 15:23 67 18 100 Nasal Cannula 2.0 28 05/25/17 15:15 67 18 100 Nasal Cannula 2.0 28 05/25/17 12:32 66 05/25/17 12:00 70 18 99 Nasal Cannula 2.0 28 05/25/17 12:00 97.0 67 20 118/63 99 Nasal Cannula 2.0 05/25/17 11:50 68 16 97 Nasal Cannula 2.0 28 Height (Feet): 5 Height (Inches): 8.00 Weight (Pounds): 180 General Appearance: no acute distress Respiratory/Chest: no respiratory distress Cardiovascular: normal rate, regular rhythm Abdomen: normal bowel sounds, soft, non tender, non distended Microbiology Date/Time Source Procedure Growth Status 05/24/17 19:05 Blood Blood Culture - Preliminary NO GROWTH AFTER 24 HOURS Resulted 05/24/17 18:50 Blood Blood Culture - Preliminary NO GROWTH AFTER 24 HOURS Resulted Laboratory Tests Test 05/25/17 14:40 05/26/17 04:00 Stool Occult Blood Pending White Blood Count 14.7 K/UL (4.8-10.8) H Red Blood Count 2.80 M/UL (4.70-6.10) L Hemoglobin 8.4 G/DL (14.2-18.0) L Hematocrit 24.7 % (42.0-52.0) L Mean Corpuscular Volume 88 FL (80-99) Mean Corpuscular Hemoglobin 30.0 PG (27.0-31.0) Mean Corpuscular Hemoglobin Concent 34.0 G/DL (32.0-36.0) Red Cell Distribution Width 15.8 % (11.6-14.8) H Platelet Count 168 K/UL (150-450) Mean Platelet Volume 8.9 FL (6.5-10.1) Neutrophils (%) (Auto) % (45.0-75.0) Lymphocytes (%) (Auto) % (20.0-45.0) Monocytes (%) (Auto) % (1.0-10.0) Eosinophils (%) (Auto) % (0.0-3.0) Basophils (%) (Auto) % (0.0-2.0) Prothrombin Time 10.7 SEC (9.30-11.50) Prothromb Time International Ratio 1.0 (0.9-1.1) Activated Partial Thromboplast Time 42 SEC (23-33) H Sodium Level 144 MMOL/L (136-145) Potassium Level 3.1 MMOL/L (3.5-5.1) L Chloride Level 116 MMOL/L (98-107) H Carbon Dioxide Level 18 MMOL/L (21-32) L Anion Gap 10 mmol/L (5-15) Blood Urea Nitrogen 27 mg/dL (7-18) H Creatinine 2.2 MG/DL (0.55-1.30) H Estimat Glomerular Filtration Rate mL/min (>60) Glucose Level 41 MG/DL (74-106) L Calcium Level 8.1 MG/DL (8.5-10.1) L Phosphorus Level 3.0 MG/DL (2.5-4.9) Magnesium Level 1.9 MG/DL (1.8-2.4) Total Bilirubin 1.0 MG/DL (0.2-1.0) Aspartate Amino Transf (AST/SGOT) 154 U/L (15-37) H Alanine Aminotransferase (ALT/SGPT) 94 U/L (12-78) H Alkaline Phosphatase 203 U/L (46-116) H Total Protein 5.1 G/DL (6.4-8.2) L Albumin 1.3 G/DL (3.4-5.0) L Globulin 3.8 g/dL Albumin/Globulin Ratio 0.3 (1.0-2.7) L Current Medications Medications (Trade) Dose Ordered Sig/Altaf Route PRN Reason Start Time Stop Time Status Last Admin Dose Admin Acetaminophen (Tylenol) 650 mg Q4HR PRN NG Mild Pain/Temp > 100.5 05/23/17 22:45 06/22/17 22:44 Albuterol/ Ipratropium (Albuterol/ Ipratropium) 3 ml Q4HRT HHN 05/22/17 11:00 05/27/17 10:59 05/26/17 07:55 Amoxicillin (Amoxil) 500 mg EVERY 8 HOURS NG 05/24/17 06:00 05/31/17 05:59 05/26/17 05:55 Atorvastatin Calcium (Lipitor) 80 mg BEDTIME NG 05/24/17 21:00 06/23/17 20:59 05/25/17 21:39 Carvedilol (Coreg) 3.125 mg EVERY 12 HOURS NG 05/24/17 09:00 06/23/17 08:59 05/25/17 21:40 Cefepime HCl 1 gm/ Dextrose 55 ml @ 110 mls/hr Q24H IVPB 05/23/17 15:00 05/30/17 14:59 05/25/17 15:03 Clonidine HCl (Catapres) 0.1 mg Q4H PRN NG sbp more than 160 05/24/17 01:45 06/23/17 01:44 Dextrose 1,000 ml @ 50 mls/hr Q20H IV 05/25/17 07:30 06/24/17 07:29 05/26/17 04:00 Dextrose (Dextrose 50%) STAT PRN IV Hypoglycemia 05/19/17 21:45 06/18/17 21:44 05/26/17 06:07 Finasteride (Proscar) 5 mg BEDTIME ORAL 05/20/17 21:00 06/19/17 20:59 05/25/17 21:39 Insulin Aspart (NovoLOG) BEFORE MEALS AND HS SUBQ 05/20/17 06:30 06/19/17 06:29 05/25/17 21:44 Insulin Detemir (Levemir) 30 units Q12HR SUBQ 05/23/17 09:30 06/22/17 09:29 05/25/17 21:44 Iron Sucrose 100 mg/Sodium Chloride 60 ml @ 240 mls/hr BEDTIME IV 05/23/17 21:00 05/27/17 21:14 05/25/17 21:38 Lorazepam (Ativan 2mg/ml 1ml) 1 mg Q4H PRN IV For Anxiety 05/21/17 08:00 05/28/17 07:59 05/23/17 10:14 Metoprolol Tartrate (Lopressor) 25 mg Q12HR NG 05/24/17 09:00 06/23/17 08:59 05/25/17 21:39 Nitroglycerin (Ntg) 0.4 mg Q5M X 3 DOSES PRN SL Prn Chest Pain 05/19/17 21:45 06/18/17 21:44 Ondansetron HCl (Zofran) 4 mg Q6H PRN IVP Nausea & Vomiting 05/19/17 21:45 06/18/17 21:44 Pantoprazole (Protonix) 40 mg EVERY 12 HOURS IVP 05/20/17 16:00 06/19/17 15:59 05/25/17 21:40 Polyethylene Glycol (Miralax) 17 gm HSPRN PRN NG Constipation 05/23/17 22:45 06/22/17 22:44 Potassium Chloride 40 meq/ Sodium Chloride 570 ml @ 142.5 mls/ hr ONCE ONCE IVPB 05/26/17 09:00 05/26/17 12:59 Risperidone (RisperDAL) 1 mg DAILY PRN NG For Anxiety 05/23/17 22:45 06/22/17 22:44 Tamsulosin HCl (Flomax) 0.4 mg BEDTIME ORAL 05/20/17 21:00 06/19/17 20:59 05/25/17 21:39 Temazepam (Restoril) 15 mg HSPRN PRN NG Insomnia 05/23/17 22:45 05/30/17 22:44 RABIA BRANCH May 26, 2017 09:13
--- NOTE | 2017-05-26 11:05 | GI Progress Note ---
Assessment/Plan Problems: (1) Abdominal pain ICD Codes: R10.9 - Unspecified abdominal pain SNOMED: 53663986 (2) Hypoalbuminemia ICD Codes: E88.09 - Other disorders of plasma-protein metabolism, not elsewhere classified SNOMED: 324971814 (3) Generalized weakness ICD Codes: R53.1 - Weakness SNOMED: 32274878 (4) Diarrhea ICD Codes: R19.7 - Diarrhea, unspecified SNOMED: 20809768 (5) Anemia ICD Codes: D64.9 - Anemia, unspecified SNOMED: 608293763 (6) Diabetes mellitus ICD Codes: E11.9 - Type 2 diabetes mellitus without complications SNOMED: 23250783 Status: unchanged Status Narrative Discussed with Dr. Blackman. Assessment/Plan hep panel negative family agrees to PEG, will schedule once cleared by cardiology. start trial NGTFs today per dietary recs ST evaluation monitor H&H, prn transfusions ppi fu labs Subjective Subjective limited Objective Last 24 Hour Vital Signs Date Time Temp Pulse Resp B/P (MAP) Pulse Ox O2 Delivery O2 Flow Rate FiO2 05/26/17 11:00 74 18 98 Nasal Cannula 2.0 28 05/26/17 09:08 75 106/58 05/26/17 09:00 75 106/58 05/26/17 08:00 72 05/26/17 08:00 97.0 75 18 106/58 100 Nasal Cannula 2.0 05/26/17 07:56 73 18 100 Nasal Cannula 2.0 28 05/26/17 07:30 100 Nasal Cannula 2.0 28 05/26/17 07:30 Nasal Cannula 2.0 28 05/26/17 07:30 72 20 100 Nasal Cannula 2.0 28 05/26/17 04:00 72 05/26/17 04:00 97.2 83 22 117/60 100 Nasal Cannula 2.0 05/26/17 03:29 72 16 100 Nasal Cannula 2.0 28 05/26/17 03:19 72 18 97 Nasal Cannula 2.0 28 05/26/17 00:00 76 05/26/17 00:00 97.3 83 22 118/65 100 Nasal Cannula 2.0 05/25/17 23:27 76 18 100 Nasal Cannula 2.0 28 05/25/17 23:16 75 20 98 Nasal Cannula 2.0 28 05/25/17 21:40 76 135/77 05/25/17 21:39 76 135/77 05/25/17 21:00 96.3 76 22 135/77 99 Nasal Cannula 2.0 05/25/17 20:00 74 05/25/17 19:46 74 18 98 Nasal Cannula 2.0 28 05/25/17 19:34 Nasal Cannula 2.0 28 05/25/17 19:34 70 20 94 Nasal Cannula 2.0 28 05/25/17 19:34 94 Nasal Cannula 2.0 28 05/25/17 16:22 72 05/25/17 16:00 98.1 69 22 114/52 99 Nasal Cannula 2.0 05/25/17 15:23 67 18 100 Nasal Cannula 2.0 28 05/25/17 15:15 67 18 100 Nasal Cannula 2.0 28 05/25/17 12:32 66 05/25/17 12:00 70 18 99 Nasal Cannula 2.0 28 05/25/17 12:00 97.0 67 20 118/63 99 Nasal Cannula 2.0 05/25/17 11:50 68 16 97 Nasal Cannula 2.0 28 Intake and Output 05/26/17 05/27/17 19:00 07:00 Intake Total 468.375 ml Balance 468.375 ml IV Total 468.375 ml Laboratory Tests Test 05/25/17 14:40 05/26/17 04:00 Stool Occult Blood Positive (NEGATIVE) White Blood Count 14.7 K/UL (4.8-10.8) H Red Blood Count 2.80 M/UL (4.70-6.10) L Hemoglobin 8.4 G/DL (14.2-18.0) L Hematocrit 24.7 % (42.0-52.0) L Mean Corpuscular Volume 88 FL (80-99) Mean Corpuscular Hemoglobin 30.0 PG (27.0-31.0) Mean Corpuscular Hemoglobin Concent 34.0 G/DL (32.0-36.0) Red Cell Distribution Width 15.8 % (11.6-14.8) H Platelet Count 168 K/UL (150-450) Mean Platelet Volume 8.9 FL (6.5-10.1) Neutrophils (%) (Auto) % (45.0-75.0) Lymphocytes (%) (Auto) % (20.0-45.0) Monocytes (%) (Auto) % (1.0-10.0) Eosinophils (%) (Auto) % (0.0-3.0) Basophils (%) (Auto) % (0.0-2.0) Prothrombin Time 10.7 SEC (9.30-11.50) Prothromb Time International Ratio 1.0 (0.9-1.1) Activated Partial Thromboplast Time 42 SEC (23-33) H Sodium Level 144 MMOL/L (136-145) Potassium Level 3.1 MMOL/L (3.5-5.1) L Chloride Level 116 MMOL/L (98-107) H Carbon Dioxide Level 18 MMOL/L (21-32) L Anion Gap 10 mmol/L (5-15) Blood Urea Nitrogen 27 mg/dL (7-18) H Creatinine 2.2 MG/DL (0.55-1.30) H Estimat Glomerular Filtration Rate mL/min (>60) Glucose Level 41 MG/DL (74-106) L Calcium Level 8.1 MG/DL (8.5-10.1) L Phosphorus Level 3.0 MG/DL (2.5-4.9) Magnesium Level 1.9 MG/DL (1.8-2.4) Total Bilirubin 1.0 MG/DL (0.2-1.0) Aspartate Amino Transf (AST/SGOT) 154 U/L (15-37) H Alanine Aminotransferase (ALT/SGPT) 94 U/L (12-78) H Alkaline Phosphatase 203 U/L (46-116) H Total Protein 5.1 G/DL (6.4-8.2) L Albumin 1.3 G/DL (3.4-5.0) L Globulin 3.8 g/dL Albumin/Globulin Ratio 0.3 (1.0-2.7) L Height (Feet): 5 Height (Inches): 8.00 Weight (Pounds): 180 General Appearance: no apparent distress, obese Cardiovascular: normal rate Respiratory/Chest: no respiratory distress, other - NC Abdominal Exam: normal bowel sounds, non tender, soft, other - NGT Extremities: non-tender Milady Schafer N.P. May 26, 2017 11:05
--- NOTE | 2017-05-26 11:09 | Diagnostic Imaging Report ---
Indication: DYSPNEA Technique: One view of the chest Comparison: 05/24/2017 Findings: Slightly better inspiration, with decreased right basilar atelectasis. Some hazy and reticular retrocardiac consolidation persists. Nasogastric tube remains. Heart size is borderline enlarged. Impression: Slightly improved aeration. 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
--- NOTE | 2017-05-26 12:00 | General Progress Note ---
Assessment/Plan Assessment/Plan ASSESSMENT AND RECOMMENDATIONS: 1. Bilateral deep venous thrombosis. Was on heparin gtt, however anemia continues to persist --> ivc filter palcement recommeneded and anticoag thereafter 2. Anemia, secondary to chronic disease. We will obtain TIBC as well as iron level. Ferritin is 177. 3. Decreased hemoglobin and hematocrit, rule out gastrointestinal bleed --> occult pending 4. Coagulopathy, potentially secondary to underlying heparin drip. 5. Anemia, secondary to end-stage renal disease. 6. Psychiatric disorder. He has been seen by Psychiatry service. Continue to follow. 7. Malnutrition, family wishes PEG tube. Continue to monitor. Refer him for potential placement. I appreciate the consultation. Subjective Date patient seen: May 25, 2017 Constitutional: Denies: no symptoms, chills, diaphoresis, fever, malaise, weakness, other HEENT: Denies: no symptoms, eye pain, blurred vision, tearing, double vision, ear pain, ear discharge, nose pain, nose congestion, throat pain, throat swelling, mouth pain, mouth swelling, other Cardiovascular: Denies: no symptoms, chest pain, edema, irregular heart rate, lightheadedness, palpitations, syncope, other Respiratory: Denies: no symptoms, cough, orthopnea, shortness of breath, SOB with excertion, SOB at rest, sputum, stridor, wheezing, other Gastrointestinal/Abdominal: Denies: no symptoms, abdomen distended, abdominal pain, black stools, tarry stools, blood in stool, constipated, diarrhea, difficulty swallowing, nausea, poor appetite, poor fluid intake, rectal bleeding , vomiting, other Genitourinary: Denies: no symptoms, burning, discharge, frequency, flank pain, hematuria, incontinence, pain, urgency, other Neurologic/Psychiatric: Denies: no symptoms, anxiety, depressed, emotional problems, headache, numbness, paresthesia, pre-existing deficit, seizure, tingling, tremors, weakness, other Hematologic/Lymphatic: Denies: no symptoms, anemia, easy bleeding, easy bruising, other Allergies: Coded Allergies: No Known Allergies (Unverified , 12/28/15) Subjective no events, pending ivc filter Objective Last 24 Hour Vital Signs Date Time Temp Pulse Resp B/P (MAP) Pulse Ox O2 Delivery O2 Flow Rate FiO2 05/26/17 11:17 72 18 100 Nasal Cannula 2.0 28 05/26/17 11:00 74 18 98 Nasal Cannula 2.0 28 05/26/17 09:08 75 106/58 05/26/17 09:00 75 106/58 05/26/17 08:00 72 05/26/17 08:00 97.0 75 18 106/58 100 Nasal Cannula 2.0 05/26/17 07:56 73 18 100 Nasal Cannula 2.0 28 05/26/17 07:30 100 Nasal Cannula 2.0 28 05/26/17 07:30 Nasal Cannula 2.0 28 05/26/17 07:30 72 20 100 Nasal Cannula 2.0 28 05/26/17 04:00 72 05/26/17 04:00 97.2 83 22 117/60 100 Nasal Cannula 2.0 05/26/17 03:29 72 16 100 Nasal Cannula 2.0 28 05/26/17 03:19 72 18 97 Nasal Cannula 2.0 28 05/26/17 00:00 76 05/26/17 00:00 97.3 83 22 118/65 100 Nasal Cannula 2.0 05/25/17 23:27 76 18 100 Nasal Cannula 2.0 28 05/25/17 23:16 75 20 98 Nasal Cannula 2.0 28 05/25/17 21:40 76 135/77 05/25/17 21:39 76 135/77 05/25/17 21:00 96.3 76 22 135/77 99 Nasal Cannula 2.0 05/25/17 20:00 74 05/25/17 19:46 74 18 98 Nasal Cannula 2.0 28 05/25/17 19:34 Nasal Cannula 2.0 28 05/25/17 19:34 70 20 94 Nasal Cannula 2.0 28 05/25/17 19:34 94 Nasal Cannula 2.0 28 05/25/17 16:22 72 05/25/17 16:00 98.1 69 22 114/52 99 Nasal Cannula 2.0 05/25/17 15:23 67 18 100 Nasal Cannula 2.0 28 05/25/17 15:15 67 18 100 Nasal Cannula 2.0 28 05/25/17 12:32 66 05/25/17 12:00 70 18 99 Nasal Cannula 2.0 28 05/25/17 12:00 97.0 67 20 118/63 99 Nasal Cannula 2.0 Intake and Output 05/26/17 05/27/17 19:00 07:00 Intake Total 468.375 ml Balance 468.375 ml IV Total 468.375 ml Laboratory Tests 05/25/17 14:40: Stool Occult Blood Positive 05/26/17 04:00: White Blood Count 14.7H, Red Blood Count 2.80L, Hemoglobin 8.4L, Hematocrit 24.7L, Mean Corpuscular Volume 88, Mean Corpuscular Hemoglobin 30.0, Mean Corpuscular Hemoglobin Concent 34.0, Red Cell Distribution Width 15.8H, Platelet Count 168, Mean Platelet Volume 8.9, Neutrophils (%) (Auto) , Lymphocytes (%) (Auto) , Monocytes (%) (Auto) , Eosinophils (%) (Auto) , Basophils (%) (Auto) , Prothrombin Time 10.7, Prothromb Time International Ratio 1.0, Activated Partial Thromboplast Time 42H, Sodium Level 144, Potassium Level 3.1L, Chloride Level 116H, Carbon Dioxide Level 18L, Anion Gap 10, Blood Urea Nitrogen 27H, Creatinine 2.2H, Estimat Glomerular Filtration Rate , Glucose Level 41L, Calcium Level 8.1L, Phosphorus Level 3.0, Magnesium Level 1.9 , Total Bilirubin 1.0, Aspartate Amino Transf (AST/SGOT) 154H, Alanine Aminotransferase (ALT/SGPT) 94H, Alkaline Phosphatase 203H, Total Protein 5.1L, Albumin 1.3L, Globulin 3.8, Albumin/Globulin Ratio 0.3L Height (Feet): 5 Height (Inches): 8.00 Weight (Pounds): 180 General Appearance: no apparent distress EENT: PERRL/EOMI Neck: normal alignment Cardiovascular: normal peripheral pulses Respiratory/Chest: lungs clear Abdomen: normal bowel sounds Extremities: non-tender Edema: 1+ Leg (L), 1+ Leg (R) Neurologic: no motor/sensory deficits Skin: warm/dry Chano Bellamy May 26, 2017 12:00
--- NOTE | 2017-05-26 12:04 | Wound Nurse Progress Note ---
Wound RN Progress Note Wound Consult #1 Sacrococcygeal scattered stage II pressure ulcer. No deterioration noted. Wound bed [place] in color and noted maceration on the surrounding skin. Will follow up on this Pt tomorrow. #2 Left plantar 1st metatarsal head DTI pressure ulcer. Still intact #3 Left dorsal foot intact fluid filled blister. Still intact #4 Right lateral lower leg fluid filled intact blister. Still intact #5 Left lateral lower leg fluid filled intact blister. Noted Denuded blister. will change treatment recommendation. #6 Left posterior lower leg open blister. Will change treatment recommendation #7 Left lateral malleolus DTI pressure ulcer. Still intact #8 Right Lateral malleolus DTI pressure ulcer. Still intact #9 Right medial malleolus DTI pressure ulcer. Still intact #10 Right heel DTI pressure ulcer. Still intact #11 Right posterior lower leg fluid filled blister. Still intact Reassessed this Pt today. Recommendation -Left lateral lower leg fluid filled intact blister. Noted Denuded blister. Cleanse with saline pat dry apply Xeroform gauze cover with 4x4 secure with Kerlix daily and PRN soiled/dislodged -Left posterior lower leg open blister. Cleanse with saline pat dry apply Xeroform gauze cover with 4x4 secure with Kerlix daily and PRN soiled/dislodged -Podiatry consult -Optimize nutrition -Offload both heels -Heel protector on both heels -Turn and reposition -Keep clean and dry -Assess and f/u accordingly for any changes ELIAS FLORENCE RN May 26, 2017 12:04
--- NOTE | 2017-05-26 12:18 | Pulmonology Progress Note ---
Assessment/Plan Problems: (1) DVT (deep venous thrombosis) (2) Encephalopathy acute (3) Sepsis (4) ATN (acute tubular necrosis) (5) Non-ST elevation (NSTEMI) myocardial infarction (6) Diabetes mellitus (7) Prostate cancer (8) Anemia (9) PVD (peripheral vascular disease) Assessment/Plan off heparin drip suppose to get IVC filter bun/creatinine decreasing BS better controlled Na is lower decrease IV fluid continue abx check cultures check stool for OB cardiology cleared for PEG placement Subjective ROS Limited/Unobtainable: No Constitutional: Reports: no symptoms HEENT: Repors: no symptoms Respiratory: Reports: no symptoms Cardiovascular: Reports: no symptoms Allergies: Coded Allergies: No Known Allergies (Unverified , 12/28/15) Objective Last 24 Hour Vital Signs Date Time Temp Pulse Resp B/P (MAP) Pulse Ox O2 Delivery O2 Flow Rate FiO2 05/26/17 11:17 72 18 100 Nasal Cannula 2.0 28 05/26/17 11:00 74 18 98 Nasal Cannula 2.0 28 05/26/17 09:08 75 106/58 05/26/17 09:00 75 106/58 05/26/17 08:00 72 05/26/17 08:00 97.0 75 18 106/58 100 Nasal Cannula 2.0 05/26/17 07:56 73 18 100 Nasal Cannula 2.0 28 05/26/17 07:30 100 Nasal Cannula 2.0 28 05/26/17 07:30 Nasal Cannula 2.0 28 05/26/17 07:30 72 20 100 Nasal Cannula 2.0 28 05/26/17 04:00 72 05/26/17 04:00 97.2 83 22 117/60 100 Nasal Cannula 2.0 05/26/17 03:29 72 16 100 Nasal Cannula 2.0 28 05/26/17 03:19 72 18 97 Nasal Cannula 2.0 28 05/26/17 00:00 76 05/26/17 00:00 97.3 83 22 118/65 100 Nasal Cannula 2.0 05/25/17 23:27 76 18 100 Nasal Cannula 2.0 28 05/25/17 23:16 75 20 98 Nasal Cannula 2.0 28 05/25/17 21:40 76 135/77 05/25/17 21:39 76 135/77 05/25/17 21:00 96.3 76 22 135/77 99 Nasal Cannula 2.0 05/25/17 20:00 74 05/25/17 19:46 74 18 98 Nasal Cannula 2.0 28 05/25/17 19:34 Nasal Cannula 2.0 28 05/25/17 19:34 70 20 94 Nasal Cannula 2.0 28 05/25/17 19:34 94 Nasal Cannula 2.0 28 05/25/17 16:22 72 05/25/17 16:00 98.1 69 22 114/52 99 Nasal Cannula 2.0 05/25/17 15:23 67 18 100 Nasal Cannula 2.0 28 05/25/17 15:15 67 18 100 Nasal Cannula 2.0 28 05/25/17 12:32 66 Intake and Output 05/26/17 05/27/17 19:00 07:00 Intake Total 468.375 ml Balance 468.375 ml IV Total 468.375 ml General Appearance: WD/WN HEENT: normocephalic, atraumatic Respiratory/Chest: chest wall non-tender, lungs clear Cardiovascular: normal peripheral pulses, normal rate Abdomen: normal bowel sounds, no organomegaly Genitourinary: normal external genitalia Skin: no rash, no lesions Microbiology Date/Time Source Procedure Growth Status 05/24/17 19:05 Blood Blood Culture - Preliminary NO GROWTH AFTER 24 HOURS Resulted 05/24/17 18:50 Blood Blood Culture - Preliminary NO GROWTH AFTER 24 HOURS Resulted Laboratory Tests 05/25/17 14:40: Stool Occult Blood Positive 05/26/17 04:00: White Blood Count 14.7H, Red Blood Count 2.80L, Hemoglobin 8.4L, Hematocrit 24.7L, Mean Corpuscular Volume 88, Mean Corpuscular Hemoglobin 30.0, Mean Corpuscular Hemoglobin Concent 34.0, Red Cell Distribution Width 15.8H, Platelet Count 168, Mean Platelet Volume 8.9, Neutrophils (%) (Auto) , Lymphocytes (%) (Auto) , Monocytes (%) (Auto) , Eosinophils (%) (Auto) , Basophils (%) (Auto) , Prothrombin Time 10.7, Prothromb Time International Ratio 1.0, Activated Partial Thromboplast Time 42H, Sodium Level 144, Potassium Level 3.1L, Chloride Level 116H, Carbon Dioxide Level 18L, Anion Gap 10, Blood Urea Nitrogen 27H, Creatinine 2.2H, Estimat Glomerular Filtration Rate , Glucose Level 41L, Calcium Level 8.1L, Phosphorus Level 3.0, Magnesium Level 1.9 , Total Bilirubin 1.0, Aspartate Amino Transf (AST/SGOT) 154H, Alanine Aminotransferase (ALT/SGPT) 94H, Alkaline Phosphatase 203H, Total Protein 5.1L, Albumin 1.3L, Globulin 3.8, Albumin/Globulin Ratio 0.3L Current Medications Medications (Trade) Dose Ordered Sig/Altaf Route PRN Reason Start Time Stop Time Status Last Admin Dose Admin Acetaminophen (Tylenol) 650 mg Q4HR PRN NG Mild Pain/Temp > 100.5 05/23/17 22:45 06/22/17 22:44 Albuterol/ Ipratropium (Albuterol/ Ipratropium) 3 ml Q4HRT HHN 05/22/17 11:00 05/27/17 10:59 05/26/17 10:59 Amoxicillin (Amoxil) 500 mg EVERY 8 HOURS NG 05/24/17 06:00 05/31/17 05:59 05/26/17 05:55 Atorvastatin Calcium (Lipitor) 80 mg BEDTIME NG 05/24/17 21:00 06/23/17 20:59 05/25/17 21:39 Carvedilol (Coreg) 3.125 mg EVERY 12 HOURS NG 05/24/17 09:00 06/23/17 08:59 05/26/17 09:08 Cefepime HCl 1 gm/ Dextrose 55 ml @ 110 mls/hr Q24H IVPB 05/23/17 15:00 05/30/17 14:59 05/25/17 15:03 Clonidine HCl (Catapres) 0.1 mg Q4H PRN NG sbp more than 160 05/24/17 01:45 06/23/17 01:44 Dextrose 1,000 ml @ 50 mls/hr Q20H IV 05/25/17 07:30 06/24/17 07:29 05/26/17 04:00 Dextrose (Dextrose 50%) STAT PRN IV Hypoglycemia 05/19/17 21:45 06/18/17 21:44 05/26/17 11:32 Finasteride (Proscar) 5 mg BEDTIME ORAL 05/20/17 21:00 06/19/17 20:59 05/25/17 21:39 Insulin Aspart (NovoLOG) BEFORE MEALS AND HS SUBQ 05/20/17 06:30 06/19/17 06:29 05/25/17 21:44 Insulin Detemir (Levemir) 30 units Q12HR SUBQ 05/26/17 21:00 06/25/17 20:59 Iron Sucrose 100 mg/Sodium Chloride 60 ml @ 240 mls/hr BEDTIME IV 05/23/17 21:00 05/27/17 21:14 05/25/17 21:38 Lorazepam (Ativan 2mg/ml 1ml) 1 mg Q4H PRN IV For Anxiety 05/21/17 08:00 05/28/17 07:59 05/23/17 10:14 Metoprolol Tartrate (Lopressor) 25 mg Q12HR NG 05/24/17 09:00 06/23/17 08:59 05/25/17 21:39 Nitroglycerin (Ntg) 0.4 mg Q5M X 3 DOSES PRN SL Prn Chest Pain 05/19/17 21:45 06/18/17 21:44 Ondansetron HCl (Zofran) 4 mg Q6H PRN IVP Nausea & Vomiting 05/19/17 21:45 06/18/17 21:44 Pantoprazole (Protonix) 40 mg EVERY 12 HOURS IVP 05/20/17 16:00 06/19/17 15:59 05/26/17 09:07 Polyethylene Glycol (Miralax) 17 gm HSPRN PRN NG Constipation 05/23/17 22:45 06/22/17 22:44 Potassium Chloride 40 meq/ Sodium Chloride 570 ml @ 142.5 mls/ hr ONCE ONCE IVPB 05/26/17 09:00 05/26/17 12:59 05/26/17 09:07 Risperidone (RisperDAL) 1 mg DAILY PRN NG For Anxiety 05/23/17 22:45 06/22/17 22:44 Tamsulosin HCl (Flomax) 0.4 mg BEDTIME ORAL 05/20/17 21:00 06/19/17 20:59 05/25/17 21:39 Temazepam (Restoril) 15 mg HSPRN PRN NG Insomnia 05/23/17 22:45 05/30/17 22:44 YOSHI EDOUARD May 26, 2017 12:18
--- NOTE | 2017-05-26 12:41 | Nephrology Progress Note ---
Assessment/Plan Problem List: (1) ATN (acute tubular necrosis) (2) Prostate cancer (3) Anemia Assessment Acute renal failure cr down to 2.2 Due IVC Filter today chronic underlying renal failure, ? Diabetic Nephropathy Severe Anemia HypoAlbuminemia, r/o Nephrotic syndrom UTI / Sepsis Basal Atelectasis Prostate cancer h/o CVA toxic metabolic encephalopathy MA , Troponin maxed 11.3 now declining Plan Plan: gastric support MONSTER Renal- Negative for hydronephrosis 2 D Echo- pending 24 H urine protein- minimal monitor renal parameters per consultants Subjective ROS Limited/Unobtainable: No Constitutional: Reports: malaise Objective Objective Last 24 Hour Vital Signs Date Time Temp Pulse Resp B/P (MAP) Pulse Ox O2 Delivery O2 Flow Rate FiO2 05/26/17 11:17 72 18 100 Nasal Cannula 2.0 28 05/26/17 11:00 74 18 98 Nasal Cannula 2.0 28 05/26/17 09:08 75 106/58 05/26/17 09:00 75 106/58 05/26/17 08:00 72 05/26/17 08:00 97.0 75 18 106/58 100 Nasal Cannula 2.0 05/26/17 07:56 73 18 100 Nasal Cannula 2.0 28 05/26/17 07:30 100 Nasal Cannula 2.0 28 05/26/17 07:30 Nasal Cannula 2.0 28 05/26/17 07:30 72 20 100 Nasal Cannula 2.0 28 05/26/17 04:00 72 05/26/17 04:00 97.2 83 22 117/60 100 Nasal Cannula 2.0 05/26/17 03:29 72 16 100 Nasal Cannula 2.0 28 05/26/17 03:19 72 18 97 Nasal Cannula 2.0 28 05/26/17 00:00 76 05/26/17 00:00 97.3 83 22 118/65 100 Nasal Cannula 2.0 05/25/17 23:27 76 18 100 Nasal Cannula 2.0 28 05/25/17 23:16 75 20 98 Nasal Cannula 2.0 28 05/25/17 21:40 76 135/77 05/25/17 21:39 76 135/77 05/25/17 21:00 96.3 76 22 135/77 99 Nasal Cannula 2.0 05/25/17 20:00 74 05/25/17 19:46 74 18 98 Nasal Cannula 2.0 28 05/25/17 19:34 Nasal Cannula 2.0 28 05/25/17 19:34 70 20 94 Nasal Cannula 2.0 28 05/25/17 19:34 94 Nasal Cannula 2.0 28 05/25/17 16:22 72 05/25/17 16:00 98.1 69 22 114/52 99 Nasal Cannula 2.0 05/25/17 15:23 67 18 100 Nasal Cannula 2.0 28 05/25/17 15:15 67 18 100 Nasal Cannula 2.0 28 Intake and Output 05/26/17 05/27/17 19:00 07:00 Intake Total 660.875 ml Balance 660.875 ml IV Total 660.875 ml # Bowel Movements 1 Laboratory Tests 05/25/17 14:40: Stool Occult Blood Positive 05/26/17 04:00: White Blood Count 14.7H, Red Blood Count 2.80L, Hemoglobin 8.4L, Hematocrit 24.7L, Mean Corpuscular Volume 88, Mean Corpuscular Hemoglobin 30.0, Mean Corpuscular Hemoglobin Concent 34.0, Red Cell Distribution Width 15.8H, Platelet Count 168, Mean Platelet Volume 8.9, Neutrophils (%) (Auto) , Lymphocytes (%) (Auto) , Monocytes (%) (Auto) , Eosinophils (%) (Auto) , Basophils (%) (Auto) , Prothrombin Time 10.7, Prothromb Time International Ratio 1.0, Activated Partial Thromboplast Time 42H, Sodium Level 144, Potassium Level 3.1L, Chloride Level 116H, Carbon Dioxide Level 18L, Anion Gap 10, Blood Urea Nitrogen 27H, Creatinine 2.2H, Estimat Glomerular Filtration Rate , Glucose Level 41L, Calcium Level 8.1L, Phosphorus Level 3.0, Magnesium Level 1.9 , Total Bilirubin 1.0, Aspartate Amino Transf (AST/SGOT) 154H, Alanine Aminotransferase (ALT/SGPT) 94H, Alkaline Phosphatase 203H, Total Protein 5.1L, Albumin 1.3L, Globulin 3.8, Albumin/Globulin Ratio 0.3L Height (Feet): 5 Height (Inches): 8.00 Weight (Pounds): 180 General Appearance: no apparent distress Objective no other changes YOLANDA NAVA May 26, 2017 12:41
[2017-05-26] MEDS ORDERED: Heparin 2000 units/Ns 1000ml INJ ONE (13:00)
[2017-05-26] MEDS ORDERED: Lidocaine 1% Plain 30 ml INJ ONE (13:00)
--- NOTE | 2017-05-26 13:35 | Pre-Procedure Note/Attestation ---
Pre-Procedure Note/Attestation Complete Prior to Procedure Planned Procedure: not applicable Procedure Narrative: Inferior vena cava filter Indications for Procedure Pre-Operative Diagnosis: DVT, GIB contraindicating anticoagulation Attestation I attest that I discussed the nature of the procedure; its benefits; risks and complications; and alternatives (and the risks and benefits of such alternatives ), prior to the procedure, with the patient (or the patient's legal development representative). I attest that, if there was a reasonable possibility of needing a blood transfusion, the patient (or the patient's legal development representative) was given the [facility] standardized written summary, pursuant to the Keyshawn Shirlene Blood Safety Act ([place] Health and Safety Code # 1645, as amended). I attest that I re-evaluated the patient just prior to the surgery and that there has been no change in the patient's H&P, except as documented below: Discussed with patient's by phone at approx. 11 a.m. on 05/26/2017 COMFORT RIOS M.D. May 26, 2017 13:35
--- NOTE | 2017-05-26 14:36 | Consultation ---
Consult Note Assessment/Plan Podiatry Consult Dictated A/ 1) DTI left plantar 1st MPJ 2) Blister posterior left leg 3) Blister anterior left ankle 4) DVT P/ 1) Cont current wound care as ordered 2) Arterial ultrasound pending 3) Cont offloadiing/low air mattress 4) Will follow Thank you Gray Larry DPM May 26, 2017 14:36
--- NOTE | 2017-05-26 14:42 | Brief Operative Note ---
Immediate Post Operative Note Operative Note Pre-op Diagnosis: DVT, GIB contraindicating anticoagulation Procedure: IVC filter Post-op Diagnosis: same Post-op Diagnosis: same as pre-op Surgeon: Tracy RIOS Anesthesia: local Specimen: none Complications: none Fluids: none Implant(s) used?: Yes - [employer] [facility] IVC filter COMFORT RIOS M.D. May 26, 2017 14:42
[2017-05-26] MEDS: Cefepime HCl 1 GM in D5W 55 ML IVPB SCH (15:12)
--- NOTE | 2017-05-26 16:39 | Diagnostic Imaging Report ---
Indications: Deep venous thrombosis, contraindication to anticoagulation (GI bleed) Technique: Informed consent obtained prior to commencement of the procedure. Procedure, benefits, alternatives, possible complications discussed by phone with patient's . Prior CT scan reviewed, and demonstrates no caval anomalies . Total sterile technique, including sterile probe cover and sterile gel, sterile gloves, hand hygiene, hat, mask,, sterile gown, large sterile drape, and preparation with 2% chlorhexidine utilized. Local anesthesia with 1% lidocaine. Ultrasound reveals patent compressible Right internal jugular vein. Under real-time ultrasound guidance, puncture right internal jugular vein, passage of a guidewire, into the inferior vena cava, , over which was passed a pigtail marker catheter. Placed at the level of the iliac venous confluence.. An inferior venacavogram performed, using machine injection of contrast. The images were reviewed. The position of the renal veins was determined. The catheter was then exchanged for the introducer assembly of the Venatech LGM filter. The introducer assembly was advanced further into the inferior vena cava over a guidewire, and the guidewire and dilator were removed. The filter was passed into the into the sheath. It was then positioned into the appropriate position. The filter was then deployed by unsheathing it. The filter introducer was removed no followup venogram was performed, due to history of renal insufficiency. The filter position was deemed acceptable. The sheath was removed. Pressure held on the right neck until hemostasis was achieved. The patient tolerated procedure well, without immediate complication. 424 mL of contrast utilized Total fluoroscopy time 3.7 minutes Total dose area product 777 dGycm2 Comparison: None Findings: Inferior venacavogram demonstrates normal caliber inferior vena cava. Questionable small accessory right renal vein; filter was placed below this.. No intracaval thrombus. Final image documents satisfactory filter position without evidence of significant tilting. Impression: Successful placement of Venatech LGM infrarenal inferior vena cava filter, as above.
--- NOTE | 2017-05-26 16:50 | Diagnostic Imaging Report ---
APPROVED REPORT CPT Code: 55203 Present Symptoms Comments: R/O DVT RIGHT LEG: Venous imaging reveals a patent deep venous system. There is no evidence of thrombus within the femoral, popliteal or tibial segments. The greater saphenous vein is also within normal limits. Doppler indicates normal spontaneous flow within these segments. LEFT LEG: Venous imaging reveals acute non occlusive thrombus in the common femoral, superficial femoral, popliteal and calf veins. The greater saphenous vein is also within normal limits. RN Byoung notified of abnormal results at 1600 hours.
--- NOTE | 2017-05-26 16:50 | Diagnostic Imaging Report ---
APPROVED REPORT CPT Code: 48874 Symptoms Comments: R/O PAD Comments Technically difficult and limited visualization due to heavily calcified vessels RIGHT LEG: Common femoral artery waveform analysis is abnormal, suggestive of iliac arterial occlusive disease. Color flow duplex sonography reveals an occlusion of the superficial femoral artery and proximal popliteal artery. Reconstitution is seen in the distal popliteal artery. No flow was detected in the dorsalis pedis artery. The mid posterior and anterior tibial arteries are patent. Doppler tibial artery waveform analysis is monophasic, consistent with severe to critical ischemia at rest. LEFT LEG: Common femoral artery waveform analysis is abnormal, suggestive of iliac arterial occlusive disease. Color flow duplex sonography reveals an occlusion of the superficial femoral artery and proximal popliteal artery. Reconstitution is seen in the distal popliteal artery. The mid posterior and anterior tibial, dorsalis pedis arteries are patent. Doppler tibial artery waveform analysis is monophasic, consistent with severe to critical ischemia at rest. TED Brandon was notified of abnormal results at 1620 hours.
--- NOTE | 2017-05-26 17:37 | Cardiology Progress Note ---
Assessment/Plan Assessment/Plan 1. NSTEMI type 2 2. Altered mental status, probably with component of toxic metabolic encephalopathy. 3. Urinary tract infection. 4. History of hypertension. 5. Cerebrovascular accident history. 6. Abnormal cardiac enzymes. 7. Renal insufficiency 8. sever anemia 9. DVT non oclusive nwo post ivc filter 10. PVD lower ext trop down trending now 2 stool ob + hgb stable off anticoagulation on asa / plavix may need to dc if progressive anemia again on bb, on statin , on dapt due to cva aspiration risk repeat ekg reviewed sinus no st t changes tele reviewed not a candidate for invasive cardiac therapy needs peg in am pt severely anemic at presentation so mi is felt to be likley a secondary event so i feel he i as low- intermediate risk of primary perioperative cardiac event and i donot think risk is prohibitive for a peg he should proceed as planned on coreg and metoprolol will dc coreg adn increase metoprolol for now Objective Last 24 Hour Vital Signs Date Time Temp Pulse Resp B/P (MAP) Pulse Ox O2 Delivery O2 Flow Rate FiO2 05/26/17 16:00 67 05/26/17 15:34 68 20 100 Nasal Cannula 2.0 28 05/26/17 15:27 67 20 100 Nasal Cannula 2.0 28 05/26/17 14:40 67 16 134/68 100 Nasal Cannula 3.0 05/26/17 14:35 67 16 133/68 100 Nasal Cannula 3.0 05/26/17 14:30 64 16 139/71 100 Nasal Cannula 3.0 05/26/17 14:25 69 13 130/72 100 Nasal Cannula 3.0 05/26/17 14:20 66 13 134/71 100 Nasal Cannula 3.0 05/26/17 13:36 68 16 3.0 05/26/17 12:00 67 05/26/17 12:00 97.0 69 20 127/60 99 Nasal Cannula 3.0 05/26/17 11:17 72 18 100 Nasal Cannula 2.0 28 05/26/17 11:00 74 18 98 Nasal Cannula 2.0 28 05/26/17 09:08 75 106/58 05/26/17 09:00 75 106/58 05/26/17 08:00 72 05/26/17 08:00 97.0 75 18 106/58 100 Nasal Cannula 2.0 05/26/17 07:56 73 18 100 Nasal Cannula 2.0 28 05/26/17 07:30 100 Nasal Cannula 2.0 28 05/26/17 07:30 Nasal Cannula 2.0 28 05/26/17 07:30 72 20 100 Nasal Cannula 2.0 28 05/26/17 04:00 72 05/26/17 04:00 97.2 83 22 117/60 100 Nasal Cannula 2.0 05/26/17 03:29 72 16 100 Nasal Cannula 2.0 28 05/26/17 03:19 72 18 97 Nasal Cannula 2.0 28 05/26/17 00:00 76 05/26/17 00:00 97.3 83 22 118/65 100 Nasal Cannula 2.0 05/25/17 23:27 76 18 100 Nasal Cannula 2.0 28 05/25/17 23:16 75 20 98 Nasal Cannula 2.0 28 05/25/17 21:40 76 135/77 05/25/17 21:39 76 135/77 05/25/17 21:00 96.3 76 22 135/77 99 Nasal Cannula 2.0 05/25/17 20:00 74 05/25/17 19:46 74 18 98 Nasal Cannula 2.0 28 05/25/17 19:34 Nasal Cannula 2.0 28 05/25/17 19:34 70 20 94 Nasal Cannula 2.0 28 05/25/17 19:34 94 Nasal Cannula 2.0 28 Intake and Output 05/26/17 05/27/17 19:00 07:00 Intake Total 870.000 ml Balance 870.000 ml IV Total 870.000 ml # Bowel Movements 2 Laboratory Tests Test 05/26/17 04:00 White Blood Count 14.7 K/UL (4.8-10.8) H Red Blood Count 2.80 M/UL (4.70-6.10) L Hemoglobin 8.4 G/DL (14.2-18.0) L Hematocrit 24.7 % (42.0-52.0) L Mean Corpuscular Volume 88 FL (80-99) Mean Corpuscular Hemoglobin 30.0 PG (27.0-31.0) Mean Corpuscular Hemoglobin Concent 34.0 G/DL (32.0-36.0) Red Cell Distribution Width 15.8 % (11.6-14.8) H Platelet Count 168 K/UL (150-450) Mean Platelet Volume 8.9 FL (6.5-10.1) Neutrophils (%) (Auto) % (45.0-75.0) Lymphocytes (%) (Auto) % (20.0-45.0) Monocytes (%) (Auto) % (1.0-10.0) Eosinophils (%) (Auto) % (0.0-3.0) Basophils (%) (Auto) % (0.0-2.0) Prothrombin Time 10.7 SEC (9.30-11.50) Prothromb Time International Ratio 1.0 (0.9-1.1) Activated Partial Thromboplast Time 42 SEC (23-33) H Sodium Level 144 MMOL/L (136-145) Potassium Level 3.1 MMOL/L (3.5-5.1) L Chloride Level 116 MMOL/L (98-107) H Carbon Dioxide Level 18 MMOL/L (21-32) L Anion Gap 10 mmol/L (5-15) Blood Urea Nitrogen 27 mg/dL (7-18) H Creatinine 2.2 MG/DL (0.55-1.30) H Estimat Glomerular Filtration Rate mL/min (>60) Glucose Level 41 MG/DL (74-106) L Calcium Level 8.1 MG/DL (8.5-10.1) L Phosphorus Level 3.0 MG/DL (2.5-4.9) Magnesium Level 1.9 MG/DL (1.8-2.4) Total Bilirubin 1.0 MG/DL (0.2-1.0) Aspartate Amino Transf (AST/SGOT) 154 U/L (15-37) H Alanine Aminotransferase (ALT/SGPT) 94 U/L (12-78) H Alkaline Phosphatase 203 U/L (46-116) H Total Protein 5.1 G/DL (6.4-8.2) L Albumin 1.3 G/DL (3.4-5.0) L Globulin 3.8 g/dL Albumin/Globulin Ratio 0.3 (1.0-2.7) L Microbiology Date/Time Source Procedure Growth Status 05/24/17 19:05 Blood Blood Culture - Preliminary NO GROWTH AFTER 24 HOURS Resulted 05/24/17 18:50 Blood Blood Culture - Preliminary NO GROWTH AFTER 24 HOURS Resulted CRUZ FLEMING May 26, 2017 17:37
--- NOTE | 2017-05-26 18:30 | Consultation ---
DATE OF CONSULTATION: 05/26/2017 REQUESTING PHYSICIAN: Kel Sandoval M.D. CONSULTING PHYSICIAN: Gray Denton D.P.M. REASON FOR CONSULTATION: Diabetic ulcerations in the presence of uncontrolled diabetes mellitus. HISTORY OF PRESENT ILLNESS: The patient is a 76-year-old male, who was admitted to [facility] [place] on 05/19/2017 for , altered mental status, and elevated troponin. The patient was transferred from senior care facility. During his hospitalization, wounds were noted and Podiatry consult was requested. PAST MEDICAL HISTORY: Significant for CVA, prostate cancer, uncontrolled diabetes, hypertension, and osteoarthritis. MEDICATIONS: Per MAR and include heparin for DVT prophylaxis and cefepime. ALLERGIES: He has no known drug allergies. SOCIAL HISTORY: The patient resides in a senior care facility. FAMILY HISTORY: Noncontributory. PHYSICAL EXAMINATION: VITAL SIGNS: Temperature is 97.0 degrees, pulse 67, respirations 20, blood pressure is 127/60, and saturating 99% on three liters. Examination of chart and photo documentation revealed the patient has left posterior leg blisters, left anterior ankle blisters, and deep tissue injury to the plantar aspect of the left first metatarsophalangeal joint. LABORATORY AND DIAGNOSTIC DATA: White blood cell count is 14.7, hemoglobin and hematocrit is 8.4 and 24.7, and platelet count is 168. Sedimentation rate is 73. INR is 1.0. Potassium is 3.1, creatinine is 2.2, and BUN 27. Hemoglobin A1c is 10.5. Albumin is 1.3. Lower extremity imaging, venous ultrasound done on 05/24/2017 revealed acute nonocclusive thrombus of the common femoral, superficial femoral, popliteal, and calf veins. No thrombosis is seen in the right lower extremity. ASSESSMENT: 1. Deep tissue injury to the left plantar aspect of the first metatarsophalangeal joint. 2. Blister, posterior left leg. 3. Blister, anterior left ankle. 4. Deep venous thrombosis of left lower extremity. PLAN: 1. Continue current wound care as ordered by wound care nurse. 2. Arterial ultrasound is pending. 3. Continue offloading/low air mattress. 4. We will follow. Thank you for the courtesy of this consultation. Gray Denton D.P.M. DR: Lindsey JOB#: [id number] CC:
[2017-05-26] MEDS ORDERED: NS 275ml ONE (19:29)
[2017-05-26] MEDS ORDERED: Tubing IV Secondary IV ONE (19:29)
[2017-05-26] MEDS: Atorvastatin 80mg tab NG SCH (20:25)
[2017-05-26] MEDS: Iron Sucrose 100 MG in NS 55 ML IV SCH (20:25)
[2017-05-26] MEDS: Tamsulosin 0.4mg cap ORAL SCH (20:25)
[2017-05-27] VITALS (11 sets, daily range): BP systolic 98–146; BP diastolic 54–66
[2017-05-27] MEDS: Albuterol/Ipratropium 3ml neb HHN SCH ×2 (02:49→07:00)
[2017-05-27] MEDS: LORazepam Inj 2mg/ml 1ml IV PRN (03:35)
[2017-05-27 04:41] LABS: MEAN CORPUSCULAR HEMOGLOBIN 29.5 PG (27.0-31.0); MEAN CORPUSCULAR HGB CONC 33.5 G/DL (32.0-36.0); MEAN CORPUSCULAR VOLUME 88 FL (80-99); MEAN PLATELET VOLUME 8.2 FL (6.5-10.1); PLATELET COUNT 165 K/UL (150-450); WHITE BLOOD COUNT 10.3 K/UL (4.8-10.8)
[2017-05-27 05:27] LABS: ALANINE AMINOTRANSFERASE 109 U/L (12-78); ALBUMIN/GLOBULIN RATIO 0.3 (1.0-2.7); ANION GAP 11 mmol/L (5-15); ASPARTATE AMINO TRANSFERASE 230 U/L (15-37); CALCIUM 8.1 MG/DL (8.5-10.1); CARBON DIOXIDE 16 MMOL/L (21-32); CHLORIDE 117 MMOL/L (98-107); CREATININE 2.2 MG/DL (0.55-1.30); POTASSIUM 3.3 MMOL/L (3.5-5.1); SODIUM 144 MMOL/L (136-145); TOTAL PROTEIN 5.5 G/DL (6.4-8.2)
[2017-05-27 05:33] LABS: BILIRUBIN,DIRECT 0.8 MG/DL (0.0-0.3)
[2017-05-27] MEDS: NovoLOG Insulin Flexpen SUBQ SCH ×3 (06:04→16:30)
[2017-05-27] MEDS: Amoxicillin 250mg/5ml susp 150ml NG SCH ×3 (07:17→22:03)
--- NOTE | 2017-05-27 07:30 | Pre-Procedure Note/Attestation ---
Pre-Procedure Note/Attestation Complete Prior to Procedure Planned Procedure: not applicable Procedure Narrative: esophagogastroduodenoscopy peg Indications for Procedure Pre-Operative Diagnosis: dysphagia Attestation I attest that I discussed the nature of the procedure; its benefits; risks and complications; and alternatives (and the risks and benefits of such alternatives ), prior to the procedure, with the patient (or the patient's legal field representative). I attest that, if there was a reasonable possibility of needing a blood transfusion, the patient (or the patient's legal field representative) was given the [facility] standardized written summary, pursuant to the Keyshawn Shirlene Blood Safety Act ([place] Health and Safety Code # 1645, as amended). I attest that I re-evaluated the patient just prior to the surgery and that there has been no change in the patient's H&P, except as documented below: RYLEE MILLER May 27, 2017 07:30
[2017-05-27] MEDS ORDERED: cefOXitin 1gm Inj ONE (08:15)
[2017-05-27] MEDS ORDERED: ePHEDrine 50mg/ml Inj ONE (08:15)
[2017-05-27] MEDS ORDERED: Lidocaine 1% MPF 10mg/ml 5ml ONE (08:15)
[2017-05-27] MEDS ORDERED: LR 1000ml ONE (08:15)
[2017-05-27] MEDS ORDERED: Propofol 200mg/20ml IV ONE (08:15)
[2017-05-27] MEDS ORDERED: NS 500ML IV ONE (08:20)
[2017-05-27] MEDS ORDERED: cefOXitin 1gm Inj IVPB ONE (08:25)
[2017-05-27] MEDS ORDERED: cefOXitin 1gm Inj IVP ONE (08:30)
--- NOTE | 2017-05-27 08:49 | Immediate Post-Op Evaluation ---
Immediate Post-Op Evalulation Immediate Post-Op Evalulation Procedure: PEG placement Date of Evaluation: May 27, 2017 Time of Evaluation: 08:45 IV Fluids: 500 Blood Pressure Systolic: 105 Blood Pressure Diastolic: 61 Pulse Rate: 70 Respiratory Rate: 14 O2 Sat by Pulse Oximetry: 100 Temperature (Fahrenheit): 97.1 Pain Score (1-10): 0 Nausea: No Vomiting: No Complications none Patient Status: awake, reacts Hydration Status: adequate Drug: cefoxitin Given Within 1 Hr of Incision: Yes Time Given: 08:20 NANDA KEE CRNA May 27, 2017 08:49
--- NOTE | 2017-05-27 08:52 | Anethesia Preoperative Eval ---
Anesthesia Pre-op PMH/ROS General Date of Evaluation: May 27, 2017 Time of Evaluation: 08:15 Anesthesiologist: reyna ASA Score: ASA 4 Mallampati Score Class I : Soft palate, uvula, fauces, pillars visible Class II: Soft palate, uvula, fauces visible Class III: Soft palate, base of uvula visible Class IV: Only hard plate visible Mallampati Classification: Class III Surgeon: marty Diagnosis: anemia Surgical Procedure: PEG Anesthesia History: none Family History: no anesthesia problems Allergies: Coded Allergies: No Known Allergies (Unverified , 12/28/15) Medications: see eMAR Past Medical History Cardiovascular: Reports: HTN, CAD, [place] Pulmonary: Denies: asthma, COPD, LINDSEY, other Gastrointestinal/Genitourinary: Reports: GERD, CRI Neurologic/Psychiatric: Reports: dementia, CVA Hematology/Immune: Reports: anemia Other: obesity PMH Narrative: 1. NSTEMI type 2 2. Altered mental status, probably with component of toxic metabolic encephalopathy. 3. Urinary tract infection. 4. History of hypertension. 5. Cerebrovascular accident history. 6. Abnormal cardiac enzymes. 7. Renal insufficiency 8. sever anemia 9. DVT non oclusive nwo post ivc filter 10. PVD lower ext PSxH Narrative: unknown Anesthesia Pre-op Phys. Exam Physician Exam Last Vital Signs Date Time Temp Pulse Resp B/P (MAP) Pulse Ox O2 Delivery O2 Flow Rate FiO2 05/27/17 08:00 97.3 84 22 118/55 99 Nasal Cannula 2.0 05/27/17 02:58 28 Constitutional: NAD Neurologic: CN 2-12 intact Cardiovascular: RRR Respiratory: CTA, other - ronchi Gastrointestinal: S/NT/ND Airway Exam Mallampati Classification 3 Mallampati Score: Class III MO: limited Neck: thick ROM: limited Dentures: no upper, no lower Anesthesia Pre-op A/P Labs Hematology Test 05/27/17 04:20 White Blood Count 10.3 K/UL (4.8-10.8) Red Blood Count 2.70 M/UL (4.70-6.10) L Hemoglobin 8.0 G/DL (14.2-18.0) L Hematocrit 23.8 % (42.0-52.0) L Mean Corpuscular Volume 88 FL (80-99) Mean Corpuscular Hemoglobin 29.5 PG (27.0-31.0) Mean Corpuscular Hemoglobin Concent 33.5 G/DL (32.0-36.0) Red Cell Distribution Width 16.0 % (11.6-14.8) H Platelet Count 165 K/UL (150-450) Mean Platelet Volume 8.2 FL (6.5-10.1) Neutrophils (%) (Auto) % (45.0-75.0) Lymphocytes (%) (Auto) % (20.0-45.0) Monocytes (%) (Auto) % (1.0-10.0) Eosinophils (%) (Auto) % (0.0-3.0) Basophils (%) (Auto) % (0.0-2.0) Chemistry Test 05/27/17 04:20 Sodium Level 144 MMOL/L (136-145) Potassium Level 3.3 MMOL/L (3.5-5.1) L Chloride Level 117 MMOL/L (98-107) H Carbon Dioxide Level 16 MMOL/L (21-32) L Anion Gap 11 mmol/L (5-15) Blood Urea Nitrogen 19 mg/dL (7-18) H Creatinine 2.2 MG/DL (0.55-1.30) H Estimat Glomerular Filtration Rate mL/min (>60) Glucose Level 95 MG/DL (74-106) Calcium Level 8.1 MG/DL (8.5-10.1) L Total Bilirubin 1.1 MG/DL (0.2-1.0) H Direct Bilirubin 0.8 MG/DL (0.0-0.3) H Aspartate Amino Transf (AST/SGOT) 230 U/L (15-37) H Alanine Aminotransferase (ALT/SGPT) 109 U/L (12-78) H Alkaline Phosphatase 314 U/L (46-116) H Troponin I 0.638 ng/mL (0.000-0.056) Total Protein 5.5 G/DL (6.4-8.2) L Albumin 1.2 G/DL (3.4-5.0) L Globulin 4.3 g/dL Albumin/Globulin Ratio 0.3 (1.0-2.7) L Studies Pre-op Studies: EKG - sr Risk Assessment & Plan Assessment: see cardiology note/ labs stable for now Plan: mac Pre-Antibiotics Drug: cefoxitin Given Within 1 Hr of Incision: Yes Time Given: 08:20 NANDA KEE CRNA May 27, 2017 08:52
[2017-05-27] MEDS: Metoprolol 25mg tab NG SCH ×2 (09:00→21:10)
--- NOTE | 2017-05-27 09:06 | 48 Hour Post Anesthesia Eval ---
Post Anesthesia Evaluation Procedure: PEG placement Date of Evaluation: May 27, 2017 Time of Evaluation: 09:06 Blood Pressure Systolic: 118 0: 74 Pulse Rate: 70 Respiratory Rate: 14 O2 Sat by Pulse Oximetry: 99 Airway: patent Nausea: No Vomiting: No Pain Intensity: 0 Hydration Status: adequate Cardiopulmonary Status: stable Mental Status/LOC: patient returned to baseline Follow-up Care/Observations: na Post-Anesthesia Complications: none Follow-up care needed: N/A NANDA KEE CRNA May 27, 2017 09:06
--- NOTE | 2017-05-27 09:07 | General Progress Note ---
Assessment/Plan Status: stable Assessment/Plan encephalopathy cont current meds Subjective Date patient seen: May 26, 2017 Neurologic/Psychiatric: Reports: anxiety Allergies: Coded Allergies: No Known Allergies (Unverified , 12/28/15) Subjective confused periods of agitation Objective Last 24 Hour Vital Signs Date Time Temp Pulse Resp B/P (MAP) Pulse Ox O2 Delivery O2 Flow Rate FiO2 05/27/17 08:49 70 14 100 05/27/17 08:00 97.3 84 22 118/55 99 Nasal Cannula 2.0 05/27/17 04:00 85 05/27/17 04:00 97.0 84 24 108/54 99 Nasal Cannula 2.0 05/27/17 02:58 89 18 100 Nasal Cannula 2.0 28 05/27/17 02:49 88 18 100 Nasal Cannula 2.0 28 05/27/17 00:00 84 05/27/17 00:00 97.5 79 24 129/62 100 Nasal Cannula 4.0 05/26/17 23:40 78 18 100 Nasal Cannula 2.0 28 05/26/17 23:31 79 18 100 Nasal Cannula 2.0 28 05/26/17 20:27 72 120/79 05/26/17 20:00 96.4 72 22 120/79 100 Nasal Cannula 2.0 05/26/17 20:00 64 05/26/17 19:23 69 18 100 Nasal Cannula 2.0 28 05/26/17 19:13 69 18 100 Nasal Cannula 2.0 28 05/26/17 19:13 100 Nasal Cannula 2.0 28 05/26/17 19:13 Nasal Cannula 2.0 28 05/26/17 16:55 97.3 69 16 125/93 100 Nasal Cannula 2.0 05/26/17 16:25 97.5 69 16 124/57 100 Nasal Cannula 2.0 05/26/17 16:00 67 05/26/17 16:00 97.7 69 16 121/57 100 Nasal Cannula 2.0 05/26/17 15:55 96.5 68 18 111/61 100 Nasal Cannula 2.0 05/26/17 15:40 96.8 71 16 120/62 100 Nasal Cannula 2.0 05/26/17 15:34 68 20 100 Nasal Cannula 2.0 28 05/26/17 15:27 67 20 100 Nasal Cannula 2.0 28 05/26/17 15:25 96.6 68 16 120/57 100 Nasal Cannula 2.0 05/26/17 15:10 96.6 70 17 122/60 100 Nasal Cannula 2.0 05/26/17 14:55 96.8 71 15 126/64 100 Nasal Cannula 2.0 05/26/17 14:40 67 16 134/68 100 Nasal Cannula 3.0 05/26/17 14:35 67 16 133/68 100 Nasal Cannula 3.0 05/26/17 14:30 64 16 139/71 100 Nasal Cannula 3.0 05/26/17 14:25 69 13 130/72 100 Nasal Cannula 3.0 05/26/17 14:20 66 13 134/71 100 Nasal Cannula 3.0 05/26/17 13:36 68 16 3.0 05/26/17 12:00 67 05/26/17 12:00 97.0 69 20 127/60 99 Nasal Cannula 3.0 05/26/17 11:17 72 18 100 Nasal Cannula 2.0 28 05/26/17 11:00 74 18 98 Nasal Cannula 2.0 28 05/26/17 09:08 75 106/58 Laboratory Tests 05/27/17 04:20: White Blood Count 10.3, Red Blood Count 2.70L, Hemoglobin 8.0L, Hematocrit 23.8L , Mean Corpuscular Volume 88, Mean Corpuscular Hemoglobin 29.5, Mean Corpuscular Hemoglobin Concent 33.5, Red Cell Distribution Width 16.0H, Platelet Count 165, Mean Platelet Volume 8.2, Neutrophils (%) (Auto) , Lymphocytes (%) (Auto) , Monocytes (%) (Auto) , Eosinophils (%) (Auto) , Basophils (%) (Auto) , Sodium Level 144, Potassium Level 3.3L, Chloride Level 117H, Carbon Dioxide Level 16L, Anion Gap 11, Blood Urea Nitrogen 19H, Creatinine 2.2H, Estimat Glomerular Filtration Rate , Glucose Level 95, Calcium Level 8.1L, Total Bilirubin 1.1H, Direct Bilirubin 0.8H, Aspartate Amino Transf (AST/SGOT) 230H, Alanine Aminotransferase (ALT/SGPT) 109H, Alkaline Phosphatase 314H, Troponin I 0.638H, Total Protein 5.5L, Albumin 1.2L, Globulin 4.3, Albumin /Globulin Ratio 0.3L Height (Feet): 5 Height (Inches): 8.00 Weight (Pounds): 180 General Appearance: no apparent distress, alert, confused Neurologic: disoriented, unresponsive, depressed affect Madi Hansen M.D. May 27, 2017 09:07
[2017-05-27] MEDS: Pantoprazole Inj IVP SCH (10:22)
[2017-05-27] MEDS: Levemir Flexpen SUBQ SCH ×2 (10:29→21:13)
--- NOTE | 2017-05-27 12:36 | Infectious Diseases Prog Note ---
Assessment/Plan Assessment/Plan ASSESSMENT: Blood Cx : CoNS 07/14 Contaminant - repeat BCx NGTD Sepsis, SP Leukocytosis - resolved, afebrile ( NSTEMI, DVT contributing ) Probable Pna - SCx: Nl Ade and Capri : colonizer CT: Bilateral lower lobe and posterior right middle lobe pulmonary groundglass opacity and dense consolidation -CXR : Basilar residual opacities possibly scarring or atelectasis. Doubt CHF Probable urinary tract infection/pyuria - UCx: enterococcus -worsening pyuria on repeat u/a Lactic acidosis, SP Mild elevation of AST, and Alk Ph Hepatitis panel :neg for hepatitis B/C US of abd : Gallbladder sludge and possible small stones. Negative for dilated ducts NSTEMI Acute LLE DVT SP IVC filter 05/26 Acute renal insufficiency, superimposed on chronic kidney disease Anemia, severe DM2 - HbA1c 10.5% NKDA Full Code PLAN: finishes Cefepime d # / today. cont Amoxicillin d# 5 / 14 ( 05/25 SP IV Vanco d# 12 ) ( 05/21 SP IV Rocephin day #3 ) f/u final cultures Monitor CBC, temperatures Monitor BMP Subjective Allergies: Coded Allergies: No Known Allergies (Unverified , 12/28/15) Subjective remains afebrile leukocytosis resolved denies chest pain SP IVC filter Objective Vital Signs Last 24 Hour Vital Signs Date Time Temp Pulse Resp B/P (MAP) Pulse Ox O2 Delivery O2 Flow Rate FiO2 05/27/17 12:00 97.1 75 17 105/64 100 Nasal Cannula 2.0 05/27/17 09:10 98.6 85 18 106/64 100 Nasal Cannula 2.0 05/27/17 09:06 70 14 99 05/27/17 09:00 85 115/59 05/27/17 09:00 85 18 103/64 100 Nasal Cannula 2.0 05/27/17 08:50 83 20 113/64 100 Nasal Cannula 2.0 05/27/17 08:49 70 14 100 05/27/17 08:45 84 18 98/61 100 Nasal Cannula 2.0 05/27/17 08:40 97.9 83 19 105/61 99 Nasal Cannula 2.0 05/27/17 08:00 83 05/27/17 08:00 97.3 84 22 118/55 99 Nasal Cannula 2.0 05/27/17 07:00 Nasal Cannula 2.0 28 05/27/17 07:00 Nasal Cannula 2.0 28 05/27/17 06:30 Nasal Cannula 2.0 28 05/27/17 06:30 99 Nasal Cannula 2.0 28 05/27/17 04:00 85 05/27/17 04:00 97.0 84 24 108/54 99 Nasal Cannula 2.0 05/27/17 02:58 89 18 100 Nasal Cannula 2.0 28 05/27/17 02:49 88 18 100 Nasal Cannula 2.0 28 05/27/17 00:00 84 05/27/17 00:00 97.5 79 24 129/62 100 Nasal Cannula 4.0 05/26/17 23:40 78 18 100 Nasal Cannula 2.0 28 05/26/17 23:31 79 18 100 Nasal Cannula 2.0 28 05/26/17 20:27 72 120/79 05/26/17 20:00 96.4 72 22 120/79 100 Nasal Cannula 2.0 05/26/17 20:00 64 05/26/17 19:23 69 18 100 Nasal Cannula 2.0 28 05/26/17 19:13 69 18 100 Nasal Cannula 2.0 28 05/26/17 19:13 100 Nasal Cannula 2.0 28 05/26/17 19:13 Nasal Cannula 2.0 28 05/26/17 16:55 97.3 69 16 125/93 100 Nasal Cannula 2.0 05/26/17 16:25 97.5 69 16 124/57 100 Nasal Cannula 2.0 05/26/17 16:00 67 05/26/17 16:00 97.7 69 16 121/57 100 Nasal Cannula 2.0 05/26/17 15:55 96.5 68 18 111/61 100 Nasal Cannula 2.0 05/26/17 15:40 96.8 71 16 120/62 100 Nasal Cannula 2.0 05/26/17 15:34 68 20 100 Nasal Cannula 2.0 28 05/26/17 15:27 67 20 100 Nasal Cannula 2.0 28 05/26/17 15:25 96.6 68 16 120/57 100 Nasal Cannula 2.0 05/26/17 15:10 96.6 70 17 122/60 100 Nasal Cannula 2.0 05/26/17 14:55 96.8 71 15 126/64 100 Nasal Cannula 2.0 11/16/17 14:40 67 16 134/68 100 Nasal Cannula 3.0 05/26/17 14:35 67 16 133/68 100 Nasal Cannula 3.0 05/26/17 14:30 64 16 139/71 100 Nasal Cannula 3.0 05/26/17 14:25 69 13 130/72 100 Nasal Cannula 3.0 05/26/17 14:20 66 13 134/71 100 Nasal Cannula 3.0 05/26/17 13:36 68 16 3.0 Height (Feet): 5 Height (Inches): 8.00 Weight (Pounds): 180 General Appearance: no acute distress Respiratory/Chest: no respiratory distress Cardiovascular: normal rate, regular rhythm Abdomen: normal bowel sounds, soft, non tender, non distended Microbiology Date/Time Source Procedure Growth Status 05/24/17 19:05 Blood Blood Culture - Preliminary NO GROWTH AFTER 48 HOURS Resulted 05/24/17 18:50 Blood Blood Culture - Preliminary NO GROWTH AFTER 48 HOURS Resulted Laboratory Tests Test 05/27/17 04:20 White Blood Count 10.3 K/UL (4.8-10.8) Red Blood Count 2.70 M/UL (4.70-6.10) L Hemoglobin 8.0 G/DL (14.2-18.0) L Hematocrit 23.8 % (42.0-52.0) L Mean Corpuscular Volume 88 FL (80-99) Mean Corpuscular Hemoglobin 29.5 PG (27.0-31.0) Mean Corpuscular Hemoglobin Concent 33.5 G/DL (32.0-36.0) Red Cell Distribution Width 16.0 % (11.6-14.8) H Platelet Count 165 K/UL (150-450) Mean Platelet Volume 8.2 FL (6.5-10.1) Neutrophils (%) (Auto) % (45.0-75.0) Lymphocytes (%) (Auto) % (20.0-45.0) Monocytes (%) (Auto) % (1.0-10.0) Eosinophils (%) (Auto) % (0.0-3.0) Basophils (%) (Auto) % (0.0-2.0) Sodium Level 144 MMOL/L (136-145) Potassium Level 3.3 MMOL/L (3.5-5.1) L Chloride Level 117 MMOL/L (98-107) H Carbon Dioxide Level 16 MMOL/L (21-32) L Anion Gap 11 mmol/L (5-15) Blood Urea Nitrogen 19 mg/dL (7-18) H Creatinine 2.2 MG/DL (0.55-1.30) H Estimat Glomerular Filtration Rate mL/min (>60) Glucose Level 95 MG/DL (74-106) Calcium Level 8.1 MG/DL (8.5-10.1) L Total Bilirubin 1.1 MG/DL (0.2-1.0) H Direct Bilirubin 0.8 MG/DL (0.0-0.3) H Aspartate Amino Transf (AST/SGOT) 230 U/L (15-37) H Alanine Aminotransferase (ALT/SGPT) 109 U/L (12-78) H Alkaline Phosphatase 314 U/L (46-116) H Troponin I 0.638 ng/mL (0.000-0.056) Total Protein 5.5 G/DL (6.4-8.2) L Albumin 1.2 G/DL (3.4-5.0) L Globulin 4.3 g/dL Albumin/Globulin Ratio 0.3 (1.0-2.7) L Current Medications Medications (Trade) Dose Ordered Sig/Altaf Route PRN Reason Start Time Stop Time Status Last Admin Dose Admin Acetaminophen (Tylenol) 650 mg Q4HR PRN NG Mild Pain/Temp > 100.5 05/23/17 22:45 06/22/17 22:44 Amoxicillin (Amoxil) 500 mg EVERY 8 HOURS NG 05/24/17 06:00 05/31/17 05:59 05/27/17 07:17 Atorvastatin Calcium (Lipitor) 80 mg BEDTIME NG 05/24/17 21:00 06/23/17 20:59 05/26/17 20:25 Cefepime HCl 1 gm/ Dextrose 55 ml @ 110 mls/hr Q24H IVPB 05/23/17 15:00 05/30/17 14:59 05/26/17 15:12 Clonidine HCl (Catapres) 0.1 mg Q4H PRN NG sbp more than 160 05/24/17 01:45 06/23/17 01:44 Dextrose 1,000 ml @ 50 mls/hr Q20H IV 05/25/17 07:30 06/24/17 07:29 05/26/17 04:00 Dextrose (Dextrose 50%) STAT PRN IV Hypoglycemia 05/19/17 21:45 06/18/17 21:44 05/26/17 20:45 Finasteride (Proscar) 5 mg BEDTIME ORAL 05/20/17 21:00 06/19/17 20:59 05/26/17 20:26 Insulin Aspart (NovoLOG) BEFORE MEALS AND HS SUBQ 05/20/17 06:30 06/19/17 06:29 05/25/17 21:44 Insulin Detemir (Levemir) 30 units Q12HR SUBQ 05/26/17 21:00 06/25/17 20:59 05/27/17 10:29 Iron Sucrose 100 mg/Sodium Chloride 60 ml @ 240 mls/hr BEDTIME IV 05/23/17 21:00 05/27/17 21:14 05/26/17 20:25 Lansoprazole (Prevacid) 30 mg DAILY GT 05/28/17 09:00 06/27/17 08:59 Lorazepam (Ativan 2mg/ml 1ml) 1 mg Q4H PRN IV For Anxiety 05/21/17 08:00 05/28/17 07:59 05/27/17 03:35 Metoprolol Tartrate (Lopressor) 37.5 mg Q12HR NG 05/26/17 21:00 06/25/17 20:59 05/26/17 20:27 Nitroglycerin (Ntg) 0.4 mg Q5M X 3 DOSES PRN SL Prn Chest Pain 05/19/17 21:45 06/18/17 21:44 Ondansetron HCl (Zofran) 4 mg Q6H PRN IVP Nausea & Vomiting 05/19/17 21:45 06/18/17 21:44 Polyethylene Glycol (Miralax) 17 gm HSPRN PRN NG Constipation 05/23/17 22:45 06/22/17 22:44 Risperidone (RisperDAL) 1 mg DAILY PRN NG For Anxiety 05/23/17 22:45 06/22/17 22:44 Tamsulosin HCl (Flomax) 0.4 mg BEDTIME ORAL 05/20/17 21:00 06/19/17 20:59 05/26/17 20:25 Temazepam (Restoril) 15 mg HSPRN PRN NG Insomnia 05/23/17 22:45 05/30/17 22:44 RABIA BRANCH May 27, 2017 12:36
[2017-05-27] MEDS: Cefepime HCl 1 GM in D5W 55 ML IVPB SCH (15:02)
--- NOTE | 2017-05-27 15:06 | Nephrology Progress Note ---
Assessment/Plan Problem List: (1) ATN (acute tubular necrosis) (2) Prostate cancer (3) Anemia Assessment PEG today- Acute renal failure cr down to 2.2 Due IVC Filter today chronic underlying renal failure, ? Diabetic Nephropathy Severe Anemia HypoAlbuminemia, r/o Nephrotic syndrom UTI / Sepsis Basal Atelectasis Prostate cancer h/o CVA toxic metabolic encephalopathy DC , Troponin maxed 11.3 now declining Plan Plan: gastric support MONSTER Renal- Negative for hydronephrosis 2 D Echo- pending 24 H urine protein- minimal monitor renal parameters per consultants Subjective ROS Limited/Unobtainable: No Constitutional: Reports: malaise Objective Objective Last 24 Hour Vital Signs Date Time Temp Pulse Resp B/P (MAP) Pulse Ox O2 Delivery O2 Flow Rate FiO2 05/27/17 12:00 97.1 75 17 105/64 100 Nasal Cannula 2.0 05/27/17 12:00 75 05/27/17 09:10 98.6 85 18 106/64 100 Nasal Cannula 2.0 05/27/17 09:06 70 14 99 05/27/17 09:00 85 115/59 05/27/17 09:00 85 18 103/64 100 Nasal Cannula 2.0 05/27/17 08:50 83 20 113/64 100 Nasal Cannula 2.0 05/27/17 08:49 70 14 100 05/27/17 08:45 84 18 98/61 100 Nasal Cannula 2.0 05/27/17 08:40 97.9 83 19 105/61 99 Nasal Cannula 2.0 05/27/17 08:00 83 05/27/17 08:00 97.3 84 22 118/55 99 Nasal Cannula 2.0 05/27/17 07:00 Nasal Cannula 2.0 28 05/27/17 07:00 Nasal Cannula 2.0 28 05/27/17 06:30 Nasal Cannula 2.0 28 05/27/17 06:30 99 Nasal Cannula 2.0 28 05/27/17 04:00 85 05/27/17 04:00 97.0 84 24 108/54 99 Nasal Cannula 2.0 05/27/17 02:58 89 18 100 Nasal Cannula 2.0 28 05/27/17 02:49 88 18 100 Nasal Cannula 2.0 28 05/27/17 00:00 84 05/27/17 00:00 97.5 79 24 129/62 100 Nasal Cannula 4.0 05/26/17 23:40 78 18 100 Nasal Cannula 2.0 28 05/26/17 23:31 79 18 100 Nasal Cannula 2.0 28 05/26/17 20:27 72 120/79 05/26/17 20:00 96.4 72 22 120/79 100 Nasal Cannula 2.0 05/26/17 20:00 64 05/26/17 19:23 69 18 100 Nasal Cannula 2.0 28 05/26/17 19:13 69 18 100 Nasal Cannula 2.0 28 05/26/17 19:13 100 Nasal Cannula 2.0 28 05/26/17 19:13 Nasal Cannula 2.0 28 05/26/17 16:55 97.3 69 16 125/93 100 Nasal Cannula 2.0 05/26/17 16:25 97.5 69 16 124/57 100 Nasal Cannula 2.0 05/26/17 16:00 67 05/26/17 16:00 97.7 69 16 121/57 100 Nasal Cannula 2.0 05/26/17 15:55 96.5 68 18 111/61 100 Nasal Cannula 2.0 05/26/17 15:40 96.8 71 16 120/62 100 Nasal Cannula 2.0 05/26/17 15:34 68 20 100 Nasal Cannula 2.0 28 05/26/17 15:27 67 20 100 Nasal Cannula 2.0 28 05/26/17 15:25 96.6 68 16 120/57 100 Nasal Cannula 2.0 05/26/17 15:10 96.6 70 17 122/60 100 Nasal Cannula 2.0 Intake and Output 05/27/17 05/28/17 19:00 07:00 Intake Total 300 ml Balance 300 ml IV Total 300 ml # Bowel Movements 1 Laboratory Tests 05/27/17 04:20: White Blood Count 10.3, Red Blood Count 2.70L, Hemoglobin 8.0L, Hematocrit 23.8L , Mean Corpuscular Volume 88, Mean Corpuscular Hemoglobin 29.5, Mean Corpuscular Hemoglobin Concent 33.5, Red Cell Distribution Width 16.0H, Platelet Count 165, Mean Platelet Volume 8.2, Neutrophils (%) (Auto) , Lymphocytes (%) (Auto) , Monocytes (%) (Auto) , Eosinophils (%) (Auto) , Basophils (%) (Auto) , Sodium Level 144, Potassium Level 3.3L, Chloride Level 117H, Carbon Dioxide Level 16L, Anion Gap 11, Blood Urea Nitrogen 19H, Creatinine 2.2H, Estimat Glomerular Filtration Rate , Glucose Level 95, Calcium Level 8.1L, Total Bilirubin 1.1H, Direct Bilirubin 0.8H, Aspartate Amino Transf (AST/SGOT) 230H, Alanine Aminotransferase (ALT/SGPT) 109H, Alkaline Phosphatase 314H, Troponin I 0.638H, Total Protein 5.5L, Albumin 1.2L, Globulin 4.3, Albumin /Globulin Ratio 0.3L Height (Feet): 5 Height (Inches): 8.00 Weight (Pounds): 180 General Appearance: no apparent distress Respiratory/Chest: decreased breath sounds Abdomen: soft Objective no other changes YOLANDA NAVA May 27, 2017 15:06
--- NOTE | 2017-05-27 16:00 | Procedure Note ---
DATE OF PROCEDURE: 05/27/2017 SURGEON: Akhil Blackman M.D. REFERRING PHYSICIAN: Kel Sandoval M.D. PROCEDURE: Upper endoscopy with PEG placement. ANESTHESIA: Per SYSTEM OPERATION SUPERINTENDENT, Cindi Tarrillsegundo. INSTRUMENT: Olympus adult flexible upper endoscope. INDICATION: Dysphagia. The procedure, risks, benefits, and possible consequences, including hemorrhage, aspiration, perforation and infection, and alternative treatments, were explained to the patient/legal guardian by Dr. Akhil Blackman and the patient/legal guardian understood and accepted these risks. PROCEDURE IN DETAIL: After informed consent was obtained and the patient was adequately sedated, Olympus upper endoscope was advanced from mouth into the second portion of the duodenum and retroflexion was performed in the stomach. The patient had a shallow ulcer in the duodenal bulb. Unfortunately, there was no consent for biopsy. So, we could not biopsy the antrum to rule out H. pylori infection. At this time, under endoscopic guidance under sterile condition, a 20-Swedish pull type of G-tube was successfully placed in the epigastric area. The distance from the tip of the tube to skin was about 3 cm in size. The patient tolerated the procedure very well without any complication. SUMMARY OF FINDINGS: 1. Shallow duodenal ulcer. 2. Status post successful PEG placement. RECOMMENDATIONS: Abdominal binder. Elevate the head of the bed at all times. G-tube flush. G-tube care. Start tube feeding later today. We will send the H. pylori serology and if it is positive, we will treat. Also, we are going to start the patient on PPI daily. I want to thank Dr. Sandoval for this kind referral. Akhil Blackman M.D. DR: Jon JOB#: [id number] CC: Kel Sandoval M.D.; Fax#: [phone]
--- NOTE | 2017-05-27 16:54 | General Progress Note ---
Assessment/Plan Assessment/Plan ASSESSMENT AND RECOMMENDATIONS: 1. Bilateral deep venous thrombosis. Was on heparin gtt, however anemia continues to persist --> ivc filter has been placed 2. Anemia, secondary to chronic disease. We will obtain TIBC as well as iron level. Ferritin is 177. 3. Decreased hemoglobin and hematocrit, rule out gastrointestinal bleed --> occult pending 4. Coagulopathy, potentially secondary to underlying heparin drip. 5. Anemia, secondary to end-stage renal disease. 6. Psychiatric disorder. He has been seen by Psychiatry service. Continue to follow. 7. Malnutrition, peg tube has been placed I appreciate the consultation. Subjective Allergies: Coded Allergies: No Known Allergies (Unverified , 12/28/15) All Systems: reviewed and negative except above Subjective s/p peg placement Objective Last 24 Hour Vital Signs Date Time Temp Pulse Resp B/P (MAP) Pulse Ox O2 Delivery O2 Flow Rate FiO2 05/27/17 16:00 96.8 75 19 118/58 100 Nasal Cannula 2.0 05/27/17 12:00 97.1 75 17 105/64 100 Nasal Cannula 2.0 05/27/17 12:00 75 05/27/17 09:10 98.6 85 18 106/64 100 Nasal Cannula 2.0 05/27/17 09:06 70 14 99 05/27/17 09:00 85 115/59 05/27/17 09:00 85 18 103/64 100 Nasal Cannula 2.0 05/27/17 08:50 83 20 113/64 100 Nasal Cannula 2.0 05/27/17 08:49 70 14 100 05/27/17 08:45 84 18 98/61 100 Nasal Cannula 2.0 05/27/17 08:40 97.9 83 19 105/61 99 Nasal Cannula 2.0 05/27/17 08:00 83 05/27/17 08:00 97.3 84 22 118/55 99 Nasal Cannula 2.0 05/27/17 07:00 Nasal Cannula 2.0 28 05/27/17 07:00 Nasal Cannula 2.0 28 05/27/17 06:30 Nasal Cannula 2.0 28 05/27/17 06:30 99 Nasal Cannula 2.0 28 05/27/17 04:00 85 05/27/17 04:00 97.0 84 24 108/54 99 Nasal Cannula 2.0 05/27/17 02:58 89 18 100 Nasal Cannula 2.0 28 05/27/17 02:49 88 18 100 Nasal Cannula 2.0 28 05/27/17 00:00 84 05/27/17 00:00 97.5 79 24 129/62 100 Nasal Cannula 4.0 05/26/17 23:40 78 18 100 Nasal Cannula 2.0 28 05/26/17 23:31 79 18 100 Nasal Cannula 2.0 28 05/26/17 20:27 72 120/79 05/26/17 20:00 96.4 72 22 120/79 100 Nasal Cannula 2.0 05/26/17 20:00 64 05/26/17 19:23 69 18 100 Nasal Cannula 2.0 28 05/26/17 19:13 69 18 100 Nasal Cannula 2.0 28 05/26/17 19:13 100 Nasal Cannula 2.0 28 05/26/17 19:13 Nasal Cannula 2.0 28 05/26/17 16:55 97.3 69 16 125/93 100 Nasal Cannula 2.0 Intake and Output 05/27/17 05/28/17 19:00 07:00 Intake Total 410 ml Balance 410 ml IV Total 410 ml # Bowel Movements 1 Laboratory Tests 05/27/17 04:20: White Blood Count 10.3, Red Blood Count 2.70L, Hemoglobin 8.0L, Hematocrit 23.8L , Mean Corpuscular Volume 88, Mean Corpuscular Hemoglobin 29.5, Mean Corpuscular Hemoglobin Concent 33.5, Red Cell Distribution Width 16.0H, Platelet Count 165, Mean Platelet Volume 8.2, Neutrophils (%) (Auto) , Lymphocytes (%) (Auto) , Monocytes (%) (Auto) , Eosinophils (%) (Auto) , Basophils (%) (Auto) , Sodium Level 144, Potassium Level 3.3L, Chloride Level 117H, Carbon Dioxide Level 16L, Anion Gap 11, Blood Urea Nitrogen 19H, Creatinine 2.2H, Estimat Glomerular Filtration Rate , Glucose Level 95, Calcium Level 8.1L, Total Bilirubin 1.1H, Direct Bilirubin 0.8H, Aspartate Amino Transf (AST/SGOT) 230H, Alanine Aminotransferase (ALT/SGPT) 109H, Alkaline Phosphatase 314H, Troponin I 0.638H, Total Protein 5.5L, Albumin 1.2L, Globulin 4.3, Albumin /Globulin Ratio 0.3L Height (Feet): 5 Height (Inches): 8.00 Weight (Pounds): 180 General Appearance: no apparent distress EENT: normal ENT inspection Neck: normal alignment Cardiovascular: normal rate Respiratory/Chest: chest wall non-tender Abdomen: soft Extremities: non-tender Chano Bellamy May 27, 2017 16:54
--- NOTE | 2017-05-27 17:58 | Cardiology Progress Note ---
Assessment/Plan Assessment/Plan 1. NSTEMI type 2 2. Altered mental status, probably with component of toxic metabolic encephalopathy. 3. Urinary tract infection. 4. History of hypertension. 5. Cerebrovascular accident history. 6. Abnormal cardiac enzymes. 7. Renal insufficiency 8. sever anemia 9. DVT non oclusive nwo post ivc filter 10. PVD lower ext trop down stool ob + now s/p peg hgb min decreased off anticoagulation on asa / plavix may need to dc if progressive anemia again on bb, on statin , on dapt due to cva aspiration risk tele reviewed not a candidate for invasive cardiac therapy on metoprolol for now lft abn managment per gi but i will decrease lipitor form 80 to 20 mg qhs Subjective Cardiovascular: Denies: chest pain, lightheadedness Respiratory: Denies: shortness of breath Gastrointestinal/Abdominal: Reports: abdominal pain Genitourinary: Denies: burning Objective Last 24 Hour Vital Signs Date Time Temp Pulse Resp B/P (MAP) Pulse Ox O2 Delivery O2 Flow Rate FiO2 05/27/17 16:00 96.8 75 19 118/58 100 Nasal Cannula 2.0 05/27/17 16:00 78 05/27/17 12:00 97.1 75 17 105/64 100 Nasal Cannula 2.0 05/27/17 12:00 75 05/27/17 09:10 98.6 85 18 106/64 100 Nasal Cannula 2.0 05/27/17 09:06 70 14 99 05/27/17 09:00 85 115/59 05/27/17 09:00 85 18 103/64 100 Nasal Cannula 2.0 05/27/17 08:50 83 20 113/64 100 Nasal Cannula 2.0 05/27/17 08:49 70 14 100 05/27/17 08:45 84 18 98/61 100 Nasal Cannula 2.0 05/27/17 08:40 97.9 83 19 105/61 99 Nasal Cannula 2.0 05/27/17 08:00 83 05/27/17 08:00 97.3 84 22 118/55 99 Nasal Cannula 2.0 05/27/17 07:00 Nasal Cannula 2.0 28 05/27/17 07:00 Nasal Cannula 2.0 28 05/27/17 06:30 Nasal Cannula 2.0 28 05/27/17 06:30 99 Nasal Cannula 2.0 28 05/27/17 04:00 85 05/27/17 04:00 97.0 84 24 108/54 99 Nasal Cannula 2.0 05/27/17 02:58 89 18 100 Nasal Cannula 2.0 28 05/27/17 02:49 88 18 100 Nasal Cannula 2.0 28 05/27/17 00:00 84 05/27/17 00:00 97.5 79 24 129/62 100 Nasal Cannula 4.0 05/26/17 23:40 78 18 100 Nasal Cannula 2.0 28 05/26/17 23:31 79 18 100 Nasal Cannula 2.0 28 05/26/17 20:27 72 120/79 05/26/17 20:00 96.4 72 22 120/79 100 Nasal Cannula 2.0 05/26/17 20:00 64 05/26/17 19:23 69 18 100 Nasal Cannula 2.0 28 05/26/17 19:13 69 18 100 Nasal Cannula 2.0 28 05/26/17 19:13 100 Nasal Cannula 2.0 28 05/26/17 19:13 Nasal Cannula 2.0 28 General Appearance: alert Cardiovascular: normal rate, regular rhythm Respiratory/Chest: lungs clear - anteriorly Abdomen: normal bowel sounds, soft, other - dressing inplace Extremities: no swelling Intake and Output 05/27/17 05/28/17 19:00 07:00 Intake Total 410 ml Balance 410 ml IV Total 410 ml # Bowel Movements 1 Laboratory Tests Test 05/27/17 04:20 White Blood Count 10.3 K/UL (4.8-10.8) Red Blood Count 2.70 M/UL (4.70-6.10) L Hemoglobin 8.0 G/DL (14.2-18.0) L Hematocrit 23.8 % (42.0-52.0) L Mean Corpuscular Volume 88 FL (80-99) Mean Corpuscular Hemoglobin 29.5 PG (27.0-31.0) Mean Corpuscular Hemoglobin Concent 33.5 G/DL (32.0-36.0) Red Cell Distribution Width 16.0 % (11.6-14.8) H Platelet Count 165 K/UL (150-450) Mean Platelet Volume 8.2 FL (6.5-10.1) Neutrophils (%) (Auto) % (45.0-75.0) Lymphocytes (%) (Auto) % (20.0-45.0) Monocytes (%) (Auto) % (1.0-10.0) Eosinophils (%) (Auto) % (0.0-3.0) Basophils (%) (Auto) % (0.0-2.0) Sodium Level 144 MMOL/L (136-145) Potassium Level 3.3 MMOL/L (3.5-5.1) L Chloride Level 117 MMOL/L (98-107) H Carbon Dioxide Level 16 MMOL/L (21-32) L Anion Gap 11 mmol/L (5-15) Blood Urea Nitrogen 19 mg/dL (7-18) H Creatinine 2.2 MG/DL (0.55-1.30) H Estimat Glomerular Filtration Rate mL/min (>60) Glucose Level 95 MG/DL (74-106) Calcium Level 8.1 MG/DL (8.5-10.1) L Total Bilirubin 1.1 MG/DL (0.2-1.0) H Direct Bilirubin 0.8 MG/DL (0.0-0.3) H Aspartate Amino Transf (AST/SGOT) 230 U/L (15-37) H Alanine Aminotransferase (ALT/SGPT) 109 U/L (12-78) H Alkaline Phosphatase 314 U/L (46-116) H Troponin I 0.638 ng/mL (0.000-0.056) Total Protein 5.5 G/DL (6.4-8.2) L Albumin 1.2 G/DL (3.4-5.0) L Globulin 4.3 g/dL Albumin/Globulin Ratio 0.3 (1.0-2.7) L Microbiology Date/Time Source Procedure Growth Status 05/24/17 19:05 Blood Blood Culture - Preliminary NO GROWTH AFTER 48 HOURS Resulted 05/24/17 18:50 Blood Blood Culture - Preliminary NO GROWTH AFTER 48 HOURS Resulted CRUZ FLEMING May 27, 2017 17:58
--- NOTE | 2017-05-27 18:01 | General Progress Note ---
Assessment/Plan Status: stable Assessment/Plan encephalopathy cont current meds Subjective Date patient seen: May 27, 2017 Neurologic/Psychiatric: Reports: anxiety Allergies: Coded Allergies: No Known Allergies (Unverified , 12/28/15) Subjective confused periods of agitation more alert Objective Last 24 Hour Vital Signs Date Time Temp Pulse Resp B/P (MAP) Pulse Ox O2 Delivery O2 Flow Rate FiO2 05/27/17 16:00 96.8 75 19 118/58 100 Nasal Cannula 2.0 05/27/17 16:00 78 05/27/17 12:00 97.1 75 17 105/64 100 Nasal Cannula 2.0 05/27/17 12:00 75 05/27/17 09:10 98.6 85 18 106/64 100 Nasal Cannula 2.0 05/27/17 09:06 70 14 99 05/27/17 09:00 85 115/59 05/27/17 09:00 85 18 103/64 100 Nasal Cannula 2.0 05/27/17 08:50 83 20 113/64 100 Nasal Cannula 2.0 05/27/17 08:49 70 14 100 05/27/17 08:45 84 18 98/61 100 Nasal Cannula 2.0 05/27/17 08:40 97.9 83 19 105/61 99 Nasal Cannula 2.0 05/27/17 08:00 83 05/27/17 08:00 97.3 84 22 118/55 99 Nasal Cannula 2.0 05/27/17 07:00 Nasal Cannula 2.0 28 05/27/17 07:00 Nasal Cannula 2.0 28 05/27/17 06:30 Nasal Cannula 2.0 28 05/27/17 06:30 99 Nasal Cannula 2.0 28 05/27/17 04:00 85 05/27/17 04:00 97.0 84 24 108/54 99 Nasal Cannula 2.0 05/27/17 02:58 89 18 100 Nasal Cannula 2.0 28 05/27/17 02:49 88 18 100 Nasal Cannula 2.0 28 05/27/17 00:00 84 05/27/17 00:00 97.5 79 24 129/62 100 Nasal Cannula 4.0 05/26/17 23:40 78 18 100 Nasal Cannula 2.0 28 05/26/17 23:31 79 18 100 Nasal Cannula 2.0 28 05/26/17 20:27 72 120/79 11/16/17 20:00 96.4 72 22 120/79 100 Nasal Cannula 2.0 05/26/17 20:00 64 05/26/17 19:23 69 18 100 Nasal Cannula 2.0 28 05/26/17 19:13 69 18 100 Nasal Cannula 2.0 28 05/26/17 19:13 100 Nasal Cannula 2.0 28 05/26/17 19:13 Nasal Cannula 2.0 28 Intake and Output 05/27/17 05/28/17 19:00 07:00 Intake Total 410 ml Balance 410 ml IV Total 410 ml # Bowel Movements 1 Laboratory Tests 05/27/17 04:20: White Blood Count 10.3, Red Blood Count 2.70L, Hemoglobin 8.0L, Hematocrit 23.8L , Mean Corpuscular Volume 88, Mean Corpuscular Hemoglobin 29.5, Mean Corpuscular Hemoglobin Concent 33.5, Red Cell Distribution Width 16.0H, Platelet Count 165, Mean Platelet Volume 8.2, Neutrophils (%) (Auto) , Lymphocytes (%) (Auto) , Monocytes (%) (Auto) , Eosinophils (%) (Auto) , Basophils (%) (Auto) , Sodium Level 144, Potassium Level 3.3L, Chloride Level 117H, Carbon Dioxide Level 16L, Anion Gap 11, Blood Urea Nitrogen 19H, Creatinine 2.2H, Estimat Glomerular Filtration Rate , Glucose Level 95, Calcium Level 8.1L, Total Bilirubin 1.1H, Direct Bilirubin 0.8H, Aspartate Amino Transf (AST/SGOT) 230H, Alanine Aminotransferase (ALT/SGPT) 109H, Alkaline Phosphatase 314H, Troponin I 0.638H, Total Protein 5.5L, Albumin 1.2L, Globulin 4.3, Albumin /Globulin Ratio 0.3L Height (Feet): 5 Height (Inches): 8.00 Weight (Pounds): 180 General Appearance: no apparent distress, alert, lethargic, confused, agitated Neurologic: disoriented, depressed affect Madi Hansen M.D. May 27, 2017 18:01
[2017-05-27] MEDS ORDERED: Atorvastatin 20mg tab NG SCH (21:00)
[2017-05-27] MEDS: Tamsulosin 0.4mg cap ORAL SCH (21:09)
[2017-05-27] MEDS: Iron Sucrose 100 MG in NS 55 ML IV SCH (21:11)
--- NOTE | 2017-05-27 23:00 | Pulmonology Progress Note ---
Assessment/Plan Problems: (1) DVT (deep venous thrombosis) (2) Encephalopathy acute (3) Sepsis (4) ATN (acute tubular necrosis) (5) Non-ST elevation (NSTEMI) myocardial infarction (6) Diabetes mellitus (7) Prostate cancer (8) Anemia (9) PVD (peripheral vascular disease) Assessment/Plan off heparin drip bun/creatinine decreasing BS better controlled Na is lower decrease IV fluid continue abx check cultures check stool for OB Subjective ROS Limited/Unobtainable: No Constitutional: Reports: no symptoms HEENT: Repors: no symptoms Respiratory: Reports: no symptoms Allergies: Coded Allergies: No Known Allergies (Unverified , 12/28/15) Objective Last 24 Hour Vital Signs Date Time Temp Pulse Resp B/P (MAP) Pulse Ox O2 Delivery O2 Flow Rate FiO2 05/27/17 21:10 88 146/68 05/27/17 20:00 96.1 79 24 146/66 98 Nasal Cannula 2.0 05/27/17 20:00 82 05/27/17 16:00 96.8 75 19 118/58 100 Nasal Cannula 2.0 05/27/17 16:00 78 05/27/17 12:00 97.1 75 17 105/64 100 Nasal Cannula 2.0 05/27/17 12:00 75 05/27/17 09:10 98.6 85 18 106/64 100 Nasal Cannula 2.0 05/27/17 09:06 70 14 99 05/27/17 09:00 85 115/59 05/27/17 09:00 85 18 103/64 100 Nasal Cannula 2.0 05/27/17 08:50 83 20 113/64 100 Nasal Cannula 2.0 05/27/17 08:49 70 14 100 05/27/17 08:45 84 18 98/61 100 Nasal Cannula 2.0 05/27/17 08:40 97.9 83 19 105/61 99 Nasal Cannula 2.0 05/27/17 08:00 83 05/27/17 08:00 97.3 84 22 118/55 99 Nasal Cannula 2.0 05/27/17 07:00 Nasal Cannula 2.0 28 05/27/17 07:00 Nasal Cannula 2.0 28 05/27/17 06:30 Nasal Cannula 2.0 28 05/27/17 06:30 99 Nasal Cannula 2.0 28 05/27/17 04:00 85 05/27/17 04:00 97.0 84 24 108/54 99 Nasal Cannula 2.0 05/27/17 02:58 89 18 100 Nasal Cannula 2.0 28 05/27/17 02:49 88 18 100 Nasal Cannula 2.0 28 05/27/17 00:00 84 05/27/17 00:00 97.5 79 24 129/62 100 Nasal Cannula 4.0 05/26/17 23:40 78 18 100 Nasal Cannula 2.0 28 05/26/17 23:31 79 18 100 Nasal Cannula 2.0 28 Intake and Output 05/27/17 05/28/17 19:00 07:00 Intake Total 630 ml 195 ml Output Total 400 ml Balance 230 ml 195 ml IV Total 550 ml 195 ml Tube Feeding 80 ml Output Urine Total 400 ml # Bowel Movements 2 1 General Appearance: WD/WN HEENT: normocephalic, atraumatic Respiratory/Chest: lungs clear, no respiratory distress Cardiovascular: normal peripheral pulses, normal rate Abdomen: normal bowel sounds, soft, non tender Genitourinary: normal external genitalia Skin: no rash Laboratory Tests 05/27/17 04:20: White Blood Count 10.3, Red Blood Count 2.70L, Hemoglobin 8.0L, Hematocrit 23.8L , Mean Corpuscular Volume 88, Mean Corpuscular Hemoglobin 29.5, Mean Corpuscular Hemoglobin Concent 33.5, Red Cell Distribution Width 16.0H, Platelet Count 165, Mean Platelet Volume 8.2, Neutrophils (%) (Auto) , Lymphocytes (%) (Auto) , Monocytes (%) (Auto) , Eosinophils (%) (Auto) , Basophils (%) (Auto) , Sodium Level 144, Potassium Level 3.3L, Chloride Level 117H, Carbon Dioxide Level 16L, Anion Gap 11, Blood Urea Nitrogen 19H, Creatinine 2.2H, Estimat Glomerular Filtration Rate , Glucose Level 95, Calcium Level 8.1L, Total Bilirubin 1.1H, Direct Bilirubin 0.8H, Aspartate Amino Transf (AST/SGOT) 230H, Alanine Aminotransferase (ALT/SGPT) 109H, Alkaline Phosphatase 314H, Troponin I 0.638H, Total Protein 5.5L, Albumin 1.2L, Globulin 4.3, Albumin /Globulin Ratio 0.3L Current Medications Medications (Trade) Dose Ordered Sig/Altaf Route PRN Reason Start Time Stop Time Status Last Admin Dose Admin Acetaminophen (Tylenol) 650 mg Q4HR PRN NG Mild Pain/Temp > 100.5 05/23/17 22:45 06/22/17 22:44 Amoxicillin (Amoxil) 500 mg EVERY 8 HOURS NG 05/24/17 06:00 05/31/17 05:59 05/27/17 22:03 Atorvastatin Calcium (Lipitor) 20 mg BEDTIME NG 05/27/17 21:00 06/26/17 20:59 05/27/17 21:09 Cefepime HCl 1 gm/ Dextrose 55 ml @ 110 mls/hr Q24H IVPB 05/23/17 15:00 05/27/17 23:59 05/27/17 15:02 Clonidine HCl (Catapres) 0.1 mg Q4H PRN NG sbp more than 160 05/24/17 01:45 06/23/17 01:44 Dextrose 1,000 ml @ 50 mls/hr Q20H IV 05/25/17 07:30 06/24/17 07:29 05/27/17 16:20 Dextrose (Dextrose 50%) STAT PRN IV Hypoglycemia 05/19/17 21:45 06/18/17 21:44 05/26/17 20:45 Finasteride (Proscar) 5 mg BEDTIME ORAL 05/20/17 21:00 06/19/17 20:59 05/27/17 21:10 Insulin Aspart (NovoLOG) EVERY 6 HOURS SUBQ 05/28/17 00:00 06/19/17 06:29 Insulin Detemir (Levemir) 30 units Q12HR SUBQ 05/26/17 21:00 06/25/17 20:59 05/27/17 21:13 Lansoprazole (Prevacid) 30 mg DAILY GT 05/28/17 09:00 06/27/17 08:59 Lorazepam (Ativan 2mg/ml 1ml) 1 mg Q4H PRN IV For Anxiety 05/21/17 08:00 05/28/17 07:59 05/27/17 03:35 Metoprolol Tartrate (Lopressor) 37.5 mg Q12HR NG 05/26/17 21:00 06/25/17 20:59 05/27/17 21:10 Nitroglycerin (Ntg) 0.4 mg Q5M X 3 DOSES PRN SL Prn Chest Pain 05/19/17 21:45 06/18/17 21:44 Ondansetron HCl (Zofran) 4 mg Q6H PRN IVP Nausea & Vomiting 05/19/17 21:45 06/18/17 21:44 Polyethylene Glycol (Miralax) 17 gm HSPRN PRN NG Constipation 05/23/17 22:45 06/22/17 22:44 Risperidone (RisperDAL) 1 mg DAILY PRN NG For Anxiety 05/23/17 22:45 06/22/17 22:44 Tamsulosin HCl (Flomax) 0.4 mg BEDTIME ORAL 05/20/17 21:00 06/19/17 20:59 05/27/17 21:09 Temazepam (Restoril) 15 mg HSPRN PRN NG Insomnia 05/23/17 22:45 05/30/17 22:44 YOSHI EDOUARD May 27, 2017 23:00
[2017-05-28] VITALS: BP 110/56
[2017-05-28] MEDS: NovoLOG Insulin Flexpen SUBQ SCH ×5 (00:08→23:47)
[2017-05-28] MEDS ORDERED: Miralax 17gm pkt GT PRN (02:45)
[2017-05-28] MEDS ORDERED: Acetaminophen 650mg/20.3ml GT PRN (02:45)
[2017-05-28 04:00] VITALS: BP 140/66
[2017-05-28 04:38] LABS: BASOPHILS % (AUTO) 0.4 % (0.0-2.0); EOSINOPHILS % (AUTO) 1.1 % (0.0-3.0); LYMPHOCYTES % (AUTO) 9.7 % (20.0-45.0); MEAN CORPUSCULAR HEMOGLOBIN 29.4 PG (27.0-31.0); MEAN CORPUSCULAR HGB CONC 32.9 G/DL (32.0-36.0); MEAN CORPUSCULAR VOLUME 89 FL (80-99); MEAN PLATELET VOLUME 8.7 FL (6.5-10.1); MONOCYTES % (AUTO) 5.6 % (1.0-10.0); NEUTROPHILS % (AUTO) 83.2 % (45.0-75.0); PLATELET COUNT 201 K/UL (150-450); RED BLOOD COUNT 2.91 M/UL (4.70-6.10); RED CELL DISTRIBUTION WIDTH 17.2 % (11.6-14.8); WHITE BLOOD COUNT 9.6 K/UL (4.8-10.8)
[2017-05-28 05:00] LABS: ANION GAP 10 mmol/L (5-15); CALCIUM 8.3 MG/DL (8.5-10.1); CARBON DIOXIDE 20 MMOL/L (21-32); CHLORIDE 115 MMOL/L (98-107); CREATININE 2.4 MG/DL (0.55-1.30); POTASSIUM 3.4 MMOL/L (3.5-5.1); SODIUM 145 MMOL/L (136-145)
[2017-05-28] MEDS: LORazepam Inj 2mg/ml 1ml IV PRN (05:30)
[2017-05-28] MEDS: Amoxicillin 250mg/5ml susp 150ml NG SCH (06:12)
[2017-05-28 08:00] VITALS: BP 120/66
--- NOTE | 2017-05-28 08:24 | Pulmonology Progress Note ---
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, dysarthria, vascular dementia Prostate Ca Sacrococcyx decub st 2 POA multiple DTI POA protein calorie malnutrition PLAN OF CARE DEVIKA s/p IVC filter 05/26 initially on heparin gtt but stopped due to acute anemia venous Duplex + acute DVT LLE abx ID follows urine cx + Enterococci, sputum cx + nelly ( contaminant), but CT chest with evidence of infiltrate cardio follows ECHO with EF 555% and RVSP of 32, moderate MR continue ASA, Plavix, HH at baseline, no trend down per cardio not a candidate for invasive cardiac study medical management statin dose decreased due to elevated LFT neuro follows CT head no acute IC pathology, + old lacunar stroke acute encephalopathy multifactorial endo follows BS management with Levemir and SS of insulin, optimize as needed Nephro follows renal US no hydro, but c/w medical renal disease 24 hr urine with minimal protein, thus nephrotic syndrome was ruled out Monitor renal parameters, lytes , replace as needed , replace K today avoid nephrotoxic GI follows Hepatitis panel negative monitor LFT abdominal US no dilated ducts s/p PEG 05/27, EGD with + shallow duodenal ulcer GT feeding strict aspiration precautions, monitor tolerance-tolerates abdominal binder Swallow eval with dysphagia Stool [id number] Monitor counts, transfuse prn s/p 3 u PRBC anemia w/up c/w anemia of chronic disease GI prophylaxis wound care as per wound nurse recommendations cooler supervisor eval appreciated Arterial Duplex BLE can be transferred to tele if OK with cardio case discussed and evaluated by supervising physician Subjective Allergies: Coded Allergies: No Known Allergies (Unverified , 12/28/15) Subjective leukocytosis resolved, afebrile tolerates TF creat slightly up no signs of respiratory distress Objective Last 24 Hour Vital Signs Date Time Temp Pulse Resp B/P (MAP) Pulse Ox O2 Delivery O2 Flow Rate FiO2 05/28/17 08:00 97.1 78 18 120/66 99 Nasal Cannula 2.0 05/28/17 04:00 77 05/28/17 04:00 96.7 74 20 140/66 100 Nasal Cannula 2.0 05/28/17 00:00 84 05/28/17 00:00 97.0 82 20 110/56 100 Nasal Cannula 2.0 05/27/17 21:10 88 146/68 05/27/17 20:00 96.1 79 24 146/66 98 Nasal Cannula 2.0 05/27/17 20:00 82 05/27/17 16:00 96.8 75 19 118/58 100 Nasal Cannula 2.0 05/27/17 16:00 78 05/27/17 12:00 97.1 75 17 105/64 100 Nasal Cannula 2.0 05/27/17 12:00 75 05/27/17 09:10 98.6 85 18 106/64 100 Nasal Cannula 2.0 05/27/17 09:06 70 14 99 05/27/17 09:00 85 115/59 05/27/17 09:00 85 18 103/64 100 Nasal Cannula 2.0 05/27/17 08:50 83 20 113/64 100 Nasal Cannula 2.0 05/27/17 08:49 70 14 100 05/27/17 08:45 84 18 98/61 100 Nasal Cannula 2.0 05/27/17 08:40 97.9 83 19 105/61 99 Nasal Cannula 2.0 General Appearance: no acute distress, other - bedridden AA male, poorly but responsive HEENT: normocephalic, atraumatic, anicteric Respiratory/Chest: lungs clear, no respiratory distress, no accessory muscle use Cardiovascular: normal peripheral pulses, normal rate Abdomen: soft, non tender, non distended Extremities: no edema Neurologic/Psychiatric: abnormal gait, alert, responsive Musculoskeletal: atrophy - BLE Laboratory Tests 05/28/17 03:25: White Blood Count 9.6, Red Blood Count 2.91L, Hemoglobin 8.5L, Hematocrit 26.0L , Mean Corpuscular Volume 89, Mean Corpuscular Hemoglobin 29.4, Mean Corpuscular Hemoglobin Concent 32.9, Red Cell Distribution Width 17.2H, Platelet Count 201, Mean Platelet Volume 8.7, Neutrophils (%) (Auto) 83.2H, Lymphocytes (%) (Auto) 9.7L, Monocytes (%) (Auto) 5.6, Eosinophils (%) (Auto) 1.1, Basophils (%) (Auto) 0.4, Sodium Level 145, Potassium Level 3.4L, Chloride Level 115H, Carbon Dioxide Level 20L, Anion Gap 10, Blood Urea Nitrogen 20H, Creatinine 2.4H, Estimat Glomerular Filtration Rate , Glucose Level 151H, Calcium Level 8.3L, Immunoglobulin G [Pending], Immunoglobulin G1 [Pending], Immunoglobulin G2 [Pending], Immunoglobulin G3 [Pending], Immunoglobulin G4 [ Pending] Current Medications Medications (Trade) Dose Ordered Sig/Altaf Route PRN Reason Start Time Stop Time Status Last Admin Dose Admin Acetaminophen (Tylenol) 650 mg Q4HR PRN GT Mild Pain/Temp > 100.5 05/28/17 02:45 06/27/17 02:44 Amoxicillin (Amoxil) 500 mg EVERY 8 HOURS GT 05/28/17 14:00 06/04/17 13:59 Atorvastatin Calcium (Lipitor) 20 mg BEDTIME GT 05/28/17 21:00 06/27/17 20:59 Clonidine HCl (Catapres) 0.1 mg Q4H PRN GT sbp more than 160 05/28/17 05:45 06/27/17 05:44 Dextrose (Dextrose 50%) STAT PRN IV Hypoglycemia 05/19/17 21:45 06/18/17 21:44 05/26/17 20:45 Finasteride (Proscar) 5 mg BEDTIME ORAL 05/20/17 21:00 06/19/17 20:59 05/27/17 21:10 Insulin Aspart (NovoLOG) EVERY 6 HOURS SUBQ 05/28/17 00:00 06/19/17 06:29 05/28/17 06:13 Insulin Detemir (Levemir) 30 units Q12HR SUBQ 05/26/17 21:00 06/25/17 20:59 05/27/17 21:13 Lansoprazole (Prevacid) 30 mg DAILY GT 05/28/17 09:00 06/27/17 08:59 Metoprolol Tartrate (Lopressor) 37.5 mg Q12HR GT 05/28/17 09:00 06/27/17 08:59 Nitroglycerin (Ntg) 0.4 mg Q5M X 3 DOSES PRN SL Prn Chest Pain 05/19/17 21:45 06/18/17 21:44 Ondansetron HCl (Zofran) 4 mg Q6H PRN IVP Nausea & Vomiting 05/19/17 21:45 06/18/17 21:44 Polyethylene Glycol (Miralax) 17 gm HSPRN PRN GT Constipation 05/28/17 02:45 06/27/17 02:44 Risperidone (RisperDAL) 1 mg DAILY PRN GT For Anxiety 05/28/17 02:45 06/27/17 02:44 Tamsulosin HCl (Flomax) 0.4 mg BEDTIME ORAL 05/20/17 21:00 06/19/17 20:59 05/27/17 21:09 Temazepam (Restoril) 15 mg HSPRN PRN GT Insomnia 05/28/17 02:45 06/04/17 02:44 Cristopher LimaKristina george NP May 28, 2017 08:24
[2017-05-28] MEDS: Metoprolol 25mg tab GT SCH ×2 (08:30→21:22)
[2017-05-28] MEDS: Levemir Flexpen SUBQ SCH ×2 (08:50→21:26)
[2017-05-28] MEDS ORDERED: NS 275ml ONE (10:55)
[2017-05-28] MEDS ORDERED: Tubing IV Secondary IV ONE (10:55)
[2017-05-28] MEDS ORDERED: KCl 10% 20 mEq/15ml liquid GT ONE (11:00)
[2017-05-28] MEDS ORDERED: Albuterol/Ipratropium 3ml neb HHN PRN (11:30)
--- NOTE | 2017-05-28 11:40 | Nephrology Progress Note ---
Assessment/Plan Problem List: (1) ATN (acute tubular necrosis) (2) Prostate cancer (3) Anemia Assessment PEG in Acute renal failure cr down to 2.4 Due IVC Filter today chronic underlying renal failure, ? Diabetic Nephropathy Severe Anemia HypoAlbuminemia, r/o Nephrotic syndrom UTI / Sepsis Basal Atelectasis Prostate cancer h/o CVA toxic metabolic encephalopathy [place] , Troponin maxed 11.3 now declining Plan Plan: gastric support MONSTER Renal- Negative for hydronephrosis 2 D Echo- Left ventricular ejection fraction estimated to be 55 %. Mild left ventricular hypertrophy. 24 H urine protein- minimal monitor renal parameters per consultants Subjective ROS Limited/Unobtainable: No Constitutional: Reports: malaise, weakness Objective Objective Last 24 Hour Vital Signs Date Time Temp Pulse Resp B/P (MAP) Pulse Ox O2 Delivery O2 Flow Rate FiO2 05/28/17 08:30 78 120/66 05/28/17 08:00 97.1 78 18 120/66 99 Nasal Cannula 2.0 05/28/17 08:00 79 05/28/17 06:35 Nasal Cannula 2.0 28 05/28/17 06:35 99 Nasal Cannula 2.0 28 05/28/17 04:00 77 05/28/17 04:00 96.7 74 20 140/66 100 Nasal Cannula 2.0 05/28/17 00:00 84 05/28/17 00:00 97.0 82 20 110/56 100 Nasal Cannula 2.0 05/27/17 21:10 88 146/68 05/27/17 20:00 96.1 79 24 146/66 98 Nasal Cannula 2.0 05/27/17 20:00 82 05/27/17 16:00 96.8 75 19 118/58 100 Nasal Cannula 2.0 05/27/17 16:00 78 05/27/17 12:00 97.1 75 17 105/64 100 Nasal Cannula 2.0 05/27/17 12:00 75 Intake and Output 05/28/17 05/29/17 19:00 07:00 Intake Total 180 ml Balance 180 ml Tube Feeding 150 ml Other 30 ml Laboratory Tests 05/28/17 03:25: White Blood Count 9.6, Red Blood Count 2.91L, Hemoglobin 8.5L, Hematocrit 26.0L , Mean Corpuscular Volume 89, Mean Corpuscular Hemoglobin 29.4, Mean Corpuscular Hemoglobin Concent 32.9, Red Cell Distribution Width 17.2H, Platelet Count 201, Mean Platelet Volume 8.7, Neutrophils (%) (Auto) 83.2H, Lymphocytes (%) (Auto) 9.7L, Monocytes (%) (Auto) 5.6, Eosinophils (%) (Auto) 1.1, Basophils (%) (Auto) 0.4, Sodium Level 145, Potassium Level 3.4L, Chloride Level 115H, Carbon Dioxide Level 20L, Anion Gap 10, Blood Urea Nitrogen 20H, Creatinine 2.4H, Estimat Glomerular Filtration Rate , Glucose Level 151H, Calcium Level 8.3L, Immunoglobulin G [Pending], Immunoglobulin G1 [Pending], Immunoglobulin G2 [Pending], Immunoglobulin G3 [Pending], Immunoglobulin G4 [ Pending] Height (Feet): 5 Height (Inches): 8.00 Weight (Pounds): 180 General Appearance: lethargic, confused Respiratory/Chest: decreased breath sounds Abdomen: soft, other - PEG + Objective no other changes YOLANDA NAVA May 28, 2017 11:40
[2017-05-28 12:00] VITALS: BP 119/61
--- NOTE | 2017-05-28 12:35 | General Progress Note ---
Assessment/Plan Assessment/Plan Assessment - dysphagia - s/p GT - CVA - abnormal LFT - ? statin - s/p IVC filter - anemia - OB (+) Stools - Azotemia - rising CRP, ? etiology Recommend - follow LFT on lower dose of statin (or off of statin, if OK with cards) - TF - monitor CBC / transfuse PRN - PPI - will consider MRI Subjective Allergies: Coded Allergies: No Known Allergies (Unverified , 12/28/15) Subjective Above noted minimally interactive s/p PEG Objective Last 24 Hour Vital Signs Date Time Temp Pulse Resp B/P (MAP) Pulse Ox O2 Delivery O2 Flow Rate FiO2 05/28/17 08:30 78 120/66 05/28/17 08:00 97.1 78 18 120/66 99 Nasal Cannula 2.0 05/28/17 08:00 79 05/28/17 06:35 Nasal Cannula 2.0 28 05/28/17 06:35 99 Nasal Cannula 2.0 28 05/28/17 04:00 77 05/28/17 04:00 96.7 74 20 140/66 100 Nasal Cannula 2.0 05/28/17 00:00 84 05/28/17 00:00 97.0 82 20 110/56 100 Nasal Cannula 2.0 05/27/17 21:10 88 146/68 05/27/17 20:00 96.1 79 24 146/66 98 Nasal Cannula 2.0 05/27/17 20:00 82 05/27/17 16:00 96.8 75 19 118/58 100 Nasal Cannula 2.0 05/27/17 16:00 78 Intake and Output 05/28/17 05/29/17 19:00 07:00 Intake Total 180 ml Balance 180 ml Tube Feeding 150 ml Other 30 ml Laboratory Tests 05/28/17 03:25: White Blood Count 9.6, Red Blood Count 2.91L, Hemoglobin 8.5L, Hematocrit 26.0L , Mean Corpuscular Volume 89, Mean Corpuscular Hemoglobin 29.4, Mean Corpuscular Hemoglobin Concent 32.9, Red Cell Distribution Width 17.2H, Platelet Count 201, Mean Platelet Volume 8.7, Neutrophils (%) (Auto) 83.2H, Lymphocytes (%) (Auto) 9.7L, Monocytes (%) (Auto) 5.6, Eosinophils (%) (Auto) 1.1, Basophils (%) (Auto) 0.4, Sodium Level 145, Potassium Level 3.4L, Chloride Level 115H, Carbon Dioxide Level 20L, Anion Gap 10, Blood Urea Nitrogen 20H, Creatinine 2.4H, Estimat Glomerular Filtration Rate , Glucose Level 151H, Calcium Level 8.3L, Immunoglobulin G [Pending], Immunoglobulin G1 [Pending], Immunoglobulin G2 [Pending], Immunoglobulin G3 [Pending], Immunoglobulin G4 [ Pending] Height (Feet): 5 Height (Inches): 8.00 Weight (Pounds): 180 Objective Debilitated AA man NCAT supple CTA RRR soft (+) GT Ext (L) LE skin breakdown Neuro (L) MARLEY Reinoso May 28, 2017 12:35
--- NOTE | 2017-05-28 13:24 | Podiatric Progress Note ---
Assessment/Plan Patient Myke Bhatt is a 76 year old male who was admitted on May 19, 2017 at 20:50 with Problems: Assessment/Plan A/ 1) Severe PAD bilateral 2) DTI left plantar 1st MPJ 3) Blister posterior left and right leg - gangrenous changes 4) Blister anterior left ankle - gangrenous 5) DVT P/ 1) Cont current wound care as ordered 2) Arterial ultrasound reviewed. Consult Dr Castelan for vascular consult 3) Cont offloadiing/low air mattress 4) Will follow Subjective Allergies: Coded Allergies: No Known Allergies (Unverified , 12/28/15) Subjective Patient resting comfortably. Family at bedside. He has no complaints of pain Objective Exam Last 24 Hour Vital Signs Date Time Temp Pulse Resp B/P (MAP) Pulse Ox O2 Delivery O2 Flow Rate FiO2 05/28/17 12:00 97.0 72 18 119/61 97 Nasal Cannula 2.0 05/28/17 12:00 97.0 72 18 119/61 97 Nasal Cannula 05/28/17 08:30 78 120/66 05/28/17 08:00 97.1 78 18 120/66 99 Nasal Cannula 2.0 05/28/17 08:00 79 05/28/17 06:35 Nasal Cannula 2.0 28 05/28/17 06:35 99 Nasal Cannula 2.0 28 05/28/17 04:00 77 05/28/17 04:00 96.7 74 20 140/66 100 Nasal Cannula 2.0 05/28/17 00:00 84 05/28/17 00:00 97.0 82 20 110/56 100 Nasal Cannula 2.0 05/27/17 21:10 88 146/68 05/27/17 20:00 96.1 79 24 146/66 98 Nasal Cannula 2.0 05/27/17 20:00 82 05/27/17 16:00 96.8 75 19 118/58 100 Nasal Cannula 2.0 05/27/17 16:00 78 Laboratory Tests Test 05/28/17 03:25 White Blood Count 9.6 K/UL (4.8-10.8) Red Blood Count 2.91 M/UL (4.70-6.10) L Hemoglobin 8.5 G/DL (14.2-18.0) L Hematocrit 26.0 % (42.0-52.0) L Mean Corpuscular Volume 89 FL (80-99) Mean Corpuscular Hemoglobin 29.4 PG (27.0-31.0) Mean Corpuscular Hemoglobin Concent 32.9 G/DL (32.0-36.0) Red Cell Distribution Width 17.2 % (11.6-14.8) H Platelet Count 201 K/UL (150-450) Mean Platelet Volume 8.7 FL (6.5-10.1) Neutrophils (%) (Auto) 83.2 % (45.0-75.0) H Lymphocytes (%) (Auto) 9.7 % (20.0-45.0) L Monocytes (%) (Auto) 5.6 % (1.0-10.0) Eosinophils (%) (Auto) 1.1 % (0.0-3.0) Basophils (%) (Auto) 0.4 % (0.0-2.0) Sodium Level 145 MMOL/L (136-145) Potassium Level 3.4 MMOL/L (3.5-5.1) L Chloride Level 115 MMOL/L (98-107) H Carbon Dioxide Level 20 MMOL/L (21-32) L Anion Gap 10 mmol/L (5-15) Blood Urea Nitrogen 20 mg/dL (7-18) H Creatinine 2.4 MG/DL (0.55-1.30) H Estimat Glomerular Filtration Rate mL/min (>60) Glucose Level 151 MG/DL (74-106) H Calcium Level 8.3 MG/DL (8.5-10.1) L Immunoglobulin G Pending Immunoglobulin G1 Pending Immunoglobulin G2 Pending Immunoglobulin G3 Pending Immunoglobulin G4 Pending Microbiology Date/Time Source Procedure Growth Status 05/24/17 19:05 Blood Blood Culture - Preliminary NO GROWTH AFTER 72 HOURS Resulted 05/21/17 15:20 Sputum Induced Gram Stain - Final Complete 05/21/17 15:20 Sputum Culture - Final Capri Albicans Usual Upper Respiratory Ade Complete 05/20/17 00:10 Urine,Clean Catch Urine Culture - Final Enterococcus Faecalis Complete 05/19/17 21:39 Rectum VRE Culture - Final NO VANCOMYCIN RESISTANT ENTEROCOCCUS ... Complete Dermatological Wound Assessment : Exudate Amount: None Dermatological Narrative Necrosis of bilateral legs noted. No signs of acute infection Gray D[place] DPJake May 28, 2017 13:24
[2017-05-28] MEDS ORDERED: Iron Sucrose 200 MG in NS 110 ML IV ONE (14:00)
[2017-05-28] MEDS: Amoxicillin 250mg/5ml susp 150ml GT SCH ×2 (14:06→21:25)
--- NOTE | 2017-05-28 15:19 | Infectious Diseases Prog Note ---
Assessment/Plan Assessment/Plan ASSESSMENT: Blood Cx : CoNS 07/14 Contaminant - repeat BCx NGTD Sepsis, SP Leukocytosis - resolved, afebrile ( NSTEMI, DVT contributing ) Probable Pna - SCx: Nl Ade and Capri : colonizer CT: Bilateral lower lobe and posterior right middle lobe pulmonary groundglass opacity and dense consolidation -CXR : Basilar residual opacities possibly scarring or atelectasis. Doubt CHF Probable urinary tract infection/pyuria - UCx: enterococcus -worsening pyuria on repeat u/a Lactic acidosis, SP Mild elevation of AST, and Alk Ph Hepatitis panel :neg for hepatitis B/C US of abd : Gallbladder sludge and possible small stones. Negative for dilated ducts NSTEMI Acute LLE DVT SP IVC filter 05/26 Acute renal insufficiency, superimposed on chronic kidney disease Anemia, severe DM2 - HbA1c 10.5% NKDA Full Code PLAN: . cont Amoxicillin d# 6 / 14 ( 05/27 SP finishes Cefepime d # 7 ) ( 05/25 SP IV Vanco d# 12 ) ( 05/21 SP IV Rocephin day #3 ) f/u final cultures Monitor CBC, temperatures Monitor BMP care was DW family and RN Subjective Allergies: Coded Allergies: No Known Allergies (Unverified , 12/28/15) Subjective comfortable Objective Vital Signs Last 24 Hour Vital Signs Date Time Temp Pulse Resp B/P (MAP) Pulse Ox O2 Delivery O2 Flow Rate FiO2 05/28/17 12:00 97.0 72 18 119/61 97 Nasal Cannula 2.0 05/28/17 12:00 97.0 72 18 119/61 97 Nasal Cannula 05/28/17 12:00 72 05/28/17 08:30 78 120/66 05/28/17 08:00 97.1 78 18 120/66 99 Nasal Cannula 2.0 05/28/17 08:00 79 05/28/17 06:35 Nasal Cannula 2.0 28 05/28/17 06:35 99 Nasal Cannula 2.0 28 05/28/17 04:00 77 05/28/17 04:00 96.7 74 20 140/66 100 Nasal Cannula 2.0 05/28/17 00:00 84 05/28/17 00:00 97.0 82 20 110/56 100 Nasal Cannula 2.0 05/27/17 21:10 88 146/68 05/27/17 20:00 96.1 79 24 146/66 98 Nasal Cannula 2.0 05/27/17 20:00 82 05/27/17 16:00 96.8 75 19 118/58 100 Nasal Cannula 2.0 05/27/17 16:00 78 Height (Feet): 5 Height (Inches): 8.00 Weight (Pounds): 180 HEENT: mucous membranes moist Respiratory/Chest: no respiratory distress Cardiovascular: regularly irregular Abdomen: no organomegaly Laboratory Tests Test 05/28/17 03:25 White Blood Count 9.6 K/UL (4.8-10.8) Red Blood Count 2.91 M/UL (4.70-6.10) L Hemoglobin 8.5 G/DL (14.2-18.0) L Hematocrit 26.0 % (42.0-52.0) L Mean Corpuscular Volume 89 FL (80-99) Mean Corpuscular Hemoglobin 29.4 PG (27.0-31.0) Mean Corpuscular Hemoglobin Concent 32.9 G/DL (32.0-36.0) Red Cell Distribution Width 17.2 % (11.6-14.8) H Platelet Count 201 K/UL (150-450) Mean Platelet Volume 8.7 FL (6.5-10.1) Neutrophils (%) (Auto) 83.2 % (45.0-75.0) H Lymphocytes (%) (Auto) 9.7 % (20.0-45.0) L Monocytes (%) (Auto) 5.6 % (1.0-10.0) Eosinophils (%) (Auto) 1.1 % (0.0-3.0) Basophils (%) (Auto) 0.4 % (0.0-2.0) Sodium Level 145 MMOL/L (136-145) Potassium Level 3.4 MMOL/L (3.5-5.1) L Chloride Level 115 MMOL/L (98-107) H Carbon Dioxide Level 20 MMOL/L (21-32) L Anion Gap 10 mmol/L (5-15) Blood Urea Nitrogen 20 mg/dL (7-18) H Creatinine 2.4 MG/DL (0.55-1.30) H Estimat Glomerular Filtration Rate mL/min (>60) Glucose Level 151 MG/DL (74-106) H Calcium Level 8.3 MG/DL (8.5-10.1) L Immunoglobulin G Pending Immunoglobulin G1 Pending Immunoglobulin G2 Pending Immunoglobulin G3 Pending Immunoglobulin G4 Pending Current Medications Medications (Trade) Dose Ordered Sig/Altaf Route PRN Reason Start Time Stop Time Status Last Admin Dose Admin Acetaminophen (Tylenol) 650 mg Q4HR PRN GT Mild Pain/Temp > 100.5 05/28/17 02:45 06/27/17 02:44 Albuterol/ Ipratropium (Albuterol/ Ipratropium) 3 ml Q4HRT PRN HHN sob 05/28/17 11:30 06/02/17 11:29 Amoxicillin (Amoxil) 500 mg EVERY 8 HOURS GT 05/28/17 14:00 06/04/17 13:59 05/28/17 14:06 Atorvastatin Calcium (Lipitor) 20 mg BEDTIME GT 05/28/17 21:00 06/27/17 20:59 Clonidine HCl (Catapres) 0.1 mg Q4H PRN GT sbp more than 160 05/28/17 05:45 06/27/17 05:44 Dextrose (Dextrose 50%) STAT PRN IV Hypoglycemia 05/19/17 21:45 06/18/17 21:44 05/26/17 20:45 Epoetin Jax (Procrit (for non ESRD use)) 7,000 units TUE-TUE-TUE SUBQ 05/30/17 21:00 06/29/17 20:59 Finasteride (Proscar) 5 mg BEDTIME ORAL 05/20/17 21:00 06/19/17 20:59 05/27/17 21:10 Insulin Aspart (NovoLOG) EVERY 6 HOURS SUBQ 05/28/17 00:00 06/19/17 06:29 05/28/17 11:57 Insulin Detemir (Levemir) 30 units Q12HR SUBQ 05/26/17 21:00 06/25/17 20:59 05/28/17 08:50 Lansoprazole (Prevacid) 30 mg DAILY GT 05/28/17 09:00 06/27/17 08:59 05/28/17 08:30 Metoprolol Tartrate (Lopressor) 37.5 mg Q12HR GT 05/28/17 09:00 06/27/17 08:59 05/28/17 08:30 Nitroglycerin (Ntg) 0.4 mg Q5M X 3 DOSES PRN SL Prn Chest Pain 05/19/17 21:45 06/18/17 21:44 Ondansetron HCl (Zofran) 4 mg Q6H PRN IVP Nausea & Vomiting 05/19/17 21:45 06/18/17 21:44 Polyethylene Glycol (Miralax) 17 gm HSPRN PRN GT Constipation 05/28/17 02:45 06/27/17 02:44 Risperidone (RisperDAL) 1 mg DAILY PRN GT For Anxiety 05/28/17 02:45 06/27/17 02:44 Tamsulosin HCl (Flomax) 0.4 mg BEDTIME ORAL 05/20/17 21:00 06/19/17 20:59 05/27/17 21:09 Temazepam (Restoril) 15 mg HSPRN PRN GT Insomnia 05/28/17 02:45 06/04/17 02:44 ALEXANDER FRAZIER M.D. May 28, 2017 15:19
[2017-05-28 16:00] VITALS: BP 128/65
--- NOTE | 2017-05-28 18:33 | Cardiology Progress Note ---
Subjective Subjective non verbal does not cooperate Objective Last 24 Hour Vital Signs Date Time Temp Pulse Resp B/P (MAP) Pulse Ox O2 Delivery O2 Flow Rate FiO2 05/28/17 16:00 97.5 71 18 128/65 97 Nasal Cannula 2.0 05/28/17 16:00 73 05/28/17 12:00 97.0 72 18 119/61 97 Nasal Cannula 2.0 05/28/17 12:00 97.0 72 18 119/61 97 Nasal Cannula 05/28/17 12:00 72 05/28/17 08:30 78 120/66 05/28/17 08:00 97.1 78 18 120/66 99 Nasal Cannula 2.0 05/28/17 08:00 79 05/28/17 06:35 Nasal Cannula 2.0 28 05/28/17 06:35 99 Nasal Cannula 2.0 28 05/28/17 04:00 77 05/28/17 04:00 96.7 74 20 140/66 100 Nasal Cannula 2.0 05/28/17 00:00 84 05/28/17 00:00 97.0 82 20 110/56 100 Nasal Cannula 2.0 05/27/17 21:10 88 146/68 05/27/17 20:00 96.1 79 24 146/66 98 Nasal Cannula 2.0 05/27/17 20:00 82 General Appearance: cachetic, lethargic EENT: PERRL/EOMI Neck: no JVD Cardiovascular: normal rate Respiratory/Chest: crackles/rales Abdomen: soft Neurologic: motor weakness - right arm Intake and Output 05/28/17 05/29/17 19:00 07:00 Intake Total 950 ml Balance 950 ml IV Total 120 ml Tube Feeding 500 ml Other 330 ml Laboratory Tests Test 05/28/17 03:25 White Blood Count 9.6 K/UL (4.8-10.8) Red Blood Count 2.91 M/UL (4.70-6.10) L Hemoglobin 8.5 G/DL (14.2-18.0) L Hematocrit 26.0 % (42.0-52.0) L Mean Corpuscular Volume 89 FL (80-99) Mean Corpuscular Hemoglobin 29.4 PG (27.0-31.0) Mean Corpuscular Hemoglobin Concent 32.9 G/DL (32.0-36.0) Red Cell Distribution Width 17.2 % (11.6-14.8) H Platelet Count 201 K/UL (150-450) Mean Platelet Volume 8.7 FL (6.5-10.1) Neutrophils (%) (Auto) 83.2 % (45.0-75.0) H Lymphocytes (%) (Auto) 9.7 % (20.0-45.0) L Monocytes (%) (Auto) 5.6 % (1.0-10.0) Eosinophils (%) (Auto) 1.1 % (0.0-3.0) Basophils (%) (Auto) 0.4 % (0.0-2.0) Sodium Level 145 MMOL/L (136-145) Potassium Level 3.4 MMOL/L (3.5-5.1) L Chloride Level 115 MMOL/L (98-107) H Carbon Dioxide Level 20 MMOL/L (21-32) L Anion Gap 10 mmol/L (5-15) Blood Urea Nitrogen 20 mg/dL (7-18) H Creatinine 2.4 MG/DL (0.55-1.30) H Estimat Glomerular Filtration Rate mL/min (>60) Glucose Level 151 MG/DL (74-106) H Calcium Level 8.3 MG/DL (8.5-10.1) L Immunoglobulin G Pending Immunoglobulin G1 Pending Immunoglobulin G2 Pending Immunoglobulin G3 Pending Immunoglobulin G4 Pending KAIDEN ZAYAS May 28, 2017 18:33
[2017-05-28 20:00] VITALS: BP 142/57
[2017-05-28] MEDS ORDERED: Atorvastatin 20mg tab GT SCH (21:00)
[2017-05-28] MEDS: Tamsulosin 0.4mg cap ORAL SCH (21:22)
--- NOTE | 2017-05-28 21:44 | General Progress Note ---
Assessment/Plan Assessment/Plan ASSESSMENT AND RECOMMENDATIONS: 1. Bilateral deep venous thrombosis. Was on heparin gtt, however anemia continues to persist --> ivc filter has been placed 2. Anemia, secondary to chronic disease. We will obtain TIBC as well as iron level. Ferritin is 177. HH improving 3. Decreased hemoglobin and hematocrit, rule out gastrointestinal bleed --> occult positive. GI following 4. Coagulopathy, potentially secondary to underlying heparin drip. 5. Anemia, secondary to end-stage renal disease. 6. Psychiatric disorder. He has been seen by Psychiatry service. Continue to follow. 7. Malnutrition, peg tube has been placed I appreciate the consultation. Subjective ROS Limited/Unobtainable: Yes Allergies: Coded Allergies: No Known Allergies (Unverified , 12/28/15) Subjective s/p peg placement, NAD Objective Last 24 Hour Vital Signs Date Time Temp Pulse Resp B/P (MAP) Pulse Ox O2 Delivery O2 Flow Rate FiO2 05/28/17 21:34 99 Nasal Cannula 2.0 28 05/28/17 21:34 Nasal Cannula 2.0 28 05/28/17 21:22 78 142/57 05/28/17 20:00 97.0 78 15 142/57 100 Nasal Cannula 3.0 05/28/17 16:00 97.5 71 18 128/65 97 Nasal Cannula 2.0 05/28/17 16:00 73 05/28/17 12:00 97.0 72 18 119/61 97 Nasal Cannula 2.0 05/28/17 12:00 97.0 72 18 119/61 97 Nasal Cannula 05/28/17 12:00 72 05/28/17 08:30 78 120/66 05/28/17 08:00 97.1 78 18 120/66 99 Nasal Cannula 2.0 05/28/17 08:00 79 05/28/17 06:35 Nasal Cannula 2.0 28 05/28/17 06:35 99 Nasal Cannula 2.0 28 05/28/17 04:00 77 05/28/17 04:00 96.7 74 20 140/66 100 Nasal Cannula 2.0 05/28/17 00:00 84 05/28/17 00:00 97.0 82 20 110/56 100 Nasal Cannula 2.0 Intake and Output 05/28/17 05/29/17 19:00 07:00 Intake Total 1150 ml Output Total 300 ml Balance 850 ml Free Water 100 ml IV Total 120 ml Tube Feeding 600 ml Other 330 ml Output Urine Total 300 ml Laboratory Tests 05/28/17 03:25: White Blood Count 9.6, Red Blood Count 2.91L, Hemoglobin 8.5L, Hematocrit 26.0L , Mean Corpuscular Volume 89, Mean Corpuscular Hemoglobin 29.4, Mean Corpuscular Hemoglobin Concent 32.9, Red Cell Distribution Width 17.2H, Platelet Count 201, Mean Platelet Volume 8.7, Neutrophils (%) (Auto) 83.2H, Lymphocytes (%) (Auto) 9.7L, Monocytes (%) (Auto) 5.6, Eosinophils (%) (Auto) 1.1, Basophils (%) (Auto) 0.4, Sodium Level 145, Potassium Level 3.4L, Chloride Level 115H, Carbon Dioxide Level 20L, Anion Gap 10, Blood Urea Nitrogen 20H, Creatinine 2.4H, Estimat Glomerular Filtration Rate , Glucose Level 151H, Calcium Level 8.3L, Immunoglobulin G [Pending], Immunoglobulin G1 [Pending], Immunoglobulin G2 [Pending], Immunoglobulin G3 [Pending], Immunoglobulin G4 [ Pending] Height (Feet): 5 Height (Inches): 8.00 Weight (Pounds): 180 General Appearance: no apparent distress EENT: normal ENT inspection Neck: normal inspection Respiratory/Chest: decreased breath sounds Abdomen: soft Chano Bellamy May 28, 2017 21:44
[2017-05-29] VITALS: BP 139/73
[2017-05-29 04:00] VITALS: BP 147/74
[2017-05-29 04:38] LABS: BASOPHILS % (AUTO) 0.4 % (0.0-2.0); LYMPHOCYTES % (AUTO) 8.1 % (20.0-45.0); MEAN CORPUSCULAR HEMOGLOBIN 28.9 PG (27.0-31.0); MEAN CORPUSCULAR HGB CONC 32.3 G/DL (32.0-36.0); MEAN CORPUSCULAR VOLUME 89 FL (80-99); MEAN PLATELET VOLUME 8.9 FL (6.5-10.1); MONOCYTES % (AUTO) 6.3 % (1.0-10.0); NEUTROPHILS % (AUTO) 84.2 % (45.0-75.0); PLATELET COUNT 246 K/UL (150-450); RED BLOOD COUNT 3.16 M/UL (4.70-6.10); RED CELL DISTRIBUTION WIDTH 18.1 % (11.6-14.8)
[2017-05-29 04:52] LABS: ALANINE AMINOTRANSFERASE 153 U/L (12-78); ALBUMIN/GLOBULIN RATIO 0.3 (1.0-2.7); ANION GAP 10 mmol/L (5-15); ASPARTATE AMINO TRANSFERASE 247 U/L (15-37); CALCIUM 8.7 MG/DL (8.5-10.1); CARBON DIOXIDE 19 MMOL/L (21-32); CHLORIDE 116 MMOL/L (98-107); CREATININE 2.2 MG/DL (0.55-1.30); POTASSIUM 3.6 MMOL/L (3.5-5.1); SODIUM 145 MMOL/L (136-145); TOTAL PROTEIN 6.3 G/DL (6.4-8.2)
[2017-05-29 05:03] LABS: CKMB 5.8 NG/ML (0.0-3.6)
[2017-05-29] MEDS: Amoxicillin 250mg/5ml susp 150ml GT SCH ×3 (05:49→21:24)
[2017-05-29] MEDS: NovoLOG Insulin Flexpen SUBQ SCH ×3 (05:50→17:27)
[2017-05-29 06:30] LABS: BILIRUBIN,DIRECT 0.8 MG/DL (0.0-0.3)
--- NOTE | 2017-05-29 07:38 | General Progress Note ---
Assessment/Plan Problem List: (1) Hypernatremia ICD Codes: E87.0 - Hyperosmolality and hypernatremia SNOMED: 29379423 (2) Diabetes mellitus ICD Codes: E11.9 - Type 2 diabetes mellitus without complications SNOMED: 32642997 (3) Renal failure ICD Codes: N19 - Unspecified kidney failure SNOMED: 32397459 Qualifiers: Qualified Codes: N17.9 - Acute kidney failure, unspecified (4) toxic metabolic encephalopathy, multifactorial Assessment/Plan continue Levemir to 30 units bid continue Novolog coverage Subjective ROS Limited/Unobtainable: Yes Allergies: Coded Allergies: No Known Allergies (Unverified , 12/28/15) Subjective events noted Objective Last 24 Hour Vital Signs Date Time Temp Pulse Resp B/P (MAP) Pulse Ox O2 Delivery O2 Flow Rate FiO2 05/29/17 07:36 Nasal Cannula 2.0 28 05/29/17 07:36 99 Nasal Cannula 2.0 28 05/29/17 04:00 81 05/29/17 04:00 97.9 93 14 147/74 100 Nasal Cannula 3.0 05/29/17 00:00 82 05/29/17 00:00 98.1 81 18 139/73 100 Nasal Cannula 3.0 05/28/17 21:34 99 Nasal Cannula 2.0 28 05/28/17 21:34 Nasal Cannula 2.0 28 05/28/17 21:22 78 142/57 05/28/17 20:00 97.0 78 15 142/57 100 Nasal Cannula 3.0 05/28/17 20:00 80 05/28/17 16:00 97.5 71 18 128/65 97 Nasal Cannula 2.0 05/28/17 16:00 73 05/28/17 12:00 97.0 72 18 119/61 97 Nasal Cannula 2.0 05/28/17 12:00 97.0 72 18 119/61 97 Nasal Cannula 05/28/17 12:00 72 05/28/17 08:30 78 120/66 05/28/17 08:00 97.1 78 18 120/66 99 Nasal Cannula 2.0 05/28/17 08:00 79 Laboratory Tests 05/29/17 03:15: White Blood Count 10.0, Red Blood Count 3.16L, Hemoglobin 9.1L, Hematocrit 28.3L , Mean Corpuscular Volume 89, Mean Corpuscular Hemoglobin 28.9, Mean Corpuscular Hemoglobin Concent 32.3, Red Cell Distribution Width 18.1H, Platelet Count 246, Mean Platelet Volume 8.9, Neutrophils (%) (Auto) 84.2H, Lymphocytes (%) (Auto) 8.1L, Monocytes (%) (Auto) 6.3, Eosinophils (%) (Auto) 1.0, Basophils (%) (Auto) 0.4, Sodium Level 145, Potassium Level 3.6, Chloride Level 116H, Carbon Dioxide Level 19L, Anion Gap 10, Blood Urea Nitrogen 22H, Creatinine 2.2H, Estimat Glomerular Filtration Rate , Glucose Level 116H, Calcium Level 8.7, Total Bilirubin 1.1H, Direct Bilirubin 0.8H, Aspartate Amino Transf (AST/SGOT) 247H, Alanine Aminotransferase (ALT/SGPT) 153H, Alkaline Phosphatase 426H, Total Creatine Kinase 850H, Creatine Kinase MB 5.8H, Creatine Kinase MB Relative Index 0.6, Total Protein 6.3L, Albumin 1.3L, Globulin 5.0, Albumin/Globulin Ratio 0.3L Height (Feet): 5 Height (Inches): 8.00 Weight (Pounds): 205 General Appearance: no apparent distress Neck: normal alignment Cardiovascular: normal rate Respiratory/Chest: lungs clear Abdomen: non tender Pelvis: normal external exam Edema: 1+ Arm (L), 1+ Arm (R), 1+ Leg (L), 1+ Leg (R), 1+ Pedal (L), 1+ Pedal ( R), 1+ Generalized Objective Current Medications Medications (Trade) Dose Ordered Sig/Altaf Route PRN Reason Start Time Stop Time Status Last Admin Dose Admin Acetaminophen (Tylenol) 650 mg Q4HR PRN GT Mild Pain/Temp > 100.5 05/28/17 02:45 06/27/17 02:44 Albuterol/ Ipratropium (Albuterol/ Ipratropium) 3 ml Q4HRT PRN HHN sob 05/28/17 11:30 06/02/17 11:29 Amoxicillin (Amoxil) 500 mg EVERY 8 HOURS GT 05/28/17 14:00 06/04/17 13:59 05/29/17 05:49 Atorvastatin Calcium (Lipitor) 20 mg BEDTIME GT 05/28/17 21:00 06/27/17 20:59 05/28/17 21:25 Clonidine HCl (Catapres) 0.1 mg Q4H PRN GT sbp more than 160 05/28/17 05:45 06/27/17 05:44 Dextrose (Dextrose 50%) STAT PRN IV Hypoglycemia 05/19/17 21:45 06/18/17 21:44 05/26/17 20:45 Epoetin Jax (Procrit (for non ESRD use)) 7,000 units TUE-TUE-TUE SUBQ 05/30/17 21:00 06/29/17 20:59 Finasteride (Proscar) 5 mg BEDTIME ORAL 05/20/17 21:00 06/19/17 20:59 05/28/17 21:22 Insulin Aspart (NovoLOG) EVERY 6 HOURS SUBQ 05/28/17 00:00 06/19/17 06:29 05/29/17 05:50 Insulin Detemir (Levemir) 30 units Q12HR SUBQ 05/26/17 21:00 06/25/17 20:59 05/28/17 21:26 Lansoprazole (Prevacid) 30 mg DAILY GT 05/28/17 09:00 06/27/17 08:59 05/28/17 08:30 Metoprolol Tartrate (Lopressor) 37.5 mg Q12HR GT 05/28/17 09:00 06/27/17 08:59 05/28/17 21:22 Nitroglycerin (Ntg) 0.4 mg Q5M X 3 DOSES PRN SL Prn Chest Pain 05/19/17 21:45 06/18/17 21:44 Ondansetron HCl (Zofran) 4 mg Q6H PRN IVP Nausea & Vomiting 05/19/17 21:45 06/18/17 21:44 Polyethylene Glycol (Miralax) 17 gm HSPRN PRN GT Constipation 05/28/17 02:45 06/27/17 02:44 Risperidone (RisperDAL) 1 mg DAILY PRN GT For Anxiety 05/28/17 02:45 06/27/17 02:44 Tamsulosin HCl (Flomax) 0.4 mg BEDTIME ORAL 05/20/17 21:00 06/19/17 20:59 05/28/17 21:22 Temazepam (Restoril) 15 mg HSPRN PRN GT Insomnia 05/28/17 02:45 06/04/17 02:44 Item Value Date Time Bedside Blood Glucose 120 mg/dl 05/29/17 0600 Bedside Blood Glucose 172 mg/dl H 05/29/17 0000 Bedside Blood Glucose 156 mg/dl H 05/28/17 2126 Bedside Blood Glucose 230 mg/dl H 05/28/17 1745 Bedside Blood Glucose 160 mg/dl H 05/28/17 1157 Bedside Blood Glucose 140 mg/dl H 05/28/17 0850 KVNG EDWARD May 29, 2017 07:38
[2017-05-29 08:00] VITALS: BP 143/78
[2017-05-29] MEDS: Metoprolol 25mg tab GT SCH ×2 (09:00→21:20)
[2017-05-29] MEDS: Levemir Flexpen SUBQ SCH ×2 (09:03→21:23)
--- NOTE | 2017-05-29 10:43 | Pulmonology Progress Note ---
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, dysarthria, vascular dementia Prostate Ca Sacrococcyx decub st 2 POA multiple DTI POA protein calorie malnutrition PLAN OF CARE DEVIKA s/p IVC filter 05/26 initially on heparin gtt but stopped due to acute anemia venous Duplex + acute DVT LLE abx ID follows urine cx + Enterococci, sputum cx + nelly ( contaminant), but CT chest with evidence of infiltrate cardio follows ECHO with EF 555% and RVSP of 32, moderate MR continue ASA, Plavix, HH at baseline, no trend down per cardio not a candidate for invasive cardiac study medical management statin dose decreased due to elevated LFT neuro follows CT head no acute IC pathology, + old lacunar stroke acute encephalopathy multifactorial endo follows BS management with Levemir and SS of insulin, optimize as needed Nephro follows renal US no hydro, but c/w medical renal disease 24 hr urine with minimal protein, thus nephrotic syndrome was ruled out Monitor renal parameters, lytes , replace as needed , replace K today avoid nephrotoxic GI follows Hepatitis panel negative monitor LFT , still elevated abdominal US no dilated ducts Swallow eval with dysphagia s/p PEG 05/27, EGD with + shallow duodenal ulcer GT feeding strict aspiration precautions, monitor tolerance-tolerates abdominal binder Stool [id number] Monitor counts, transfuse prn s/p 3 u PRBC anemia w/up c/w anemia of chronic disease HH remains stable for now GI prophylaxis wound care as per wound nurse recommendations fitness plan coordinator eval appreciated Arterial Duplex BLE as per fitness plan coordinator recommendations transfer to tele case discussed and evaluated by supervising physician Subjective Allergies: Coded Allergies: No Known Allergies (Unverified , 12/28/15) Subjective leukocytosis resolved, afebrile tolerates TF no signs of respiratory distress on O2 via NC Objective Last 24 Hour Vital Signs Date Time Temp Pulse Resp B/P (MAP) Pulse Ox O2 Delivery O2 Flow Rate FiO2 05/29/17 09:00 95 143/82 05/29/17 08:00 98.1 95 20 143/78 97 Room Air 05/29/17 07:36 Nasal Cannula 2.0 28 05/29/17 07:36 99 Nasal Cannula 2.0 28 05/29/17 04:00 81 05/29/17 04:00 97.9 93 14 147/74 100 Nasal Cannula 3.0 05/29/17 00:00 82 05/29/17 00:00 98.1 81 18 139/73 100 Nasal Cannula 3.0 05/28/17 21:34 99 Nasal Cannula 2.0 28 05/28/17 21:34 Nasal Cannula 2.0 28 05/28/17 21:22 78 142/57 05/28/17 20:00 97.0 78 15 142/57 100 Nasal Cannula 3.0 05/28/17 20:00 80 05/28/17 16:00 97.5 71 18 128/65 97 Nasal Cannula 2.0 05/28/17 16:00 73 05/28/17 12:00 97.0 72 18 119/61 97 Nasal Cannula 2.0 05/28/17 12:00 97.0 72 18 119/61 97 Nasal Cannula 05/28/17 12:00 72 Objective General Appearance: no acute distress, other - bedridden AA male, poorly but responsive HEENT: normocephalic, atraumatic, anicteric Respiratory/Chest: lungs clear, no respiratory distress, no accessory muscle use Cardiovascular: normal peripheral pulses, normal rate Abdomen: soft, non tender, non distended Extremities: no edema Neurologic/Psychiatric: abnormal gait, alert, responsive Musculoskeletal: atrophy - BLE Laboratory Tests 05/29/17 03:15: White Blood Count 10.0, Red Blood Count 3.16L, Hemoglobin 9.1L, Hematocrit 28.3L , Mean Corpuscular Volume 89, Mean Corpuscular Hemoglobin 28.9, Mean Corpuscular Hemoglobin Concent 32.3, Red Cell Distribution Width 18.1H, Platelet Count 246, Mean Platelet Volume 8.9, Neutrophils (%) (Auto) 84.2H, Lymphocytes (%) (Auto) 8.1L, Monocytes (%) (Auto) 6.3, Eosinophils (%) (Auto) 1.0, Basophils (%) (Auto) 0.4, Sodium Level 145, Potassium Level 3.6, Chloride Level 116H, Carbon Dioxide Level 19L, Anion Gap 10, Blood Urea Nitrogen 22H, Creatinine 2.2H, Estimat Glomerular Filtration Rate , Glucose Level 116H, Calcium Level 8.7, Total Bilirubin 1.1H, Direct Bilirubin 0.8H, Aspartate Amino Transf (AST/SGOT) 247H, Alanine Aminotransferase (ALT/SGPT) 153H, Alkaline Phosphatase 426H, Total Creatine Kinase 850H, Creatine Kinase MB 5.8H, Creatine Kinase MB Relative Index 0.6, Total Protein 6.3L, Albumin 1.3L, Globulin 5.0, Albumin/Globulin Ratio 0.3L Current Medications Medications (Trade) Dose Ordered Sig/Altaf Route PRN Reason Start Time Stop Time Status Last Admin Dose Admin Acetaminophen (Tylenol) 650 mg Q4HR PRN GT Mild Pain/Temp > 100.5 05/28/17 02:45 06/27/17 02:44 Albuterol/ Ipratropium (Albuterol/ Ipratropium) 3 ml Q4HRT PRN HHN sob 05/28/17 11:30 06/02/17 11:29 Amoxicillin (Amoxil) 500 mg EVERY 8 HOURS GT 05/28/17 14:00 06/04/17 13:59 05/29/17 05:49 Atorvastatin Calcium (Lipitor) 20 mg BEDTIME GT 05/28/17 21:00 06/27/17 20:59 05/28/17 21:25 Clonidine HCl (Catapres) 0.1 mg Q4H PRN GT sbp more than 160 05/28/17 05:45 06/27/17 05:44 Dextrose (Dextrose 50%) STAT PRN IV Hypoglycemia 05/19/17 21:45 06/18/17 21:44 05/26/17 20:45 Epoetin Jax (Procrit (for non ESRD use)) 7,000 units MON-WED-TUE SUBQ 05/30/17 21:00 06/29/17 20:59 Finasteride (Proscar) 5 mg BEDTIME ORAL 05/20/17 21:00 06/19/17 20:59 05/28/17 21:22 Insulin Aspart (NovoLOG) EVERY 6 HOURS SUBQ 05/28/17 00:00 06/19/17 06:29 05/29/17 05:50 Insulin Detemir (Levemir) 30 units Q12HR SUBQ 05/26/17 21:00 06/25/17 20:59 05/29/17 09:03 Lansoprazole (Prevacid) 30 mg DAILY GT 05/28/17 09:00 06/27/17 08:59 05/29/17 08:59 Metoprolol Tartrate (Lopressor) 37.5 mg Q12HR GT 05/28/17 09:00 06/27/17 08:59 05/29/17 09:00 Nitroglycerin (Ntg) 0.4 mg Q5M X 3 DOSES PRN SL Prn Chest Pain 05/19/17 21:45 06/18/17 21:44 Ondansetron HCl (Zofran) 4 mg Q6H PRN IVP Nausea & Vomiting 05/19/17 21:45 06/18/17 21:44 Polyethylene Glycol (Miralax) 17 gm HSPRN PRN GT Constipation 05/28/17 02:45 06/27/17 02:44 Risperidone (RisperDAL) 1 mg DAILY PRN GT For Anxiety 05/28/17 02:45 06/27/17 02:44 Tamsulosin HCl (Flomax) 0.4 mg BEDTIME ORAL 05/20/17 21:00 06/19/17 20:59 05/28/17 21:22 Temazepam (Restoril) 15 mg HSPRN PRN GT Insomnia 05/28/17 02:45 06/04/17 02:44 Cristopher JaureguiMedisys Health NetworkKristina george NP May 29, 2017 10:43
--- NOTE | 2017-05-29 11:55 | Nephrology Progress Note ---
Assessment/Plan Problem List: (1) ATN (acute tubular necrosis) (2) Prostate cancer (3) Anemia Assessment PEG in Acute renal failure cr down to 2.2 Due IVC Filter today chronic underlying renal failure, ? Diabetic Nephropathy Severe Anemia HypoAlbuminemia, r/o Nephrotic syndrom UTI / Sepsis Basal Atelectasis Prostate cancer h/o CVA toxic metabolic encephalopathy VA , Troponin maxed 11.3 now declining Plan Plan: gastric support MONSTER Renal- Negative for hydronephrosis 2 D Echo- Left ventricular ejection fraction estimated to be 55 %. Mild left ventricular hypertrophy. 24 H urine protein- minimal monitor renal parameters per consultants Subjective ROS Limited/Unobtainable: Yes Objective Objective Last 24 Hour Vital Signs Date Time Temp Pulse Resp B/P (MAP) Pulse Ox O2 Delivery O2 Flow Rate FiO2 05/29/17 09:00 95 143/82 05/29/17 08:00 95 05/29/17 08:00 98.1 95 20 143/78 97 Room Air 05/29/17 07:36 Nasal Cannula 2.0 28 05/29/17 07:36 99 Nasal Cannula 2.0 28 05/29/17 04:00 81 05/29/17 04:00 97.9 93 14 147/74 100 Nasal Cannula 3.0 05/29/17 00:00 82 05/29/17 00:00 98.1 81 18 139/73 100 Nasal Cannula 3.0 05/28/17 21:34 99 Nasal Cannula 2.0 28 05/28/17 21:34 Nasal Cannula 2.0 28 05/28/17 21:22 78 142/57 05/28/17 20:00 97.0 78 15 142/57 100 Nasal Cannula 3.0 05/28/17 20:00 80 05/28/17 16:00 97.5 71 18 128/65 97 Nasal Cannula 2.0 05/28/17 16:00 73 05/28/17 12:00 97.0 72 18 119/61 97 Nasal Cannula 2.0 05/28/17 12:00 97.0 72 18 119/61 97 Nasal Cannula 05/28/17 12:00 72 Laboratory Tests 05/29/17 03:15: White Blood Count 10.0, Red Blood Count 3.16L, Hemoglobin 9.1L, Hematocrit 28.3L , Mean Corpuscular Volume 89, Mean Corpuscular Hemoglobin 28.9, Mean Corpuscular Hemoglobin Concent 32.3, Red Cell Distribution Width 18.1H, Platelet Count 246, Mean Platelet Volume 8.9, Neutrophils (%) (Auto) 84.2H, Lymphocytes (%) (Auto) 8.1L, Monocytes (%) (Auto) 6.3, Eosinophils (%) (Auto) 1.0, Basophils (%) (Auto) 0.4, Sodium Level 145, Potassium Level 3.6, Chloride Level 116H, Carbon Dioxide Level 19L, Anion Gap 10, Blood Urea Nitrogen 22H, Creatinine 2.2H, Estimat Glomerular Filtration Rate , Glucose Level 116H, Calcium Level 8.7, Total Bilirubin 1.1H, Direct Bilirubin 0.8H, Aspartate Amino Transf (AST/SGOT) 247H, Alanine Aminotransferase (ALT/SGPT) 153H, Alkaline Phosphatase 426H, Total Creatine Kinase 850H, Creatine Kinase MB 5.8H, Creatine Kinase MB Relative Index 0.6, Total Protein 6.3L, Albumin 1.3L, Globulin 5.0, Albumin/Globulin Ratio 0.3L Height (Feet): 5 Height (Inches): 8.00 Weight (Pounds): 205 General Appearance: no apparent distress, lethargic Cardiovascular: normal rate Respiratory/Chest: decreased breath sounds Abdomen: soft Objective no other changes YOLANDA NAVA May 29, 2017 11:55
--- NOTE | 2017-05-29 11:58 | General Progress Note ---
Assessment/Plan Assessment/Plan Assessment - dysphagia - s/p GT - CVA - abnormal LFT - ? statin, ? other cause - s/p IVC filter - anemia - OB (+) Stools - Azotemia - rising CRP, ? etiology Recommend - Hold statin and other non vital meds - TF - monitor CBC / transfuse PRN - PPI - will order MRI Subjective Allergies: Coded Allergies: No Known Allergies (Unverified , 12/28/15) Subjective Above noted minimally interactive s/p PEG Objective Last 24 Hour Vital Signs Date Time Temp Pulse Resp B/P (MAP) Pulse Ox O2 Delivery O2 Flow Rate FiO2 05/29/17 09:00 95 143/82 05/29/17 08:00 95 05/29/17 08:00 98.1 95 20 143/78 97 Room Air 05/29/17 07:36 Nasal Cannula 2.0 28 05/29/17 07:36 99 Nasal Cannula 2.0 28 05/29/17 04:00 81 05/29/17 04:00 97.9 93 14 147/74 100 Nasal Cannula 3.0 05/29/17 00:00 82 05/29/17 00:00 98.1 81 18 139/73 100 Nasal Cannula 3.0 05/28/17 21:34 99 Nasal Cannula 2.0 28 05/28/17 21:34 Nasal Cannula 2.0 28 05/28/17 21:22 78 142/57 05/28/17 20:00 97.0 78 15 142/57 100 Nasal Cannula 3.0 05/28/17 20:00 80 05/28/17 16:00 97.5 71 18 128/65 97 Nasal Cannula 2.0 05/28/17 16:00 73 05/28/17 12:00 97.0 72 18 119/61 97 Nasal Cannula 2.0 05/28/17 12:00 97.0 72 18 119/61 97 Nasal Cannula 05/28/17 12:00 72 Laboratory Tests 05/29/17 03:15: White Blood Count 10.0, Red Blood Count 3.16L, Hemoglobin 9.1L, Hematocrit 28.3L , Mean Corpuscular Volume 89, Mean Corpuscular Hemoglobin 28.9, Mean Corpuscular Hemoglobin Concent 32.3, Red Cell Distribution Width 18.1H, Platelet Count 246, Mean Platelet Volume 8.9, Neutrophils (%) (Auto) 84.2H, Lymphocytes (%) (Auto) 8.1L, Monocytes (%) (Auto) 6.3, Eosinophils (%) (Auto) 1.0, Basophils (%) (Auto) 0.4, Sodium Level 145, Potassium Level 3.6, Chloride Level 116H, Carbon Dioxide Level 19L, Anion Gap 10, Blood Urea Nitrogen 22H, Creatinine 2.2H, Estimat Glomerular Filtration Rate , Glucose Level 116H, Calcium Level 8.7, Total Bilirubin 1.1H, Direct Bilirubin 0.8H, Aspartate Amino Transf (AST/SGOT) 247H, Alanine Aminotransferase (ALT/SGPT) 153H, Alkaline Phosphatase 426H, Total Creatine Kinase 850H, Creatine Kinase MB 5.8H, Creatine Kinase MB Relative Index 0.6, Total Protein 6.3L, Albumin 1.3L, Globulin 5.0, Albumin/Globulin Ratio 0.3L Height (Feet): 5 Height (Inches): 8.00 Weight (Pounds): 205 Objective Debilitated AA man NCAT supple CTA RRR soft (+) GT Ext (L) LE skin breakdown Neuro (L) zamzam GEORGEMARLEY NICHOLSON May 29, 2017 11:58
--- NOTE | 2017-05-29 15:50 | Cardiology Report ---
APPROVED REPORT EKG Measurement Heart [id number] 150P59 [id number] Normal sinus rhythm Nonspecific T wave abnormality Abnormal ECG
--- NOTE | 2017-05-29 15:59 | Cardiology Report ---
APPROVED REPORT EKG Measurement Heart [id number] NE 148P58 [id number] Sin[address] Nonspecific ST and T wave abnormality Abnormal ECG
[2017-05-29 16:00] VITALS: BP 141/76
--- NOTE | 2017-05-29 16:17 | Cardiology Report ---
APPROVED REPORT EKG Measurement Heart [id number] MI 164P54 [id number] Normal sinus rhythm Inferior infarct, age undetermined Cannot rule out Anterior infarct, age undetermined Abnormal ECG
--- NOTE | 2017-05-29 16:30 | General Progress Note ---
Progress Note Progress Note Patient seen and examined Consult dictated # [id number] AJ HUNG May 29, 2017 16:30
--- NOTE | 2017-05-29 17:21 | Wound Care Consultation ---
Wound Assessment Wound Assessment : Wound Present on Admission: No New Wound: Yes Status Change of Wound: No Wound Location Body Site Modif: mid Wound Location Body Site: other - Sacrococcygeal Wound Type: pressure ulcer Nadira Test: Does not Nadira Pressure Ulcer Stage: Unstageable Wound Thickness: Full Thickness Wound Length: 6.5 Wound Width: 6.5 Wound Depth: utd Percent of Wound [place]/Red: 40 Percent of Wound Bed Yellow/Wh: 30 Percent of Wound Black/Brown: 30 Wound Drainage Description: Serosanguineous Wound Drainage Amount: Moderate Wound Drainage Odor: None/Absent Tissue Surrounding Wound: Macerated Wound General Appearance: Reddened - yellow, Draining Wound Comment #1 Sacrococcygeal scattered stage II pressure ulcer. Despite of all the care and treatment given, unfortunately scattered stage II pressure ulcer Progressed to unstageable pressure ulcer at this time. Will change wound care order to Santyl ointment for enzymatic debridement. Will cont to monitor this Pt. #2 Venous/arterial duplex study Done. Arterial duplex shows Bilateral lower legs with sever ischemia. Bilateral posterior Blisters with gangrenous changes according to MD's notes. Please follow MD's order and recommendations for both lower legs and assess and f/u with MD for any changes. Recommendation -Sacrococcygeal unstageable pressure ulcer Cleanse with saline, pat dry, apply Santyl ointment to wound bed, cover with Biatain silicone drg daily and PRN soiled/dislodged -Local wound per protocol for DTI -Keep clean and dry -Turn and reposition -Low air loss P200 mattress -Optimize nutrition -Offload both heels -Heel protector on both heels -Assess and f/u with MD for any changes ELIAS FLORENCE RN May 29, 2017 17:21
[2017-05-29] MEDS ORDERED: Tubing IV Secondary IV ONE (18:55)
--- NOTE | 2017-05-29 19:03 | Cardiology Progress Note ---
Assessment/Plan Assessment/Plan his Hb stable no new cardiac events Subjective Subjective the patient is non verbal and he does not repond appropriately to questions Objective Last 24 Hour Vital Signs Date Time Temp Pulse Resp B/P (MAP) Pulse Ox O2 Delivery O2 Flow Rate FiO2 05/29/17 16:00 82 05/29/17 16:00 97.9 87 21 141/76 98 Nasal Cannula 05/29/17 12:00 84 05/29/17 09:00 95 143/82 05/29/17 08:00 95 05/29/17 08:00 98.1 95 20 143/78 97 Room Air 05/29/17 07:36 Nasal Cannula 2.0 28 05/29/17 07:36 99 Nasal Cannula 2.0 28 05/29/17 04:00 81 05/29/17 04:00 97.9 93 14 147/74 100 Nasal Cannula 3.0 05/29/17 00:00 82 05/29/17 00:00 98.1 81 18 139/73 100 Nasal Cannula 3.0 05/28/17 21:34 99 Nasal Cannula 2.0 28 05/28/17 21:34 Nasal Cannula 2.0 28 05/28/17 21:22 78 142/57 05/28/17 20:00 97.0 78 15 142/57 100 Nasal Cannula 3.0 05/28/17 20:00 80 General Appearance: lethargic EENT: PERRL/EOMI Neck: supple Rhythm: NSR Cardiovascular: regularly irregular Respiratory/Chest: crackles/rales Abdomen: other - g tube Neurologic: other - hemiplegia Intake and Output 05/29/17 05/30/17 19:00 07:00 Intake Total 560 ml Output Total 800 ml Balance -240 ml Tube Feeding 500 ml Other 60 ml Output Urine Total 800 ml Laboratory Tests Test 05/29/17 03:15 White Blood Count 10.0 K/UL (4.8-10.8) Red Blood Count 3.16 M/UL (4.70-6.10) L Hemoglobin 9.1 G/DL (14.2-18.0) L Hematocrit 28.3 % (42.0-52.0) L Mean Corpuscular Volume 89 FL (80-99) Mean Corpuscular Hemoglobin 28.9 PG (27.0-31.0) Mean Corpuscular Hemoglobin Concent 32.3 G/DL (32.0-36.0) Red Cell Distribution Width 18.1 % (11.6-14.8) H Platelet Count 246 K/UL (150-450) Mean Platelet Volume 8.9 FL (6.5-10.1) Neutrophils (%) (Auto) 84.2 % (45.0-75.0) H Lymphocytes (%) (Auto) 8.1 % (20.0-45.0) L Monocytes (%) (Auto) 6.3 % (1.0-10.0) Eosinophils (%) (Auto) 1.0 % (0.0-3.0) Basophils (%) (Auto) 0.4 % (0.0-2.0) Sodium Level 145 MMOL/L (136-145) Potassium Level 3.6 MMOL/L (3.5-5.1) Chloride Level 116 MMOL/L (98-107) H Carbon Dioxide Level 19 MMOL/L (21-32) L Anion Gap 10 mmol/L (5-15) Blood Urea Nitrogen 22 mg/dL (7-18) H Creatinine 2.2 MG/DL (0.55-1.30) H Estimat Glomerular Filtration Rate mL/min (>60) Glucose Level 116 MG/DL (74-106) H Calcium Level 8.7 MG/DL (8.5-10.1) Total Bilirubin 1.1 MG/DL (0.2-1.0) H Direct Bilirubin 0.8 MG/DL (0.0-0.3) H Aspartate Amino Transf (AST/SGOT) 247 U/L (15-37) H Alanine Aminotransferase (ALT/SGPT) 153 U/L (12-78) H Alkaline Phosphatase 426 U/L (46-116) H Total Creatine Kinase 850 U/L (26-308) H Creatine Kinase MB 5.8 NG/ML (0.0-3.6) H Creatine Kinase MB Relative Index 0.6 Total Protein 6.3 G/DL (6.4-8.2) L Albumin 1.3 G/DL (3.4-5.0) L Globulin 5.0 g/dL Albumin/Globulin Ratio 0.3 (1.0-2.7) KAIDEN TURNER May 29, 2017 19:03
[2017-05-29 21:00] VITALS: BP 149/81
[2017-05-29] MEDS: Tamsulosin 0.4mg cap ORAL SCH (21:20)
--- NOTE | 2017-05-29 22:27 | General Progress Note ---
Assessment/Plan Assessment/Plan ASSESSMENT AND RECOMMENDATIONS: 1. Bilateral deep venous thrombosis. Was on heparin gtt, however anemia continues to persist --> ivc filter has been placed 2. Anemia, secondary to chronic disease. We will obtain TIBC as well as iron level. Ferritin is 177. HH improving 3. Decreased hemoglobin and hematocrit, rule out gastrointestinal bleed --> occult positive. GI following 4. Coagulopathy, potentially secondary to underlying heparin drip. 5. Anemia, secondary to end-stage renal disease. 6. Psychiatric disorder. He has been seen by Psychiatry service. Continue to follow. 7. Malnutrition, peg tube has been placed I appreciate the consultation. Subjective ROS Limited/Unobtainable: Yes Allergies: Coded Allergies: No Known Allergies (Unverified , 12/28/15) Subjective afebrile,no bleeding reported per RN Objective Last 24 Hour Vital Signs Date Time Temp Pulse Resp B/P (MAP) Pulse Ox O2 Delivery O2 Flow Rate FiO2 05/29/17 21:20 90 149/81 05/29/17 21:00 97.9 90 20 149/81 98 Nasal Cannula 2.0 05/29/17 19:30 Nasal Cannula 2.0 28 05/29/17 19:30 98 Nasal Cannula 2.0 28 05/29/17 16:00 82 05/29/17 16:00 97.9 87 21 141/76 98 Nasal Cannula 05/29/17 12:00 84 05/29/17 09:00 95 143/82 05/29/17 08:00 95 05/29/17 08:00 98.1 95 20 143/78 97 Room Air 05/29/17 07:36 Nasal Cannula 2.0 28 05/29/17 07:36 99 Nasal Cannula 2.0 28 05/29/17 04:00 81 05/29/17 04:00 97.9 93 14 147/74 100 Nasal Cannula 3.0 05/29/17 00:00 82 05/29/17 00:00 98.1 81 18 139/73 100 Nasal Cannula 3.0 Intake and Output 05/29/17 05/30/17 19:00 07:00 Intake Total 560 ml Output Total 800 ml Balance -240 ml Tube Feeding 500 ml Other 60 ml Output Urine Total 800 ml Laboratory Tests 05/29/17 03:15: White Blood Count 10.0, Red Blood Count 3.16L, Hemoglobin 9.1L, Hematocrit 28.3L , Mean Corpuscular Volume 89, Mean Corpuscular Hemoglobin 28.9, Mean Corpuscular Hemoglobin Concent 32.3, Red Cell Distribution Width 18.1H, Platelet Count 246, Mean Platelet Volume 8.9, Neutrophils (%) (Auto) 84.2H, Lymphocytes (%) (Auto) 8.1L, Monocytes (%) (Auto) 6.3, Eosinophils (%) (Auto) 1.0, Basophils (%) (Auto) 0.4, Sodium Level 145, Potassium Level 3.6, Chloride Level 116H, Carbon Dioxide Level 19L, Anion Gap 10, Blood Urea Nitrogen 22H, Creatinine 2.2H, Estimat Glomerular Filtration Rate , Glucose Level 116H, Calcium Level 8.7, Total Bilirubin 1.1H, Direct Bilirubin 0.8H, Aspartate Amino Transf (AST/SGOT) 247H, Alanine Aminotransferase (ALT/SGPT) 153H, Alkaline Phosphatase 426H, Total Creatine Kinase 850H, Creatine Kinase MB 5.8H, Creatine Kinase MB Relative Index 0.6, Total Protein 6.3L, Albumin 1.3L, Globulin 5.0, Albumin/Globulin Ratio 0.3L Height (Feet): 5 Height (Inches): 8.00 Weight (Pounds): 205 General Appearance: no apparent distress EENT: normal ENT inspection Neck: normal alignment Respiratory/Chest: decreased breath sounds Abdomen: hypoactive bowel sounds 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
[2017-05-30] VITALS (7 sets, daily range): BP systolic 123–157; BP diastolic 60–86
--- NOTE | 2017-05-30 00:03 | Geriatric Progress Note ---
Subjective Functional Changes: 05/28/17 Geriatric Geriatric Last 24 Hour Vital Signs Date Time Temp Pulse Resp B/P (MAP) Pulse Ox O2 Delivery O2 Flow Rate FiO2 05/29/17 21:20 90 149/81 05/29/17 21:00 97.9 90 20 149/81 98 Nasal Cannula 2.0 05/29/17 20:00 90 05/29/17 19:30 Nasal Cannula 2.0 28 05/29/17 19:30 98 Nasal Cannula 2.0 28 05/29/17 16:00 82 05/29/17 16:00 97.9 87 21 141/76 98 Nasal Cannula 05/29/17 12:00 84 05/29/17 09:00 95 143/82 05/29/17 08:00 95 05/29/17 08:00 98.1 95 20 143/78 97 Room Air 05/29/17 07:36 Nasal Cannula 2.0 28 05/29/17 07:36 99 Nasal Cannula 2.0 28 05/29/17 04:00 81 05/29/17 04:00 97.9 93 14 147/74 100 Nasal Cannula 3.0 Laboratory Tests Test 05/29/17 03:15 White Blood Count 10.0 K/UL (4.8-10.8) Red Blood Count 3.16 M/UL (4.70-6.10) L Hemoglobin 9.1 G/DL (14.2-18.0) L Hematocrit 28.3 % (42.0-52.0) L Mean Corpuscular Volume 89 FL (80-99) Mean Corpuscular Hemoglobin 28.9 PG (27.0-31.0) Mean Corpuscular Hemoglobin Concent 32.3 G/DL (32.0-36.0) Red Cell Distribution Width 18.1 % (11.6-14.8) H Platelet Count 246 K/UL (150-450) Mean Platelet Volume 8.9 FL (6.5-10.1) Neutrophils (%) (Auto) 84.2 % (45.0-75.0) H Lymphocytes (%) (Auto) 8.1 % (20.0-45.0) L Monocytes (%) (Auto) 6.3 % (1.0-10.0) Eosinophils (%) (Auto) 1.0 % (0.0-3.0) Basophils (%) (Auto) 0.4 % (0.0-2.0) Sodium Level 145 MMOL/L (136-145) Potassium Level 3.6 MMOL/L (3.5-5.1) Chloride Level 116 MMOL/L (98-107) H Carbon Dioxide Level 19 MMOL/L (21-32) L Anion Gap 10 mmol/L (5-15) Blood Urea Nitrogen 22 mg/dL (7-18) H Creatinine 2.2 MG/DL (0.55-1.30) H Estimat Glomerular Filtration Rate mL/min (>60) Glucose Level 116 MG/DL (74-106) H Calcium Level 8.7 MG/DL (8.5-10.1) Total Bilirubin 1.1 MG/DL (0.2-1.0) H Direct Bilirubin 0.8 MG/DL (0.0-0.3) H Aspartate Amino Transf (AST/SGOT) 247 U/L (15-37) H Alanine Aminotransferase (ALT/SGPT) 153 U/L (12-78) H Alkaline Phosphatase 426 U/L (46-116) H Total Creatine Kinase 850 U/L (26-308) H Creatine Kinase MB 5.8 NG/ML (0.0-3.6) H Creatine Kinase MB Relative Index 0.6 Total Protein 6.3 G/DL (6.4-8.2) L Albumin 1.3 G/DL (3.4-5.0) L Globulin 5.0 g/dL Albumin/Globulin Ratio 0.3 (1.0-2.7) L Current Medications Medications (Trade) Dose Ordered Sig/Altaf Route PRN Reason Start Time Stop Time Status Last Admin Dose Admin Albuterol/ Ipratropium (Albuterol/ Ipratropium) 3 ml Q4HRT PRN HHN sob 05/28/17 11:30 06/02/17 11:29 Amoxicillin (Amoxil) 500 mg EVERY 8 HOURS GT 05/28/17 14:00 06/04/17 13:59 05/29/17 21:24 Clonidine HCl (Catapres) 0.1 mg Q4H PRN GT sbp more than 160 05/28/17 05:45 06/27/17 05:44 Collagenase (Santyl) 1 applic DAILY TOPIC 05/30/17 09:00 06/29/17 08:59 Dextrose (Dextrose 50%) STAT PRN IV Hypoglycemia 05/19/17 21:45 06/18/17 21:44 05/26/17 20:45 Epoetin Jax (Procrit (for non ESRD use)) 7,000 units MON-WED-TUE SUBQ 05/30/17 21:00 06/29/17 20:59 Insulin Aspart (NovoLOG) EVERY 6 HOURS SUBQ 05/28/17 00:00 06/19/17 06:29 05/29/17 12:06 Insulin Detemir (Levemir) 30 units Q12HR SUBQ 05/26/17 21:00 06/25/17 20:59 05/29/17 21:23 Lansoprazole (Prevacid) 30 mg DAILY GT 05/28/17 09:00 06/27/17 08:59 05/29/17 08:59 Metoprolol Tartrate (Lopressor) 37.5 mg Q12HR GT 05/28/17 09:00 06/27/17 08:59 05/29/17 21:20 Nitroglycerin (Ntg) 0.4 mg Q5M X 3 DOSES PRN SL Prn Chest Pain 05/19/17 21:45 06/18/17 21:44 Ondansetron HCl (Zofran) 4 mg Q6H PRN IVP Nausea & Vomiting 05/19/17 21:45 06/18/17 21:44 Polyethylene Glycol (Miralax) 17 gm HSPRN PRN GT Constipation 05/28/17 02:45 06/27/17 02:44 Risperidone (RisperDAL) 1 mg DAILY PRN GT For Anxiety 05/28/17 02:45 06/27/17 02:44 Silver Sulfadiazine (Silvadene Cream 25gm) 1 applic DAILY TOPIC 05/29/17 21:45 06/28/17 21:44 05/29/17 22:31 Tamsulosin HCl (Flomax) 0.4 mg BEDTIME ORAL 05/20/17 21:00 06/19/17 20:59 05/29/17 21:20 Temazepam (Restoril) 15 mg HSPRN PRN GT Insomnia 05/28/17 02:45 06/04/17 02:44 05/29/17 21:28 Height (Feet): 5 Height (Inches): 8.00 Weight (Pounds): 205 Madi Hansen M.D. May 30, 2017 00:03
--- NOTE | 2017-05-30 00:03 | General Progress Note ---
Assessment/Plan Assessment/Plan encephalopathy cont current meds Subjective Date patient seen: May 29, 2017 Allergies: Coded Allergies: No Known Allergies (Unverified , 12/28/15) Subjective confused periods of agitation more alert Objective Last 24 Hour Vital Signs Date Time Temp Pulse Resp B/P (MAP) Pulse Ox O2 Delivery O2 Flow Rate FiO2 05/29/17 21:20 90 149/81 05/29/17 21:00 97.9 90 20 149/81 98 Nasal Cannula 2.0 05/29/17 20:00 90 05/29/17 19:30 Nasal Cannula 2.0 28 05/29/17 19:30 98 Nasal Cannula 2.0 28 05/29/17 16:00 82 05/29/17 16:00 97.9 87 21 141/76 98 Nasal Cannula 05/29/17 12:00 84 05/29/17 09:00 95 143/82 05/29/17 08:00 95 05/29/17 08:00 98.1 95 20 143/78 97 Room Air 05/29/17 07:36 Nasal Cannula 2.0 28 05/29/17 07:36 99 Nasal Cannula 2.0 28 05/29/17 04:00 81 05/29/17 04:00 97.9 93 14 147/74 100 Nasal Cannula 3.0 Laboratory Tests 05/29/17 03:15: White Blood Count 10.0, Red Blood Count 3.16L, Hemoglobin 9.1L, Hematocrit 28.3L , Mean Corpuscular Volume 89, Mean Corpuscular Hemoglobin 28.9, Mean Corpuscular Hemoglobin Concent 32.3, Red Cell Distribution Width 18.1H, Platelet Count 246, Mean Platelet Volume 8.9, Neutrophils (%) (Auto) 84.2H, Lymphocytes (%) (Auto) 8.1L, Monocytes (%) (Auto) 6.3, Eosinophils (%) (Auto) 1.0, Basophils (%) (Auto) 0.4, Sodium Level 145, Potassium Level 3.6, Chloride Level 116H, Carbon Dioxide Level 19L, Anion Gap 10, Blood Urea Nitrogen 22H, Creatinine 2.2H, Estimat Glomerular Filtration Rate , Glucose Level 116H, Calcium Level 8.7, Total Bilirubin 1.1H, Direct Bilirubin 0.8H, Aspartate Amino Transf (AST/SGOT) 247H, Alanine Aminotransferase (ALT/SGPT) 153H, Alkaline Phosphatase 426H, Total Creatine Kinase 850H, Creatine Kinase MB 5.8H, Creatine Kinase MB Relative Index 0.6, Total Protein 6.3L, Albumin 1.3L, Globulin 5.0, Albumin/Globulin Ratio 0.3L Height (Feet): 5 Height (Inches): 8.00 Weight (Pounds): 205 Madi Hnasen M.D. May 30, 2017 00:03
--- NOTE | 2017-05-30 00:45 | Consultation ---
DATE OF CONSULTATION: 05/29/2017 VASCULAR SURGERY CONSULTATION CONSULTING PHYSICIAN: Jung Dominguez M.D. REFERRING PHYSICIAN: 1. Yoshi Sandoval M.D. 2. Gray Denton D.P.M. REASON FOR EVALUATION: Leg gangrene. HISTORY OF PRESENT ILLNESS: This is a 76-year-old male, who is status post stroke with left-sided hemiparesis, myocardial infarction, troponin of 11, has renal failure, had a feeding gastrostomy tube, and urinary tract infection, on antibiotics. The patient was found to have worsening leg gangrene in the left posterior calf down to the bone with bilateral foot and calf wound necrosis. The patient also has severe arterial occlusive disease and had extensive left leg deep venous thrombosis, underwent an IVC filter by interventional radiologist. Vascular Surgery is consulted for further evaluation. The patient is currently awake, but has aphasia. All the history was obtained from the medical records and his . PAST MEDICAL HISTORY: Coronary artery disease, stroke, hypertension, diabetes mellitus, heavy former smoker two packs a day, status post feeding gastrostomy tube, myocardial infarction, anemia, and IVC filter. MEDICATIONS: See attached MAR. ALLERGIES: No known drug allergies. SOCIAL HISTORY: Former heavy smoker. [place] resident. Denies any history of alcohol or drug use. FAMILY HISTORY: Unremarkable. REVIEW OF SYSTEMS: Unobtainable. The patient is aphasic and confused. PHYSICAL EXAMINATION: GENERAL: The patient has aphasia, but awake, poorly responsive. Has dense left-sided hemiparesis. Bilateral radial pulses. LUNGS: Clear to auscultation. HEART: Regular. ABDOMEN: Soft and nontender. EXTREMITIES: He has palpable femoral pulses. Absent popliteal and pedal pulses bilaterally. He has extensive left calf necrosis and gangrene with left first metatarsophalangeal joint wound necrosis. He has right posterior calf necrosis. He has absent popliteal and pedal pulses bilaterally. LABORATORY AND DIAGNOSTIC DATA: Revealed a WBC of 10.0, hemoglobin 9.1, and platelet count 246. Sodium 145, potassium 3.6, BUN 22, creatinine 2.2, and glucose is 116. Troponin most recent is 0.6. Duplex revealed extensive left leg deep venous thrombosis and severe arterial occlusive disease. IMPRESSION: 1. Extensive left posterior calf necrosis and gangrene down to the bone with right posterior calf wound necrosis and plantar left foot wound necrosis. 2. Severe multilevel arterial occlusive calcific disease with left leg extensive deep venous thrombosis. 3. Status post inferior vena cava filter placement by Interventional Radiology. 4. Anemia with history of feeding gastrostomy tube. 5. Stroke with left-sided hemiparesis. 6. Diabetes mellitus. 7. Hypertension. 8. Former heavy smoker. PLAN AND RECOMMENDATIONS: 1. Medical optimization progress. 2. Antibiotics per Infectious Disease Service. 3. Continue decubitus precautions and optimize nutrition. 4. The patient will require selective leg angiography to assess the perfusion and possible percutaneous revascularization. 5. We will obtain imaging on the left leg if he has extensive necrosis and wound down to the bone confirmed, will very likely require left leg amputation. The above was discussed at length with the patient's and Dr. Sandoval and Dr. Denton. Jung Castelan M.D. DR: VIC JOB#: [id number] CC: Jung aCstelan M.D.; Fax#: [phone] YOSHI SANDOVAL M.D. ; FAX#: [phone] Shabnam GOYALPCindy; FAX#: [phone]
[2017-05-30 05:07] LABS: BASOPHILS % (AUTO) 0.4 % (0.0-2.0); EOSINOPHILS % (AUTO) 1.2 % (0.0-3.0); LYMPHOCYTES % (AUTO) 16.6 % (20.0-45.0); MEAN CORPUSCULAR HEMOGLOBIN 28.9 PG (27.0-31.0); MEAN CORPUSCULAR HGB CONC 32.3 G/DL (32.0-36.0); MEAN CORPUSCULAR VOLUME 89 FL (80-99); NEUTROPHILS % (AUTO) 73.7 % (45.0-75.0); PLATELET COUNT 259 K/UL (150-450); RED BLOOD COUNT 3.06 M/UL (4.70-6.10); RED CELL DISTRIBUTION WIDTH 17.7 % (11.6-14.8); WHITE BLOOD COUNT 10.1 K/UL (4.8-10.8)
[2017-05-30 05:47] LABS: ALANINE AMINOTRANSFERASE 130 U/L (12-78); ALBUMIN/GLOBULIN RATIO 0.2 (1.0-2.7); ANION GAP 9 mmol/L (5-15); ASPARTATE AMINO TRANSFERASE 190 U/L (15-37); CALCIUM 8.8 MG/DL (8.5-10.1); CARBON DIOXIDE 20 MMOL/L (21-32); CHLORIDE 117 MMOL/L (98-107); CREATININE 2.1 MG/DL (0.55-1.30); POTASSIUM 3.8 MMOL/L (3.5-5.1); SODIUM 146 MMOL/L (136-145); TOTAL PROTEIN 6.5 G/DL (6.4-8.2)
[2017-05-30] MEDS: NovoLOG Insulin Flexpen SUBQ SCH ×4 (06:00→18:00)
[2017-05-30] MEDS: Amoxicillin 250mg/5ml susp 150ml GT SCH ×3 (06:34→22:47)
--- NOTE | 2017-05-30 07:45 | General Progress Note ---
Assessment/Plan Problem List: (1) Hypernatremia ICD Codes: E87.0 - Hyperosmolality and hypernatremia SNOMED: 01735896 (2) Diabetes mellitus ICD Codes: E11.9 - Type 2 diabetes mellitus without complications SNOMED: 32385678 (3) Renal failure ICD Codes: N19 - Unspecified kidney failure SNOMED: 67544699 Qualifiers: Qualified Codes: N17.9 - Acute kidney failure, unspecified (4) toxic metabolic encephalopathy, multifactorial Assessment/Plan continue Levemir 30 units bid continue Novolog coverage Subjective ROS Limited/Unobtainable: Yes Allergies: Coded Allergies: No Known Allergies (Unverified , 12/28/15) Subjective events noted Objective Last 24 Hour Vital Signs Date Time Temp Pulse Resp B/P (MAP) Pulse Ox O2 Delivery O2 Flow Rate FiO2 05/30/17 04:00 81 05/30/17 04:00 97.6 76 20 140/77 99 Nasal Cannula 2.0 05/30/17 00:00 98.0 77 20 123/61 98 Nasal Cannula 2.0 05/30/17 00:00 81 05/29/17 21:20 90 149/81 05/29/17 21:00 97.9 90 20 149/81 98 Nasal Cannula 2.0 05/29/17 20:00 90 05/29/17 19:30 Nasal Cannula 2.0 28 05/29/17 19:30 98 Nasal Cannula 2.0 28 05/29/17 16:00 82 05/29/17 16:00 97.9 87 21 141/76 98 Nasal Cannula 05/29/17 12:00 84 05/29/17 09:00 95 143/82 05/29/17 08:00 95 05/29/17 08:00 98.1 95 20 143/78 97 Room Air Laboratory Tests 05/30/17 03:15: White Blood Count 10.1, Red Blood Count 3.06L, Hemoglobin 8.8L, Hematocrit 27.4L , Mean Corpuscular Volume 89, Mean Corpuscular Hemoglobin 28.9, Mean Corpuscular Hemoglobin Concent 32.3, Red Cell Distribution Width 17.7H, Platelet Count 259, Mean Platelet Volume 8.0, Neutrophils (%) (Auto) 73.7, Lymphocytes (%) (Auto) 16.6L, Monocytes (%) (Auto) 8.0, Eosinophils (%) (Auto) 1.2, Basophils (%) (Auto) 0.4, Sodium Level 146H, Potassium Level 3.8, Chloride Level 117H, Carbon Dioxide Level 20L, Anion Gap 9, Blood Urea Nitrogen 21H, Creatinine 2.1H, Estimat Glomerular Filtration Rate , Glucose Level 60L, Calcium Level 8.8, Total Bilirubin 0.7, Aspartate Amino Transf (AST/SGOT) 190H, Alanine Aminotransferase (ALT/SGPT) 130H, Alkaline Phosphatase 422H, Total Protein 6.5, Albumin 1.3L, Globulin 5.2, Albumin/Globulin Ratio 0.2L Height (Feet): 5 Height (Inches): 8.00 Weight (Pounds): 207 General Appearance: no apparent distress EENT: pale conjunctivae Cardiovascular: normal rate Respiratory/Chest: lungs clear Abdomen: normal bowel sounds Pelvis: normal external exam Edema: no edema noted Arm (L), no edema noted Arm (R), no edema noted Leg (L), no edema noted Leg (R), no edema noted Pedal (L), no edema noted Pedal (R), no edema noted Generalized Objective Current Medications Medications (Trade) Dose Ordered Sig/Altaf Route PRN Reason Start Time Stop Time Status Last Admin Dose Admin Albuterol/ Ipratropium (Albuterol/ Ipratropium) 3 ml Q4HRT PRN HHN sob 05/28/17 11:30 06/02/17 11:29 Amoxicillin (Amoxil) 500 mg EVERY 8 HOURS GT 05/28/17 14:00 06/04/17 13:59 05/30/17 06:34 Clonidine HCl (Catapres) 0.1 mg Q4H PRN GT sbp more than 160 05/28/17 05:45 06/27/17 05:44 Collagenase (Santyl) 1 applic DAILY TOPIC 05/30/17 09:00 06/29/17 08:59 Dextrose 1,000 ml @ 75 mls/hr [id number] IV 05/30/17 08:00 06/29/17 07:59 Dextrose (Dextrose 50%) STAT PRN IV Hypoglycemia 05/19/17 21:45 06/18/17 21:44 05/30/17 05:58 Epoetin Jax (Procrit (for non ESRD use)) 7,000 units MON-WED-FRI SUBQ 05/30/17 21:00 06/29/17 20:59 Insulin Aspart (NovoLOG) EVERY 6 HOURS SUBQ 05/28/17 00:00 06/19/17 06:29 05/29/17 12:06 Insulin Detemir (Levemir) 30 units Q12HR SUBQ 05/26/17 21:00 06/25/17 20:59 05/29/17 21:23 Lansoprazole (Prevacid) 30 mg DAILY GT 05/28/17 09:00 06/27/17 08:59 05/29/17 08:59 Metoprolol Tartrate (Lopressor) 37.5 mg Q12HR GT 05/28/17 09:00 06/27/17 08:59 05/29/17 21:20 Nitroglycerin (Ntg) 0.4 mg Q5M X 3 DOSES PRN SL Prn Chest Pain 05/19/17 21:45 06/18/17 21:44 Ondansetron HCl (Zofran) 4 mg Q6H PRN IVP Nausea & Vomiting 05/19/17 21:45 06/18/17 21:44 Polyethylene Glycol (Miralax) 17 gm HSPRN PRN GT Constipation 05/28/17 02:45 06/27/17 02:44 Risperidone (RisperDAL) 1 mg DAILY PRN GT For Anxiety 05/28/17 02:45 06/27/17 02:44 Silver Sulfadiazine (Silvadene Cream 25gm) 1 applic DAILY TOPIC 05/29/17 21:45 06/28/17 21:44 05/29/17 22:31 Tamsulosin HCl (Flomax) 0.4 mg BEDTIME ORAL 05/20/17 21:00 06/19/17 20:59 05/29/17 21:20 Temazepam (Restoril) 15 mg HSPRN PRN GT Insomnia 05/28/17 02:45 06/04/17 02:44 05/29/17 21:28 Item Value Date Time Bedside Blood Glucose 132 mg/dl H 05/30/17 0630 Bedside Blood Glucose 97 mg/dl 05/30/17 0000 Bedside Blood Glucose 101 mg/dl 05/29/17 2123 Bedside Blood Glucose 91 mg/dl 05/29/17 1732 Bedside Blood Glucose 118 mg/dl 05/29/17 1206 Bedside Blood Glucose 132 mg/dl H 05/29/17 0903 Bedside Blood Glucose 120 mg/dl 05/29/17 0600 KVNG EDWARD May 30, 2017 07:45
[2017-05-30] MEDS: Levemir Flexpen SUBQ SCH ×2 (07:56→21:07)
[2017-05-30] MEDS: Metoprolol 25mg tab GT SCH (08:30)
--- NOTE | 2017-05-30 09:18 | Nephrology Progress Note ---
Assessment/Plan Problem List: (1) ATN (acute tubular necrosis) (2) Prostate cancer (3) Anemia Assessment PEG in- Acute renal failure cr down to 2.1 Due IVC Filter today chronic underlying renal failure, ? Diabetic Nephropathy Severe Anemia HypoAlbuminemia, r/o Nephrotic syndrom UTI / Sepsis Basal Atelectasis Prostate cancer h/o CVA toxic metabolic encephalopathy [place] , Troponin maxed 11.3 now declining Plan Plan: gastric support MONSTER Renal- Negative for hydronephrosis 2 D Echo- Left ventricular ejection fraction estimated to be 55 %. Mild left ventricular hypertrophy. 24 H urine protein- minimal monitor renal parameters per consultants Subjective ROS Limited/Unobtainable: No Constitutional: Reports: malaise, weakness Objective Objective Last 24 Hour Vital Signs Date Time Temp Pulse Resp B/P (MAP) Pulse Ox O2 Delivery O2 Flow Rate FiO2 05/30/17 08:30 74 132/69 05/30/17 08:00 96.8 74 21 132/69 100 Nasal Cannula 2.0 05/30/17 07:44 97.9 75 19 140/77 98 Nasal Cannula 2.0 05/30/17 07:44 81 05/30/17 04:00 81 05/30/17 04:00 97.6 76 20 140/77 99 Nasal Cannula 2.0 05/30/17 00:00 98.0 77 20 123/61 98 Nasal Cannula 2.0 05/30/17 00:00 81 05/29/17 21:20 90 149/81 05/29/17 21:00 97.9 90 20 149/81 98 Nasal Cannula 2.0 05/29/17 20:00 90 05/29/17 19:30 Nasal Cannula 2.0 28 05/29/17 19:30 98 Nasal Cannula 2.0 28 05/29/17 16:00 82 05/29/17 16:00 97.9 87 21 141/76 98 Nasal Cannula 05/29/17 12:00 84 Intake and Output 05/30/17 05/31/17 19:00 07:00 Intake Total 50 ml Balance 50 ml Free Water 50 ml Laboratory Tests 05/30/17 03:15: White Blood Count 10.1, Red Blood Count 3.06L, Hemoglobin 8.8L, Hematocrit 27.4L , Mean Corpuscular Volume 89, Mean Corpuscular Hemoglobin 28.9, Mean Corpuscular Hemoglobin Concent 32.3, Red Cell Distribution Width 17.7H, Platelet Count 259, Mean Platelet Volume 8.0, Neutrophils (%) (Auto) 73.7, Lymphocytes (%) (Auto) 16.6L, Monocytes (%) (Auto) 8.0, Eosinophils (%) (Auto) 1.2, Basophils (%) (Auto) 0.4, Sodium Level 146H, Potassium Level 3.8, Chloride Level 117H, Carbon Dioxide Level 20L, Anion Gap 9, Blood Urea Nitrogen 21H, Creatinine 2.1H, Estimat Glomerular Filtration Rate , Glucose Level 60L, Calcium Level 8.8, Total Bilirubin 0.7, Aspartate Amino Transf (AST/SGOT) 190H, Alanine Aminotransferase (ALT/SGPT) 130H, Alkaline Phosphatase 422H, Total Protein 6.5, Albumin 1.3L, Globulin 5.2, Albumin/Globulin Ratio 0.2L Height (Feet): 5 Height (Inches): 8.00 Weight (Pounds): 207 General Appearance: no apparent distress, lethargic Respiratory/Chest: decreased breath sounds Abdomen: soft Objective no other changes YOLANDA NAVA May 30, 2017 09:18
[2017-05-30] MEDS ORDERED: Nitroglycerin Subl 0.4mg tab SL PRN (09:30)
--- NOTE | 2017-05-30 10:13 | Infectious Diseases Prog Note ---
Assessment/Plan Assessment/Plan Blood Cx : CoNS 07/14 Contaminant - repeat BCx Neg Sepsis, SP Leukocytosis - resolved, afebrile ( NSTEMI, DVT contributing ) Probable Pna - SCx: Nl Ade and Capri : colonizer CT: Bilateral lower lobe and posterior right middle lobe pulmonary groundglass opacity and dense consolidation -CXR : Basilar residual opacities possibly scarring or atelectasis. Doubt CHF Probable urinary tract infection/pyuria - UCx: enterococcus fecalis (S Vanco, amp, nitrofurantoin) -worsening pyuria on repeat u/a Lactic acidosis, SP Mild elevation of AST, and Alk Ph Hepatitis panel :neg for hepatitis B/C US of abd : Gallbladder sludge and possible small stones. Negative for dilated ducts NSTEMI Acute LLE DVT SP IVC filter 05/26 Acute renal insufficiency, superimposed on chronic kidney disease Anemia, severe DM2 - HbA1c 10.5% NKDA Full Code PLAN: . cont Amoxicillin d# 8 / 14 ( 05/27 SP finishes Cefepime d # 7 ) ( 05/25 SP IV Vanco d# 12 ) ( 05/21 SP IV Rocephin day #3 ) f/u final cultures Monitor CBC, temperatures Monitor BMP care was DW family and RN Subjective Allergies: Coded Allergies: No Known Allergies (Unverified , 12/28/15) Subjective afebrile no leukocytosis repeat Bcx neg Objective Vital Signs Last 24 Hour Vital Signs Date Time Temp Pulse Resp B/P (MAP) Pulse Ox O2 Delivery O2 Flow Rate FiO2 05/30/17 08:30 74 132/69 05/30/17 08:00 96.8 74 21 132/69 100 Nasal Cannula 2.0 05/30/17 07:44 97.9 75 19 140/77 98 Nasal Cannula 2.0 05/30/17 07:44 81 05/30/17 04:00 81 05/30/17 04:00 97.6 76 20 140/77 99 Nasal Cannula 2.0 05/30/17 00:00 98.0 77 20 123/61 98 Nasal Cannula 2.0 05/30/17 00:00 81 05/29/17 21:20 90 149/81 05/29/17 21:00 97.9 90 20 149/81 98 Nasal Cannula 2.0 05/29/17 20:00 90 05/29/17 19:30 Nasal Cannula 2.0 28 05/29/17 19:30 98 Nasal Cannula 2.0 28 05/29/17 16:00 82 05/29/17 16:00 97.9 87 21 141/76 98 Nasal Cannula 05/29/17 12:00 84 Height (Feet): 5 Height (Inches): 8.00 Weight (Pounds): 207 Objective HEENT: No pale conjunctivae. No icterus. NECK: No lymphadenopathy. CHEST: Clear. HEART: S1 and S2. ABDOMEN: Soft. EXTREMITIES: No cyanosis. Laboratory Tests Test 05/30/17 03:15 White Blood Count 10.1 K/UL (4.8-10.8) Red Blood Count 3.06 M/UL (4.70-6.10) L Hemoglobin 8.8 G/DL (14.2-18.0) L Hematocrit 27.4 % (42.0-52.0) L Mean Corpuscular Volume 89 FL (80-99) Mean Corpuscular Hemoglobin 28.9 PG (27.0-31.0) Mean Corpuscular Hemoglobin Concent 32.3 G/DL (32.0-36.0) Red Cell Distribution Width 17.7 % (11.6-14.8) H Platelet Count 259 K/UL (150-450) Mean Platelet Volume 8.0 FL (6.5-10.1) Neutrophils (%) (Auto) 73.7 % (45.0-75.0) Lymphocytes (%) (Auto) 16.6 % (20.0-45.0) L Monocytes (%) (Auto) 8.0 % (1.0-10.0) Eosinophils (%) (Auto) 1.2 % (0.0-3.0) Basophils (%) (Auto) 0.4 % (0.0-2.0) Sodium Level 146 MMOL/L (136-145) H Potassium Level 3.8 MMOL/L (3.5-5.1) Chloride Level 117 MMOL/L (98-107) H Carbon Dioxide Level 20 MMOL/L (21-32) L Anion Gap 9 mmol/L (5-15) Blood Urea Nitrogen 21 mg/dL (7-18) H Creatinine 2.1 MG/DL (0.55-1.30) H Estimat Glomerular Filtration Rate mL/min (>60) Glucose Level 60 MG/DL (74-106) L Calcium Level 8.8 MG/DL (8.5-10.1) Total Bilirubin 0.7 MG/DL (0.2-1.0) Aspartate Amino Transf (AST/SGOT) 190 U/L (15-37) H Alanine Aminotransferase (ALT/SGPT) 130 U/L (12-78) H Alkaline Phosphatase 422 U/L (46-116) H Total Protein 6.5 G/DL (6.4-8.2) Albumin 1.3 G/DL (3.4-5.0) L Globulin 5.2 g/dL Albumin/Globulin Ratio 0.2 (1.0-2.7) L Current Medications Medications (Trade) Dose Ordered Sig/Altaf Route PRN Reason Start Time Stop Time Status Last Admin Dose Admin Albuterol/ Ipratropium (Albuterol/ Ipratropium) 3 ml Q4HRT PRN HHN sob 05/30/17 11:00 06/02/17 11:29 UNV Amoxicillin (Amoxil) 500 mg EVERY 8 HOURS GT 05/30/17 14:00 06/04/17 13:59 UNV Clonidine HCl (Catapres) 0.1 mg Q4H PRN GT sbp more than 160 05/30/17 09:45 06/27/17 05:44 UNV Collagenase (Santyl) 1 applic DAILY TOPIC 05/31/17 09:00 06/29/17 08:59 UNV Dextrose 1,000 ml @ 75 mls/hr [id number] IV 05/30/17 09:30 06/29/17 07:59 UNV Dextrose (Dextrose 50%) STAT PRN IV Hypoglycemia 05/30/17 21:45 06/18/17 21:44 UNV Epoetin Jax (Procrit (for non ESRD use)) 7,000 units MON-WED-FRI SUBQ 05/30/17 21:00 06/29/17 20:59 UNV Insulin Aspart (NovoLOG) EVERY 6 HOURS SUBQ 05/30/17 12:00 06/19/17 06:29 UNV Insulin Detemir (Levemir) 30 units Q12HR SUBQ 05/30/17 21:00 06/25/17 20:59 UNV Lansoprazole (Prevacid) 30 mg DAILY GT 05/31/17 09:00 06/27/17 08:59 UNV Metoprolol Tartrate (Lopressor) 37.5 mg Q12HR GT 05/30/17 21:00 06/27/17 08:59 UNV Nitroglycerin (Ntg) 0.4 mg Q5M X 3 DOSES PRN SL Prn Chest Pain 05/30/17 09:30 06/18/17 21:44 UNV Ondansetron HCl (Zofran) 4 mg Q6H PRN IVP Nausea & Vomiting 05/30/17 09:45 06/18/17 21:44 UNV Polyethylene Glycol (Miralax) 17 gm HSPRN PRN GT Constipation 05/31/17 02:45 06/27/17 02:44 UNV Risperidone (RisperDAL) 1 mg DAILY PRN GT For Anxiety 05/31/17 09:00 06/27/17 02:44 UNV Silver Sulfadiazine (Silvadene Cream 25gm) 1 applic DAILY TOPIC 05/31/17 09:00 06/28/17 21:44 UNV Tamsulosin HCl (Flomax) 0.4 mg BEDTIME ORAL 05/30/17 21:00 06/19/17 20:59 UNV Temazepam (Restoril) 15 mg HSPRN PRN GT Insomnia 05/31/17 02:45 06/04/17 02:44 UNV Cyndy Tamez M.D. May 30, 2017 10:13
[2017-05-30] MEDS ORDERED: Albuterol/Ipratropium 3ml neb HHN PRN (10:30)
--- NOTE | 2017-05-30 10:36 | GI Progress Note ---
Assessment/Plan Problems: (1) Abdominal pain ICD Codes: R10.9 - Unspecified abdominal pain SNOMED: 60264664 (2) Hypoalbuminemia ICD Codes: E88.09 - Other disorders of plasma-protein metabolism, not elsewhere classified SNOMED: 587531447 (3) Generalized weakness ICD Codes: R53.1 - Weakness SNOMED: 00712616 (4) Diarrhea ICD Codes: R19.7 - Diarrhea, unspecified SNOMED: 37759065 (5) Anemia ICD Codes: D64.9 - Anemia, unspecified SNOMED: 826759893 (6) Diabetes mellitus ICD Codes: E11.9 - Type 2 diabetes mellitus without complications SNOMED: 59783993 Status: progressing Status Narrative Discussed with Dr. Blackman. Assessment/Plan - dysphagia - s/p GT - CVA - abnormal LFT - ? statin, ? other cause - s/p IVC filter - anemia - OB (+) Stools - Azotemia - rising CRP, ? etiology Recommend Hold statin and other non vital meds GTFs per dietary monitor CBC / transfuse PRN PPI fu MRI follow LFTs fu labs Subjective Subjective limited Objective Last 24 Hour Vital Signs Date Time Temp Pulse Resp B/P (MAP) Pulse Ox O2 Delivery O2 Flow Rate FiO2 05/30/17 10:21 Nasal Cannula 2.0 28 05/30/17 10:19 99 Nasal Cannula 2.0 28 05/30/17 08:30 74 132/69 05/30/17 08:00 96.8 74 21 132/69 100 Nasal Cannula 2.0 05/30/17 07:44 97.9 75 19 140/77 98 Nasal Cannula 2.0 05/30/17 07:44 81 05/30/17 04:00 81 05/30/17 04:00 97.6 76 20 140/77 99 Nasal Cannula 2.0 05/30/17 00:00 98.0 77 20 123/61 98 Nasal Cannula 2.0 05/30/17 00:00 81 05/29/17 21:20 90 149/81 05/29/17 21:00 97.9 90 20 149/81 98 Nasal Cannula 2.0 05/29/17 20:00 90 05/29/17 19:30 Nasal Cannula 2.0 28 05/29/17 19:30 98 Nasal Cannula 2.0 28 05/29/17 16:00 82 05/29/17 16:00 97.9 87 21 141/76 98 Nasal Cannula 05/29/17 12:00 84 Intake and Output 05/30/17 05/31/17 19:00 07:00 Intake Total 50 ml Balance 50 ml Free Water 50 ml Laboratory Tests Test 05/30/17 03:15 White Blood Count 10.1 K/UL (4.8-10.8) Red Blood Count 3.06 M/UL (4.70-6.10) L Hemoglobin 8.8 G/DL (14.2-18.0) L Hematocrit 27.4 % (42.0-52.0) L Mean Corpuscular Volume 89 FL (80-99) Mean Corpuscular Hemoglobin 28.9 PG (27.0-31.0) Mean Corpuscular Hemoglobin Concent 32.3 G/DL (32.0-36.0) Red Cell Distribution Width 17.7 % (11.6-14.8) H Platelet Count 259 K/UL (150-450) Mean Platelet Volume 8.0 FL (6.5-10.1) Neutrophils (%) (Auto) 73.7 % (45.0-75.0) Lymphocytes (%) (Auto) 16.6 % (20.0-45.0) L Monocytes (%) (Auto) 8.0 % (1.0-10.0) Eosinophils (%) (Auto) 1.2 % (0.0-3.0) Basophils (%) (Auto) 0.4 % (0.0-2.0) Sodium Level 146 MMOL/L (136-145) H Potassium Level 3.8 MMOL/L (3.5-5.1) Chloride Level 117 MMOL/L (98-107) H Carbon Dioxide Level 20 MMOL/L (21-32) L Anion Gap 9 mmol/L (5-15) Blood Urea Nitrogen 21 mg/dL (7-18) H Creatinine 2.1 MG/DL (0.55-1.30) H Estimat Glomerular Filtration Rate mL/min (>60) Glucose Level 60 MG/DL (74-106) L Calcium Level 8.8 MG/DL (8.5-10.1) Total Bilirubin 0.7 MG/DL (0.2-1.0) Aspartate Amino Transf (AST/SGOT) 190 U/L (15-37) H Alanine Aminotransferase (ALT/SGPT) 130 U/L (12-78) H Alkaline Phosphatase 422 U/L (46-116) H Total Protein 6.5 G/DL (6.4-8.2) Albumin 1.3 G/DL (3.4-5.0) L Globulin 5.2 g/dL Albumin/Globulin Ratio 0.2 (1.0-2.7) L Height (Feet): 5 Height (Inches): 8.00 Weight (Pounds): 207 General Appearance: no apparent distress Cardiovascular: normal rate Respiratory/Chest: normal breath sounds, no respiratory distress, other - 2LNC Abdominal Exam: normal bowel sounds, non tender, soft, GT site - c/d/i Extremities: non-tender Milady Schafer N.P. May 30, 2017 10:36
--- NOTE | 2017-05-30 10:54 | Diagnostic Imaging Report ---
Indication: SOB Technique: One view of the chest Comparison: 05/26/2017 Findings: Previously demonstrated nasogastric tube has been removed. Less optimal inspiration currently. There is increasing atelectasis and possibly some consolidation at the lung bases. The heart is borderline enlarged. There is equivocal mild interstitial congestion; if real, new or increased since prior study. Implanted device in the anterior chest wall is again demonstrated Impression: Increasing bilateral basilar atelectasis and possible consolidation. Possible new or increased mild interstitial congestion
--- NOTE | 2017-05-30 11:34 | Diagnostic Imaging Report ---
Indication: Left lower leg pain Technique: 2 views of the left tibia and fibula Comparison: none Findings: Bones are demineralized. No acute fractures. No dislocations. There is extensive arterial calcification. Somewhat asymmetric focal low attenuation is seen in the distal fibular diaphysis, and there appears to be an overlying ulcer. Impression: Focal low-attenuation in the distal fibula, adjacent to a soft tissue ulcer. Findings are worrisome for osteolysis related to osteomyelitis. No acute bony trauma
--- NOTE | 2017-05-30 12:25 | Pulmonology Progress Note ---
Assessment/Plan Problems: (1) Non-ST elevation (NSTEMI) myocardial infarction (2) ATN (acute tubular necrosis) (3) DVT (deep venous thrombosis) (4) Encephalopathy acute (5) Sepsis (6) PVD (peripheral vascular disease) (7) Elevated CEA (8) Anemia (9) Prostate cancer (10) Diabetes mellitus Assessment/Plan s/p IVC filter tolerating PEg feeding need most likely amputation of both legs. bun/creatinine decreasing BS better controlled Na is lower decrease IV fluid dc unessential meds social service consult for code status and hospice on discharge. vascular evaluation in process, pt can't have MRI because of some cardiac monitoring device inserted many years ago. Subjective ROS Limited/Unobtainable: No Interval Events: open eyes, consufed Constitutional: Reports: no symptoms HEENT: Repors: no symptoms Respiratory: Reports: no symptoms Cardiovascular: Reports: no symptoms Allergies: Coded Allergies: No Known Allergies (Unverified , 12/28/15) Objective Last 24 Hour Vital Signs Date Time Temp Pulse Resp B/P (MAP) Pulse Ox O2 Delivery O2 Flow Rate FiO2 05/30/17 10:21 Nasal Cannula 2.0 28 05/30/17 10:19 99 Nasal Cannula 2.0 28 05/30/17 08:30 74 132/69 05/30/17 08:00 96.8 74 21 132/69 100 Nasal Cannula 2.0 05/30/17 07:44 97.9 75 19 140/77 98 Nasal Cannula 2.0 05/30/17 07:44 81 05/30/17 04:00 81 05/30/17 04:00 97.6 76 20 140/77 99 Nasal Cannula 2.0 05/30/17 00:00 98.0 77 20 123/61 98 Nasal Cannula 2.0 05/30/17 00:00 81 05/29/17 21:20 90 149/81 05/29/17 21:00 97.9 90 20 149/81 98 Nasal Cannula 2.0 05/29/17 20:00 90 05/29/17 19:30 Nasal Cannula 2.0 28 05/29/17 19:30 98 Nasal Cannula 2.0 28 05/29/17 16:00 82 05/29/17 16:00 97.9 87 21 141/76 98 Nasal Cannula Intake and Output 05/30/17 05/31/17 19:00 07:00 Intake Total 225 ml Balance 225 ml Free Water 150 ml IV Total 75 ml General Appearance: WD/WN HEENT: normocephalic, atraumatic Respiratory/Chest: chest wall non-tender, lungs clear Cardiovascular: normal peripheral pulses, normal rate Abdomen: normal bowel sounds, soft, non tender Genitourinary: normal external genitalia Extremities: no cyanosis Skin: no lesions Neurologic/Psychiatric: lpn cma II-XII grossly normal Lymphatic: no neck adenopathy Microbiology Date/Time Source Procedure Growth Status 05/30/17 05:30 Sacral Wound Gram Stain - Final Resulted 05/30/17 05:30 Sacral Wound Wound Culture Pending Resulted Laboratory Tests 05/30/17 03:15: White Blood Count 10.1, Red Blood Count 3.06L, Hemoglobin 8.8L, Hematocrit 27.4L , Mean Corpuscular Volume 89, Mean Corpuscular Hemoglobin 28.9, Mean Corpuscular Hemoglobin Concent 32.3, Red Cell Distribution Width 17.7H, Platelet Count 259, Mean Platelet Volume 8.0, Neutrophils (%) (Auto) 73.7, Lymphocytes (%) (Auto) 16.6L, Monocytes (%) (Auto) 8.0, Eosinophils (%) (Auto) 1.2, Basophils (%) (Auto) 0.4, Sodium Level 146H, Potassium Level 3.8, Chloride Level 117H, Carbon Dioxide Level 20L, Anion Gap 9, Blood Urea Nitrogen 21H, Creatinine 2.1H, Estimat Glomerular Filtration Rate , Glucose Level 60L, Calcium Level 8.8, Total Bilirubin 0.7, Aspartate Amino Transf (AST/SGOT) 190H, Alanine Aminotransferase (ALT/SGPT) 130H, Alkaline Phosphatase 422H, Total Protein 6.5, Albumin 1.3L, Globulin 5.2, Albumin/Globulin Ratio 0.2L Current Medications Medications (Trade) Dose Ordered Sig/Altaf Route PRN Reason Start Time Stop Time Status Last Admin Dose Admin Albuterol/ Ipratropium (Albuterol/ Ipratropium) 3 ml Q4H PRN HHN sob 05/30/17 10:30 06/04/17 10:29 Amoxicillin (Amoxil) 500 mg EVERY 8 HOURS GT 05/30/17 14:00 06/04/17 13:59 Clonidine HCl (Catapres) 0.1 mg Q4H PRN GT sbp more than 160 05/30/17 09:45 06/27/17 05:44 Collagenase (Santyl) 1 applic DAILY TOPIC 05/31/17 09:00 06/29/17 08:59 Dextrose 1,000 ml @ 75 mls/hr [id number] IV 05/30/17 10:30 06/29/17 10:29 05/30/17 10:10 Dextrose (Dextrose 50%) STAT PRN IV Hypoglycemia 05/30/17 10:30 06/18/17 10:29 05/30/17 11:41 Epoetin Jax (Procrit (for non ESRD use)) 7,000 units TUE-TUE-TUE SUBQ 05/30/17 21:00 06/29/17 20:59 Insulin Aspart (NovoLOG) EVERY 6 HOURS SUBQ 05/30/17 12:00 06/19/17 06:29 Insulin Detemir (Levemir) 30 units Q12HR SUBQ 05/30/17 21:00 06/25/17 20:59 Metoprolol Tartrate (Lopressor) 37.5 mg Q12HR GT 05/30/17 21:00 06/27/17 08:59 Ondansetron HCl (Zofran) 4 mg Q6H PRN IVP Nausea & Vomiting 05/30/17 10:30 06/18/17 10:29 Risperidone (RisperDAL) 1 mg DAILYPRN PRN GT For Anxiety 05/30/17 10:30 06/29/17 10:29 Silver Sulfadiazine (Silvadene Cream 25gm) 1 applic DAILY TOPIC 05/31/17 09:00 06/28/17 21:44 Tamsulosin HCl (Flomax) 0.4 mg BEDTIME ORAL 05/30/17 21:00 06/19/17 20:59 YOSHI EDOUARD May 30, 2017 12:25
--- NOTE | 2017-05-30 15:08 | Diagnostic Imaging Report ---
Indication: PAIN, renal insufficiency, severe anemia Technique: Spiral acquisitions obtained through the abdomen and pelvis. Patient given enteric contrast. No IV contrast utilized, due to history renal insufficiency.. Multiplanar reconstructions were generated. Total dose length product 1205 mGycm. CTDIvol(s) 19 mGy. Dose reduction achieved using automated exposure control Comparison: 05/24/2017 Findings: There as been interim placement of a gastrostomy tube. The gastrostomy balloon is within the gastric antrum/body junction in good position and there is no significant abnormality surrounding the gastrostomy. There is a small pneumoperitoneum, presumably related to the recent gastrostomy placement. Small caliber normal appendix is demonstrated. There is questionable wall thickening of the transverse colon and portions of the sigmoid colon. However, this is all in areas where the colon is nondistended, so is probably artifact of under distention rather than a true finding. No evidence of diverticulosis. No evidence of diverticulitis. Contrast is seen throughout the entirety of the small bowel and colon. No small bowel wall thickening is evident. No free intraperitoneal fluid. Lack of IV contrast limits assessment of the solid organs. The liver, gallbladder, bile ducts, spleen, adrenals are unremarkable. Again demonstrated is what is presumably a right renal parapelvic cyst. Again demonstrated is fairly extensive perinephric fat stranding which appears unchanged. Subcentimeter low-attenuation lesion is seen in the medial left interpolar region which is too small to characterize. No hydronephrosis or hydroureter, renal or ureteral calculi. The bladder contains a Pond catheter. Air within the bladder is likely related to the Pond catheterization. There is a small fat-containing left inguinal hernia. There is again demonstrated edema of the bilateral flanks. There has been interim placement of an inferior vena cava filter. Position appears satisfactory Again demonstrated is extensive bilateral basilar pulmonary parenchymal consolidation, which appears similar in the extent to the previous study. Bones demonstrate mild degenerative spondylosis changes of the lower thoracic spine Impression: Interim gastrostomy placement, in good position. Small pneumoperitoneum, presumably related to such Areas of apparent mild colonic wall thickening, most likely an artifact of under distention rather than a true finding. Areas of colitis nonetheless not completely excludable No acute abdominal or pelvic process otherwise Extensive bilateral basilar pulmonary parenchymal consolidation. Similarity to the previous exam raises possibility of there being a significant chronic component to this Bilateral nonspecific perinephric fat stranding, unchanged over 6 days Inferior vena cava filter in good position, new since previous exam. Minimal bilateral flank edema Subcentimeter low-attenuation left renal lesion, too small to characterize, most likely benign simple cortical cyst. No further followup necessary Other findings as noted, including degenerative spondylosis, small fat-containing left inguinal hernia, Pond catheter, right renal parapelvic cyst The CT scanner at [facility] is accredited by the [employer] and the scans are performed using protocols designed to limit radiation exposure to as low as reasonably achievable to attain images of sufficient resolution adequate for diagnostic evaluation.
--- NOTE | 2017-05-30 15:26 | Diagnostic Imaging Report ---
Indication: Pain, soft tissue ulcer Technique: No IV contrast, due to history renal insufficiency Spiral acquisitions obtained through the left lower extremity Multiplanar reconstructions were generated. Total dose length product 1468 mGycm. CTDIvol(s) 11 mGy. Radiation dose was minimized using automated exposure control Comparison: None. Reference made to plain radiograph taken earlier the same day Findings: There is marked thinning of the tissue overlying the distal fibular diaphysis, although a discrete ulcer is not demonstrated. No definite cortical erosion or other bony abnormality to suggest underlying osteomyelitis is demonstrated. A lucency within the calcaneus is presumably physiologic, as it is symmetric with the contralateral lower extremity. No other osseous abnormality is demonstrated. The bones are diffusely demineralized. There is some edema of the subcutaneous fat of the posteromedial thigh. No definite discrete fluid collection to suggest abscess, although assessment for such is limited in the absence of IV contrast. No definite knee or ankle or hip joint effusion. The arteries are heavily calcified. Vascular patency is indeterminate in the absence of IV contrast. Pelvic findings are described in report of abdomen pelvis CT performed at same time Impression: Marked somewhat diffuse thinning of the soft tissue overlying the left distal fibula, consistent with clinical history tissue loss described by referring physician. However, discrete discrete ulcer is not demonstrated. There are no osseous erosions or other CT findings to suggest acute osteomyelitis. The findings described on recent plain radiograph are probably artifactual due to the overlying soft tissue lucency. Note, however, that CT has limited sensitivity for osteomyelitis. There is high clinical suspicion, consider MRI or bone scanning Mild soft tissue edema of the posterior lateral thigh Other findings as noted The CT scanner at [facility] is accredited by the [employer] and the scans are performed using protocols designed to limit radiation exposure to as low as reasonably achievable to attain images of sufficient resolution adequate for diagnostic evaluation.
--- NOTE | 2017-05-30 15:44 | General Progress Note ---
Assessment/Plan Assessment/Plan ASSESSMENT AND RECOMMENDATIONS: 1. Bilateral deep venous thrombosis. Was on heparin gtt, however anemia continues to persist --> ivc filter has been placed 2. Anemia, secondary to chronic disease. We will obtain TIBC as well as iron level. Ferritin is 177. HH improving 3. Decreased hemoglobin and hematocrit, rule out gastrointestinal bleed --> occult positive. GI following 4. Coagulopathy, potentially secondary to underlying heparin drip. 5. Anemia, secondary to end-stage renal disease. 6. Psychiatric disorder. He has been seen by Psychiatry service. Continue to follow. 7. Malnutrition, peg tube has been placed I appreciate the consultation. Subjective Allergies: Coded Allergies: No Known Allergies (Unverified , 12/28/15) All Systems: reviewed and negative except above Subjective NAD Objective Last 24 Hour Vital Signs Date Time Temp Pulse Resp B/P (MAP) Pulse Ox O2 Delivery O2 Flow Rate FiO2 05/30/17 12:54 96.1 65 150/86 Nasal Cannula 2.0 05/30/17 12:00 64 05/30/17 10:21 Nasal Cannula 2.0 28 05/30/17 10:19 99 Nasal Cannula 2.0 28 05/30/17 08:30 74 132/69 05/30/17 08:00 96.8 74 21 132/69 100 Nasal Cannula 2.0 05/30/17 07:44 97.9 75 19 140/77 98 Nasal Cannula 2.0 05/30/17 07:44 81 05/30/17 04:00 81 05/30/17 04:00 97.6 76 20 140/77 99 Nasal Cannula 2.0 05/30/17 00:00 98.0 77 20 123/61 98 Nasal Cannula 2.0 05/30/17 00:00 81 05/29/17 21:20 90 149/81 05/29/17 21:00 97.9 90 20 149/81 98 Nasal Cannula 2.0 05/29/17 20:00 90 05/29/17 19:30 Nasal Cannula 2.0 28 05/29/17 19:30 98 Nasal Cannula 2.0 28 05/29/17 16:00 82 05/29/17 16:00 97.9 87 21 141/76 98 Nasal Cannula Intake and Output 05/30/17 05/31/17 19:00 07:00 Intake Total 655 ml Balance 655 ml Free Water 180 ml IV Total 375 ml Tube Feeding 100 ml Laboratory Tests 05/30/17 03:15: White Blood Count 10.1, Red Blood Count 3.06L, Hemoglobin 8.8L, Hematocrit 27.4L , Mean Corpuscular Volume 89, Mean Corpuscular Hemoglobin 28.9, Mean Corpuscular Hemoglobin Concent 32.3, Red Cell Distribution Width 17.7H, Platelet Count 259, Mean Platelet Volume 8.0, Neutrophils (%) (Auto) 73.7, Lymphocytes (%) (Auto) 16.6L, Monocytes (%) (Auto) 8.0, Eosinophils (%) (Auto) 1.2, Basophils (%) (Auto) 0.4, Sodium Level 146H, Potassium Level 3.8, Chloride Level 117H, Carbon Dioxide Level 20L, Anion Gap 9, Blood Urea Nitrogen 21H, Creatinine 2.1H, Estimat Glomerular Filtration Rate , Glucose Level 60L, Calcium Level 8.8, Total Bilirubin 0.7, Aspartate Amino Transf (AST/SGOT) 190H, Alanine Aminotransferase (ALT/SGPT) 130H, Alkaline Phosphatase 422H, Total Protein 6.5, Albumin 1.3L, Globulin 5.2, Albumin/Globulin Ratio 0.2L Height (Feet): 5 Height (Inches): 8.00 Weight (Pounds): 207 General Appearance: no apparent distress EENT: normal ENT inspection Neck: non-tender, normal alignment Cardiovascular: normal peripheral pulses Respiratory/Chest: chest wall non-tender 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
--- NOTE | 2017-05-30 16:15 | Diagnostic Imaging Report ---
Indication: Lower extremity pain. Severe anemia Technique: No IV contrast, due to renal insufficiency Spiral acquisitions obtained through the right lower extremity. Multiplanar reconstructions were generated. Total dose length product 1468 mGycm. CTDIvol(s) 11 mGy. Radiation dose was minimized using automated exposure control Comparison: None Findings: There is mild edema of the subcutaneous fat of the right buttock region. There slight edema of the anterolateral subcutaneous fat of the leg and ankle and hindfoot. No significant subcutaneous soft tissue defect demonstrated. No osteolytic lesion or other findings to suggest acute osteomyelitis. No acute fractures. No dislocations. Joint spaces are preserved. There are extensive arterial calcifications. Vascular patency is indeterminate in the absence of IV contrast administration. No focal collections to suggest abscess. The pelvic visceral anatomy is described in the report of CT abdomen pelvis performed at the same time Impression: Mild edema of the subcutaneous fat of the right buttock region, nonspecific No acute abnormality otherwise No definite osseous abnormality. Note, however, that sensitivity of CT is limited for evaluation of potential osteomyelitis. If there is high clinical suspicion, consider MRI or nuclear medicine bone scan for further evaluation Extensive calcified atherosclerotic vascular disease The CT scanner at [facility] is accredited by the [employer] and the scans are performed using protocols designed to limit radiation exposure to as low as reasonably achievable to attain images of sufficient resolution adequate for diagnostic evaluation.
--- NOTE | 2017-05-30 18:22 | Cardiology Progress Note ---
Assessment/Plan Assessment/Plan 1. NSTEMI type 2 2. Altered mental status, probably with component of toxic metabolic encephalopathy. 3. Urinary tract infection. 4. History of hypertension. 5. Cerebrovascular accident history. 6. Abnormal liver enzymes. 7. Renal insufficiency 8. sever anemia 9. DVT non oclusive nwo post ivc filter 10. PVD lower ext 11. bilateral pulm infiltrate ? chronic stool ob + now s/p peg hgb min decreased off anticoagulation was on asa / plavix on dapt due to cva but nto clear to me why dcd will check with gi adn dr stahl on bb, on statin , aspiration risk tele reviewed not a candidate for invasive cardiac therapy on metoprolol for now lft abn managment per gi but i will d/s lipitor as still lft abn ct noted cxr noted Subjective ROS Limited/Unobtainable: Yes Objective Last 24 Hour Vital Signs Date Time Temp Pulse Resp B/P (MAP) Pulse Ox O2 Delivery O2 Flow Rate FiO2 05/30/17 17:12 70 05/30/17 16:35 97.5 70 19 157/60 Nasal Cannula 05/30/17 12:54 96.1 65 150/86 Nasal Cannula 2.0 05/30/17 12:00 64 05/30/17 10:21 Nasal Cannula 2.0 28 05/30/17 10:19 99 Nasal Cannula 2.0 28 05/30/17 08:30 74 132/69 05/30/17 08:00 96.8 74 21 132/69 100 Nasal Cannula 2.0 05/30/17 07:44 97.9 75 19 140/77 98 Nasal Cannula 2.0 05/30/17 07:44 81 05/30/17 04:00 81 05/30/17 04:00 97.6 76 20 140/77 99 Nasal Cannula 2.0 05/30/17 00:00 98.0 77 20 123/61 98 Nasal Cannula 2.0 05/30/17 00:00 81 05/29/17 21:20 90 149/81 05/29/17 21:00 97.9 90 20 149/81 98 Nasal Cannula 2.0 05/29/17 20:00 90 05/29/17 19:30 Nasal Cannula 2.0 28 05/29/17 19:30 98 Nasal Cannula 2.0 28 General Appearance: alert Neck: supple Cardiovascular: normal rate, regular rhythm Respiratory/Chest: lungs clear, normal breath sounds Abdomen: normal bowel sounds, non tender, soft Extremities: no swelling Intake and Output 05/30/17 05/31/17 19:00 07:00 Intake Total 655 ml Balance 655 ml Free Water 180 ml IV Total 375 ml Tube Feeding 100 ml Laboratory Tests Test 05/30/17 03:15 White Blood Count 10.1 K/UL (4.8-10.8) Red Blood Count 3.06 M/UL (4.70-6.10) L Hemoglobin 8.8 G/DL (14.2-18.0) L Hematocrit 27.4 % (42.0-52.0) L Mean Corpuscular Volume 89 FL (80-99) Mean Corpuscular Hemoglobin 28.9 PG (27.0-31.0) Mean Corpuscular Hemoglobin Concent 32.3 G/DL (32.0-36.0) Red Cell Distribution Width 17.7 % (11.6-14.8) H Platelet Count 259 K/UL (150-450) Mean Platelet Volume 8.0 FL (6.5-10.1) Neutrophils (%) (Auto) 73.7 % (45.0-75.0) Lymphocytes (%) (Auto) 16.6 % (20.0-45.0) L Monocytes (%) (Auto) 8.0 % (1.0-10.0) Eosinophils (%) (Auto) 1.2 % (0.0-3.0) Basophils (%) (Auto) 0.4 % (0.0-2.0) Sodium Level 146 MMOL/L (136-145) H Potassium Level 3.8 MMOL/L (3.5-5.1) Chloride Level 117 MMOL/L (98-107) H Carbon Dioxide Level 20 MMOL/L (21-32) L Anion Gap 9 mmol/L (5-15) Blood Urea Nitrogen 21 mg/dL (7-18) H Creatinine 2.1 MG/DL (0.55-1.30) H Estimat Glomerular Filtration Rate mL/min (>60) Glucose Level 60 MG/DL (74-106) L Calcium Level 8.8 MG/DL (8.5-10.1) Total Bilirubin 0.7 MG/DL (0.2-1.0) Aspartate Amino Transf (AST/SGOT) 190 U/L (15-37) H Alanine Aminotransferase (ALT/SGPT) 130 U/L (12-78) H Alkaline Phosphatase 422 U/L (46-116) H Total Protein 6.5 G/DL (6.4-8.2) Albumin 1.3 G/DL (3.4-5.0) L Globulin 5.2 g/dL Albumin/Globulin Ratio 0.2 (1.0-2.7) L Microbiology Date/Time Source Procedure Growth Status 05/30/17 05:30 Sacral Wound Gram Stain - Final Resulted 05/30/17 05:30 Sacral Wound Wound Culture Pending Resulted CRUZ FLEMING May 30, 2017 18:22
[2017-05-30] MEDS ORDERED: Miralax 17gm pkt GT PRN (20:00)
--- NOTE | 2017-05-30 20:54 | General Progress Note ---
Assessment/Plan Status: stable Assessment/Plan encephalopathy cont current meds Subjective Date patient seen: May 30, 2017 Neurologic/Psychiatric: Reports: anxiety Allergies: Coded Allergies: No Known Allergies (Unverified , 12/28/15) Subjective confused periods of agitation more alert Objective Last 24 Hour Vital Signs Date Time Temp Pulse Resp B/P (MAP) Pulse Ox O2 Delivery O2 Flow Rate FiO2 05/30/17 20:00 97.7 87 20 139/68 100 Nasal Cannula 2.0 05/30/17 17:12 70 05/30/17 16:35 97.5 70 19 157/60 Nasal Cannula 05/30/17 12:54 96.1 65 150/86 Nasal Cannula 2.0 05/30/17 12:00 64 05/30/17 10:21 Nasal Cannula 2.0 28 05/30/17 10:19 99 Nasal Cannula 2.0 28 05/30/17 08:30 74 132/69 05/30/17 08:00 96.8 74 21 132/69 100 Nasal Cannula 2.0 05/30/17 07:44 97.9 75 19 140/77 98 Nasal Cannula 2.0 05/30/17 07:44 81 05/30/17 04:00 81 05/30/17 04:00 97.6 76 20 140/77 99 Nasal Cannula 2.0 05/30/17 00:00 98.0 77 20 123/61 98 Nasal Cannula 2.0 05/30/17 00:00 81 05/29/17 21:20 90 149/81 05/29/17 21:00 97.9 90 20 149/81 98 Nasal Cannula 2.0 Intake and Output 05/30/17 05/31/17 19:00 07:00 Intake Total 705 ml Output Total 500 ml Balance 705 ml -500 ml Free Water 180 ml IV Total 375 ml Tube Feeding 150 ml Output Urine Total 500 ml Laboratory Tests 05/30/17 03:15: White Blood Count 10.1, Red Blood Count 3.06L, Hemoglobin 8.8L, Hematocrit 27.4L , Mean Corpuscular Volume 89, Mean Corpuscular Hemoglobin 28.9, Mean Corpuscular Hemoglobin Concent 32.3, Red Cell Distribution Width 17.7H, Platelet Count 259, Mean Platelet Volume 8.0, Neutrophils (%) (Auto) 73.7, Lymphocytes (%) (Auto) 16.6L, Monocytes (%) (Auto) 8.0, Eosinophils (%) (Auto) 1.2, Basophils (%) (Auto) 0.4, Sodium Level 146H, Potassium Level 3.8, Chloride Level 117H, Carbon Dioxide Level 20L, Anion Gap 9, Blood Urea Nitrogen 21H, Creatinine 2.1H, Estimat Glomerular Filtration Rate , Glucose Level 60L, Calcium Level 8.8, Total Bilirubin 0.7, Aspartate Amino Transf (AST/SGOT) 190H, Alanine Aminotransferase (ALT/SGPT) 130H, Alkaline Phosphatase 422H, Total Protein 6.5, Albumin 1.3L, Globulin 5.2, Albumin/Globulin Ratio 0.2L Height (Feet): 5 Height (Inches): 8.00 Weight (Pounds): 207 General Appearance: no apparent distress, confused Neurologic: disoriented, depressed affect Madi Hansen M.D. May 30, 2017 20:54
[2017-05-30] MEDS ORDERED: Epogen (for non ESRD use) SUBQ SCH ×2 (21:00)
[2017-05-30] MEDS: Metoprolol Tartrate 12.5mg TAB GT SCH (21:02)
[2017-05-30] MEDS: Tamsulosin 0.4mg cap ORAL SCH (21:03)
[2017-05-31] VITALS: BP 142/84
[2017-05-31] MEDS: NovoLOG Insulin Flexpen SUBQ SCH ×4 (00:24→18:08)
[2017-05-31 04:00] VITALS: BP 152/81
[2017-05-31] MEDS: Amoxicillin 250mg/5ml susp 150ml GT SCH (06:16)
[2017-05-31] MEDS ORDERED: Norco 10mg/325mg tab ORAL PRN (06:45)
[2017-05-31 06:50] LABS: IGG SERUM 1301 mg/dL (700-1600); IGG SUBCLASS 1 805 mg/dL (248-810); IGG SUBCLASS 2 498 mg/dL (130-555); IGG SUBCLASS 3 51 mg/dL (15-102); IGG SUBCLASS 4 132 mg/dL (2-96)
[2017-05-31 08:00] VITALS: BP 123/56
[2017-05-31 08:18] LABS: BASOPHILS % (AUTO) 0.6 % (0.0-2.0); EOSINOPHILS % (AUTO) 1.8 % (0.0-3.0); LYMPHOCYTES % (AUTO) 16.2 % (20.0-45.0); MEAN CORPUSCULAR HEMOGLOBIN 28.3 PG (27.0-31.0); MEAN CORPUSCULAR HGB CONC 31.7 G/DL (32.0-36.0); MEAN CORPUSCULAR VOLUME 89 FL (80-99); MEAN PLATELET VOLUME 7.2 FL (6.5-10.1); MONOCYTES % (AUTO) 7.4 % (1.0-10.0); NEUTROPHILS % (AUTO) 74.2 % (45.0-75.0); PLATELET COUNT 270 K/UL (150-450); RED CELL DISTRIBUTION WIDTH 17.6 % (11.6-14.8); WHITE BLOOD COUNT 9.7 K/UL (4.8-10.8)
[2017-05-31] MEDS: Metoprolol Tartrate 12.5mg TAB GT SCH ×2 (08:34→20:17)
[2017-05-31] MEDS: Levemir Flexpen SUBQ SCH ×2 (08:36→20:20)
[2017-05-31 08:47] LABS: ALANINE AMINOTRANSFERASE 103 U/L (12-78); ALBUMIN/GLOBULIN RATIO 0.2 (1.0-2.7); ANION GAP 7 mmol/L (5-15); ASPARTATE AMINO TRANSFERASE 137 U/L (15-37); CALCIUM 8.5 MG/DL (8.5-10.1); CARBON DIOXIDE 22 MMOL/L (21-32); CHLORIDE 110 MMOL/L (98-107); CREATININE 1.7 MG/DL (0.55-1.30); POTASSIUM 3.6 MMOL/L (3.5-5.1); SODIUM 139 MMOL/L (136-145); TOTAL PROTEIN 6.2 G/DL (6.4-8.2)
[2017-05-31 08:51] LABS: MAGNESIUM 1.7 MG/DL (1.8-2.4); PHOSPHORUS 2.6 MG/DL (2.5-4.9)
--- NOTE | 2017-05-31 09:29 | Vascular Surgery Progress Note ---
Subjective Subjective All noted Drowsy No new complaints Objective Objective Last 24 Hour Vital Signs Date Time Temp Pulse Resp B/P (MAP) Pulse Ox O2 Delivery O2 Flow Rate FiO2 05/31/17 08:34 90 123/56 05/31/17 08:00 97.2 90 20 123/56 99 Room Air 05/31/17 04:00 101 05/31/17 04:00 86 05/31/17 04:00 98.2 89 20 152/81 98 Nasal Cannula 2.0 05/31/17 00:00 101 05/31/17 00:00 97.9 96 20 142/84 97 Nasal Cannula 2.0 05/30/17 21:02 87 139/68 05/30/17 20:00 96 05/30/17 20:00 97.7 87 20 139/68 100 Nasal Cannula 2.0 05/30/17 19:05 98 Nasal Cannula 2.0 28 05/30/17 19:05 Nasal Cannula 2.0 28 05/30/17 17:12 70 05/30/17 16:35 97.5 70 19 157/60 Nasal Cannula 05/30/17 12:54 96.1 65 150/86 Nasal Cannula 2.0 05/30/17 12:00 64 05/30/17 10:21 Nasal Cannula 2.0 28 05/30/17 10:19 99 Nasal Cannula 2.0 28 Laboratory Tests Test 05/31/17 07:35 White Blood Count 9.7 K/UL (4.8-10.8) Red Blood Count 3.10 M/UL (4.70-6.10) L Hemoglobin 8.8 G/DL (14.2-18.0) L Hematocrit 27.7 % (42.0-52.0) L Mean Corpuscular Volume 89 FL (80-99) Mean Corpuscular Hemoglobin 28.3 PG (27.0-31.0) Mean Corpuscular Hemoglobin Concent 31.7 G/DL (32.0-36.0) L Red Cell Distribution Width 17.6 % (11.6-14.8) H Platelet Count 270 K/UL (150-450) Mean Platelet Volume 7.2 FL (6.5-10.1) Neutrophils (%) (Auto) 74.2 % (45.0-75.0) Lymphocytes (%) (Auto) 16.2 % (20.0-45.0) L Monocytes (%) (Auto) 7.4 % (1.0-10.0) Eosinophils (%) (Auto) 1.8 % (0.0-3.0) Basophils (%) (Auto) 0.6 % (0.0-2.0) Sodium Level 139 MMOL/L (136-145) Potassium Level 3.6 MMOL/L (3.5-5.1) Chloride Level 110 MMOL/L (98-107) H Carbon Dioxide Level 22 MMOL/L (21-32) Anion Gap 7 mmol/L (5-15) Blood Urea Nitrogen 19 mg/dL (7-18) H Creatinine 1.7 MG/DL (0.55-1.30) H Estimat Glomerular Filtration Rate mL/min (>60) Glucose Level 120 MG/DL (74-106) H Calcium Level 8.5 MG/DL (8.5-10.1) Phosphorus Level 2.6 MG/DL (2.5-4.9) Magnesium Level 1.7 MG/DL (1.8-2.4) L Total Bilirubin 0.6 MG/DL (0.2-1.0) Aspartate Amino Transf (AST/SGOT) 137 U/L (15-37) H Alanine Aminotransferase (ALT/SGPT) 103 U/L (12-78) H Alkaline Phosphatase 372 U/L (46-116) H Total Protein 6.2 G/DL (6.4-8.2) L Albumin 1.2 G/DL (3.4-5.0) L Globulin 5.0 g/dL Albumin/Globulin Ratio 0.2 (1.0-2.7) L Height (Feet): 5 Height (Inches): 8.00 Weight (Pounds): 211 Objective Left sided hemiparesis cvs rrr lungs rhonchi abd soft nontender 2+ femorals absent pop pedal pulses Extensive left calf necrosis gangrene to bone tendon and right calf wound necrosis with bilateral decub changes Assessment/Plan Assessment Calcific multilevel occlusive PAD Bilateral calf wound necrosis gangrene decub changes L>R Extensive DVTs s/p IVC filter by IR CVA with left hemiparesis UT with troponin leak 11 CAD DM Former heavy smoker Renal failure Plan Medical optimization in progress Podiatry f/u wound care Antiplatelet and statin therapy Decub off load leg precautions Abx per ID Once medically cleared, will benefit from selective leg angiogram to assess for minimal invasive percutaneous revascularization Wound necrosis I&D and amputation after above d/w PMD Dr Sandoval and podiatry Dr Denton d/w pts' AJ HUNG May 31, 2017 09:29
--- NOTE | 2017-05-31 10:41 | Nephrology Progress Note ---
Assessment/Plan Problem List: (1) ATN (acute tubular necrosis) (2) Prostate cancer (3) Anemia (4) PVD (peripheral vascular disease) Assessment PEG in- Acute renal failure cr down to 2.1 Due IVC Filter today chronic underlying renal failure, ? Diabetic Nephropathy Severe Anemia HypoAlbuminemia, r/o Nephrotic syndrom UTI / Sepsis Basal Atelectasis Prostate cancer h/o CVA toxic metabolic encephalopathy AR , Troponin maxed 11.3 now declining Plan Plan: gastric support MONSTER Renal- Negative for hydronephrosis 2 D Echo- Left ventricular ejection fraction estimated to be 55 %. Mild left ventricular hypertrophy. 24 H urine protein- minimal monitor renal parameters per consultants DC and out patinet elective Amputation vs Comfort care Subjective ROS Limited/Unobtainable: No Constitutional: Reports: malaise, weakness Objective Objective Last 24 Hour Vital Signs Date Time Temp Pulse Resp B/P (MAP) Pulse Ox O2 Delivery O2 Flow Rate FiO2 05/31/17 08:34 90 123/56 05/31/17 08:00 97.2 90 20 123/56 99 Room Air 05/31/17 07:50 65 20 Nasal Cannula 2.0 28 05/31/17 07:47 Nasal Cannula 2.0 28 05/31/17 07:46 100 Nasal Cannula 2.0 28 05/31/17 04:00 101 05/31/17 04:00 86 05/31/17 04:00 98.2 89 20 152/81 98 Nasal Cannula 2.0 05/31/17 00:00 101 05/31/17 00:00 97.9 96 20 142/84 97 Nasal Cannula 2.0 05/30/17 21:02 87 139/68 05/30/17 20:00 96 05/30/17 20:00 97.7 87 20 139/68 100 Nasal Cannula 2.0 05/30/17 19:05 98 Nasal Cannula 2.0 28 05/30/17 19:05 Nasal Cannula 2.0 28 05/30/17 17:12 70 05/30/17 16:35 97.5 70 19 157/60 Nasal Cannula 05/30/17 12:54 96.1 65 150/86 Nasal Cannula 2.0 05/30/17 12:00 64 Laboratory Tests 05/31/17 07:35: White Blood Count 9.7, Red Blood Count 3.10L, Hemoglobin 8.8L, Hematocrit 27.7L , Mean Corpuscular Volume 89, Mean Corpuscular Hemoglobin 28.3, Mean Corpuscular Hemoglobin Concent 31.7L, Red Cell Distribution Width 17.6H, Platelet Count 270, Mean Platelet Volume 7.2, Neutrophils (%) (Auto) 74.2, Lymphocytes (%) (Auto) 16.2L, Monocytes (%) (Auto) 7.4, Eosinophils (%) (Auto) 1.8, Basophils (%) (Auto) 0.6, Sodium Level 139, Potassium Level 3.6, Chloride Level 110H, Carbon Dioxide Level 22, Anion Gap 7, Blood Urea Nitrogen 19H, Creatinine 1.7H, Estimat Glomerular Filtration Rate , Glucose Level 120H, Calcium Level 8.5, Phosphorus Level 2.6, Magnesium Level 1.7L, Total Bilirubin 0.6, Aspartate Amino Transf (AST/SGOT) 137H, Alanine Aminotransferase (ALT/SGPT ) 103H, Alkaline Phosphatase 372H, Total Protein 6.2L, Albumin 1.2L, Globulin 5.0, Albumin/Globulin Ratio 0.2L Height (Feet): 5 Height (Inches): 8.00 Weight (Pounds): 211 General Appearance: no apparent distress Respiratory/Chest: decreased breath sounds Abdomen: soft Extremities: other - no change Objective no other changes YOLANDA NAVA May 31, 2017 10:40
--- NOTE | 2017-05-31 11:08 | Infectious Diseases Prog Note ---
Assessment/Plan Assessment/Plan Probable Pna - SCx: Nl Ade and Capri : colonizer ; s/p Rx CT: Bilateral lower lobe and posterior right middle lobe pulmonary groundglass opacity and dense consolidation -CXR : Basilar residual opacities possibly scarring or atelectasis. 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 Negative for dilated ducts NSTEMI Acute LLE DVT SP IVC filter 05/26 Acute renal insufficiency, superimposed on chronic kidney disease Anemia, severe DM2 - HbA1c 10.5% NKDA Full Code PLAN: -Decision for possible comfort care -if consistent with goals of care, can abx therapy- will switch Amoxicillin to PO Augmentin for better anaerobic and gram neg coverage in the setting of gangrene; abx d# 9/14 ( 05/27 SP Cefepime d # 7 ) ( 05/25 SP IV Vanco d# 12 ) ( 05/21 SP IV Rocephin day #3 ) f/u final cultures Monitor CBC, temperatures Monitor BMP care was discussed with Dr Sandoval Subjective Allergies: Coded Allergies: No Known Allergies (Unverified , 12/28/15) Subjective afebrile no leukocytosis Cr improving s/p IVC filter s/p vascular sx evaluation there is consideration for hospice Objective Vital Signs Last 24 Hour Vital Signs Date Time Temp Pulse Resp B/P (MAP) Pulse Ox O2 Delivery O2 Flow Rate FiO2 05/31/17 08:34 90 123/56 05/31/17 08:00 97.2 90 20 123/56 99 Room Air 05/31/17 08:00 89 05/31/17 07:50 65 20 Nasal Cannula 2.0 28 05/31/17 07:47 Nasal Cannula 2.0 28 05/31/17 07:46 100 Nasal Cannula 2.0 28 05/31/17 04:00 101 11/21/17 04:00 86 05/31/17 04:00 98.2 89 20 152/81 98 Nasal Cannula 2.0 05/31/17 00:00 101 05/31/17 00:00 97.9 96 20 142/84 97 Nasal Cannula 2.0 05/30/17 21:02 87 139/68 05/30/17 20:00 96 05/30/17 20:00 97.7 87 20 139/68 100 Nasal Cannula 2.0 05/30/17 19:05 98 Nasal Cannula 2.0 28 05/30/17 19:05 Nasal Cannula 2.0 28 05/30/17 17:12 70 05/30/17 16:35 97.5 70 19 157/60 Nasal Cannula 05/30/17 12:54 96.1 65 150/86 Nasal Cannula 2.0 05/30/17 12:00 64 Height (Feet): 5 Height (Inches): 8.00 Weight (Pounds): 211 Objective HEENT: No pale conjunctivae. No icterus. NECK: No lymphadenopathy. CHEST: Clear. HEART: S1 and S2. ABDOMEN: Soft. EXTREMITIES: BLE with bandages Neuro: lethargic Microbiology Date/Time Source Procedure Growth Status 05/30/17 05:30 Sacral Wound Gram Stain - Final Resulted 05/30/17 05:30 Sacral Wound Wound Culture Pending Resulted Laboratory Tests Test 05/31/17 07:35 White Blood Count 9.7 K/UL (4.8-10.8) Red Blood Count 3.10 M/UL (4.70-6.10) L Hemoglobin 8.8 G/DL (14.2-18.0) L Hematocrit 27.7 % (42.0-52.0) L Mean Corpuscular Volume 89 FL (80-99) Mean Corpuscular Hemoglobin 28.3 PG (27.0-31.0) Mean Corpuscular Hemoglobin Concent 31.7 G/DL (32.0-36.0) L Red Cell Distribution Width 17.6 % (11.6-14.8) H Platelet Count 270 K/UL (150-450) Mean Platelet Volume 7.2 FL (6.5-10.1) Neutrophils (%) (Auto) 74.2 % (45.0-75.0) Lymphocytes (%) (Auto) 16.2 % (20.0-45.0) L Monocytes (%) (Auto) 7.4 % (1.0-10.0) Eosinophils (%) (Auto) 1.8 % (0.0-3.0) Basophils (%) (Auto) 0.6 % (0.0-2.0) Sodium Level 139 MMOL/L (136-145) Potassium Level 3.6 MMOL/L (3.5-5.1) Chloride Level 110 MMOL/L (98-107) H Carbon Dioxide Level 22 MMOL/L (21-32) Anion Gap 7 mmol/L (5-15) Blood Urea Nitrogen 19 mg/dL (7-18) H Creatinine 1.7 MG/DL (0.55-1.30) H Estimat Glomerular Filtration Rate mL/min (>60) Glucose Level 120 MG/DL (74-106) H Calcium Level 8.5 MG/DL (8.5-10.1) Phosphorus Level 2.6 MG/DL (2.5-4.9) Magnesium Level 1.7 MG/DL (1.8-2.4) L Total Bilirubin 0.6 MG/DL (0.2-1.0) Aspartate Amino Transf (AST/SGOT) 137 U/L (15-37) H Alanine Aminotransferase (ALT/SGPT) 103 U/L (12-78) H Alkaline Phosphatase 372 U/L (46-116) H Total Protein 6.2 G/DL (6.4-8.2) L Albumin 1.2 G/DL (3.4-5.0) L Globulin 5.0 g/dL Albumin/Globulin Ratio 0.2 (1.0-2.7) L Current Medications Medications (Trade) Dose Ordered Sig/Altaf Route PRN Reason Start Time Stop Time Status Last Admin Dose Admin Acetaminophen/ Hydrocodone Bitart ([place] 10/325) 1 ea Q4H PRN ORAL For Pain 05/31/17 06:45 06/07/17 06:44 Albuterol/ Ipratropium (Albuterol/ Ipratropium) 3 ml Q4H PRN HHN sob 05/30/17 10:30 06/04/17 10:29 Amoxicillin (Amoxil) 500 mg EVERY 8 HOURS GT 05/30/17 14:00 06/04/17 13:59 05/31/17 06:16 Clonidine HCl (Catapres) 0.1 mg Q4H PRN GT sbp more than 160 05/30/17 09:45 06/27/17 05:44 Collagenase (Santyl) 1 applic DAILY TOPIC 05/31/17 09:00 06/29/17 08:59 05/31/17 08:37 Dextrose (Dextrose 50%) STAT PRN IV Hypoglycemia 05/30/17 10:30 06/18/17 10:29 05/30/17 11:41 Epoetin Jax (Procrit (for non ESRD use)) 7,000 units TUE-TUE-TUE SUBQ 05/30/17 21:00 06/29/17 20:59 05/30/17 21:03 Insulin Aspart (NovoLOG) EVERY 6 HOURS SUBQ 05/30/17 12:00 06/19/17 06:29 05/31/17 00:24 Insulin Detemir (Levemir) 30 units Q12HR SUBQ 05/30/17 21:00 06/25/17 20:59 05/31/17 08:36 Metoprolol Tartrate (Lopressor) 37.5 mg Q12HR GT 05/30/17 21:00 06/27/17 08:59 05/31/17 08:34 Ondansetron HCl (Zofran) 4 mg Q6H PRN IVP Nausea & Vomiting 05/30/17 10:30 06/18/17 10:29 Ranitidine HCl (Zantac) 150 mg DAILY GT 05/31/17 11:00 06/30/17 10:59 Risperidone (RisperDAL) 1 mg DAILYPRN PRN GT For Anxiety 05/30/17 10:30 06/29/17 10:29 Silver Sulfadiazine (Silvadene Cream 25gm) 1 applic DAILY TOPIC 05/31/17 09:00 06/28/17 21:44 05/31/17 08:38 Tamsulosin HCl (Flomax) 0.4 mg BEDTIME ORAL 05/30/17 21:00 06/19/17 20:59 05/30/17 21:03 Cyndy Tamez M.D. May 31, 2017 11:08
--- NOTE | 2017-05-31 11:14 | Pulmonology Progress Note ---
Assessment/Plan Problems: (1) Non-ST elevation (NSTEMI) myocardial infarction (2) ATN (acute tubular necrosis) (3) DVT (deep venous thrombosis) (4) Encephalopathy acute (5) Sepsis (6) PVD (peripheral vascular disease) (7) Elevated CEA (8) Anemia (9) Prostate cancer (10) Diabetes mellitus Assessment/Plan s/p IVC filter tolerating PEg feeding need most likely amputation of both legs. ( pt and declined amputation) dc unessential meds met with and neonatal social worker, Pt's wants comfort care and hospice. Pt keeps saying, He wants to . Subjective ROS Limited/Unobtainable: No Interval Events: awake, comfortable Allergies: Coded Allergies: No Known Allergies (Unverified , 12/28/15) Objective Last 24 Hour Vital Signs Date Time Temp Pulse Resp B/P (MAP) Pulse Ox O2 Delivery O2 Flow Rate FiO2 05/31/17 08:34 90 123/56 05/31/17 08:00 97.2 90 20 123/56 99 Room Air 05/31/17 08:00 89 05/31/17 07:50 65 20 Nasal Cannula 2.0 28 05/31/17 07:47 Nasal Cannula 2.0 28 05/31/17 07:46 100 Nasal Cannula 2.0 28 05/31/17 04:00 101 05/31/17 04:00 86 05/31/17 04:00 98.2 89 20 152/81 98 Nasal Cannula 2.0 05/31/17 00:00 101 05/31/17 00:00 97.9 96 20 142/84 97 Nasal Cannula 2.0 05/30/17 21:02 87 139/68 05/30/17 20:00 96 05/30/17 20:00 97.7 87 20 139/68 100 Nasal Cannula 2.0 05/30/17 19:05 98 Nasal Cannula 2.0 28 05/30/17 19:05 Nasal Cannula 2.0 28 05/30/17 17:12 70 05/30/17 16:35 97.5 70 19 157/60 Nasal Cannula 05/30/17 12:54 96.1 65 150/86 Nasal Cannula 2.0 05/30/17 12:00 64 Intake and Output 05/31/17 06/01/17 19:00 07:00 Intake Total 300 ml Balance 300 ml IV Total 300 ml General Appearance: cachetic HEENT: normocephalic, atraumatic Respiratory/Chest: chest wall non-tender, lungs clear Cardiovascular: normal peripheral pulses, normal rate Abdomen: normal bowel sounds, soft, non tender Genitourinary: normal external genitalia Extremities: no cyanosis Skin: no lesions Neurologic/Psychiatric: skein winder II-XII grossly normal, no motor/sensory deficits Lymphatic: no neck adenopathy Microbiology Date/Time Source Procedure Growth Status 05/30/17 05:30 Sacral Wound Gram Stain - Final Resulted 05/30/17 05:30 Sacral Wound Wound Culture Pending Resulted Laboratory Tests 05/31/17 07:35: White Blood Count 9.7, Red Blood Count 3.10L, Hemoglobin 8.8L, Hematocrit 27.7L , Mean Corpuscular Volume 89, Mean Corpuscular Hemoglobin 28.3, Mean Corpuscular Hemoglobin Concent 31.7L, Red Cell Distribution Width 17.6H, Platelet Count 270, Mean Platelet Volume 7.2, Neutrophils (%) (Auto) 74.2, Lymphocytes (%) (Auto) 16.2L, Monocytes (%) (Auto) 7.4, Eosinophils (%) (Auto) 1.8, Basophils (%) (Auto) 0.6, Sodium Level 139, Potassium Level 3.6, Chloride Level 110H, Carbon Dioxide Level 22, Anion Gap 7, Blood Urea Nitrogen 19H, Creatinine 1.7H, Estimat Glomerular Filtration Rate , Glucose Level 120H, Calcium Level 8.5, Phosphorus Level 2.6, Magnesium Level 1.7L, Total Bilirubin 0.6, Aspartate Amino Transf (AST/SGOT) 137H, Alanine Aminotransferase (ALT/SGPT ) 103H, Alkaline Phosphatase 372H, Total Protein 6.2L, Albumin 1.2L, Globulin 5.0, Albumin/Globulin Ratio 0.2L Current Medications Medications (Trade) Dose Ordered Sig/Altaf Route PRN Reason Start Time Stop Time Status Last Admin Dose Admin Acetaminophen/ Hydrocodone Bitart ([place] 10/325) 1 ea Q4H PRN ORAL For Pain 05/31/17 06:45 06/07/17 06:44 Albuterol/ Ipratropium (Albuterol/ Ipratropium) 3 ml Q4H PRN HHN sob 05/30/17 10:30 06/04/17 10:29 Amoxicillin (Amoxil) 500 mg EVERY 8 HOURS GT 05/30/17 14:00 06/04/17 13:59 05/31/17 06:16 Clonidine HCl (Catapres) 0.1 mg Q4H PRN GT sbp more than 160 05/30/17 09:45 06/27/17 05:44 Collagenase (Santyl) 1 applic DAILY TOPIC 05/31/17 09:00 06/29/17 08:59 05/31/17 08:37 Dextrose (Dextrose 50%) STAT PRN IV Hypoglycemia 05/30/17 10:30 06/18/17 10:29 05/30/17 11:41 Epoetin Jax (Procrit (for non ESRD use)) 7,000 units TUE-TUE-TUE SUBQ 05/30/17 21:00 06/29/17 20:59 05/30/17 21:03 Insulin Aspart (NovoLOG) EVERY 6 HOURS SUBQ 05/30/17 12:00 06/19/17 06:29 05/31/17 00:24 Insulin Detemir (Levemir) 30 units Q12HR SUBQ 05/30/17 21:00 06/25/17 20:59 05/31/17 08:36 Metoprolol Tartrate (Lopressor) 37.5 mg Q12HR GT 05/30/17 21:00 06/27/17 08:59 05/31/17 08:34 Ondansetron HCl (Zofran) 4 mg Q6H PRN IVP Nausea & Vomiting 05/30/17 10:30 06/18/17 10:29 Ranitidine HCl (Zantac) 150 mg DAILY GT 05/31/17 11:00 06/30/17 10:59 Risperidone (RisperDAL) 1 mg DAILYPRN PRN GT For Anxiety 05/30/17 10:30 06/29/17 10:29 Silver Sulfadiazine (Silvadene Cream 25gm) 1 applic DAILY TOPIC 05/31/17 09:00 06/28/17 21:44 05/31/17 08:38 Tamsulosin HCl (Flomax) 0.4 mg BEDTIME ORAL 05/30/17 21:00 06/19/17 20:59 05/30/17 21:03 YOSHI EDOUARD May 31, 2017 11:14
[2017-05-31 12:00] VITALS: BP 141/63
[2017-05-31] MEDS ORDERED: LEVEMIR FL100 UNIT/1 SUBQ (12:42)
[2017-05-31] MEDS ORDERED: HYDROCODON-ACE1 EA13 ORAL (12:42)
[2017-05-31] MEDS ORDERED: RISPERDAL1 MG GT (12:42)
--- NOTE | 2017-05-31 13:02 | Cardiology Progress Note ---
Assessment/Plan Assessment/Plan 1. NSTEMI type 2 2. Altered mental status, probably with component of toxic metabolic encephalopathy. 3. Urinary tract infection. 4. History of hypertension. 5. Cerebrovascular accident history. 6. Abnormal liver enzymes. 7. Renal insufficiency 8. sever anemia 9. DVT non oclusive nwo post ivc filter 10. PVD lower ext 11. bilateral pulm infiltrate ? chronic stool ob + now s/p peg hgb stable off anticoagulation resume ecotrin 81 daily on bb, on statin , aspiration risk tele reviewed not a candidate for invasive cardiac therapy on metoprolol for now off statin due to abn lfts Subjective ROS Limited/Unobtainable: Yes Objective Last 24 Hour Vital Signs Date Time Temp Pulse Resp B/P (MAP) Pulse Ox O2 Delivery O2 Flow Rate FiO2 05/31/17 12:00 97.2 65 20 141/63 99 Room Air 05/31/17 08:34 90 123/56 05/31/17 08:00 97.2 90 20 123/56 99 Room Air 05/31/17 08:00 89 05/31/17 07:50 65 20 Nasal Cannula 2.0 28 05/31/17 07:47 Nasal Cannula 2.0 28 05/31/17 07:46 100 Nasal Cannula 2.0 28 05/31/17 04:00 101 05/31/17 04:00 86 05/31/17 04:00 98.2 89 20 152/81 98 Nasal Cannula 2.0 05/31/17 00:00 101 05/31/17 00:00 97.9 96 20 142/84 97 Nasal Cannula 2.0 05/30/17 21:02 87 139/68 05/30/17 20:00 96 05/30/17 20:00 97.7 87 20 139/68 100 Nasal Cannula 2.0 05/30/17 19:05 98 Nasal Cannula 2.0 28 05/30/17 19:05 Nasal Cannula 2.0 28 05/30/17 17:12 70 05/30/17 16:35 97.5 70 19 157/60 Nasal Cannula General Appearance: alert Cardiovascular: normal rate, regular rhythm Respiratory/Chest: lungs clear, normal breath sounds Abdomen: normal bowel sounds, non tender, soft Extremities: no swelling Intake and Output 05/31/17 06/01/17 19:00 07:00 Intake Total 300 ml Balance 300 ml IV Total 300 ml Laboratory Tests Test 05/31/17 07:35 White Blood Count 9.7 K/UL (4.8-10.8) Red Blood Count 3.10 M/UL (4.70-6.10) L Hemoglobin 8.8 G/DL (14.2-18.0) L Hematocrit 27.7 % (42.0-52.0) L Mean Corpuscular Volume 89 FL (80-99) Mean Corpuscular Hemoglobin 28.3 PG (27.0-31.0) Mean Corpuscular Hemoglobin Concent 31.7 G/DL (32.0-36.0) L Red Cell Distribution Width 17.6 % (11.6-14.8) H Platelet Count 270 K/UL (150-450) Mean Platelet Volume 7.2 FL (6.5-10.1) Neutrophils (%) (Auto) 74.2 % (45.0-75.0) Lymphocytes (%) (Auto) 16.2 % (20.0-45.0) L Monocytes (%) (Auto) 7.4 % (1.0-10.0) Eosinophils (%) (Auto) 1.8 % (0.0-3.0) Basophils (%) (Auto) 0.6 % (0.0-2.0) Sodium Level 139 MMOL/L (136-145) Potassium Level 3.6 MMOL/L (3.5-5.1) Chloride Level 110 MMOL/L (98-107) H Carbon Dioxide Level 22 MMOL/L (21-32) Anion Gap 7 mmol/L (5-15) Blood Urea Nitrogen 19 mg/dL (7-18) H Creatinine 1.7 MG/DL (0.55-1.30) H Estimat Glomerular Filtration Rate mL/min (>60) Glucose Level 120 MG/DL (74-106) H Calcium Level 8.5 MG/DL (8.5-10.1) Phosphorus Level 2.6 MG/DL (2.5-4.9) Magnesium Level 1.7 MG/DL (1.8-2.4) L Total Bilirubin 0.6 MG/DL (0.2-1.0) Aspartate Amino Transf (AST/SGOT) 137 U/L (15-37) H Alanine Aminotransferase (ALT/SGPT) 103 U/L (12-78) H Alkaline Phosphatase 372 U/L (46-116) H Total Protein 6.2 G/DL (6.4-8.2) L Albumin 1.2 G/DL (3.4-5.0) L Globulin 5.0 g/dL Albumin/Globulin Ratio 0.2 (1.0-2.7) L Microbiology Date/Time Source Procedure Growth Status 05/30/17 05:30 Sacral Wound Gram Stain - Final Resulted 05/30/17 05:30 Sacral Wound Wound Culture Pending Resulted CRUZ FLEMING May 31, 2017 13:02
--- NOTE | 2017-05-31 14:11 | General Progress Note ---
Assessment/Plan Assessment/Plan ASSESSMENT AND RECOMMENDATIONS: 1. Bilateral deep venous thrombosis. --> ivc filter has been placed 2. Anemia, secondary to chronic disease. We will obtain TIBC as well as iron level. Ferritin is 177. HH improving 3. Decreased hemoglobin and hematocrit, rule out gastrointestinal bleed --> occult positive. GI following 4. Coagulopathy, potentially secondary to underlying heparin drip. 5. Anemia, secondary to end-stage renal disease. 6. Psychiatric disorder. He has been seen by Psychiatry service. Continue to follow. 7. Malnutrition, peg tube has been placed Subjective Allergies: Coded Allergies: No Known Allergies (Unverified , 12/28/15) All Systems: reviewed and negative except above Subjective no major changes, refuses amputation Objective Last 24 Hour Vital Signs Date Time Temp Pulse Resp B/P (MAP) Pulse Ox O2 Delivery O2 Flow Rate FiO2 05/31/17 12:00 97.2 65 20 141/63 99 Room Air 05/31/17 12:00 68 05/31/17 08:34 90 123/56 05/31/17 08:00 97.2 90 20 123/56 99 Room Air 05/31/17 08:00 89 05/31/17 07:50 65 20 Nasal Cannula 2.0 28 05/31/17 07:47 Nasal Cannula 2.0 28 05/31/17 07:46 100 Nasal Cannula 2.0 28 05/31/17 04:00 101 05/31/17 04:00 86 05/31/17 04:00 98.2 89 20 152/81 98 Nasal Cannula 2.0 05/31/17 00:00 101 05/31/17 00:00 97.9 96 20 142/84 97 Nasal Cannula 2.0 05/30/17 21:02 87 139/68 05/30/17 20:00 96 05/30/17 20:00 97.7 87 20 139/68 100 Nasal Cannula 2.0 05/30/17 19:05 98 Nasal Cannula 2.0 28 05/30/17 19:05 Nasal Cannula 2.0 28 05/30/17 17:12 70 05/30/17 16:35 97.5 70 19 157/60 Nasal Cannula Intake and Output 05/31/17 06/01/17 19:00 07:00 Intake Total 300 ml Balance 300 ml IV Total 300 ml Laboratory Tests 05/31/17 07:35: White Blood Count 9.7, Red Blood Count 3.10L, Hemoglobin 8.8L, Hematocrit 27.7L , Mean Corpuscular Volume 89, Mean Corpuscular Hemoglobin 28.3, Mean Corpuscular Hemoglobin Concent 31.7L, Red Cell Distribution Width 17.6H, Platelet Count 270, Mean Platelet Volume 7.2, Neutrophils (%) (Auto) 74.2, Lymphocytes (%) (Auto) 16.2L, Monocytes (%) (Auto) 7.4, Eosinophils (%) (Auto) 1.8, Basophils (%) (Auto) 0.6, Sodium Level 139, Potassium Level 3.6, Chloride Level 110H, Carbon Dioxide Level 22, Anion Gap 7, Blood Urea Nitrogen 19H, Creatinine 1.7H, Estimat Glomerular Filtration Rate , Glucose Level 120H, Calcium Level 8.5, Phosphorus Level 2.6, Magnesium Level 1.7L, Total Bilirubin 0.6, Aspartate Amino Transf (AST/SGOT) 137H, Alanine Aminotransferase (ALT/SGPT ) 103H, Alkaline Phosphatase 372H, Total Protein 6.2L, Albumin 1.2L, Globulin 5.0, Albumin/Globulin Ratio 0.2L Height (Feet): 5 Height (Inches): 8.00 Weight (Pounds): 211 General Appearance: no apparent distress EENT: PERRL/EOMI Neck: non-tender, normal alignment Cardiovascular: normal peripheral pulses Respiratory/Chest: chest wall non-tender Skin: normal pigmentation, warm/dry Chano Bellamy May 31, 2017 14:11
--- NOTE | 2017-05-31 14:11 | GI Progress Note ---
Assessment/Plan Problems: (1) Abdominal pain ICD Codes: R10.9 - Unspecified abdominal pain SNOMED: 53797044 (2) Hypoalbuminemia ICD Codes: E88.09 - Other disorders of plasma-protein metabolism, not elsewhere classified SNOMED: 319921707 (3) Generalized weakness ICD Codes: R53.1 - Weakness SNOMED: 84026401 (4) Diarrhea ICD Codes: R19.7 - Diarrhea, unspecified SNOMED: 96166267 (5) Anemia ICD Codes: D64.9 - Anemia, unspecified SNOMED: 443277973 (6) Diabetes mellitus ICD Codes: E11.9 - Type 2 diabetes mellitus without complications SNOMED: 38082773 Status: stable Status Narrative Discussed with Dr. Blackman. Assessment/Plan - dysphagia - s/p GT - CVA - abnormal LFT - ? statin, ? other cause - s/p IVC filter - anemia - OB (+) Stools - Azotemia - rising CRP, ? etiology Recommend fu abdominal U/S Hold statin and other non vital meds GTFs per dietary monitor CBC / transfuse PRN PPI follow LFTs fu labs Subjective Subjective limited Objective Last 24 Hour Vital Signs Date Time Temp Pulse Resp B/P (MAP) Pulse Ox O2 Delivery O2 Flow Rate FiO2 05/31/17 12:00 97.2 65 20 141/63 99 Room Air 05/31/17 12:00 68 05/31/17 08:34 90 123/56 05/31/17 08:00 97.2 90 20 123/56 99 Room Air 05/31/17 08:00 89 05/31/17 07:50 65 20 Nasal Cannula 2.0 28 05/31/17 07:47 Nasal Cannula 2.0 28 05/31/17 07:46 100 Nasal Cannula 2.0 28 05/31/17 04:00 101 05/31/17 04:00 86 05/31/17 04:00 98.2 89 20 152/81 98 Nasal Cannula 2.0 05/31/17 00:00 101 05/31/17 00:00 97.9 96 20 142/84 97 Nasal Cannula 2.0 05/30/17 21:02 87 139/68 05/30/17 20:00 96 05/30/17 20:00 97.7 87 20 139/68 100 Nasal Cannula 2.0 05/30/17 19:05 98 Nasal Cannula 2.0 28 05/30/17 19:05 Nasal Cannula 2.0 28 05/30/17 17:12 70 05/30/17 16:35 97.5 70 19 157/60 Nasal Cannula Intake and Output 05/31/17 06/01/17 19:00 07:00 Intake Total 300 ml Balance 300 ml IV Total 300 ml Laboratory Tests Test 05/31/17 07:35 White Blood Count 9.7 K/UL (4.8-10.8) Red Blood Count 3.10 M/UL (4.70-6.10) L Hemoglobin 8.8 G/DL (14.2-18.0) L Hematocrit 27.7 % (42.0-52.0) L Mean Corpuscular Volume 89 FL (80-99) Mean Corpuscular Hemoglobin 28.3 PG (27.0-31.0) Mean Corpuscular Hemoglobin Concent 31.7 G/DL (32.0-36.0) L Red Cell Distribution Width 17.6 % (11.6-14.8) H Platelet Count 270 K/UL (150-450) Mean Platelet Volume 7.2 FL (6.5-10.1) Neutrophils (%) (Auto) 74.2 % (45.0-75.0) Lymphocytes (%) (Auto) 16.2 % (20.0-45.0) L Monocytes (%) (Auto) 7.4 % (1.0-10.0) Eosinophils (%) (Auto) 1.8 % (0.0-3.0) Basophils (%) (Auto) 0.6 % (0.0-2.0) Sodium Level 139 MMOL/L (136-145) Potassium Level 3.6 MMOL/L (3.5-5.1) Chloride Level 110 MMOL/L (98-107) H Carbon Dioxide Level 22 MMOL/L (21-32) Anion Gap 7 mmol/L (5-15) Blood Urea Nitrogen 19 mg/dL (7-18) H Creatinine 1.7 MG/DL (0.55-1.30) H Estimat Glomerular Filtration Rate mL/min (>60) Glucose Level 120 MG/DL (74-106) H Calcium Level 8.5 MG/DL (8.5-10.1) Phosphorus Level 2.6 MG/DL (2.5-4.9) Magnesium Level 1.7 MG/DL (1.8-2.4) L Total Bilirubin 0.6 MG/DL (0.2-1.0) Aspartate Amino Transf (AST/SGOT) 137 U/L (15-37) H Alanine Aminotransferase (ALT/SGPT) 103 U/L (12-78) H Alkaline Phosphatase 372 U/L (46-116) H Total Protein 6.2 G/DL (6.4-8.2) L Albumin 1.2 G/DL (3.4-5.0) L Globulin 5.0 g/dL Albumin/Globulin Ratio 0.2 (1.0-2.7) L Height (Feet): 5 Height (Inches): 8.00 Weight (Pounds): 211 General Appearance: no apparent distress Cardiovascular: normal rate Respiratory/Chest: normal breath sounds, no respiratory distress Abdominal Exam: normal bowel sounds, non tender, soft, GT site - c/d/i Extremities: non-tender Mliady Schafer N.P. May 31, 2017 14:11
--- NOTE | 2017-05-31 15:19 | Podiatric Progress Note ---
Assessment/Plan Patient Myke Bhatt is a 76 year old male who was admitted on May 19, 2017 at 20:50 with Problems: Assessment/Plan A/ 1) Severe PAD bilateral 2) DTI left plantar 1st MPJ 3) Blister posterior left and right leg - gangrenous changes 4) Blister anterior left ankle - gangrenous 5) DVT P/ 1) Cont current wound care as ordered 2) Arterial ultrasound reviewed. Vascular surgery recs appreciated 3) Cont offloadiing/low air mattress 4) Will follow Subjective Allergies: Coded Allergies: No Known Allergies (Unverified , 12/28/15) Subjective Patient resting comfortably Objective Exam Last 24 Hour Vital Signs Date Time Temp Pulse Resp B/P (MAP) Pulse Ox O2 Delivery O2 Flow Rate FiO2 05/31/17 12:00 97.2 65 20 141/63 99 Room Air 05/31/17 12:00 68 05/31/17 08:34 90 123/56 05/31/17 08:00 97.2 90 20 123/56 99 Room Air 05/31/17 08:00 89 05/31/17 07:50 65 20 Nasal Cannula 2.0 28 05/31/17 07:47 Nasal Cannula 2.0 28 05/31/17 07:46 100 Nasal Cannula 2.0 28 05/31/17 04:00 101 05/31/17 04:00 86 05/31/17 04:00 98.2 89 20 152/81 98 Nasal Cannula 2.0 05/31/17 00:00 101 05/31/17 00:00 97.9 96 20 142/84 97 Nasal Cannula 2.0 05/30/17 21:02 87 139/68 05/30/17 20:00 96 05/30/17 20:00 97.7 87 20 139/68 100 Nasal Cannula 2.0 05/30/17 19:05 98 Nasal Cannula 2.0 28 05/30/17 19:05 Nasal Cannula 2.0 28 05/30/17 17:12 70 05/30/17 16:35 97.5 70 19 157/60 Nasal Cannula Laboratory Tests Test 05/31/17 07:35 White Blood Count 9.7 K/UL (4.8-10.8) Red Blood Count 3.10 M/UL (4.70-6.10) L Hemoglobin 8.8 G/DL (14.2-18.0) L Hematocrit 27.7 % (42.0-52.0) L Mean Corpuscular Volume 89 FL (80-99) Mean Corpuscular Hemoglobin 28.3 PG (27.0-31.0) Mean Corpuscular Hemoglobin Concent 31.7 G/DL (32.0-36.0) L Red Cell Distribution Width 17.6 % (11.6-14.8) H Platelet Count 270 K/UL (150-450) Mean Platelet Volume 7.2 FL (6.5-10.1) Neutrophils (%) (Auto) 74.2 % (45.0-75.0) Lymphocytes (%) (Auto) 16.2 % (20.0-45.0) L Monocytes (%) (Auto) 7.4 % (1.0-10.0) Eosinophils (%) (Auto) 1.8 % (0.0-3.0) Basophils (%) (Auto) 0.6 % (0.0-2.0) Sodium Level 139 MMOL/L (136-145) Potassium Level 3.6 MMOL/L (3.5-5.1) Chloride Level 110 MMOL/L (98-107) H Carbon Dioxide Level 22 MMOL/L (21-32) Anion Gap 7 mmol/L (5-15) Blood Urea Nitrogen 19 mg/dL (7-18) H Creatinine 1.7 MG/DL (0.55-1.30) H Estimat Glomerular Filtration Rate mL/min (>60) Glucose Level 120 MG/DL (74-106) H Calcium Level 8.5 MG/DL (8.5-10.1) Phosphorus Level 2.6 MG/DL (2.5-4.9) Magnesium Level 1.7 MG/DL (1.8-2.4) L Total Bilirubin 0.6 MG/DL (0.2-1.0) Aspartate Amino Transf (AST/SGOT) 137 U/L (15-37) H Alanine Aminotransferase (ALT/SGPT) 103 U/L (12-78) H Alkaline Phosphatase 372 U/L (46-116) H Total Protein 6.2 G/DL (6.4-8.2) L Albumin 1.2 G/DL (3.4-5.0) L Globulin 5.0 g/dL Albumin/Globulin Ratio 0.2 (1.0-2.7) L Microbiology Date/Time Source Procedure Growth Status 05/24/17 19:05 Blood Blood Culture - Final NO GROWTH AFTER 5 DAYS Complete 05/21/17 15:20 Sputum Induced Gram Stain - Final Complete 05/21/17 15:20 Sputum Culture - Final Capri Albicans Usual Upper Respiratory Ade Complete 05/20/17 00:10 Urine,Clean Catch Urine Culture - Final Enterococcus Faecalis Complete 05/30/17 05:30 Sacral Wound Gram Stain - Final Resulted 05/30/17 05:30 Sacral Wound Wound Culture Pending Resulted Dermatological Wound Assessment : Exudate Amount: Moderate Gray Denton DPM May 31, 2017 15:19
[2017-05-31] MEDS: Aspirin Baby 81mg GT SCH (15:29)
[2017-05-31 16:00] VITALS: BP 137/56
--- NOTE | 2017-05-31 17:28 | Consultation ---
History of Present Illness General Date patient seen: May 31, 2017 Time patient seen: 17:18 Chief Complaint: General Complaint Reason for Consultation: Sacral Ulcer Present Illness HPI Asked to evaluate patient with sacral ulcer. He was admitted to [facility] from half-way with altered mental status and abnormal labs. It is unclear whether he had this ulcer prior to his admission. He has a h/o CVA, DM, and prostate ca. He is in bed and doesn't really follow commands. He has been receiving santyl to the ulcer. He is also being seen by podiatry for a LE ulcer. Allergies: Coded Allergies: No Known Allergies (Unverified , 12/28/15) Medication History Scheduled Amlodipine Besylate* (Amlodipine Besylate*), 5 MG ORAL DAILY, (Reported) Aspirin* (Aspir-Low*), 81 MG ORAL DAILY, (Reported) Atorvastatin (Lipitor), 80 MG ORAL BEDTIME, (Reported) Citalopram Hydrobromide* (Citalopram Hbr*), 20 MG ORAL DAILY, (Reported) Clopidogrel Bisulfate* (Plavix*), 75 MG ORAL DAILY, (Reported) Docusate Sodium* (Docusate Sodium*), 100 MG ORAL TWICE A DAY, (Reported) Finasteride* (Proscar*), 5 MG ORAL BEDTIME, (Reported) Hydralazine Hcl* (Hydralazine Hcl*), 25 MG ORAL TID, (Reported) Insulin Detemir (Levemir), 15 UNITS SUBQ BEDTIME, (Reported) Insulin Detemir (Levemir Flexpen), 30 UNITS SUBQ Q12HR Losartan Potassium* (Losartan Potassium*), 25 MG ORAL DAILY, (Reported) Memantine Hcl* (Namenda*), 10 MG ORAL TWICE A DAY, (Reported) Metoprolol Tartrate* (Metoprolol Tartrate*), 50 MG ORAL EVERY 12 HOURS, ( Reported) Multivitamin With Minerals (Multivitamins With Minerals*), 1 TAB ORAL DAILY, ( Reported) Tamsulosin Hcl (Tamsulosin Hcl*), 0.4 MG ORAL BEDTIME, (Reported) Scheduled PRN Hydrocodone Bit/Acetaminophen 10-325* (Hydrocodon-Acetaminophn 10-325*), 1 EA ORAL Q4H PRN Risperidone* (Risperdal*), 1 MG GT DAILYPRN PRN Miscellaneous Medications Insulin Aspart* (Novolog*), (Reported) Vit A/Vitamin D3/E/Aloe V/Znox (Periguard Ointment), 100 GM TP, (Reported) Patient History Limited by: medical condition History Provided By: Medical Record Healthcare decision maker Resuscitation status Full Code Advanced Directive on File Physical Exam General Appearance: confused Lines, tubes and drains: peripheral, gtube Respiratory/Chest: no respiratory distress Abdomen: soft Extremities: no edema Skin Exam: other - Unstageable sacral ulcer with eschar that is firm and adherent. No fluctuance below the eschar. No erythema or warmth in periskin. No crepitus. Last 24 Hour Vital Signs Date Time Temp Pulse Resp B/P (MAP) Pulse Ox O2 Delivery O2 Flow Rate FiO2 05/31/17 16:00 67 05/31/17 16:00 97.7 76 21 137/56 97 Room Air 05/31/17 12:00 97.2 65 20 141/63 99 Room Air 05/31/17 12:00 68 05/31/17 08:34 90 123/56 05/31/17 08:00 97.2 90 20 123/56 99 Room Air 05/31/17 08:00 89 05/31/17 07:50 65 20 Nasal Cannula 2.0 28 05/31/17 07:47 Nasal Cannula 2.0 28 05/31/17 07:46 100 Nasal Cannula 2.0 28 05/31/17 04:00 101 05/31/17 04:00 86 05/31/17 04:00 98.2 89 20 152/81 98 Nasal Cannula 2.0 05/31/17 00:00 101 05/31/17 00:00 97.9 96 20 142/84 97 Nasal Cannula 2.0 05/30/17 21:02 87 139/68 05/30/17 20:00 96 05/30/17 20:00 97.7 87 20 139/68 100 Nasal Cannula 2.0 05/30/17 19:05 98 Nasal Cannula 2.0 28 05/30/17 19:05 Nasal Cannula 2.0 28 Intake and Output 05/31/17 06/01/17 19:00 07:00 Intake Total 670 ml Balance 670 ml Free Water 100 ml IV Total 300 ml Tube Feeding 270 ml Laboratory Tests Test 05/31/17 07:35 White Blood Count 9.7 K/UL (4.8-10.8) Red Blood Count 3.10 M/UL (4.70-6.10) L Hemoglobin 8.8 G/DL (14.2-18.0) L Hematocrit 27.7 % (42.0-52.0) L Mean Corpuscular Volume 89 FL (80-99) Mean Corpuscular Hemoglobin 28.3 PG (27.0-31.0) Mean Corpuscular Hemoglobin Concent 31.7 G/DL (32.0-36.0) L Red Cell Distribution Width 17.6 % (11.6-14.8) H Platelet Count 270 K/UL (150-450) Mean Platelet Volume 7.2 FL (6.5-10.1) Neutrophils (%) (Auto) 74.2 % (45.0-75.0) Lymphocytes (%) (Auto) 16.2 % (20.0-45.0) L Monocytes (%) (Auto) 7.4 % (1.0-10.0) Eosinophils (%) (Auto) 1.8 % (0.0-3.0) Basophils (%) (Auto) 0.6 % (0.0-2.0) Sodium Level 139 MMOL/L (136-145) Potassium Level 3.6 MMOL/L (3.5-5.1) Chloride Level 110 MMOL/L (98-107) H Carbon Dioxide Level 22 MMOL/L (21-32) Anion Gap 7 mmol/L (5-15) Blood Urea Nitrogen 19 mg/dL (7-18) H Creatinine 1.7 MG/DL (0.55-1.30) H Estimat Glomerular Filtration Rate mL/min (>60) Glucose Level 120 MG/DL (74-106) H Calcium Level 8.5 MG/DL (8.5-10.1) Phosphorus Level 2.6 MG/DL (2.5-4.9) Magnesium Level 1.7 MG/DL (1.8-2.4) L Total Bilirubin 0.6 MG/DL (0.2-1.0) Aspartate Amino Transf (AST/SGOT) 137 U/L (15-37) H Alanine Aminotransferase (ALT/SGPT) 103 U/L (12-78) H Alkaline Phosphatase 372 U/L (46-116) H Total Protein 6.2 G/DL (6.4-8.2) L Albumin 1.2 G/DL (3.4-5.0) L Globulin 5.0 g/dL Albumin/Globulin Ratio 0.2 (1.0-2.7) L Height (Feet): 5 Height (Inches): 8.00 Weight (Pounds): 211 Medications Current Medications Medications (Trade) Dose Ordered Sig/Altaf Route PRN Reason Start Time Stop Time Status Last Admin Dose Admin Acetaminophen/ Hydrocodone Bitart ([place] 10325) 1 ea Q4H PRN ORAL For Pain 05/31/17 06:45 06/07/17 06:44 Amoxicillin/ Clavulanate Potassium (Augmentin) 500 mg BID ORAL 05/31/17 18:00 06/07/17 17:59 Aspirin (ASA) 81 mg DAILY GT 05/31/17 15:00 06/30/17 14:59 05/31/17 15:29 Collagenase (Santyl) 1 applic DAILY TOPIC 05/31/17 09:00 06/29/17 08:59 05/31/17 08:37 Dextrose (Dextrose 50%) STAT PRN IV Hypoglycemia 05/30/17 10:30 06/18/17 10:29 05/30/17 11:41 Insulin Aspart (NovoLOG) EVERY 6 HOURS SUBQ 05/30/17 12:00 06/19/17 06:29 05/31/17 11:50 Insulin Detemir (Levemir) 30 units Q12HR SUBQ 05/30/17 21:00 06/25/17 20:59 05/31/17 08:36 Metoprolol Tartrate (Lopressor) 37.5 mg Q12HR GT 05/30/17 21:00 06/27/17 08:59 05/31/17 08:34 Risperidone (RisperDAL) 1 mg DAILYPRN PRN GT For Anxiety 05/30/17 10:30 06/29/17 10:29 Silver Sulfadiazine (Silvadene Cream 25gm) 1 applic DAILY TOPIC 05/31/17 09:00 06/28/17 21:44 05/31/17 08:38 Tamsulosin HCl (Flomax) 0.4 mg BEDTIME ORAL 05/30/17 21:00 06/19/17 20:59 05/30/17 21:03 Assessment/Plan Status: stable Assessment/Plan Patient with an unstageable sacral pressure ulcer. He needs to be offloaded and turned q2 hours. His albumin level is very low. Check prealbumin level to determine nutritional status. Moisture control. Agree with using santyl to soften eschar. Ulcer is not ready for debridement as the eschar is still firmly adherent. Once the eschar has loosened then can debride and determine extent of the ulcer. JARAD WONG May 31, 2017 17:28
[2017-05-31 20:00] VITALS: BP 153/84
[2017-05-31] MEDS: Tamsulosin 0.4mg cap ORAL SCH (20:16)
--- NOTE | 2017-05-31 20:18 | General Progress Note ---
Assessment/Plan Status: stable Assessment/Plan encephalopathy cont current meds Subjective Date patient seen: May 31, 2017 Allergies: Coded Allergies: No Known Allergies (Unverified , 12/28/15) Subjective confused periods of agitation more alert Objective Last 24 Hour Vital Signs Date Time Temp Pulse Resp B/P (MAP) Pulse Ox O2 Delivery O2 Flow Rate FiO2 05/31/17 20:00 97.7 82 20 153/84 98 Room Air 2.0 28 05/31/17 16:00 67 05/31/17 16:00 97.7 76 21 137/56 97 Room Air 05/31/17 12:00 97.2 65 20 141/63 99 Room Air 05/31/17 12:00 68 05/31/17 08:34 90 123/56 05/31/17 08:00 97.2 90 20 123/56 99 Room Air 05/31/17 08:00 89 05/31/17 07:50 65 20 Nasal Cannula 2.0 28 05/31/17 07:47 Nasal Cannula 2.0 28 05/31/17 07:46 100 Nasal Cannula 2.0 28 05/31/17 04:00 101 05/31/17 04:00 86 05/31/17 04:00 98.2 89 20 152/81 98 Nasal Cannula 2.0 05/31/17 00:00 101 05/31/17 00:00 97.9 96 20 142/84 97 Nasal Cannula 2.0 05/30/17 21:02 87 139/68 Intake and Output 05/31/17 06/01/17 19:00 07:00 Intake Total 740 ml Balance 740 ml Free Water 100 ml IV Total 300 ml Tube Feeding 340 ml Laboratory Tests 05/31/17 07:35: White Blood Count 9.7, Red Blood Count 3.10L, Hemoglobin 8.8L, Hematocrit 27.7L , Mean Corpuscular Volume 89, Mean Corpuscular Hemoglobin 28.3, Mean Corpuscular Hemoglobin Concent 31.7L, Red Cell Distribution Width 17.6H, Platelet Count 270, Mean Platelet Volume 7.2, Neutrophils (%) (Auto) 74.2, Lymphocytes (%) (Auto) 16.2L, Monocytes (%) (Auto) 7.4, Eosinophils (%) (Auto) 1.8, Basophils (%) (Auto) 0.6, Sodium Level 139, Potassium Level 3.6, Chloride Level 110H, Carbon Dioxide Level 22, Anion Gap 7, Blood Urea Nitrogen 19H, Creatinine 1.7H, Estimat Glomerular Filtration Rate , Glucose Level 120H, Calcium Level 8.5, Phosphorus Level 2.6, Magnesium Level 1.7L, Total Bilirubin 0.6, Aspartate Amino Transf (AST/SGOT) 137H, Alanine Aminotransferase (ALT/SGPT ) 103H, Alkaline Phosphatase 372H, Total Protein 6.2L, Albumin 1.2L, Globulin 5.0, Albumin/Globulin Ratio 0.2L, Prealbumin [Pending] Height (Feet): 5 Height (Inches): 8.00 Weight (Pounds): 211 General Appearance: no apparent distress, alert, confused Neurologic: alert, disoriented, unresponsive, depressed affect Madi Hansen M.D. May 31, 2017 20:18
--- NOTE | 2017-05-31 20:18 | Geriatric Progress Note ---
Subjective Interval Events 05/30/17 Geriatric Geriatric Last 24 Hour Vital Signs Date Time Temp Pulse Resp B/P (MAP) Pulse Ox O2 Delivery O2 Flow Rate FiO2 05/31/17 20:00 97.7 82 20 153/84 98 Room Air 2.0 28 05/31/17 16:00 67 05/31/17 16:00 97.7 76 21 137/56 97 Room Air 05/31/17 12:00 97.2 65 20 141/63 99 Room Air 05/31/17 12:00 68 05/31/17 08:34 90 123/56 05/31/17 08:00 97.2 90 20 123/56 99 Room Air 05/31/17 08:00 89 05/31/17 07:50 65 20 Nasal Cannula 2.0 28 05/31/17 07:47 Nasal Cannula 2.0 28 05/31/17 07:46 100 Nasal Cannula 2.0 28 05/31/17 04:00 101 05/31/17 04:00 86 05/31/17 04:00 98.2 89 20 152/81 98 Nasal Cannula 2.0 05/31/17 00:00 101 05/31/17 00:00 97.9 96 20 142/84 97 Nasal Cannula 2.0 05/30/17 21:02 87 139/68 Intake and Output 05/31/17 06/01/17 19:00 07:00 Intake Total 740 ml Balance 740 ml Free Water 100 ml IV Total 300 ml Tube Feeding 340 ml Laboratory Tests Test 05/31/17 07:35 White Blood Count 9.7 K/UL (4.8-10.8) Red Blood Count 3.10 M/UL (4.70-6.10) L Hemoglobin 8.8 G/DL (14.2-18.0) L Hematocrit 27.7 % (42.0-52.0) L Mean Corpuscular Volume 89 FL (80-99) Mean Corpuscular Hemoglobin 28.3 PG (27.0-31.0) Mean Corpuscular Hemoglobin Concent 31.7 G/DL (32.0-36.0) L Red Cell Distribution Width 17.6 % (11.6-14.8) H Platelet Count 270 K/UL (150-450) Mean Platelet Volume 7.2 FL (6.5-10.1) Neutrophils (%) (Auto) 74.2 % (45.0-75.0) Lymphocytes (%) (Auto) 16.2 % (20.0-45.0) L Monocytes (%) (Auto) 7.4 % (1.0-10.0) Eosinophils (%) (Auto) 1.8 % (0.0-3.0) Basophils (%) (Auto) 0.6 % (0.0-2.0) Sodium Level 139 MMOL/L (136-145) Potassium Level 3.6 MMOL/L (3.5-5.1) Chloride Level 110 MMOL/L (98-107) H Carbon Dioxide Level 22 MMOL/L (21-32) Anion Gap 7 mmol/L (5-15) Blood Urea Nitrogen 19 mg/dL (7-18) H Creatinine 1.7 MG/DL (0.55-1.30) H Estimat Glomerular Filtration Rate mL/min (>60) Glucose Level 120 MG/DL (74-106) H Calcium Level 8.5 MG/DL (8.5-10.1) Phosphorus Level 2.6 MG/DL (2.5-4.9) Magnesium Level 1.7 MG/DL (1.8-2.4) L Total Bilirubin 0.6 MG/DL (0.2-1.0) Aspartate Amino Transf (AST/SGOT) 137 U/L (15-37) H Alanine Aminotransferase (ALT/SGPT) 103 U/L (12-78) H Alkaline Phosphatase 372 U/L (46-116) H Total Protein 6.2 G/DL (6.4-8.2) L Albumin 1.2 G/DL (3.4-5.0) L Globulin 5.0 g/dL Albumin/Globulin Ratio 0.2 (1.0-2.7) L Prealbumin Pending Current Medications Medications (Trade) Dose Ordered Sig/Altaf Route PRN Reason Start Time Stop Time Status Last Admin Dose Admin Acetaminophen/ Hydrocodone Bitart ([place] 10/325) 1 ea Q4H PRN ORAL For Pain 05/31/17 06:45 06/07/17 06:44 Amoxicillin/ Clavulanate Potassium (Augmentin) 500 mg BID ORAL 05/31/17 18:00 06/07/17 17:59 11/21/17 18:06 Aspirin (ASA) 81 mg DAILY GT 05/31/17 15:00 06/30/17 14:59 05/31/17 15:29 Collagenase (Santyl) 1 applic DAILY TOPIC 05/31/17 09:00 06/29/17 08:59 05/31/17 08:37 Dextrose (Dextrose 50%) STAT PRN IV Hypoglycemia 05/30/17 10:30 06/18/17 10:29 05/30/17 11:41 Insulin Aspart (NovoLOG) EVERY 6 HOURS SUBQ 05/30/17 12:00 06/19/17 06:29 05/31/17 18:08 Insulin Detemir (Levemir) 30 units Q12HR SUBQ 05/30/17 21:00 06/25/17 20:59 05/31/17 08:36 Metoprolol Tartrate (Lopressor) 37.5 mg Q12HR GT 05/30/17 21:00 06/27/17 08:59 05/31/17 08:34 Risperidone (RisperDAL) 1 mg DAILYPRN PRN GT For Anxiety 05/30/17 10:30 06/29/17 10:29 Silver Sulfadiazine (Silvadene Cream 25gm) 1 applic DAILY TOPIC 05/31/17 09:00 06/28/17 21:44 05/31/17 08:38 Tamsulosin HCl (Flomax) 0.4 mg BEDTIME ORAL 05/30/17 21:00 06/19/17 20:59 05/30/17 21:03 Height (Feet): 5 Height (Inches): 8.00 Weight (Pounds): 211 Madi Hansen M.D. May 31, 2017 20:18
[2017-06-01] VITALS: BP 136/76
[2017-06-01] MEDS: NovoLOG Insulin Flexpen SUBQ SCH ×2 (00:34→06:12)
[2017-06-01 04:00] VITALS: BP 136/64
[2017-06-01 06:35] LABS: BASOPHILS % (AUTO) 0.5 % (0.0-2.0); MEAN CORPUSCULAR HEMOGLOBIN 29.8 PG (27.0-31.0); MEAN CORPUSCULAR HGB CONC 33.3 G/DL (32.0-36.0); MEAN CORPUSCULAR VOLUME 89 FL (80-99); MEAN PLATELET VOLUME 7.4 FL (6.5-10.1); MONOCYTES % (AUTO) 7.2 % (1.0-10.0); NEUTROPHILS % (AUTO) 72.4 % (45.0-75.0); PLATELET COUNT 286 K/UL (150-450); RED BLOOD COUNT 3.07 M/UL (4.70-6.10); RED CELL DISTRIBUTION WIDTH 18.1 % (11.6-14.8)
--- NOTE | 2017-06-01 07:12 | General Progress Note ---
Assessment/Plan Problem List: (1) Hypernatremia ICD Codes: E87.0 - Hyperosmolality and hypernatremia SNOMED: 76004838 (2) Diabetes mellitus ICD Codes: E11.9 - Type 2 diabetes mellitus without complications SNOMED: 24495034 (3) Renal failure ICD Codes: N19 - Unspecified kidney failure SNOMED: 56336631 Qualifiers: Qualified Codes: N17.9 - Acute kidney failure, unspecified (4) toxic metabolic encephalopathy, multifactorial Assessment/Plan Levemir 30 units was held last night reduce Levemir to 23 units bid continue Novolog SSI Subjective ROS Limited/Unobtainable: Yes Allergies: Coded Allergies: No Known Allergies (Unverified , 12/28/15) Subjective events noted Objective Last 24 Hour Vital Signs Date Time Temp Pulse Resp B/P (MAP) Pulse Ox O2 Delivery O2 Flow Rate FiO2 06/01/17 04:00 97.0 93 20 136/64 98 Room Air 2.0 28 06/01/17 04:00 95 06/01/17 00:00 97.8 82 20 136/76 98 Room Air 2.0 28 06/01/17 00:00 84 05/31/17 20:17 82 153/84 05/31/17 20:00 97.7 82 20 153/84 98 Room Air 2.0 28 05/31/17 20:00 81 05/31/17 19:30 98 Nasal Cannula 2.0 28 05/31/17 19:30 70 20 Nasal Cannula 2.0 28 05/31/17 19:30 Nasal Cannula 2.0 28 05/31/17 16:00 67 05/31/17 16:00 97.7 76 21 137/56 97 Room Air 05/31/17 12:00 97.2 65 20 141/63 99 Room Air 05/31/17 12:00 68 05/31/17 08:34 90 123/56 05/31/17 08:00 97.2 90 20 123/56 99 Room Air 05/31/17 08:00 89 05/31/17 07:50 65 20 Nasal Cannula 2.0 28 05/31/17 07:47 Nasal Cannula 2.0 28 05/31/17 07:46 100 Nasal Cannula 2.0 28 Laboratory Tests 05/31/17 07:35: White Blood Count 9.7, Red Blood Count 3.10L, Hemoglobin 8.8L, Hematocrit 27.7L , Mean Corpuscular Volume 89, Mean Corpuscular Hemoglobin 28.3, Mean Corpuscular Hemoglobin Concent 31.7L, Red Cell Distribution Width 17.6H, Platelet Count 270, Mean Platelet Volume 7.2, Neutrophils (%) (Auto) 74.2, Lymphocytes (%) (Auto) 16.2L, Monocytes (%) (Auto) 7.4, Eosinophils (%) (Auto) 1.8, Basophils (%) (Auto) 0.6, Sodium Level 139, Potassium Level 3.6, Chloride Level 110H, Carbon Dioxide Level 22, Anion Gap 7, Blood Urea Nitrogen 19H, Creatinine 1.7H, Estimat Glomerular Filtration Rate , Glucose Level 120H, Calcium Level 8.5, Phosphorus Level 2.6, Magnesium Level 1.7L, Total Bilirubin 0.6, Aspartate Amino Transf (AST/SGOT) 137H, Alanine Aminotransferase (ALT/SGPT ) 103H, Alkaline Phosphatase 372H, Total Protein 6.2L, Albumin 1.2L, Globulin 5.0, Albumin/Globulin Ratio 0.2L, Prealbumin [Pending] 06/01/17 06:00: White Blood Count 8.0, Red Blood Count 3.07L, Hemoglobin 9.1L, Hematocrit 27.4L , Mean Corpuscular Volume 89, Mean Corpuscular Hemoglobin 29.8, Mean Corpuscular Hemoglobin Concent 33.3, Red Cell Distribution Width 18.1H, Platelet Count 286, Mean Platelet Volume 7.4, Neutrophils (%) (Auto) 72.4, Lymphocytes (%) (Auto) 18.0L, Monocytes (%) (Auto) 7.2, Eosinophils (%) (Auto) 2.0, Basophils (%) (Auto) 0.5, Sodium Level [Pending], Potassium Level [Pending] , Chloride Level [Pending], Carbon Dioxide Level [Pending], Blood Urea Nitrogen [Pending], Creatinine [Pending], Estimat Glomerular Filtration Rate [Pending], Glucose Level [Pending], Calcium Level [Pending], Total Bilirubin [Pending], Aspartate Amino Transf (AST/SGOT) [Pending], Alanine Aminotransferase (ALT/SGPT ) [Pending], Alkaline Phosphatase [Pending], Total Protein [Pending], Albumin [ Pending], Globulin [Pending] Height (Feet): 5 Height (Inches): 8.00 Weight (Pounds): 210 General Appearance: no apparent distress Neck: normal alignment Cardiovascular: normal rate Respiratory/Chest: decreased breath sounds Abdomen: normal bowel sounds Objective Current Medications Medications (Trade) Dose Ordered Sig/Altaf Route PRN Reason Start Time Stop Time Status Last Admin Dose Admin Acetaminophen/ Hydrocodone Bitart ([place] 10/325) 1 ea Q4H PRN ORAL For Pain 05/31/17 06:45 06/07/17 06:44 Amoxicillin/ Clavulanate Potassium (Augmentin) 500 mg BID ORAL 05/31/17 18:00 06/07/17 17:59 05/31/17 18:06 Aspirin (ASA) 81 mg DAILY GT 05/31/17 15:00 06/30/17 14:59 05/31/17 15:29 Collagenase (Santyl) 1 applic DAILY TOPIC 05/31/17 09:00 06/29/17 08:59 05/31/17 08:37 Dextrose (Dextrose 50%) STAT PRN IV Hypoglycemia 05/30/17 10:30 06/18/17 10:29 05/30/17 11:41 Insulin Aspart (NovoLOG) EVERY 6 HOURS SUBQ 05/30/17 12:00 06/19/17 06:29 06/01/17 06:12 Insulin Detemir (Levemir) 30 units Q12HR SUBQ 05/30/17 21:00 06/25/17 20:59 05/31/17 08:36 Metoprolol Tartrate (Lopressor) 37.5 mg Q12HR GT 05/30/17 21:00 06/27/17 08:59 05/31/17 20:17 Risperidone (RisperDAL) 1 mg DAILYPRN PRN GT For Anxiety 05/30/17 10:30 06/29/17 10:29 05/31/17 21:40 Silver Sulfadiazine (Silvadene Cream 25gm) 1 applic DAILY TOPIC 05/31/17 09:00 06/28/17 21:44 05/31/17 08:38 Tamsulosin HCl (Flomax) 0.4 mg BEDTIME ORAL 05/30/17 21:00 06/19/17 20:59 05/31/17 20:16 Item Value Date Time Bedside Blood Glucose 170 mg/dl H 06/01/17 0612 Bedside Blood Glucose 120 mg/dl 06/01/17 0034 Bedside Blood Glucose 86 mg/dl 05/31/172019 Bedside Blood Glucose 116 mg/dl 05/31/17 1808 Bedside Blood Glucose 151 mg/dl H 05/31/17 1152 Bedside Blood Glucose 100 mg/dl 05/31/17 0836 Bedside Blood Glucose 100 mg/dl 05/31/17 0600 KVNG EDWARD Jun 01, 2017 07:12
[2017-06-01 07:15] LABS: ALANINE AMINOTRANSFERASE 96 U/L (12-78); ALBUMIN/GLOBULIN RATIO 0.2 (1.0-2.7); ANION GAP 8 mmol/L (5-15); ASPARTATE AMINO TRANSFERASE 138 U/L (15-37); CALCIUM 8.7 MG/DL (8.5-10.1); CARBON DIOXIDE 23 MMOL/L (21-32); CHLORIDE 109 MMOL/L (98-107); CREATININE 1.7 MG/DL (0.55-1.30); POTASSIUM 3.4 MMOL/L (3.5-5.1); SODIUM 140 MMOL/L (136-145); TOTAL PROTEIN 6.5 G/DL (6.4-8.2)
[2017-06-01 07:47] VITALS: BP 131/70
[2017-06-01 08:30] VITALS: BP 131/70
[2017-06-01] MEDS: Metoprolol Tartrate 12.5mg TAB GT SCH (08:30)
[2017-06-01] MEDS: Aspirin Baby 81mg GT SCH (08:30)
[2017-06-01] MEDS ORDERED: Levemir Flexpen SUBQ SCH (09:00)
--- NOTE | 2017-06-01 09:00 | Diagnostic Imaging Report ---
Indication: Abdominal pain Technique: Grayscale and duplex images of the abdominal aorta Comparison: Reference made to CT scan 05/29/2017 Findings: There is very mild fusiform ectasia of the distal bowel aorta, which measures up to 2.2 cm maximal diameter. Color Doppler imaging indicates patency. The proximal common iliac arteries are nonaneurysmal.. Review of recent CT scan also indicates absence of significant aortic dilatation Impression: Negative for evidence of abdominal aortic aneurysm
--- NOTE | 2017-06-01 09:13 | Diagnostic Imaging Report ---
Indication: Abnormal liver function tests. Abnormal renal function tests Technique: Lizama-scale and duplex images of the upper abdomen were obtained Comparison: 05/23/2017 Findings: Exam is limited due to presence of gastrostomy tube and excessive overlying bowel gas. Gallbladder is poorly visualized. Non-shadowing foci within the lumen could indicate tumefactive sludge or small polyps. Previously described possible small gallstones are not definitely demonstrated. The gallbladder wall is thickened, measuring up to 5 mm thick. Common bile duct measures 5 mm in diameter. No intrahepatic biliary ductal dilatation. Liver demonstrates normal echogenicity, no focal abnormality. Portal vein and hepatic veins are patent. Pancreas is obscured by bowel gas. Spleen could not be demonstrated due to overlying bowel gas and gastrostomy tube. Previously demonstrated to be normal. Left kidney measures 11 cm in length. Right kidney measures 11 cm length. Both kidneys demonstrate increased echogenicity. Both kidneys demonstrate cysts. A calcification described on the prior exam in the right renal sinus is not evident currently; review of recent CT scan indicates that this was probably a venous phlebolith. There is no hydronephrosis. . Non-aneurysmal abdominal aorta . Impression: Limited exam as described. Note nonvisualization of the pancreas and spleen Suboptimal visualization of the gallbladder. Previously question calculi are not visible on the current exam. Subcentimeter non-shadowing foci could represent tumefactive sludge or small polyps. There is gallbladder wall thickening. This does raise concern for acute cholecystitis, although could be due to generalized edema or adjacent hepatocellular disease.. Consider nuclear medicine hepatobiliary scan for evaluation if there is high clinical suspicion Negative for dilated ducts Echogenic bilateral kidneys, also previously described, consistent with medical renal disease. Negative for hydronephrosis Incidental finding bilateral renal cysts
--- NOTE | 2017-06-01 09:32 | Nephrology Progress Note ---
Assessment/Plan Problem List: (1) ATN (acute tubular necrosis) (2) Prostate cancer (3) Anemia (4) PVD (peripheral vascular disease) Assessment PEG in- Acute renal failure cr down to 1.7 Due IVC Filter today chronic underlying renal failure, ? Diabetic Nephropathy Severe Anemia HypoAlbuminemia, r/o Nephrotic syndrom UTI / Sepsis Basal Atelectasis Prostate cancer h/o CVA toxic metabolic encephalopathy [place] , Troponin maxed 11.3 now declining Plan Plan: K via GT gastric support MONSTER Renal- Negative for hydronephrosis 2 D Echo- Left ventricular ejection fraction estimated to be 55 %. Mild left ventricular hypertrophy. 24 H urine protein- minimal monitor renal parameters per consultants DC and out patinet elective Amputation vs Comfort care Subjective ROS Limited/Unobtainable: No Constitutional: Reports: malaise, weakness Objective Objective Last 24 Hour Vital Signs Date Time Temp Pulse Resp B/P (MAP) Pulse Ox O2 Delivery O2 Flow Rate FiO2 06/01/17 08:30 96 131/70 06/01/17 07:47 97.3 96 20 131/70 99 Room Air 06/01/17 04:00 97.0 93 20 136/64 98 Room Air 2.0 28 06/01/17 04:00 95 06/01/17 00:00 97.8 82 20 136/76 98 Room Air 2.0 28 06/01/17 00:00 84 05/31/17 20:17 82 153/84 05/31/17 20:00 97.7 82 20 153/84 98 Room Air 2.0 28 05/31/17 20:00 81 05/31/17 19:30 98 Nasal Cannula 2.0 28 05/31/17 19:30 70 20 Nasal Cannula 2.0 28 05/31/17 19:30 Nasal Cannula 2.0 28 05/31/17 16:00 67 05/31/17 16:00 97.7 76 21 137/56 97 Room Air 05/31/17 12:00 97.2 65 20 141/63 99 Room Air 05/31/17 12:00 68 Laboratory Tests 06/01/17 06:00: White Blood Count 8.0, Red Blood Count 3.07L, Hemoglobin 9.1L, Hematocrit 27.4L , Mean Corpuscular Volume 89, Mean Corpuscular Hemoglobin 29.8, Mean Corpuscular Hemoglobin Concent 33.3, Red Cell Distribution Width 18.1H, Platelet Count 286, Mean Platelet Volume 7.4, Neutrophils (%) (Auto) 72.4, Lymphocytes (%) (Auto) 18.0L, Monocytes (%) (Auto) 7.2, Eosinophils (%) (Auto) 2.0, Basophils (%) (Auto) 0.5, Sodium Level 140, Potassium Level 3.4L, Chloride Level 109H, Carbon Dioxide Level 23, Anion Gap 8, Blood Urea Nitrogen 18, Creatinine 1.7H, Estimat Glomerular Filtration Rate , Glucose Level 157H, Calcium Level 8.7, Total Bilirubin 0.5, Aspartate Amino Transf (AST/SGOT) 138H, Alanine Aminotransferase (ALT/SGPT) 96H, Alkaline Phosphatase 372H, Total Protein 6.5, Albumin 1.3L, Globulin 5.2, Albumin/Globulin Ratio 0.2L Height (Feet): 5 Height (Inches): 8.00 Weight (Pounds): 210 General Appearance: no apparent distress, lethargic, confused Respiratory/Chest: decreased breath sounds Abdomen: soft, distended Objective no other changes YOLANDA NAVA Jun 01, 2017 09:32
--- NOTE | 2017-06-01 10:00 | Infectious Diseases Prog Note ---
Assessment/Plan Assessment/Plan Probable Pna - SCx: Nl Ade and Capri : colonizer ; s/p Rx CT: Bilateral lower lobe and posterior right middle lobe pulmonary groundglass opacity and dense consolidation -CXR : Basilar residual opacities possibly scarring or atelectasis. 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 cholecystitis Abd us 05/31: Limited exam as described. Note nonvisualization of the pancreas and spleen. Suboptimal visualization of the gallbladder. Previously question calculi are not visible on the current exam. Subcentimeter non-shadowing foci could represent tumefactive sludge or small polyps. There is gallbladder wall thickening. This does raise concern for acute cholecystitis, although could be due to generalized edema or adjacent hepatocellular disease.. Consider nuclear medicine hepatobiliary scan for evaluation if there is high clinical suspicion. Negative for dilated ducts. Echogenic bilateral kidneys, also previously described, consistent with medical renal disease. Negative for hydronephrosis. Incidental finding bilateral renal cysts Hepatitis panel :neg for hepatitis B/C US of abd 05/23: Gallbladder sludge and possible small stones. Negative for dilated ducts NSTEMI Acute LLE DVT SP IVC filter 05/26 Acute renal insufficiency, superimposed on chronic kidney disease Anemia, severe DM2 - HbA1c 10.5% NKDA Full Code PLAN: -Decision for possible comfort care -if consistent with goals of care, can continue abx therapy with PO Augmentin abx d# 10/14; may extend duration if needed for gangrene ( 05/31 SP Amoxicillin #9) ( 05/27 SP Cefepime d # 7 ) ( 05/25 SP IV Vanco d# 12 ) ( 05/21 SP IV Rocephin day #3 ) -If consistent with goals of care, consider HIDA scan f/u final cultures Monitor CBC, temperatures Monitor BMP care was discussed with Dr Sandoval Subjective Allergies: Coded Allergies: No Known Allergies (Unverified , 12/28/15) Subjective afebrile no leukocytosis Objective Vital Signs Last 24 Hour Vital Signs Date Time Temp Pulse Resp B/P (MAP) Pulse Ox O2 Delivery O2 Flow Rate FiO2 06/01/17 08:30 96 131/70 06/01/17 07:47 97.3 96 20 131/70 99 Room Air 06/01/17 04:00 97.0 93 20 136/64 98 Room Air 2.0 28 06/01/17 04:00 95 06/01/17 00:00 97.8 82 20 136/76 98 Room Air 2.0 28 06/01/17 00:00 84 05/31/17 20:17 82 153/84 05/31/17 20:00 97.7 82 20 153/84 98 Room Air 2.0 28 05/31/17 20:00 81 05/31/17 19:30 98 Nasal Cannula 2.0 28 05/31/17 19:30 70 20 Nasal Cannula 2.0 28 05/31/17 19:30 Nasal Cannula 2.0 28 05/31/17 16:00 67 05/31/17 16:00 97.7 76 21 137/56 97 Room Air 05/31/17 12:00 97.2 65 20 141/63 99 Room Air 05/31/17 12:00 68 Height (Feet): 5 Height (Inches): 8.00 Weight (Pounds): 210 Objective HEENT: No pale conjunctivae. No icterus. NECK: No lymphadenopathy. CHEST: Clear. HEART: S1 and S2. ABDOMEN: Soft. EXTREMITIES: BLE with bandages Neuro: lethargic Microbiology Date/Time Source Procedure Growth Status 05/30/17 05:30 Sacral Wound Gram Stain - Final Resulted 05/30/17 05:30 Wound Culture - Preliminary Capri Albicans Resulted Laboratory Tests Test 06/01/17 06:00 White Blood Count 8.0 K/UL (4.8-10.8) Red Blood Count 3.07 M/UL (4.70-6.10) L Hemoglobin 9.1 G/DL (14.2-18.0) L Hematocrit 27.4 % (42.0-52.0) L Mean Corpuscular Volume 89 FL (80-99) Mean Corpuscular Hemoglobin 29.8 PG (27.0-31.0) Mean Corpuscular Hemoglobin Concent 33.3 G/DL (32.0-36.0) Red Cell Distribution Width 18.1 % (11.6-14.8) H Platelet Count 286 K/UL (150-450) Mean Platelet Volume 7.4 FL (6.5-10.1) Neutrophils (%) (Auto) 72.4 % (45.0-75.0) Lymphocytes (%) (Auto) 18.0 % (20.0-45.0) L Monocytes (%) (Auto) 7.2 % (1.0-10.0) Eosinophils (%) (Auto) 2.0 % (0.0-3.0) Basophils (%) (Auto) 0.5 % (0.0-2.0) Sodium Level 140 MMOL/L (136-145) Potassium Level 3.4 MMOL/L (3.5-5.1) L Chloride Level 109 MMOL/L (98-107) H Carbon Dioxide Level 23 MMOL/L (21-32) Anion Gap 8 mmol/L (5-15) Blood Urea Nitrogen 18 mg/dL (7-18) Creatinine 1.7 MG/DL (0.55-1.30) H Estimat Glomerular Filtration Rate mL/min (>60) Glucose Level 157 MG/DL (74-106) H Calcium Level 8.7 MG/DL (8.5-10.1) Total Bilirubin 0.5 MG/DL (0.2-1.0) Aspartate Amino Transf (AST/SGOT) 138 U/L (15-37) H Alanine Aminotransferase (ALT/SGPT) 96 U/L (12-78) H Alkaline Phosphatase 372 U/L (46-116) H Total Protein 6.5 G/DL (6.4-8.2) Albumin 1.3 G/DL (3.4-5.0) L Globulin 5.2 g/dL Albumin/Globulin Ratio 0.2 (1.0-2.7) L Current Medications Medications (Trade) Dose Ordered Sig/Altaf Route PRN Reason Start Time Stop Time Status Last Admin Dose Admin Acetaminophen/ Hydrocodone Bitart ([place] 10/325) 1 ea Q4H PRN ORAL For Pain 05/31/17 06:45 06/07/17 06:44 Amoxicillin/ Clavulanate Potassium (Augmentin) 500 mg BID ORAL 05/31/17 18:00 06/07/17 17:59 06/01/17 08:30 Aspirin (ASA) 81 mg DAILY GT 05/31/17 15:00 06/30/17 14:59 06/01/17 08:30 Collagenase (Santyl) 1 applic DAILY TOPIC 05/31/17 09:00 06/29/17 08:59 06/01/17 08:31 Dextrose (Dextrose 50%) STAT PRN IV Hypoglycemia 05/30/17 10:30 06/18/17 10:29 05/30/17 11:41 Insulin Aspart (NovoLOG) EVERY 6 HOURS SUBQ 05/30/17 12:00 06/19/17 06:29 06/01/17 06:12 Insulin Detemir (Levemir) 23 units Q12HR SUBQ 06/01/17 09:00 07/01/17 08:59 06/01/17 08:32 Metoprolol Tartrate (Lopressor) 37.5 mg Q12HR GT 05/30/17 21:00 06/27/17 08:59 06/01/17 08:30 Potassium Chloride (KCl 10% 20 mEq oral solution) 40 meq ONCE ONCE NG 06/01/17 09:45 06/01/17 09:46 UNV Risperidone (RisperDAL) 1 mg DAILYPRN PRN GT For Anxiety 05/30/17 10:30 06/29/17 10:29 05/31/17 21:40 Silver Sulfadiazine (Silvadene Cream 25gm) 1 applic DAILY TOPIC 05/31/17 09:00 06/28/17 21:44 06/01/17 08:31 Tamsulosin HCl (Flomax) 0.4 mg BEDTIME ORAL 05/30/17 21:00 06/19/17 20:59 05/31/17 20:16 Cyndy Tamez M.D. Jun 01, 2017 10:00
[2017-06-01] MEDS ORDERED: NS 500ML ONE (10:24)
[2017-06-01] MEDS ORDERED: Sterile Water Irrig 1000ml IRRIG ONE (10:24)
--- NOTE | 2017-06-01 10:47 | GI Progress Note ---
Assessment/Plan Problems: (1) Abdominal pain ICD Codes: R10.9 - Unspecified abdominal pain SNOMED: 75017861 (2) Hypoalbuminemia ICD Codes: E88.09 - Other disorders of plasma-protein metabolism, not elsewhere classified SNOMED: 995001212 (3) Generalized weakness ICD Codes: R53.1 - Weakness SNOMED: 09283930 (4) Diarrhea ICD Codes: R19.7 - Diarrhea, unspecified SNOMED: 90088035 (5) Anemia ICD Codes: D64.9 - Anemia, unspecified SNOMED: 429510532 (6) Diabetes mellitus ICD Codes: E11.9 - Type 2 diabetes mellitus without complications SNOMED: 81079481 Status: stable Status Narrative Discussed with Dr. Blackman. Assessment/Plan - dysphagia - s/p GT - CVA - abnormal LFT - ? statin, ? other cause - s/p IVC filter - anemia - OB (+) Stools - Azotemia - rising CRP, ? etiology abdominal U/S reviewed >> - Subcentimeter non-shadowing foci could represent tumefactive sludge or small polyps. There is gallbladder wall thickening. This does raise concern for acute cholecystitis, although could be due to generalized edema or adjacent hepatocellular disease. Recommendations Hold statin and other non vital meds GTFs per dietary monitor CBC / transfuse PRN PPI follow LFTs fu labs Subjective Subjective limited Objective Last 24 Hour Vital Signs Date Time Temp Pulse Resp B/P (MAP) Pulse Ox O2 Delivery O2 Flow Rate FiO2 06/01/17 08:30 96 131/70 06/01/17 07:47 97.3 96 20 131/70 99 Room Air 06/01/17 04:00 97.0 93 20 136/64 98 Room Air 2.0 28 06/01/17 04:00 95 06/01/17 00:00 97.8 82 20 136/76 98 Room Air 2.0 28 06/01/17 00:00 84 05/31/17 20:17 82 153/84 05/31/17 20:00 97.7 82 20 153/84 98 Room Air 2.0 28 05/31/17 20:00 81 05/31/17 19:30 98 Nasal Cannula 2.0 28 05/31/17 19:30 70 20 Nasal Cannula 2.0 28 05/31/17 19:30 Nasal Cannula 2.0 28 05/31/17 16:00 67 05/31/17 16:00 97.7 76 21 137/56 97 Room Air 05/31/17 12:00 97.2 65 20 141/63 99 Room Air 05/31/17 12:00 68 Laboratory Tests Test 06/01/17 06:00 White Blood Count 8.0 K/UL (4.8-10.8) Red Blood Count 3.07 M/UL (4.70-6.10) L Hemoglobin 9.1 G/DL (14.2-18.0) L Hematocrit 27.4 % (42.0-52.0) L Mean Corpuscular Volume 89 FL (80-99) Mean Corpuscular Hemoglobin 29.8 PG (27.0-31.0) Mean Corpuscular Hemoglobin Concent 33.3 G/DL (32.0-36.0) Red Cell Distribution Width 18.1 % (11.6-14.8) H Platelet Count 286 K/UL (150-450) Mean Platelet Volume 7.4 FL (6.5-10.1) Neutrophils (%) (Auto) 72.4 % (45.0-75.0) Lymphocytes (%) (Auto) 18.0 % (20.0-45.0) L Monocytes (%) (Auto) 7.2 % (1.0-10.0) Eosinophils (%) (Auto) 2.0 % (0.0-3.0) Basophils (%) (Auto) 0.5 % (0.0-2.0) Sodium Level 140 MMOL/L (136-145) Potassium Level 3.4 MMOL/L (3.5-5.1) L Chloride Level 109 MMOL/L (98-107) H Carbon Dioxide Level 23 MMOL/L (21-32) Anion Gap 8 mmol/L (5-15) Blood Urea Nitrogen 18 mg/dL (7-18) Creatinine 1.7 MG/DL (0.55-1.30) H Estimat Glomerular Filtration Rate mL/min (>60) Glucose Level 157 MG/DL (74-106) H Calcium Level 8.7 MG/DL (8.5-10.1) Total Bilirubin 0.5 MG/DL (0.2-1.0) Aspartate Amino Transf (AST/SGOT) 138 U/L (15-37) H Alanine Aminotransferase (ALT/SGPT) 96 U/L (12-78) H Alkaline Phosphatase 372 U/L (46-116) H Total Protein 6.5 G/DL (6.4-8.2) Albumin 1.3 G/DL (3.4-5.0) L Globulin 5.2 g/dL Albumin/Globulin Ratio 0.2 (1.0-2.7) L Height (Feet): 5 Height (Inches): 8.00 Weight (Pounds): 210 General Appearance: no apparent distress, confused Cardiovascular: normal rate Respiratory/Chest: normal breath sounds, no respiratory distress Abdominal Exam: normal bowel sounds, non tender, soft, GT site - c/d/i Extremities: non-tender Milady Schafer N.P. Jun 01, 2017 10:47
[2017-06-01] MEDS ORDERED: KCl 10% 20 mEq/15ml liquid NG ONE (11:00)
--- NOTE | 2017-06-01 11:14 | Pulmonology Progress Note ---
Assessment/Plan Problems: (1) Non-ST elevation (NSTEMI) myocardial infarction (2) ATN (acute tubular necrosis) (3) DVT (deep venous thrombosis) (4) Encephalopathy acute (5) Sepsis (6) PVD (peripheral vascular disease) (7) Elevated CEA (8) Anemia (9) Prostate cancer (10) Diabetes mellitus Assessment/Plan pt stating that he wants to go home to . family agreed with comfort care will send home with hospice care Subjective ROS Limited/Unobtainable: No Interval Events: comfortable awake Allergies: Coded Allergies: No Known Allergies (Unverified , 12/28/15) Objective Last 24 Hour Vital Signs Date Time Temp Pulse Resp B/P (MAP) Pulse Ox O2 Delivery O2 Flow Rate FiO2 06/01/17 08:30 96 131/70 06/01/17 07:56 Room Air 06/01/17 07:56 99 Room Air 06/01/17 07:50 97 20 Room Air 06/01/17 07:47 97.3 96 20 131/70 99 Room Air 06/01/17 04:00 97.0 93 20 136/64 98 Room Air 2.0 28 06/01/17 04:00 95 06/01/17 00:00 97.8 82 20 136/76 98 Room Air 2.0 28 06/01/17 00:00 84 05/31/17 20:17 82 153/84 05/31/17 20:00 97.7 82 20 153/84 98 Room Air 2.0 28 05/31/17 20:00 81 05/31/17 19:30 98 Nasal Cannula 2.0 28 05/31/17 19:30 70 20 Nasal Cannula 2.0 28 05/31/17 19:30 Nasal Cannula 2.0 28 05/31/17 16:00 67 05/31/17 16:00 97.7 76 21 137/56 97 Room Air 05/31/17 12:00 97.2 65 20 141/63 99 Room Air 05/31/17 12:00 68 General Appearance: WD/WN HEENT: normocephalic, atraumatic Respiratory/Chest: chest wall non-tender, lungs clear Cardiovascular: normal peripheral pulses, normal rate Abdomen: soft, non tender, no mass Genitourinary: normal external genitalia Skin: no rash Microbiology Date/Time Source Procedure Growth Status 05/30/17 05:30 Sacral Wound Gram Stain - Final Resulted 05/30/17 05:30 Wound Culture - Preliminary Capri Albicans Resulted Laboratory Tests 06/01/17 06:00: White Blood Count 8.0, Red Blood Count 3.07L, Hemoglobin 9.1L, Hematocrit 27.4L , Mean Corpuscular Volume 89, Mean Corpuscular Hemoglobin 29.8, Mean Corpuscular Hemoglobin Concent 33.3, Red Cell Distribution Width 18.1H, Platelet Count 286, Mean Platelet Volume 7.4, Neutrophils (%) (Auto) 72.4, Lymphocytes (%) (Auto) 18.0L, Monocytes (%) (Auto) 7.2, Eosinophils (%) (Auto) 2.0, Basophils (%) (Auto) 0.5, Sodium Level 140, Potassium Level 3.4L, Chloride Level 109H, Carbon Dioxide Level 23, Anion Gap 8, Blood Urea Nitrogen 18, Creatinine 1.7H, Estimat Glomerular Filtration Rate , Glucose Level 157H, Calcium Level 8.7, Total Bilirubin 0.5, Aspartate Amino Transf (AST/SGOT) 138H, Alanine Aminotransferase (ALT/SGPT) 96H, Alkaline Phosphatase 372H, Total Protein 6.5, Albumin 1.3L, Globulin 5.2, Albumin/Globulin Ratio 0.2L YOSHI EDOUARD Jun 01, 2017 11:14
--- NOTE | 2017-06-01 16:07 | General Progress Note ---
Assessment/Plan Status: stable, progressing Assessment/Plan encephalopathy cont current meds Subjective Neurologic/Psychiatric: Reports: anxiety, depressed Allergies: Coded Allergies: No Known Allergies (Unverified , 12/28/15) Subjective confused periods of agitation more alert Objective Last 24 Hour Vital Signs Date Time Temp Pulse Resp B/P (MAP) Pulse Ox O2 Delivery O2 Flow Rate FiO2 06/01/17 08:30 96 131/70 06/01/17 07:56 Room Air 06/01/17 07:56 99 Room Air 06/01/17 07:50 97 20 Room Air 21 06/01/17 07:47 97.3 96 20 131/70 99 Room Air 06/01/17 04:00 97.0 93 20 136/64 98 Room Air 2.0 28 06/01/17 04:00 95 06/01/17 00:00 97.8 82 20 136/76 98 Room Air 2.0 28 06/01/17 00:00 84 05/31/17 20:17 82 153/84 05/31/17 20:00 97.7 82 20 153/84 98 Room Air 2.0 28 05/31/17 20:00 81 05/31/17 19:30 98 Nasal Cannula 2.0 28 05/31/17 19:30 70 20 Nasal Cannula 2.0 28 05/31/17 19:30 Nasal Cannula 2.0 28 Laboratory Tests 06/01/17 06:00: White Blood Count 8.0, Red Blood Count 3.07L, Hemoglobin 9.1L, Hematocrit 27.4L , Mean Corpuscular Volume 89, Mean Corpuscular Hemoglobin 29.8, Mean Corpuscular Hemoglobin Concent 33.3, Red Cell Distribution Width 18.1H, Platelet Count 286, Mean Platelet Volume 7.4, Neutrophils (%) (Auto) 72.4, Lymphocytes (%) (Auto) 18.0L, Monocytes (%) (Auto) 7.2, Eosinophils (%) (Auto) 2.0, Basophils (%) (Auto) 0.5, Sodium Level 140, Potassium Level 3.4L, Chloride Level 109H, Carbon Dioxide Level 23, Anion Gap 8, Blood Urea Nitrogen 18, Creatinine 1.7H, Estimat Glomerular Filtration Rate , Glucose Level 157H, Calcium Level 8.7, Total Bilirubin 0.5, Aspartate Amino Transf (AST/SGOT) 138H, Alanine Aminotransferase (ALT/SGPT) 96H, Alkaline Phosphatase 372H, Total Protein 6.5, Albumin 1.3L, Globulin 5.2, Albumin/Globulin Ratio 0.2L Height (Feet): 5 Height (Inches): 8.00 Weight (Pounds): 210 General Appearance: no apparent distress, alert, confused Neurologic: alert, normal mood/affect, unresponsive Madi Hansen M.D. Jun 01, 2017 16:07
--- NOTE | 2017-06-01 17:10 | General Progress Note ---
Assessment/Plan Assessment/Plan ASSESSMENT AND RECOMMENDATIONS: 1. Bilateral deep venous thrombosis. --> ivc filter has been placed 2. Anemia, secondary to chronic disease. We will obtain TIBC as well as iron level. Ferritin is 177. HH improving 3. Anemia, secondary to end-stage renal disease. 4. Psychiatric disorder. He has been seen by Psychiatry service. Continue to follow. 5. Malnutrition, peg tube has been placed Subjective Allergies: Coded Allergies: No Known Allergies (Unverified , 12/28/15) All Systems: reviewed and negative except above Subjective NAD Objective Last 24 Hour Vital Signs Date Time Temp Pulse Resp B/P (MAP) Pulse Ox O2 Delivery O2 Flow Rate FiO2 06/01/17 08:30 96 131/70 06/01/17 07:56 Room Air 06/01/17 07:56 99 Room Air 06/01/17 07:50 97 20 Room Air 06/01/17 07:47 97.3 96 20 131/70 99 Room Air 06/01/17 04:00 97.0 93 20 136/64 98 Room Air 2.0 28 06/01/17 04:00 95 06/01/17 00:00 97.8 82 20 136/76 98 Room Air 2.0 28 06/01/17 00:00 84 05/31/17 20:17 82 153/84 05/31/17 20:00 97.7 82 20 153/84 98 Room Air 2.0 28 05/31/17 20:00 81 05/31/17 19:30 98 Nasal Cannula 2.0 28 05/31/17 19:30 70 20 Nasal Cannula 2.0 28 05/31/17 19:30 Nasal Cannula 2.0 28 Laboratory Tests 06/01/17 06:00: White Blood Count 8.0, Red Blood Count 3.07L, Hemoglobin 9.1L, Hematocrit 27.4L , Mean Corpuscular Volume 89, Mean Corpuscular Hemoglobin 29.8, Mean Corpuscular Hemoglobin Concent 33.3, Red Cell Distribution Width 18.1H, Platelet Count 286, Mean Platelet Volume 7.4, Neutrophils (%) (Auto) 72.4, Lymphocytes (%) (Auto) 18.0L, Monocytes (%) (Auto) 7.2, Eosinophils (%) (Auto) 2.0, Basophils (%) (Auto) 0.5, Sodium Level 140, Potassium Level 3.4L, Chloride Level 109H, Carbon Dioxide Level 23, Anion Gap 8, Blood Urea Nitrogen 18, Creatinine 1.7H, Estimat Glomerular Filtration Rate , Glucose Level 157H, Calcium Level 8.7, Total Bilirubin 0.5, Aspartate Amino Transf (AST/SGOT) 138H, Alanine Aminotransferase (ALT/SGPT) 96H, Alkaline Phosphatase 372H, Total Protein 6.5, Albumin 1.3L, Globulin 5.2, Albumin/Globulin Ratio 0.2L Height (Feet): 5 Height (Inches): 8.00 Weight (Pounds): 210 General Appearance: no apparent distress EENT: normal ENT inspection Neck: normal alignment Cardiovascular: normal peripheral pulses Respiratory/Chest: chest wall non-tender Extremities: normal range of motion Chano Bellamy Jun 01, 2017 17:10
--- NOTE | 2017-06-02 23:08 | Diagnostic Imaging Report ---
APPROVED REPORT CPT Code: 37585 Vascular Symptoms CVA/TIA: Doppler Spectral Velocity Analysis RightLeft arteries. The Doppler spectral flow analysis indicates the degree of stenosis is minimal (10%) in the common carotid artery, mild (30-40%) in the internal carotid artery, and mild (30%) in the external carotid artery. VERTEBRAL- The vertebral artery is patent, without evidence of stenosis or steal. arteries. The Doppler spectral flow analysis indicates the degree of stenosis is minimal (10%) in the common carotid artery, mild (30-40%) in the internal carotid artery, and mild (30%) in the external carotid artery. VERTEBRAL- Doppler signals obtained from the left vertebral artery was low amplitude and highly resistive, suggestive of intracranial occlusive disease.
--- NOTE | 2017-06-02 23:10 | Diagnostic Imaging Report ---
APPROVED REPORT CPT Code: 39673 Symptoms Non-healing Ulcer : Comments: Risk Factors TIA/CVA History Comments Technically difficult and limited visualization due to heavily calcifed vessels. Last study was done on 05/24/2017 RIGHT LEG: Common femoral artery waveform analysis is abnormal, suggestive of aorta- iliac arterial occlusive disease. Color flow duplex sonography reveals an occlusion of the femoral artery and popliteal artery. Reconstitution is seen in the distal popliteal artery. No flow detected in the dorsalis pedis artery. The distal posterior and anterior tibial arteries are not well visualized.The mid posterior and anterior tibial arteries are patent. Doppler posterior tibial artery waveform analysis is monophasic, consistent with severe to critical ischemia at rest. LEFT LEG: Common femoral artery waveform analysis is abnormal, suggestive of aorta- iliac arterial occlusive disease. Color flow duplex sonography reveals an occlusion of the femoral artery and popliteal artery. Reconstitution is seen in the distal popliteal artery. The dorsalis pedis artery not imaged, due to wound and bandages. The distal posterior and anterior tibial arteries are not well visualized.The mid posterior and anterior tibial arteries are patent. Doppler posterior tibial artery waveform analysis is monophasic, consistent with severe to critical ischemia at rest.
--- NOTE | 2017-06-04 06:54 | Discharge Summary ---
Discharge Summary Hospital Course Date of Admission May 19, 2017 at 20:50 Date of Discharge Jun 01, 2017 at 10:25 Admitting Diagnosis HYPERGLYCEMIA/ALTERED MENTAL STATUS/+TROPONIN HPI Myke Bhatt is a 76 year old male who was admitted on May 19, 2017 at 20:50 for Hyperglycemia/Altered Mental Status/+Troponine Hospital Course [id number] Discharge Discharge Disposition Patient was discharged to Home with Hospice (50) Discharge Diagnoses: Conchis Tavera NP Jun 04, 2017 06:54
--- NOTE | 2017-06-04 23:45 | Discharge Summary 2 SIG ---
DATE OF ADMISSION: 05/19/2017 DATE OF DISCHARGE: 06/01/2017 CONSULTANTS: 1. Colton Cunningham M.D. 2. George Chanel M.D. 3. Jung Castelan M.D. 4. Gray Denton D.P.M. 5. Chano Bellamy M.D. 6. Akhil Blackman M.D. 7. Ghanshyam Esparza M.D. 8. Madi Hansen M.D. 9. Feng Arzate M.D. 10. Carmine Campoverde M.D. 11. Gael Waite M.D. BRIEF HOSPITAL COURSE: The patient is an unfortunate 76-year-old male with history of prostate CA, CVA, diabetes, and hypertension, presented to ED for evaluation of altered level of consciousness at the [facility]. His Accu-Chek was also critically high in 500s and [facility] has been having hard time controlling his blood sugar due to high levels and fluctuations in blood glucose level. On arrival to ED, the patient was lethargic. There was no sign of distress on evaluation. WBC was elevated to 13. BUN was 150 and creatinine 5.4. Troponin was 1.2. Total CK was 889. Potassium was 5.3. Lactate was elevated. UA was grossly positive for UTI. EKG done was in normal sinus rhythm with no acute ischemic changes. Chest x-ray showed basilar residual opacities. He was admitted to [facility] for sepsis, ATN, encephalopathy, and diabetes mellitus. He was started empirically on IV Rocephin. He underwent neurological evaluation and was diagnosed to have severe toxic metabolic encephalopathy. Head CT showed chronic age-related changes, negative for acute intracranial bleed or mass effect. He was ordered to have an MRI; however, the patient was unable to tolerate the procedure as he was agitated. Psychiatric evaluation was done and the patient was started on Risperdal. His blood sugars were monitored. He was given Levemir and NovoLog. He was noted to have elevated troponin, initially assessed to be secondary to renal function. However, on 05/21/2017, EKG had inverted T-wave in V6, which was new. He was started on aspirin, statins, and beta-blockers. He is not a candidate for invasive cardiac intervention due to comorbidities and poor overall functional status. Echocardiogram done showed ejection fraction 55%. Renal function was elevated. Renal ultrasound done showed increased renal echogenicity consistent with medical renal disease. Negative for hydronephrosis. He underwent venous duplex of lower extremity and showed an acute nonocclusive thrombus in the left leg. He was started on heparin, however, heparin was discontinued as the patient had anemia. He received a total of 3 units packed RBC transfusion during inpatient stay. He also came in with diabetic ulcers on the left foot. Podiatry evaluation was done showed deep tissue injury to the left plantar aspect of the first metatarsophalangeal joint. He was recommended to continue wound care. 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 He had, on duplex, revealed severe arterial occlusive disease. He underwent IVC filter placement by the interventional radiologist on 05/26/2017. The patient will require selective leg angiography to assess perfusion and possible percutaneous revascularization. He had elevated LFTs. Hepatitis panel done was negative and abdominal ultrasound showed no dilated ducts. He had a swallow evaluation done that showed dysphagia, and finally, the patient consented to PEG placement and on 05/27/2017, he underwent EGD with PEG tube placement. Findings showed shallow duodenal ulcer. He also came in with sacral decubitus ulcer and was seen by Dr. Chanel. He was continued with wound care using Santyl to soften the eschar. The ulcer was assessed to be not ready for debridement as eschar is still firmly adherent. His blood sugars continued to be monitored and insulin was adjusted. He was started on tube feeding and was tolerating feeding well. The patient will likely need amputation of both legs, but the patient and declined amputation. Social Service was called in. The patient wants comfort care and hospice. He was eventually discharged home with comfort care and hospice care. FINAL DIAGNOSES: 1. Sepsis. 2. Acute non-ST elevated myocardial infarction. 3. Acute renal failure with acute tubular necrosis. 4. Acute deep venous thrombosis, left leg. 5. Acute toxic metabolic encephalopathy. 6. Peripheral vascular disease. 7. Acute anemia requiring blood transfusion. 8. Prostate cancer. 9. Diabetes mellitus out of control. 10. Hypoalbuminemia. 11. Dysphagia, status post percutaneous endoscopic gastrostomy tube placement. 12. Probable pneumonia. 13. Urinary tract infection with enterococci. 14. Anemia of chronic renal disease. 15. Duodenal ulcer. 16. 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 17. Multiple deep tissue injury, present on admission. 18. Sacrococcygeal ulcer unstageable, present on admission. 19. Protein-calorie malnutrition. DISPOSITION: The patient was discharged home with hospice. DISCHARGE MEDICATIONS: Refer to medication list. Kel Sandoval M.D. I have been assigned to dictate discharge summary on this account and I was not involved in the patient's management. Conchis Tavera N.P. DR: SILVER JOB#: [id number] CC: [email or web address]
== END 2017-06-01 10:25 | disposition hospice, home (50) | DRG 853 ==
LOC: EDBD 18:38 → EMR 19:10 → CANBEDREQ 19:48 → EDBEDREQ 19:49 → 2W 20:50 → EDBEDREQ 23:02 → 2E 05-30 09:00
PROC: 06H03DZ Insertion of Intraluminal Device into Inferior Vena Cava, Percutaneous Approach (ICD-10-PCS; principal; 2017-05-26)
PROC: 0DH63UZ Insertion of Feeding Device into Stomach, Percutaneous Approach (ICD-10-PCS; 2017-05-27 08:28)
DX: A41.9 Sepsis, unspecified organism (principal); I21.4 Non-ST elevation (NSTEMI) myocardial infarction; N17.0 Acute kidney failure with tubular necrosis; E46 Unspecified protein-calorie malnutrition; L89.150 Pressure ulcer of sacral region, unstageable; I70.262 Atherosclerosis of native arteries of extremities with gangrene, left leg; E87.0 Hyperosmolality and hypernatremia; J18.9 Pneumonia, unspecified organism; G92 Toxic encephalopathy; K26.4 Chronic or unspecified duodenal ulcer with hemorrhage; D68.9 Coagulation defect, unspecified; I69.954 Hemiplegia and hemiparesis following unspecified cerebrovascular disease affecting left non-dominant side; M62.82 Rhabdomyolysis; N39.0 Urinary tract infection, site not specified; I82.493 Acute embolism and thrombosis of other specified deep vein of lower extremity, bilateral; L97.428 Non-pressure chronic ulcer of left heel and midfoot with other specified severity; E11.65 Type 2 diabetes mellitus with hyperglycemia; C61 Malignant neoplasm of prostate; I69.920 Aphasia following unspecified cerebrovascular disease; E86.0 Dehydration; D64.9 Anemia, unspecified; N40.0 Benign prostatic hyperplasia without lower urinary tract symptoms; Z68.31 Body mass index [BMI] 31.0-31.9, adult; I12.9 Hypertensive chronic kidney disease with stage 1 through stage 4 chronic kidney disease, or unspecified chronic kidney disease; E11.22 Type 2 diabetes mellitus with diabetic chronic kidney disease; N18.9 Chronic kidney disease, unspecified; I69.922 Dysarthria following unspecified cerebrovascular disease; I69.991 Dysphagia following unspecified cerebrovascular disease; I70.201 Unspecified atherosclerosis of native arteries of extremities, right leg; E11.621 Type 2 diabetes mellitus with foot ulcer; F01.50 Vascular dementia, unspecified severity, without behavioral disturbance, psychotic disturbance, mood disturbance, and anxiety; R19.7 Diarrhea, unspecified; Z51.5 Encounter for palliative care; F41.9 Anxiety disorder, unspecified
CPT/HCPCS: 36415; 70450; 71010; 71250; 74000; 74176; 74230; 76700; 76775; 76937; 80048; 80053; 80061; 81001; 81003; 81050; 82009; 82248; 82270; 82550; 82553; 82607; 82728; 82746; 82784; 82787; 82962; 83036; 83540; 83550; 83605; 83615; 83735; 83880; 84100; 84133; 84134; 84153; 84154; 84156; 84300; 84443; 84484; 84550; 85007; 85025; 85044; 85060; 85610; 85651; 85730; 86140; 86705; 86709; 86803; 86850; 86900; 86901; 86920; 87040; 87070; 87081; 87086; 87181; 87205; 87340; 89050; 93005; 93306; 93880; 93925; 93970; 93978; 94003; 94150; 94640; 94664; 94760; J1815; J7620; S5561